=== PATIENT | female | born 1985 | race Caucasian/White ===

== ENCOUNTER 2016-03-15 21:37 | Emergency (ER) | payer OTHER, SELFPAY ==
[2016-03-15] MEDS ORDERED: Phenergan 25 MG INJ IM ONE (22:22)
[2016-03-15] MEDS ORDERED: DILAUDID 1 MG/ML INJECTION IV ONE ×2 (22:22→23:16)
[2016-03-15] MEDS ORDERED: Pepcid 20 MG VIAL IV ONE ×2 (22:22→22:28)
--- NOTE | 2016-03-15 22:27 | ERPHSYRPT ---
- History of Present Illness Time Seen by Provider: 03/15/16 22:18 Historian: patient Patient Subjective Stated Complaint: Pt sts abd pain x 3 days with vomiting, sts vomited 4-5 times today. Sts diarrhea x 2 today. Sts pain is in rt upper abd and radiates between shoulder blades. Has hx of pancreas problems. Sts pain is 9/10. Pt sts she took phenergan at home, did not take pts pain medications at home due to vomiting. Sts abd feels bloated. Triage Nursing Assessment: Pt alert, oriented, answers all questions appropriately. Skin p/w/d, resps non-labored. Pt ambulatory to tx room, steady gait noted. Pt lungs CTA bilat, non-labored. ABD soft, tender rt upper/lower quadrants. + bowel sounds noted. Physician History: CC: abd pain hx: 30 y/o patient of Dr Anders Garcia at [facility]. She has hx of chronic pancreatitis. She is scheduled for ERCP later this month. She takes chronic percocet for pain. She has 3 days of increased abdominal pain. Some nausea. No fever. Always has chills. Pain is in upper abdomen and radiates around right back. Allergies/Adverse Reactions: codeine [Codeine] Allergy (Verified 03/15/16 22:00) Hives HIVES droperidol [Droperidol] Allergy (Verified 03/15/16 22:00) Hives HIVES duloxetine HCl [From Cymbalta] Allergy (Verified 03/15/16 22:00) SEIZURE SEIZURE ibuprofen Allergy (Verified 03/15/16 22:00) Hives HIVES ketorolac tromethamine [From Toradol] Allergy (Verified 03/15/16 22:00) Hives HIVES naproxen sodium [From Aleve] Allergy (Verified 03/15/16 22:00) Hives HIVES prochlorperazine edisylate [From Compazine] Allergy (Verified 03/15/16 22:00) LOCK JAW LOCK JAW prochlorperazine maleate [From Compazine] Allergy (Verified 03/15/16 22:00) LOCK JAW LOCK JAW morphine Adverse Reaction (Verified 03/15/16 22:00) Itching ITCH trazodone Adverse Reaction (Verified 03/15/16 22:00) Vomiting VOMITING Home Medications: Lipase/Protease/Amylase [Annita Carrillo 12,000 Units Capsule] 3 each PO TID 08/26/13 [ History] Oxycodone HCl/Acetaminophen [Percocet 10-325 mg Tablet] 1 each PO QIDPRN PRN [History] Promethazine HCl 25 mg [Phenergan 25 mg] 25 mg PO Q6H PRN 04/01/15 [ History] Hx Tetanus, Diphtheria Vaccination/Date Given: Yes (2008) Hx Influenza Vaccination/Date Given: No Hx Pneumococcal Vaccination/Date Given: No - Review of Systems Constitutional: Chills, Malaise, No Fever Respiratory: No Cough Cardiac: No Chest Pain Abdominal/Gastrointestinal: Abdominal Pain, Nausea, No Vomiting, No Diarrhea Genitourinary Symptoms: No Dysuria Musculoskeletal: Back Pain Skin: No Rash Neurological: No Headache All Other Systems: Reviewed and Negative - Past Medical History Pertinent Past Medical History: Yes Neurological History: Migraines ENT History: No Pertinent History Cardiac History: No Pertinent History Respiratory History: No Pertinent History Endocrine Medical History: Other Musculoskeletal History: Arthritis, Fractures GI Medical History: Pancreatitis History: No Pertinent History Psycho-Social History: No Pertinent History Female Reproductive Disorders: No Pertinent History Other Medical History: Pancreatitis - Past Surgical History Past Surgical History: Yes Neuro Surgical History: No Pertinent History Cardiac: No Pertinent History Respiratory: No Pertinent History Gastrointestinal: Cholecystectomy Genitourinary: Other Musculoskeletal: No Pertinent History Female Surgical History: No Pertinent History Other Surgical History: tonsillectomy. ERCPs-multiple - Social History Smoking Status: Current every day smoker How long have you smoked: 24 Exposure to second hand smoke: No Drug Use: none Patient Lives Alone: No - Female History Hx Last Menstrual Period: depo shot Hx Now: No - Nursing Vital Signs Nursing Vital Signs: Initial Vital Signs Temperature 97.6 F Temperature Source Oral Pulse Rate 80 Respiratory Rate 18 Blood Pressure 117/71 Pain Intensity 7 - Physical Exam General Appearance: alert, thin Eye Exam: PERRL/EOMI Ears, Nose, Throat Exam: normal ENT inspection, moist mucous membranes Neck Exam: normal inspection, non-tender, supple Respiratory Exam: normal breath sounds, lungs clear Cardiovascular Exam: regular rate/rhythm, No murmur Gastrointestinal/Abdomen Exam: soft, tenderness (epigastrum. No RLQ tenderness.) , No mass Back Exam: normal inspection, normal range of motion, No CVA tenderness Extremity Exam: normal inspection, normal range of motion Neurologic Exam: alert, oriented x 3, cooperative Skin Exam: warm, dry, No rash SpO2 Interpretation: normal SpO2: 98 Oxygen Delivery: Room Air - Course Nursing assessment & vital signs reviewed: Yes - Radiology Exams AAS X-ray Interpretation: Reviewed by me, Negative Ordered Tests: Active Orders 24 hr Category Date Time Status Clean Catch Urine Specimen STAT Care 03/15/16 22:22 Active IV Insertion STAT Care 03/15/16 22:22 Active NPO (ED) STAT Care 03/15/16 22:22 Active OBSTR/ACUTE ABDOMEN SERIES Stat Exams 03/15/16 22:22 Ordered CBC W DIFF Stat Lab 03/15/16 22:34 Completed CMP Stat Lab 03/15/16 22:34 Completed HCG QUALITATIVE,SERUM Stat Lab 03/15/16 22:34 Completed LIPASE Stat Lab 03/15/16 22:34 Completed Lactic Acid Urgent Lab 03/15/16 22:35 Completed UA W/ MICROSCOPIC Stat Lab 03/15/16 22:34 Completed Medication Summary Generic Name Dose Route Start Last Admin Trade Name Freq PRN Reason Stop Dose Admin Sodium Chloride 1,000 mls @ 999 mls/hr 03/15/16 23:16 03/15/16 23:23 Sodium Chloride 0.9% 1000 Ml IV 03/16/16 00:16 999 mls/hr .Q1H1M STA Administration Discontinued Medications Generic Name Dose Route Start Last Admin Trade Name Freq PRN Reason Stop Dose Admin Famotidine 20 mg 03/15/16 22:22 03/15/16 22:30 Pepcid 20 Mg Vial IV 03/15/16 22:23 20 mg STAT ONE Administration Famotidine Confirm 03/15/16 22:28 Pepcid 20 Mg Vial Administered 03/15/16 22:29 Dose 20 mg IV .STK-MED ONE Hydromorphone HCl 1 mg 03/15/16 22:22 03/15/16 22:31 Dilaudid 1 Mg/Ml Injection IV 03/15/16 22:23 1 mg STAT ONE Administration Hydromorphone HCl Confirm 03/15/16 22:28 Dilaudid 1 Mg/Ml Injection Administered 03/15/16 22:29 Dose 1 mg .ROUTE .STK-MED ONE Hydromorphone HCl 1 mg 03/15/16 23:16 03/15/16 23:22 Dilaudid 1 Mg/Ml Injection IV 03/15/16 23:17 1 mg STAT ONE Administration Hydromorphone HCl Confirm 03/15/16 23:20 Dilaudid 1 Mg/Ml Injection Administered 03/15/16 23:21 Dose 1 mg .ROUTE .STK-MED ONE Sodium Chloride 1,000 mls @ 999 mls/hr 03/15/16 22:22 03/15/16 23:22 Sodium Chloride 0.9% 1000 Ml IV 03/15/16 23:22 Not Given .Q1H1M STA Sodium Chloride Confirm 03/15/16 22:28 Sodium Chloride 0.9% 1000 Ml Administered 03/15/16 22:29 Dose 1,000 mls @ ud .ROUTE .STK-MED ONE Sodium Chloride Confirm 03/15/16 23:20 Sodium Chloride 0.9% 1000 Ml Administered 03/15/16 23:21 Dose 1,000 mls @ ud .ROUTE .STK-MED ONE Promethazine HCl 25 mg 03/15/16 22:22 03/15/16 22:31 Phenergan 25 Mg Inj IM 03/15/16 22:23 25 mg STAT ONE Administration Promethazine HCl Confirm 03/15/16 22:28 Phenergan 25 Mg Inj Administered 03/15/16 22:29 Dose 25 mg .ROUTE .STK-MED ONE Lab/Rad Data: Laboratory Result Diagrams 03/15/16 22:34 03/15/16 22:34 Laboratory Results 03/15/16 03/15/16 03/15/16 Range/Units 22:35 22:34 22:34 WBC (4.0-10.5) K/mm3 RBC (4.1-5.4) M/mm3 Hgb (12.0-16.0) gm/dl Hct (35-47) % MCV (78-100) fl MCH (26-32) pg MCHC (32-36) g/dl RDW (11.5-14.0) % Plt Count (150-450) K/mm3 MPV (6-9.5) fl Gran % (36.0-66.0) % Lymphocytes % (24.0-44.0) % Monocytes % (0.0-12.0) % Eosinophils % (0.00-5.0) % Basophils % (0.0-0.4) % Basophils # (0-0.4) Sodium 138 (136-145) mEq/L Potassium 3.9 (3.5-5.1) mEq/L Chloride 104 (98-107) mEq/L Carbon Dioxide 24.2 (21-32) mEq/L Anion Gap 13.6 (5-15) MEQ/L BUN 26 H (9-20) mg/dL Creatinine 0.88 (0.55-1.30) mg/dl Estimated GFR > 60 ML/MIN Glucose 94 (70-110) MG/DL Lactic Acid 0.6 (0.4-2.0) Calcium 8.8 (8.5-10.1) mg/dL Total Bilirubin 0.3 (0.2-1.0) mg/dL AST 17 (15-37) U/L ALT 34 (12-78) U/L Alkaline Phosphatase 51 (46-116) U/L Serum Total Protein 7.2 (6.4-8.2) gm/dL Albumin 4.1 (3.4-5.0) g/dL Lipase 428 H (73-393) U/L Serum , Qual NEGATIVE (Negative) Ur Collection Type Urine Color (YELLOW) Urine Appearance (CLEAR) Urine pH (5-6) Ur Specific [place] (1.005-1.025) Urine Protein (Negative) Urine Glucose (UA) (NEGATIVE) mg/dL Urine Ketones (NEGATIVE) Urine Nitrite (NEGATIVE) Urine Bilirubin (NEGATIVE) Urine Urobilinogen (0-1) mg/dL Urine WBC (Auto) (NEGATIVE) Urine RBC (Auto) (0-5) Gary/ul Urine Microscopic WBC (0-5) /HPF Ur Epithelial Cells (FEW) /HPF Urine Bacteria (NEGATIVE) /HPF Specimen Received 03/15/16 03/15/16 Range/Units 22:34 22:34 WBC 9.3 (4.0-10.5) K/mm3 RBC 4.41 (4.1-5.4) M/mm3 Hgb 13.7 (12.0-16.0) gm/dl Hct 41.0 (35-47) % MCV 93.0 (78-100) fl MCH 31.1 (26-32) pg MCHC 33.4 (32-36) g/dl RDW 12.7 (11.5-14.0) % Plt Count 276 (150-450) K/mm3 MPV 10.6 H (6-9.5) fl Gran % 56.6 (36.0-66.0) % Lymphocytes % 27.9 (24.0-44.0) % Monocytes % 8.2 (0.0-12.0) % Eosinophils % 7.0 H (0.00-5.0) % Basophils % 0.3 (0.0-0.4) % Basophils # 0.03 (0-0.4) Sodium (136-145) mEq/L Potassium (3.5-5.1) mEq/L Chloride (98-107) mEq/L Carbon Dioxide (21-32) mEq/L Anion Gap (5-15) MEQ/L BUN (9-20) mg/dL Creatinine (0.55-1.30) mg/dl Estimated GFR ML/MIN Glucose (70-110) MG/DL Lactic Acid (0.4-2.0) Calcium (8.5-10.1) mg/dL Total Bilirubin (0.2-1.0) mg/dL AST (15-37) U/L ALT (12-78) U/L Alkaline Phosphatase (46-116) U/L Serum Total Protein (6.4-8.2) gm/dL Albumin (3.4-5.0) g/dL Lipase (73-393) U/L Serum , Qual (Negative) Ur Collection Type CLEAN CATCH Urine Color YELLOW (YELLOW) Urine Appearance CLEAR (CLEAR) Urine pH 6.0 (5-6) Ur Specific [place] 1.025 (1.005-1.025) Urine Protein NEGATIVE (Negative) Urine Glucose (UA) NEGATIVE (NEGATIVE) mg/dL Urine Ketones NEGATIVE (NEGATIVE) Urine Nitrite NEGATIVE (NEGATIVE) Urine Bilirubin NEGATIVE (NEGATIVE) Urine Urobilinogen 0.2 (0-1) mg/dL Urine WBC (Auto) TRACE (NEGATIVE) Urine RBC (Auto) NEGATIVE (0-5) Gary/ul Urine Microscopic WBC 0-2 (0-5) /HPF Ur Epithelial Cells FEW (FEW) /HPF Urine Bacteria FEW (NEGATIVE) /HPF Specimen Received [id number] - Progress Progress Note: 03/15/16 23:32 She has exacerbation of her chronic pancreatitis. She was medicated and given IVF bolus. She will follow up with Dr Martin. Instr given. Counseled pt/family regarding: lab results, diagnosis, need for follow-up, rad results - Departure Time of Disposition: 23:32 Departure Disposition: Home Clinical Impression: exacerbation of chronic abdominal pain Chronic pancreatitis Qualifiers: Pancreatitis type: unspecified pancreatitis type Qualified Code(s): K86.1 - Other chronic pancreatitis Condition: Fair Critical Care Time: No Referrals: ANDERS MARTIN [Primary Care Provider] - Instructions: Abdominal Pain-Adult, Pancreatitis Additional Instructions: [place] diet. No driving tonite and stay with family. Call Dr Martin tomorrow for follow up.
[2016-03-15] MEDS ORDERED: Phenergan 25 MG INJ ONE (22:28)
[2016-03-15] MEDS ORDERED: DILAUDID 1 MG/ML INJECTION ONE ×2 (22:28→23:20)
[2016-03-15] MEDS ORDERED: Sodium Chloride 0.9% 1000 ML 1,000 ML ONE ×2 (22:28→23:20)
[2016-03-15] MEDS: Sodium Chloride 0.9% 1000 ML 1,000 ML IV STA ×2 (22:30→23:22)
[2016-03-15 22:39] LABS: BASOPHIL % 0.3 % (0.0-0.4); Granulocytes % 56.6 % (36.0-66.0); Lymphocytes % 27.9 % (24.0-44.0); Mean Corpuscular Hemoglobin 31.1 pg (26-32); Mean Platelet Volume 10.6 fl (6-9.5); Monocytes % 8.2 % (0.0-12.0); Platelet Count 276 K/mm3 (150-450); Red Blood Count 4.41 M/mm3 (4.1-5.4); Red Cell Distribution Width 12.7 % (11.5-14.0); White Blood Count 9.3 K/mm3 (4.0-10.5)
[2016-03-15 22:52] LABS: Collection Type CLEAN CATCH
[2016-03-15 22:53] LABS: Bacteria FEW /HPF (NEGATIVE); COMPLETE URINE MICROSCOPIC? YES; Epithelial Cells FEW /HPF (FEW); WBC 0-2 /HPF (0-5)
[2016-03-15 22:57] LABS: ALBUMIN 4.1 g/dL (3.4-5.0); ALKALINE PHOSPHATASE 51 U/L (46-116); ANION GAP 13.6 MEQ/L (5-15); BILIRUBIN,TOTAL 0.3 mg/dL (0.2-1.0); BLOOD UREA NITROGEN 26 mg/dL (9-20); CHLORIDE 104 mEq/L (98-107); Carbon Dioxide 24.2 mEq/L (21-32); Glucose 94 MG/DL (70-110); LIPASE 428 U/L (73-393); Potassium 3.9 mEq/L (3.5-5.1); SGOT/AST 17 U/L (15-37); SGPT/ALT 34 U/L (12-78); SODIUM 138 mEq/L (136-145); Total Protein 7.2 gm/dL (6.4-8.2)
[2016-03-15] MEDS ORDERED: Sodium Chloride 0.9% 1000 ML 1,000 ML IV STA (23:16)
[2016-03-16 00:23] VITALS: BP 112/76; PULSE 87; O2SAT 96
--- NOTE | 2016-03-16 08:43 | XRAY ---
Indication: Upper abdominal pain, nausea, and vomiting. History of pancreatitis. Comparison: April 01, 2015 2 views of the abdomen again nonacute and nonobstructed with right renal micro-calculi and previous cholecystectomy. Remaining solid organs and osseous structures unremarkable. Single frontal chest again demonstrates normal heart, lungs, and bony thorax. Impression: Stable nonacute abdomen and normal 1 view chest.
== END 2016-03-16 00:24 | disposition home or self-care (01) ==
LOC: ED 21:37
DX: K86.1 Other chronic pancreatitis (principal); R10.9 Unspecified abdominal pain; Z79.899 Other long term (current) drug therapy
CPT/HCPCS: 36000; 36415; 74022; 80053; 81000; 83605; 83690; 84703; 85025; 96360; 96361; 96372; 96374; 96375; 96376; 99283; J1170; J2550

== ENCOUNTER 2016-03-20 03:20 | Emergency (ER) | payer OTHER, SELFPAY ==
[2016-03-20] MEDS ORDERED: Zofran 4 MG/2 ML VIAL IV ONE (03:33)
[2016-03-20] MEDS ORDERED: Sodium Chloride 0.9% 1000 ML 1,000 ML IV STA (03:33)
[2016-03-20] MEDS ORDERED: SUBLIMAZE 100 MCG/2 ML IV ONE (03:33)
[2016-03-20] MEDS ORDERED: Zyprexa Zydis 5 MG PO ONE ×4 (03:34→05:16)
[2016-03-20] MEDS ORDERED: Zofran 4 MG/2 ML VIAL ONE (03:38)
[2016-03-20] MEDS ORDERED: SUBLIMAZE 100 MCG/2 ML ONE (03:39)
[2016-03-20] MEDS ORDERED: Sodium Chloride 0.9% 1000 ML 1,000 ML ONE (03:39)
--- NOTE | 2016-03-20 03:43 | ERPHSYRPT ---
- History of Present Illness Time Seen by Provider: 03/20/16 03:23 Historian: patient Patient Subjective Stated Complaint: pt was awakened out of sleep with a sharp right upper abd pain that radiates to right shoulder and back -she was uanble to take pain meds because of vomiting several times -the pain is worse with deep breath and she is unable to lay flat Triage Nursing Assessment: pt is awake and alert and able to aanswer questions she is moaning with pain Physician History: CC: abd pain hx: 30 y/o patient of GI Dr Gibson. She has hx of chronic pancreatitis and has recent increased pain. She awoke bolt upright in bed tonite with severe epigastric and RUQ abd pain which radiates to her right shoulder. It has never radiated to shoulder before. She had vomiting. She came to ER for the pain. Last visit was one week ago. She is scheduled for ERCP. She had prior cholecystectomy. Timing/Duration: today Abdominal Pain Onset Location: RUQ, epigastric Pain Radiation: shoulder (right) Severity of Pain-Max: severe Severity of Pain-Current: severe Allergies/Adverse Reactions: codeine [Codeine] Allergy (Verified 03/15/16 22:00) Hives HIVES droperidol [Droperidol] Allergy (Verified 03/15/16 22:00) Hives HIVES duloxetine HCl [From Cymbalta] Allergy (Verified 03/15/16 22:00) SEIZURE SEIZURE ibuprofen Allergy (Verified 03/15/16 22:00) Hives HIVES ketorolac tromethamine [From Toradol] Allergy (Verified 03/15/16 22:00) Hives HIVES naproxen sodium [From Aleve] Allergy (Verified 03/15/16 22:00) Hives HIVES prochlorperazine edisylate [From Compazine] Allergy (Verified 03/15/16 22:00) LOCK JAW LOCK JAW prochlorperazine maleate [From Compazine] Allergy (Verified 03/15/16 22:00) LOCK JAW LOCK JAW morphine Adverse Reaction (Verified 03/15/16 22:00) Itching ITCH trazodone Adverse Reaction (Verified 03/15/16 22:00) Vomiting VOMITING Home Medications: Lipase/Protease/Amylase [Annita Carrillo 12,000 Units Capsule] 3 each PO TID 08/26/13 [ History] Oxycodone HCl/Acetaminophen [Percocet 10-325 mg Tablet] 1 each PO QIDPRN PRN [History] Promethazine HCl 25 mg [Phenergan 25 mg] 25 mg PO Q6H PRN 04/01/15 [ History] Hx Tetanus, Diphtheria Vaccination/Date Given: Yes (2008) Hx Influenza Vaccination/Date Given: No Hx Pneumococcal Vaccination/Date Given: No - Review of Systems Constitutional: No Fever, No Chills Eyes: No Symptoms Ears, Nose, & Throat: No Symptoms Respiratory: No Cough, No Dyspnea Cardiac: No Chest Pain Abdominal/Gastrointestinal: Abdominal Pain, Nausea, Vomiting Genitourinary Symptoms: No Dysuria Musculoskeletal: Back Pain Skin: No Rash Neurological: No Headache All Other Systems: Reviewed and Negative - Past Medical History Pertinent Past Medical History: Yes Neurological History: Migraines ENT History: No Pertinent History Cardiac History: No Pertinent History Respiratory History: No Pertinent History Endocrine Medical History: Other Musculoskeletal History: Arthritis, Fractures GI Medical History: Pancreatitis History: No Pertinent History Psycho-Social History: No Pertinent History Female Reproductive Disorders: No Pertinent History Other Medical History: Pancreatitis - Past Surgical History Past Surgical History: Yes Neuro Surgical History: No Pertinent History Cardiac: No Pertinent History Respiratory: No Pertinent History Gastrointestinal: Cholecystectomy Genitourinary: Other Musculoskeletal: No Pertinent History Female Surgical History: No Pertinent History Other Surgical History: tonsillectomy. ERCPs-multiple - Social History Smoking Status: Current every day smoker How long have you smoked: 24 Exposure to second hand smoke: No Drug Use: none Patient Lives Alone: No - Female History Hx Last Menstrual Period: 2 yrs Hx Now: No - Nursing Vital Signs Nursing Vital Signs: Initial Vital Signs Temperature 98.6 F Temperature Source Oral Pulse Rate 80 Respiratory Rate 16 Blood Pressure 120/78 Pain Intensity 8 - Physical Exam General Appearance: alert, thin Eye Exam: PERRL/EOMI, No scleral icterus Ears, Nose, Throat Exam: normal ENT inspection, moist mucous membranes Neck Exam: normal inspection, non-tender, supple Respiratory Exam: normal breath sounds, lungs clear, other (tachypneic presumably from the pain and anxiety), No respiratory distress Cardiovascular Exam: regular rate/rhythm, No murmur Gastrointestinal/Abdomen Exam: soft, tenderness, guarding Back Exam: normal inspection, CVA tenderness (right) Extremity Exam: normal inspection, normal range of motion Neurologic Exam: alert, oriented x 3, cooperative Skin Exam: warm, dry, No rash - Course Nursing assessment & vital signs reviewed: Yes - CT Exams abd/pevlis CT Interpretation: Negative, Tele-radiologist Report Ordered Tests: Active Orders 24 hr Category Date Time Status Clean Catch Urine Specimen STAT Care 03/20/16 03:33 Active IV Insertion STAT Care 03/20/16 03:33 Active NPO (ED) STAT Care 03/20/16 03:33 Active ABDOMEN AND PELVIS W CONTRAST [CT] Stat Exams 03/20/16 03:33 Taken CHEST 2 VIEWS (PA AND LAT) Stat Exams 03/20/16 03:33 Taken CBC W DIFF Stat Lab 03/20/16 03:45 Completed CMP Stat Lab 03/20/16 03:45 Completed HCG QUALITATIVE,SERUM Stat Lab 03/20/16 03:45 Completed LIPASE Stat Lab 03/20/16 03:45 Completed Lactic Acid Urgent Lab 03/20/16 03:33 Completed UA Stat Lab 03/20/16 04:00 Completed Medication Summary Generic Name Dose Route Start Last Admin Trade Name Freq PRN Reason Stop Dose Admin Lactated Ringer's 1,000 mls @ 999 mls/hr 03/20/16 05:12 03/20/16 05:18 Lactated Ringers IV 03/20/16 06:12 999 mls/hr .Q1H1M ONE Administration Discontinued Medications Generic Name Dose Route Start Last Admin Trade Name Freq PRN Reason Stop Dose Admin Fentanyl Citrate 50 mcg 03/20/16 03:33 03/20/16 04:19 Sublimaze 100 Mcg/2 Ml IV 03/20/16 03:34 Not Given STAT ONE Fentanyl Citrate Confirm 03/20/16 03:39 Sublimaze 100 Mcg/2 Ml Administered 03/20/16 03:40 Dose 100 mcg .ROUTE .STK-MED ONE Hydromorphone HCl 1 mg 03/20/16 03:50 03/20/16 03:52 Dilaudid 1 Mg/Ml Injection IV 03/20/16 03:51 1 mg STAT ONE Administration Hydromorphone HCl Confirm 03/20/16 03:51 Dilaudid 1 Mg/Ml Injection Administered 03/20/16 03:52 Dose 1 mg .ROUTE .STK-MED ONE Hydromorphone HCl 1 mg 03/20/16 05:13 03/20/16 05:18 Dilaudid 1 Mg/Ml Injection IV 03/20/16 05:14 1 mg STAT ONE Administration Hydromorphone HCl Confirm 03/20/16 05:14 Dilaudid 1 Mg/Ml Injection Administered 03/20/16 05:15 Dose 1 mg .ROUTE .STK-MED ONE Sodium Chloride 1,000 mls @ 999 mls/hr 03/20/16 03:33 03/20/16 03:52 Sodium Chloride 0.9% 1000 Ml IV 03/20/16 04:33 999 mls/hr .Q1H1M STA Administration Sodium Chloride Confirm 03/20/16 03:39 Sodium Chloride 0.9% 1000 Ml Administered 03/20/16 03:40 Dose 1,000 mls @ ud .ROUTE .STK-MED ONE Lactated Ringer's Confirm 03/20/16 05:15 Lactated Ringers Administered 03/20/16 05:16 Dose 1,000 mls @ ud IV .STK-MED ONE Olanzapine 5 mg 03/20/16 03:34 03/20/16 03:52 Zyprexa Zydis 5 Mg PO 03/20/16 03:35 5 mg STAT ONE Administration Olanzapine Confirm 03/20/16 03:38 Zyprexa Zydis 5 Mg Administered 03/20/16 03:39 Dose 5 mg PO .STK-MED ONE Olanzapine 5 mg 03/20/16 05:13 03/20/16 05:18 Zyprexa Zydis 5 Mg PO 03/20/16 05:14 5 mg STAT ONE Administration Olanzapine Confirm 03/20/16 05:16 Zyprexa Zydis 5 Mg Administered 03/20/16 05:17 Dose 5 mg PO .STK-MED ONE Ondansetron HCl 4 mg 03/20/16 03:33 03/20/16 03:52 Zofran 4 Mg/2 Ml Vial IV 03/20/16 03:34 4 mg STAT ONE Administration Ondansetron HCl Confirm 03/20/16 03:38 Zofran 4 Mg/2 Ml Vial Administered 03/20/16 03:39 Dose 4 mg .ROUTE .STK-MED ONE Lab/Rad Data: Laboratory Result Diagrams 03/20/16 03:45 03/20/16 03:45 Laboratory Results 03/20/16 03/20/16 03/20/16 Range/Units 04:00 03:45 03:45 WBC (4.0-10.5) K/mm3 RBC (4.1-5.4) M/mm3 Hgb (12.0-16.0) gm/dl Hct (35-47) % MCV (78-100) fl MCH (26-32) pg MCHC (32-36) g/dl RDW (11.5-14.0) % Plt Count (150-450) K/mm3 MPV (6-9.5) fl Gran % (36.0-66.0) % Lymphocytes % (24.0-44.0) % Monocytes % (0.0-12.0) % Eosinophils % (0.00-5.0) % Basophils % (0.0-0.4) % Basophils # (0-0.4) Sodium 143 (136-145) mEq/L Potassium 3.8 (3.5-5.1) mEq/L Chloride 107 (98-107) mEq/L Carbon Dioxide 23.3 (21-32) mEq/L Anion Gap 16.1 H (5-15) MEQ/L BUN 23 H (9-20) mg/dL Creatinine 0.76 (0.55-1.30) mg/dl Estimated GFR > 60 ML/MIN Glucose 88 (70-110) MG/DL Lactic Acid (0.4-2.0) Calcium 8.8 (8.5-10.1) mg/dL Total Bilirubin 0.4 (0.2-1.0) mg/dL AST 20 (15-37) U/L ALT 45 (12-78) U/L Alkaline Phosphatase 57 (46-116) U/L Serum Total Protein 7.4 (6.4-8.2) gm/dL Albumin 4.3 (3.4-5.0) g/dL Lipase 397 H (73-393) U/L Serum , Qual NEGATIVE (Negative) Ur Collection Type CLEAN CATCH Urine Color YELLOW (YELLOW) Urine Appearance CLEAR (CLEAR) Urine pH 6.5 (5-6) Ur Specific [place] >=1.030 (1.005-1.025) Urine Protein NEGATIVE (Negative) Urine Glucose (UA) NEGATIVE (NEGATIVE) mg/dL Urine Ketones NEGATIVE (NEGATIVE) Urine Nitrite NEGATIVE (NEGATIVE) Urine Bilirubin NEGATIVE (NEGATIVE) Urine Urobilinogen 0.2 (0-1) mg/dL Urine WBC (Auto) NEGATIVE (NEGATIVE) Urine RBC (Auto) NEGATIVE (0-5) Gary/ul Specimen Received 03/20/16:0400 03/20/16 03/20/16 Range/Units 03:45 03:33 WBC 8.2 (4.0-10.5) K/mm3 RBC 4.45 (4.1-5.4) M/mm3 Hgb 14.1 (12.0-16.0) gm/dl Hct 41.7 (35-47) % MCV 93.7 (78-100) fl MCH 31.7 (26-32) pg MCHC 33.8 (32-36) g/dl RDW 12.9 (11.5-14.0) % Plt Count 297 (150-450) K/mm3 MPV 10.4 H (6-9.5) fl Gran % 39.4 (36.0-66.0) % Lymphocytes % 49.4 H (24.0-44.0) % Monocytes % 7.7 (0.0-12.0) % Eosinophils % 3.0 (0.00-5.0) % Basophils % 0.5 (0.0-0.4) % Basophils # 0.04 (0-0.4) Sodium (136-145) mEq/L Potassium (3.5-5.1) mEq/L Chloride (98-107) mEq/L Carbon Dioxide (21-32) mEq/L Anion Gap (5-15) MEQ/L BUN (9-20) mg/dL Creatinine (0.55-1.30) mg/dl Estimated GFR ML/MIN Glucose (70-110) MG/DL Lactic Acid 0.9 (0.4-2.0) Calcium (8.5-10.1) mg/dL Total Bilirubin (0.2-1.0) mg/dL AST (15-37) U/L ALT (12-78) U/L Alkaline Phosphatase (46-116) U/L Serum Total Protein (6.4-8.2) gm/dL Albumin (3.4-5.0) g/dL Lipase (73-393) U/L Serum , Qual (Negative) Ur Collection Type Urine Color (YELLOW) Urine Appearance (CLEAR) Urine pH (5-6) Ur Specific [place] (1.005-1.025) Urine Protein (Negative) Urine Glucose (UA) (NEGATIVE) mg/dL Urine Ketones (NEGATIVE) Urine Nitrite (NEGATIVE) Urine Bilirubin (NEGATIVE) Urine Urobilinogen (0-1) mg/dL Urine WBC (Auto) (NEGATIVE) Urine RBC (Auto) (0-5) Gary/ul Specimen Received - Progress Progress Note: 03/20/16 03:42 Pt states the abd pain is different and she wants CT scan. She was apprised of radiation risks. 03/20/16 05:22 The patient was medicated with IVF, dilaudid, zydis. She is on phone/text/ facebook. Will release with instr to follow up with Dr Gibson. Counseled pt/family regarding: lab results, diagnosis, need for follow-up, rad results - Departure Time of Disposition: 05:23 Departure Disposition: Home Clinical Impression: History of chronic pancreatitis, Acute generalized abdominal pain Condition: Stable Critical Care Time: No Referrals: MARCOS GIBSON [Primary Care Provider] - Instructions: Abdominal Pain-Adult Additional Instructions: ABDOMINAL PAIN 1. There are several different causes for abdominal pain, some of which may not be able to be identified on initial examination. 2. The important thing to remember is that bodily functions can change in a short period of time. If you notice any of the following symptoms, return to the emergency department or consult your doctor immediately: A. Worsening pain or no improvement in the next 12 hours. B. Increasing, severe abdominal pain C. Blood in stool D. Black stools E. Persistent vomiting F. Fever or chills or other symptoms No driving today. Followup with Dr Gibson. [place] diet.
[2016-03-20] MEDS ORDERED: DILAUDID 1 MG/ML INJECTION IV ONE ×2 (03:50→05:13)
[2016-03-20 03:51] LABS: BASOPHIL % 0.5 % (0.0-0.4); Granulocytes % 39.4 % (36.0-66.0); Lymphocytes % 49.4 % (24.0-44.0); Mean Cell Volume 93.7 fl (78-100); Mean Corpuscular Hemoglobin 31.7 pg (26-32); Mean Platelet Volume 10.4 fl (6-9.5); Monocytes % 7.7 % (0.0-12.0); Platelet Count 297 K/mm3 (150-450); Red Blood Count 4.45 M/mm3 (4.1-5.4); Red Cell Distribution Width 12.9 % (11.5-14.0); White Blood Count 8.2 K/mm3 (4.0-10.5)
[2016-03-20] MEDS ORDERED: DILAUDID 1 MG/ML INJECTION ONE ×2 (03:51→05:14)
[2016-03-20 04:10] LABS: ALBUMIN 4.3 g/dL (3.4-5.0); ALKALINE PHOSPHATASE 57 U/L (46-116); ANION GAP 16.1 MEQ/L (5-15); BILIRUBIN,TOTAL 0.4 mg/dL (0.2-1.0); BLOOD UREA NITROGEN 23 mg/dL (9-20); CHLORIDE 107 mEq/L (98-107); Carbon Dioxide 23.3 mEq/L (21-32); Glucose 88 MG/DL (70-110); LIPASE 397 U/L (73-393); Potassium 3.8 mEq/L (3.5-5.1); SGOT/AST 20 U/L (15-37); SGPT/ALT 45 U/L (12-78); SODIUM 143 mEq/L (136-145); Total Protein 7.4 gm/dL (6.4-8.2)
[2016-03-20 04:14] LABS: Collection Type CLEAN CATCH
[2016-03-20 04:20] LABS: COMPLETE URINE MICROSCOPIC? NO; Ph 6.5 (5-6)
[2016-03-20 04:23] VITALS: PULSE 80; O2SAT 98
[2016-03-20 04:43] VITALS: BP 120/78
[2016-03-20] MEDS ORDERED: Lactated Ringers 1,000 ML IV ONE ×2 (05:12→05:15)
--- NOTE | 2016-03-20 09:17 | XRAY ---
Indication: Right upper quadrant pain and emesis. History of pancreatitis. Multiple contiguous axial images obtained through the abdomen and pelvis using 80 cc of Isovue-370 contrast. Comparison: Noncontrast exam of February 23, 2015. Lung bases are clear. Heart is not enlarged. Noncontrasted stomach and bowel loops appear nonobstructed. Again mild scattered colonic fecal debris throughout. No free fluid/air. Stable nonobstructing right renal micro-calculi and previous cholecystectomy. Remaining liver, pancreas, spleen, adrenal glands, kidneys, ureters, bladder, uterus, and aorta appear unremarkable. No pathologic retroperitoneal lymphadenopathy. Osseous structures intact. Impression: 1. Again fecal stasis without obstruction. 2. Stable nonobstructing right renal micro-calculi. 3. No new/acute intra-abdominal/pelvic abnormalities. Comment: Preliminary interpretation was made by [facility]. No discrepancy. CTDI is 9.54
--- NOTE | 2016-03-20 09:19 | XRAY ---
Indication: Abdominal pain. History of pancreatitis. Comparison: March 15, 2016 PA/lateral chest again demonstrates normal heart, lungs, and bony thorax.
== END 2016-03-20 06:25 | disposition home or self-care (01) ==
LOC: ED 03:20
DX: R10.84 Generalized abdominal pain (principal); K86.1 Other chronic pancreatitis; R11.2 Nausea with vomiting, unspecified
CPT/HCPCS: 36000; 36415; 71020; 74177; 80053; 81002; 83605; 83690; 84703; 85025; 96360; 96361; 96365; 96374; 96375; 96376; 99284; J1170; J2405; J3010

== ENCOUNTER 2016-04-12 17:28 | Emergency (ER) | payer OTHER, SELFPAY ==
[2016-04-12] MEDS ORDERED: Sodium Chloride 0.9% 1000 ML 1,000 ML IV STA (17:51)
[2016-04-12] MEDS ORDERED: Zofran 4 MG/2 ML VIAL IV ONE (17:51)
[2016-04-12] MEDS ORDERED: PROTONIX 40 MG IV IV ONE ×2 (17:51→18:12)
--- NOTE | 2016-04-12 17:56 | ERPHSYRPT ---
- History of Present Illness Time Seen by Provider: 04/12/16 17:45 Historian: patient Exam Limitations: clinical condition Patient Subjective Stated Complaint: co abd pain for a week which is chronic for pt, vomiting since last night,vomited x8 today, Triage Nursing Assessment: pt alert adn in no distress, resp easy,skin w/d . lasrt bm this am normal for pt, abd soft and tender to touch Physician History: PATIENT WITH LONGSTANDING HISTORY OF CHRONIC PANCREATITIS, WITH HER 3RD EMERGENCY ROOM VISIT IN 3 WEEKS FOR ABDOMINAL PAIN WITH VOMITING. HAS BEEN UNABLE TO KEEP HER MEDICATION DOWN IN 4 DAYS. HAS HAD EMESIS X 8 EPISODES SINCE LAST NIGHT. HAS SEVERE EPIGASTRIC PAIN RADIATES TO HER BACK. DENIES FEVER, DIARRHEA. Timing/Duration: day(s) Activities at Onset: none Quality: sharpness Abdominal Pain Onset Location: epigastric Pain Radiation: back Severity of Pain-Max: severe Severity of Pain-Current: severe Modifying Factors: Improves With: vomiting Associated Symptoms: nausea, vomiting Previous symptoms: same symptoms as today Allergies/Adverse Reactions: codeine [Codeine] Allergy (Verified 04/12/16 17:41) Hives HIVES droperidol [Droperidol] Allergy (Verified 04/12/16 17:41) Hives HIVES duloxetine HCl [From Cymbalta] Allergy (Verified 04/12/16 17:41) SEIZURE SEIZURE ibuprofen Allergy (Verified 04/12/16 17:41) Hives HIVES ketorolac tromethamine [From Toradol] Allergy (Verified 04/12/16 17:41) Hives HIVES naproxen sodium [From Aleve] Allergy (Verified 04/12/16 17:41) Hives HIVES prochlorperazine edisylate [From Compazine] Allergy (Verified 04/12/16 17:41) LOCK JAW LOCK JAW prochlorperazine maleate [From Compazine] Allergy (Verified 04/12/16 17:41) LOCK JAW LOCK JAW morphine Adverse Reaction (Verified 04/12/16 17:41) Itching ITCH trazodone Adverse Reaction (Verified 04/12/16 17:41) Vomiting VOMITING Home Medications: Lipase/Protease/Amylase [Creon Dr 12,000 Units Capsule] 3 each PO TID 08/26/13 [ History] Oxycodone HCl/Acetaminophen [Percocet 10-325 mg Tablet] 1 each PO QIDPRN PRN [History] Promethazine HCl 25 mg [Phenergan 25 mg] 25 mg PO Q6H PRN 04/01/15 [ History] Oxycodone HCl [Oxycontin] 1 tab BID 03/20/16 [History] Hx Tetanus, Diphtheria Vaccination/Date Given: Yes (2008) Hx Influenza Vaccination/Date Given: No Hx Pneumococcal Vaccination/Date Given: No Immunizations Up to Date: Yes - Review of Systems Constitutional: No Fever, No Chills Eyes: No Symptoms Ears, Nose, & Throat: No Symptoms Respiratory: No Symptoms, No Cough, No Dyspnea Cardiac: No Chest Pain, No Edema, No Syncope Abdominal/Gastrointestinal: Abdominal Pain, Nausea, Vomiting, No Diarrhea Genitourinary Symptoms: No Dysuria Musculoskeletal: No Symptoms, No Back Pain, No Neck Pain Skin: No Symptoms, No Rash Neurological: No Dizziness, No Focal Weakness, No Sensory Changes Psychological: No Symptoms Endocrine: No Symptoms All Other Systems: Reviewed and Negative - Past Medical History Pertinent Past Medical History: Yes Neurological History: Migraines ENT History: No Pertinent History Cardiac History: No Pertinent History Respiratory History: No Pertinent History Endocrine Medical History: Other Musculoskeletal History: Arthritis, Fractures GI Medical History: Pancreatitis History: No Pertinent History Psycho-Social History: No Pertinent History Female Reproductive Disorders: No Pertinent History Other Medical History: Pancreatitis - Past Surgical History Past Surgical History: Yes Neuro Surgical History: No Pertinent History Cardiac: No Pertinent History Respiratory: No Pertinent History Gastrointestinal: Cholecystectomy Genitourinary: Other Musculoskeletal: No Pertinent History Female Surgical History: No Pertinent History Other Surgical History: tonsillectomy. ERCPs-multiple - Social History Smoking Status: Current every day smoker How long have you smoked: 24 Exposure to second hand smoke: Yes Drug Use: none Patient Lives Alone: No - Female History Hx Last Menstrual Period: unknown Hx Now: No - Nursing Vital Signs Nursing Vital Signs: Initial Vital Signs Temperature 98.8 F Temperature Source Oral Pulse Rate 72 Respiratory Rate 16 Blood Pressure [] 104/68 Pain Intensity 9 - Physical Exam General Appearance: mild distress Eye Exam: PERRL/EOMI, eyes nml inspection Ears, Nose, Throat Exam: normal ENT inspection, pharynx normal, moist mucous membranes Neck Exam: normal inspection, non-tender, supple, full range of motion Respiratory Exam: normal breath sounds, lungs clear, No respiratory distress Cardiovascular Exam: regular rate/rhythm, normal heart sounds Gastrointestinal/Abdomen Exam: soft, normal bowel sounds, tenderness ( EPIGASTRIC TENDERNESS), No mass Back Exam: normal inspection, normal range of motion, No CVA tenderness, No vertebral tenderness Extremity Exam: normal inspection, normal range of motion, pelvis stable Neurologic Exam: alert, oriented x 3, cooperative, normal mood/affect, nml cerebellar function, sensation nml, No motor deficits Skin Exam: normal color, warm, dry SpO2 Interpretation: normal SpO2: 98 Oxygen Delivery: Room Air - Radiology Exams Abdomen X-ray Interpretation: Interpreted by me, Negative (NO BOWEL OBSTRUCTION OR FREE AIR) Ordered Tests: Active Orders 24 hr Category Date Time Status IV Insertion STAT Care 04/12/16 17:51 Active OBSTR/ACUTE ABDOMEN SERIES Stat Exams 04/12/16 17:54 Taken AMYLASE Stat Lab 04/12/16 18:12 Completed CBC W DIFF Stat Lab 04/12/16 18:12 Completed CMP Stat Lab 04/12/16 18:12 Completed Ethyl Alcohol,Urine Stat Lab 04/12/16 17:56 Completed HCG,QUALITATIVE URINE Stat Lab 04/12/16 17:40 Completed LIPASE Stat Lab 04/12/16 18:12 Completed UA W/ MICROSCOPIC Stat Lab 04/12/16 17:54 Completed Urine Triage Profile Stat Lab 04/12/16 17:54 Completed Medication Summary Discontinued Medications Generic Name Dose Route Start Last Admin Trade Name Freq PRN Reason Stop Dose Admin Diphenhydramine HCl 25 mg 04/12/16 18:11 04/12/16 18:17 Benadryl 50 Mg/Ml IV 04/12/16 18:12 25 mg STAT ONE Administration Diphenhydramine HCl Confirm 04/12/16 18:16 Benadryl 50 Mg/Ml Administered 04/12/16 18:17 Dose 50 mg .ROUTE .STK-MED ONE Hydromorphone HCl 1 mg 04/12/16 18:12 04/12/16 18:26 Dilaudid 1 Mg/Ml Injection IV 04/12/16 18:13 Not Given STAT ONE Hydromorphone HCl Confirm 04/12/16 18:17 Dilaudid 1 Mg/Ml Injection Administered 04/12/16 18:18 Dose 1 mg .ROUTE .STK-MED ONE Sodium Chloride 1,000 mls @ 999 mls/hr 04/12/16 17:51 04/12/16 18:14 Sodium Chloride 0.9% 1000 Ml IV 04/12/16 18:51 999 mls/hr .Q1H1M STA Administration Sodium Chloride Confirm 04/12/16 18:12 Sodium Chloride 0.9% 1000 Ml Administered 04/12/16 18:13 Dose 1,000 mls @ ud .ROUTE .STK-MED ONE Ondansetron HCl 4 mg 04/12/16 17:51 04/12/16 18:14 Zofran 4 Mg/2 Ml Vial IV 04/12/16 17:52 4 mg STAT ONE Administration Ondansetron HCl Confirm 04/12/16 18:12 Zofran 4 Mg/2 Ml Vial Administered 04/12/16 18:13 Dose 4 mg .ROUTE .STK-MED ONE Pantoprazole Sodium 40 mg 04/12/16 17:51 04/12/16 18:14 Protonix 40 Mg Iv IV 04/12/16 17:52 40 mg STAT ONE Administration Pantoprazole Sodium Confirm 04/12/16 18:12 Protonix 40 Mg Iv Administered 04/12/16 18:13 Dose 40 mg IV .STK-MED ONE Lab/Rad Data: Laboratory Result Diagrams 04/12/16 18:12 04/12/16 18:12 Laboratory Results 04/12/16 04/12/16 04/12/16 Range/Units 18:12 18:12 17:56 WBC 6.3 (4.0-10.5) K/mm3 RBC 4.75 (4.1-5.4) M/mm3 Hgb 14.8 (12.0-16.0) gm/dl Hct 43.4 (35-47) % MCV 91.4 (78-100) fl MCH 31.2 (26-32) pg MCHC 34.1 (32-36) g/dl RDW 12.3 (11.5-14.0) % Plt Count 298 (150-450) K/mm3 MPV 10.5 H (6-9.5) fl Gran % 47.0 (36.0-66.0) % Lymphocytes % 45.7 H (24.0-44.0) % Monocytes % 5.4 (0.0-12.0) % Eosinophils % 1.3 (0.00-5.0) % Basophils % 0.6 (0.0-0.4) % Basophils # 0.04 (0-0.4) Sodium 141 (136-145) mEq/L Potassium 3.4 L (3.5-5.1) mEq/L Chloride 107 (98-107) mEq/L Carbon Dioxide 24.4 (21-32) mEq/L Anion Gap 13.2 (5-15) MEQ/L BUN 12 (9-20) mg/dL Creatinine 0.64 (0.55-1.30) mg/dl Estimated GFR > 60 ML/MIN Glucose 91 (70-110) MG/DL Calcium 8.9 (8.5-10.1) mg/dL Total Bilirubin 0.1 L (0.2-1.0) mg/dL AST 33 (15-37) U/L ALT 36 (12-78) U/L Alkaline Phosphatase 61 (46-116) U/L Serum Total Protein 7.7 (6.4-8.2) gm/dL Albumin 4.4 (3.4-5.0) g/dL Amylase 76 (25-115) U/L Lipase 322 (73-393) U/L Ur Collection Type Urine Color (YELLOW) Urine Appearance (CLEAR) Urine pH 6.0 (5-6) Ur Specific [place] (1.005-1.025) Urine Protein (Negative) Urine Glucose (UA) (NEGATIVE) mg/dL Urine Ketones (NEGATIVE) Urine Nitrite (NEGATIVE) Urine Bilirubin (NEGATIVE) Urine Urobilinogen (0-1) mg/dL Urine WBC (Auto) (NEGATIVE) Urine RBC (Auto) (0-5) Gary/ul Urine Microscopic RBC (0-2) /HPF Urine Microscopic WBC (0-5) /HPF Ur Epithelial Cells (FEW) /HPF Urine HCG, Qual (Negative) Urine Opiates Level (NEGATIVE) Ur Methadone (NEGATIVE) Urine Barbiturates (NEGATIVE) Ur Phencyclidine (PCP) (NEGATIVE) Urine Amphetamine (NEGATIVE) U Benzodiazepine Level (NEGATIVE) Urine Cocaine (NEGATIVE) Urine Marijuana (THC) (NEGATIVE) Urine Ethyl Alcohol 217 H (0.00-20) mg/dl Specimen Received 04/12/16 04/12/16 04/12/16 Range/Units 17:54 17:54 17:40 WBC (4.0-10.5) K/mm3 RBC (4.1-5.4) M/mm3 Hgb (12.0-16.0) gm/dl Hct (35-47) % MCV (78-100) fl MCH (26-32) pg MCHC (32-36) g/dl RDW (11.5-14.0) % Plt Count (150-450) K/mm3 MPV (6-9.5) fl Gran % (36.0-66.0) % Lymphocytes % (24.0-44.0) % Monocytes % (0.0-12.0) % Eosinophils % (0.00-5.0) % Basophils % (0.0-0.4) % Basophils # (0-0.4) Sodium (136-145) mEq/L Potassium (3.5-5.1) mEq/L Chloride (98-107) mEq/L Carbon Dioxide (21-32) mEq/L Anion Gap (5-15) MEQ/L BUN (9-20) mg/dL Creatinine (0.55-1.30) mg/dl Estimated GFR ML/MIN Glucose (70-110) MG/DL Calcium (8.5-10.1) mg/dL Total Bilirubin (0.2-1.0) mg/dL AST (15-37) U/L ALT (12-78) U/L Alkaline Phosphatase (46-116) U/L Serum Total Protein (6.4-8.2) gm/dL Albumin (3.4-5.0) g/dL Amylase (25-115) U/L Lipase (73-393) U/L Ur Collection Type CCMS Urine Color YELLOW (YELLOW) Urine Appearance CLEAR (CLEAR) Urine pH 6.0 (5-6) Ur Specific [place] 1.020 (1.005-1.025) Urine Protein NEGATIVE (Negative) Urine Glucose (UA) NEGATIVE (NEGATIVE) mg/dL Urine Ketones NEGATIVE (NEGATIVE) Urine Nitrite NEGATIVE (NEGATIVE) Urine Bilirubin NEGATIVE (NEGATIVE) Urine Urobilinogen 0.2 (0-1) mg/dL Urine WBC (Auto) NEGATIVE (NEGATIVE) Urine RBC (Auto) TRACE-INTACT (0-5) Gary/ul Urine Microscopic RBC 0-2 (0-2) /HPF Urine Microscopic WBC 0-2 (0-5) /HPF Ur Epithelial Cells RARE (FEW) /HPF Urine HCG, Qual NEGATIVE (Negative) Urine Opiates Level NEG. (NEGATIVE) Ur Methadone NEG. (NEGATIVE) Urine Barbiturates NEG. (NEGATIVE) Ur Phencyclidine (PCP) NEG. (NEGATIVE) Urine Amphetamine NEG. (NEGATIVE) U Benzodiazepine Level NEG. (NEGATIVE) Urine Cocaine NEG. (NEGATIVE) Urine Marijuana (THC) NEG. (NEGATIVE) Urine Ethyl Alcohol (0.00-20) mg/dl Specimen Received 04-12-16 1800 - Progress Progress Note: 04/12/16 19:47- NOTICE ODOR OF ALCOHOL DISCUSSED WITH PATIENT THE INABILITY TO GIVE IV OPIATES WHILE PATIENT IS INTOXICATED WITH ALCOHOL-URINE ETOH -217 04/12/16 19:49 04/12/16 19:59- PATIENT HAD NO EVIDENCE OF EMESIS OR DRY HEAVES IN ER, HAS BEEN ON CELL PHONE THROUGHOUT HER VISIT Counseled pt/family regarding: lab results, diagnosis, need for follow-up, rad results - Departure Time of Disposition: 20:05 Departure Disposition: Home Clinical Impression: CHROINC ABDOMINAL PAIN, ACUTE ALCOHOL INTOXICATION Condition: Stable Critical Care Time: No Additional Instructions: ZOFRAN 4MG EVERY 4 HOURS NEEDED FOR NAUSEA OR VOMITING. FOLLOWUP WITH YOUR PRIMARY CARE PHYSICIAN TOMORROW FOR EVALUATION. Prescriptions: Ondansetron [Zofran Odt] 4 mg PO Q4H PRN PRN #6 tab.rapdis PRN Reason: Nausea
[2016-04-12] MEDS ORDERED: BENADRYL 50 MG/ML IV ONE (18:11)
[2016-04-12] MEDS ORDERED: Sodium Chloride 0.9% 1000 ML 1,000 ML ONE (18:12)
[2016-04-12] MEDS ORDERED: Zofran 4 MG/2 ML VIAL ONE (18:12)
[2016-04-12] MEDS ORDERED: BENADRYL 50 MG/ML ONE (18:16)
[2016-04-12 18:17] LABS: BASOPHIL % 0.6 % (0.0-0.4); Eosinophil % 1.3 % (0.00-5.0); Lymphocytes % 45.7 % (24.0-44.0); Mean Cell Volume 91.4 fl (78-100); Mean Corpuscular Hemoglobin 31.2 pg (26-32); Mean Platelet Volume 10.5 fl (6-9.5); Monocytes % 5.4 % (0.0-12.0); Platelet Count 298 K/mm3 (150-450); Red Blood Count 4.75 M/mm3 (4.1-5.4); Red Cell Distribution Width 12.3 % (11.5-14.0); White Blood Count 6.3 K/mm3 (4.0-10.5)
[2016-04-12] MEDS: Hydromorphone 1 mg/ml Ampule IV ONE ×2 (18:17→18:26)
[2016-04-12] MEDS ORDERED: Hydromorphone 1 mg/ml Ampule ONE (18:17)
[2016-04-12 18:24] LABS: Collection Type CCMS
[2016-04-12 18:25] LABS: COMPLETE URINE MICROSCOPIC? YES; Epithelial Cells RARE /HPF (FEW); WBC 0-2 /HPF (0-5)
[2016-04-12 18:37] LABS: ALBUMIN 4.4 g/dL (3.4-5.0); ALKALINE PHOSPHATASE 61 U/L (46-116); ANION GAP 13.2 MEQ/L (5-15); BILIRUBIN,TOTAL 0.1 mg/dL (0.2-1.0); BLOOD UREA NITROGEN 12 mg/dL (9-20); CHLORIDE 107 mEq/L (98-107); Carbon Dioxide 24.4 mEq/L (21-32); Glucose 91 MG/DL (70-110); LIPASE 322 U/L (73-393); Potassium 3.4 mEq/L (3.5-5.1); SGOT/AST 33 U/L (15-37); SGPT/ALT 36 U/L (12-78); SODIUM 141 mEq/L (136-145); Total Protein 7.7 gm/dL (6.4-8.2)
[2016-04-12 20:26] VITALS: BP 119/70; PULSE 73; O2SAT 100
--- NOTE | 2016-04-13 08:30 | XRAY ---
Indication: Abdomen pain and vomiting. Comparison: Chest exam of March 20, 2016 2 views of the abdomen nonacute and nonobstructed with previous cholecystectomy and multiple pelvic phleboliths. Solid organs and osseous structures unremarkable. Single PA chest again demonstrates normal heart, lungs, and bony thorax. Impression: Nonacute nonobstructed abdomen. Stable normal 1 view chest.
== END 2016-04-12 20:26 | disposition home or self-care (01) ==
LOC: ED 17:28
DX: R10.9 Unspecified abdominal pain (principal); G89.29 Other chronic pain; F10.129 Alcohol abuse with intoxication, unspecified; R11.10 Vomiting, unspecified
CPT/HCPCS: 36000; 36415; 74022; 80053; 80307; 80320; 81000; 82150; 83690; 83986; 84703; 85025; 96360; 96375; 99283; J1170; J1200; J2405

== ENCOUNTER 2016-05-19 04:02 | Emergency (ER) | payer OTHER ==
[2016-05-19] MEDS ORDERED: Sodium Chloride 0.9% 1000 ML 1,000 ML IV STA (04:27)
[2016-05-19] MEDS ORDERED: Phenergan 25 MG INJ IV ONE (04:27)
[2016-05-19] MEDS ORDERED: Hydromorphone 1 mg/ml Ampule IV ONE ×2 (04:27→05:21)
--- NOTE | 2016-05-19 04:35 | ERPHSYRPT ---
- History of Present Illness Time Seen by Provider: 05/19/16 04:29 Historian: patient Exam Limitations: no limitations Patient Subjective Stated Complaint: pt is co right side abd pain and distention tonight -she has been having pain since tuesday vomited times 4 -she has chronic diarrhea which is no different Triage Nursing Assessment: pt is awake and alert and able to answer questions - sitting up in bed holding her abd grimacing and moaning Physician History: This is a 30-year-old white female with history of chronic abdominal pain and chronic pancreatitis she arrives with complaint of a abdominal pain going on for 2 days she states that she has been vomiting for several days she states she woke up this morning and felt as if her abdomen was distended and she was having pain in her abdomen in the right upper quadrant. Patient has presented to this emergency room on multiple occasions secondary to abdominal pain she does have chronic pancreatitis. Patient apparently is on oxycodone 10/325 and also on OxyContin 30 mg tablets which are prescribed by her physician Dr. Adamaris Trivedi in [place]. Patient states that she has not taken these for about a week she states that she has been having vomiting Past medical history includes chronic pancreatitis, migraines, arthritis, skull fracture Past surgical history includes cholecystectomy tonsillectomy and multiple ERCP social history is positive for tobacco use Timing/Duration: day(s) (abdominal pain for 2 daysfeels like right upper quadrant is distended this morning) Activities at Onset: none Quality: cramping Abdominal Pain Onset Location: RUQ Pain Radiation: RUQ, back Severity of Pain-Max: moderate Severity of Pain-Current: moderate Modifying Factors: Improves With: other (Patient has a prescription for both oxycodone and OxyContin, she states she has not been taking these for a week) Associated Symptoms: back (pain radiates to her back), loss of appetite, nausea , vomiting, No chest pain, No diaphoresis, No diarrhea, No fever/chills, No fatigue, No headache, No heartburn, No neck pain, No rash, No shortness of breath, No syncope Previous symptoms: same symptoms as today Allergies/Adverse Reactions: codeine [Codeine] Allergy (Verified 05/19/16 05:03) Hives HIVES droperidol [Droperidol] Allergy (Verified 05/19/16 05:03) Hives HIVES duloxetine HCl [From Cymbalta] Allergy (Verified 05/19/16 05:03) SEIZURE SEIZURE ibuprofen Allergy (Verified 05/19/16 05:03) Hives HIVES ketorolac tromethamine [From Toradol] Allergy (Verified 05/19/16 05:03) Hives HIVES naproxen sodium [From Aleve] Allergy (Verified 05/19/16 05:03) Hives HIVES prochlorperazine edisylate [From Compazine] Allergy (Verified 05/19/16 05:03) LOCK JAW LOCK JAW prochlorperazine maleate [From Compazine] Allergy (Verified 05/19/16 05:03) LOCK JAW LOCK JAW morphine Adverse Reaction (Verified 05/19/16 05:03) Itching ITCH trazodone Adverse Reaction (Verified 05/19/16 05:03) Vomiting VOMITING Home Medications: Lipase/Protease/Amylase [Creon Dr 12,000 Units Capsule] 3 each PO TID 08/26/13 [ History] Oxycodone HCl/Acetaminophen [Percocet 10-325 mg Tablet] 1 each PO QIDPRN PRN [History] Promethazine HCl 25 mg [Phenergan 25 mg] 25 mg PO Q6H PRN 04/01/15 [ History] Oxycodone HCl [Oxycontin] 1 tab BID 03/20/16 [History] Hx Tetanus, Diphtheria Vaccination/Date Given: Yes (2008) Hx Influenza Vaccination/Date Given: No Hx Pneumococcal Vaccination/Date Given: No - Review of Systems Constitutional: No Fever, No Chills Eyes: No Symptoms Ears, Nose, & Throat: No Symptoms Respiratory: No Cough, No Dyspnea Cardiac: No Chest Pain, No Edema, No Syncope Abdominal/Gastrointestinal: Abdominal Pain, Nausea, Vomiting, No Diarrhea, No Constipation, No Hematemesis, No Hematochezia, No Melena, No Dysphagia, No Appetite Changes Genitourinary Symptoms: No Dysuria Musculoskeletal: No Back Pain, No Neck Pain Skin: No Rash Neurological: No Dizziness, No Focal Weakness, No Sensory Changes Psychological: No Symptoms Endocrine: No Symptoms All Other Systems: Reviewed and Negative - Past Medical History Pertinent Past Medical History: Yes Neurological History: Migraines ENT History: No Pertinent History Cardiac History: No Pertinent History Respiratory History: No Pertinent History Endocrine Medical History: Other Musculoskeletal History: Arthritis, Fractures GI Medical History: Pancreatitis History: No Pertinent History Psycho-Social History: No Pertinent History Female Reproductive Disorders: No Pertinent History Other Medical History: Pancreatitis - Past Surgical History Past Surgical History: Yes Neuro Surgical History: No Pertinent History Cardiac: No Pertinent History Respiratory: No Pertinent History Gastrointestinal: Cholecystectomy Genitourinary: Other Musculoskeletal: No Pertinent History Female Surgical History: No Pertinent History Other Surgical History: tonsillectomy. ERCPs-multiple - Social History Smoking Status: Current every day smoker How long have you smoked: 24 Exposure to second hand smoke: Yes Drug Use: none Patient Lives Alone: No - Female History Hx Last Menstrual Period: unknown Hx Now: No - Nursing Vital Signs Nursing Vital Signs: Initial Vital Signs Pulse Rate 72 Respiratory Rate 16 Blood Pressure [] 96/47 Pain Intensity 7 - Physical Exam General Appearance: mild distress Eye Exam: PERRL/EOMI, eyes nml inspection Ears, Nose, Throat Exam: normal ENT inspection, pharynx normal, moist mucous membranes Neck Exam: normal inspection, non-tender, supple, full range of motion Respiratory Exam: normal breath sounds, lungs clear, No respiratory distress Cardiovascular Exam: regular rate/rhythm, normal heart sounds Gastrointestinal/Abdomen Exam: soft, normal bowel sounds, tenderness (right upper quadrant tenderness), No distention, No rebound Back Exam: normal inspection, normal range of motion, No CVA tenderness, No vertebral tenderness Extremity Exam: normal inspection, normal range of motion, pelvis stable Neurologic Exam: alert, oriented x 3, cooperative, normal mood/affect, nml cerebellar function, sensation nml, No motor deficits Skin Exam: normal color, warm, dry SpO2 Interpretation: normal - Course Nursing assessment & vital signs reviewed: Yes - Radiology Exams Abdomen X-ray Interpretation: Interpreted by me (three-view abdominal series nonspecific abdominal series no free air no evidence of obstruction) Ordered Tests: Active Orders 24 hr Category Date Time Status Clean Catch Urine Specimen STAT Care 05/19/16 04:54 Active IV Insertion STAT Care 05/19/16 04:27 Active OBSTR/ACUTE ABDOMEN SERIES Stat Exams 05/19/16 05:22 Taken AMYLASE Stat Lab 05/19/16 04:35 Completed CBC W DIFF Stat Lab 05/19/16 04:35 Completed CMP Stat Lab 05/19/16 04:35 Completed HCG QUALITATIVE,SERUM Stat Lab 05/19/16 04:35 Completed LIPASE Stat Lab 05/19/16 04:35 Completed UA W/ MICROSCOPIC Stat Lab 05/19/16 04:40 Completed Urine Triage Profile Stat Lab 05/19/16 04:40 Completed Medication Summary Discontinued Medications Generic Name Dose Route Start Last Admin Trade Name Ozzy PRN Reason Stop Dose Admin Hydromorphone HCl 1 mg 05/19/16 04:27 05/19/16 04:48 Hydromorphone 1 Mg/Ml Ampule IV 05/19/16 04:28 1 mg STAT ONE Administration Hydromorphone HCl Confirm 05/19/16 04:43 Hydromorphone 1 Mg/Ml Ampule Administered 05/19/16 04:44 Dose 1 mg .ROUTE .STK-MED ONE Hydromorphone HCl 1 mg 05/19/16 05:21 05/19/16 05:28 Hydromorphone 1 Mg/Ml Ampule IV 05/19/16 05:22 1 mg STAT ONE Administration Hydromorphone HCl Confirm 05/19/16 05:24 Hydromorphone 1 Mg/Ml Ampule Administered 05/19/16 05:25 Dose 1 mg .ROUTE .STK-MED ONE Sodium Chloride 1,000 mls @ 999 mls/hr 05/19/16 04:27 05/19/16 04:56 Sodium Chloride 0.9% 1000 Ml IV 05/19/16 05:27 999 mls/hr .Q1H1M STA Administration Sodium Chloride Confirm 05/19/16 04:43 Sodium Chloride 0.9% 1000 Ml Administered 05/19/16 04:44 Dose 1,000 mls @ ud .ROUTE .STK-MED ONE Ondansetron HCl Confirm 05/19/16 04:43 Zofran 4 Mg/2 Ml Vial Administered 05/19/16 04:44 Dose 4 mg .ROUTE .STK-MED ONE Promethazine HCl 12.5 mg 05/19/16 04:27 05/19/16 04:56 Phenergan 25 Mg Inj IV 05/19/16 04:28 12.5 mg STAT ONE Administration Promethazine HCl Confirm 05/19/16 04:52 Phenergan 25 Mg Inj Administered 05/19/16 04:53 Dose 25 mg .ROUTE .STK-MED ONE Lab/Rad Data: Laboratory Result Diagrams 05/19/16 04:35 05/19/16 04:35 Laboratory Results 05/19/16 05/19/16 05/19/16 Range/Units 04:40 04:40 04:35 WBC (4.0-10.5) K/mm3 RBC (4.1-5.4) M/mm3 Hgb (12.0-16.0) gm/dl Hct (35-47) % MCV (78-100) fl MCH (26-32) pg MCHC (32-36) g/dl RDW (11.5-14.0) % Plt Count (150-450) K/mm3 MPV (6-9.5) fl Gran % (36.0-66.0) % Lymphocytes % (24.0-44.0) % Monocytes % (0.0-12.0) % Eosinophils % (0.00-5.0) % Basophils % (0.0-0.4) % Basophils # (0-0.4) Sodium (136-145) mEq/L Potassium (3.5-5.1) mEq/L Chloride (98-107) mEq/L Carbon Dioxide (21-32) mEq/L Anion Gap (5-15) MEQ/L BUN (9-20) mg/dL Creatinine (0.55-1.30) mg/dl Estimated GFR ML/MIN Glucose (70-110) MG/DL Calcium (8.5-10.1) mg/dL Total Bilirubin (0.2-1.0) mg/dL AST (15-37) U/L ALT (12-78) U/L Alkaline Phosphatase (46-116) U/L Serum Total Protein (6.4-8.2) gm/dL Albumin (3.4-5.0) g/dL Amylase (25-115) U/L Lipase (73-393) U/L Serum , Qual NEGATIVE (Negative) Ur Collection Type CLEAN CATCH Urine Color YELLOW (YELLOW) Urine Appearance SLIGHTLY CLOUDY (CLEAR) Urine pH 5.5 (5-6) Ur Specific [place] >=1.030 (1.005-1.025) Urine Protein NEGATIVE (Negative) Urine Glucose (UA) NEGATIVE (NEGATIVE) mg/dL Urine Ketones NEGATIVE (NEGATIVE) Urine Nitrite NEGATIVE (NEGATIVE) Urine Bilirubin NEGATIVE (NEGATIVE) Urine Urobilinogen 0.2 (0-1) mg/dL Urine WBC (Auto) TRACE (NEGATIVE) Urine RBC (Auto) TRACE NON-HEM (0-5) Gary/ul Urine Microscopic RBC 0-2 (0-2) /HPF Urine Microscopic WBC 2-5 (0-5) /HPF Ur Epithelial Cells FEW (FEW) /HPF Urine Bacteria MODERATE (NEGATIVE) /HPF Urine Opiates Level NEG. (NEGATIVE) Ur Methadone NEG. (NEGATIVE) Urine Barbiturates NEG. (NEGATIVE) Ur Phencyclidine (PCP) NEG. (NEGATIVE) Urine Amphetamine NEG. (NEGATIVE) U Benzodiazepine Level NEG. (NEGATIVE) Urine Cocaine NEG. (NEGATIVE) Urine Marijuana (THC) NEG. (NEGATIVE) Specimen Received 05/19/16:0440 05/19/16 05/19/16 Range/Units 04:35 04:35 WBC 6.3 (4.0-10.5) K/mm3 RBC 4.28 (4.1-5.4) M/mm3 Hgb 13.7 (12.0-16.0) gm/dl Hct 39.7 (35-47) % MCV 92.8 (78-100) fl MCH 32.0 (26-32) pg MCHC 34.5 (32-36) g/dl RDW 12.3 (11.5-14.0) % Plt Count 237 (150-450) K/mm3 MPV 10.3 H (6-9.5) fl Gran % 36.7 (36.0-66.0) % Lymphocytes % 47.5 H (24.0-44.0) % Monocytes % 10.6 (0.0-12.0) % Eosinophils % 4.4 (0.00-5.0) % Basophils % 0.8 (0.0-0.4) % Basophils # 0.05 (0-0.4) Sodium 143 (136-145) mEq/L Potassium 3.7 (3.5-5.1) mEq/L Chloride 108 H (98-107) mEq/L Carbon Dioxide 21.8 (21-32) mEq/L Anion Gap 16.5 H (5-15) MEQ/L BUN 13 (9-20) mg/dL Creatinine 0.91 (0.55-1.30) mg/dl Estimated GFR > 60 ML/MIN Glucose 94 (70-110) MG/DL Calcium 8.7 (8.5-10.1) mg/dL Total Bilirubin 0.5 (0.2-1.0) mg/dL AST 39 H (15-37) U/L ALT 85 H (12-78) U/L Alkaline Phosphatase 55 (46-116) U/L Serum Total Protein 7.0 (6.4-8.2) gm/dL Albumin 4.5 (3.4-5.0) g/dL Amylase 79 (25-115) U/L Lipase 283 (73-393) U/L Serum , Qual (Negative) Ur Collection Type Urine Color (YELLOW) Urine Appearance (CLEAR) Urine pH (5-6) Ur Specific [place] (1.005-1.025) Urine Protein (Negative) Urine Glucose (UA) (NEGATIVE) mg/dL Urine Ketones (NEGATIVE) Urine Nitrite (NEGATIVE) Urine Bilirubin (NEGATIVE) Urine Urobilinogen (0-1) mg/dL Urine WBC (Auto) (NEGATIVE) Urine RBC (Auto) (0-5) Gary/ul Urine Microscopic RBC (0-2) /HPF Urine Microscopic WBC (0-5) /HPF Ur Epithelial Cells (FEW) /HPF Urine Bacteria (NEGATIVE) /HPF Urine Opiates Level (NEGATIVE) Ur Methadone (NEGATIVE) Urine Barbiturates (NEGATIVE) Ur Phencyclidine (PCP) (NEGATIVE) Urine Amphetamine (NEGATIVE) U Benzodiazepine Level (NEGATIVE) Urine Cocaine (NEGATIVE) Urine Marijuana (THC) (NEGATIVE) Specimen Received - Progress Progress: improved Progress Note: 05/19/16 05:24 This is a 30-year-old white female with history of chronic pancreatitis, migraines, arthritis who is on both oxycodone 10/325 and OxyContin 30 mg. Which she she gets from her physician in [place]. She arrives stating that she is having pain in her right upper quadrant symptoms for 2 days she states she's been vomiting for several days. She states she has not been taking her pain medications for a week she states that having nausea and didn't take them she further states that she doesn't like taking her OxyContin. On physical examination patient has some right upper quadrant tenderness. She has positive bowel sounds abdomen is soft. I do notice that as I approached the room patient is busy texting or paging on her phone however when I walk into the room she sets her phone down and moans grabbing her right side and as I leave thr room she resumes using her phone and does not appear to be in distress. I have obtained laboratory data on the patient's basically CBC CMP are essentially normal with the exception of slight elevation of her ast and alt . amylase and lipase are normal urinalysis is essentially normal as well patient has been given hydromorphone 1 mg and Phenergan 12.5 mg IV as well as 1 L of normal saline with improvement she does state she still has some pain Will give her another milligram of hydromorphone Will check acute abdomen series. Anticipate discharge patient states she has Phenergan at home Will encourage patient to take her narcotic analgesia as prescribed by her neckties painter. I have encouraged her to discuss the fact that she does not like to take her OxyContin with her neckties painter with review of her inspect report although she states she doesn't like taking it she has filled this on a regular basis since January [id number]. . 05/19/16 05:30 05/19/16 05:49 Acute abdominal series unremarkable. Patient improved the not completely pain-free. Will discharge. I have advised patient to take her pain medication as prescribed by her neckties painter. Also have advised that she contact her neckties painter for follow-up. - Departure Time of Disposition: 05:50 Departure Disposition: Home Clinical Impression: Chronic abdominal pain, History of pancreatitis Abdominal pain Qualifiers: Abdominal location: right upper quadrant Qualified Code(s): R10.11 - Right upper quadrant pain Condition: Fair Critical Care Time: No Referrals: MARCOS GIBSON [Primary Care Provider] - Instructions: Abdominal Pain-Adult Additional Instructions: Return home. Plenty of fluids. Clear fluids only 24-48 hours if abdominal pain. Take your Phenergan, and narcotic analgesia as prescribed by your neckties painter. Follow-up with your neckties painter. Return for acute distress or for severe symptoms.
[2016-05-19] MEDS ORDERED: Hydromorphone 1 mg/ml Ampule ONE ×2 (04:43→05:24)
[2016-05-19] MEDS ORDERED: Zofran 4 MG/2 ML VIAL ONE (04:43)
[2016-05-19] MEDS ORDERED: Sodium Chloride 0.9% 1000 ML 1,000 ML ONE (04:43)
[2016-05-19 04:46] LABS: BASOPHIL % 0.8 % (0.0-0.4); Eosinophil % 4.4 % (0.00-5.0); Granulocytes % 36.7 % (36.0-66.0); Lymphocytes % 47.5 % (24.0-44.0); Mean Cell Volume 92.8 fl (78-100); Mean Platelet Volume 10.3 fl (6-9.5); Monocytes % 10.6 % (0.0-12.0); Platelet Count 237 K/mm3 (150-450); Red Blood Count 4.28 M/mm3 (4.1-5.4); Red Cell Distribution Width 12.3 % (11.5-14.0); White Blood Count 6.3 K/mm3 (4.0-10.5)
[2016-05-19] MEDS ORDERED: Phenergan 25 MG INJ ONE (04:52)
[2016-05-19 04:55] LABS: Bacteria MODERATE /HPF (NEGATIVE); COMPLETE URINE MICROSCOPIC? YES; Collection Type CLEAN CATCH; Epithelial Cells FEW /HPF (FEW); Ph 5.5 (5-6)
[2016-05-19 05:10] LABS: ALBUMIN 4.5 g/dL (3.4-5.0); ALKALINE PHOSPHATASE 55 U/L (46-116); ANION GAP 16.5 MEQ/L (5-15); BILIRUBIN,TOTAL 0.5 mg/dL (0.2-1.0); BLOOD UREA NITROGEN 13 mg/dL (9-20); CHLORIDE 108 mEq/L (98-107); Carbon Dioxide 21.8 mEq/L (21-32); Glucose 94 MG/DL (70-110); LIPASE 283 U/L (73-393); Potassium 3.7 mEq/L (3.5-5.1); SGOT/AST 39 U/L (15-37); SGPT/ALT 85 U/L (12-78); SODIUM 143 mEq/L (136-145)
[2016-05-19 06:08] VITALS: BP 96/47; PULSE 72; O2SAT 98
--- NOTE | 2016-05-19 09:56 | XRAY ---
Indication: Right upper quadrant pain. History of chronic pancreatitis. Comparison: April 12, 2016. 2 views of the abdomen again nonacute and nonobstructed with previous cholecystectomy and a few pelvic phleboliths. Solid organs and osseous structures unremarkable. Single frontal chest again demonstrates normal heart, lungs, and bony thorax. Impression: Stable nonacute nonobstructed abdomen and normal 1 view chest.
== END 2016-05-19 06:07 | disposition home or self-care (01) ==
LOC: ED 04:02
DX: R10.11 Right upper quadrant pain (principal); G89.29 Other chronic pain; K86.1 Other chronic pancreatitis; R11.2 Nausea with vomiting, unspecified; Z79.899 Other long term (current) drug therapy
CPT/HCPCS: 36000; 36415; 74022; 80053; 80307; 81000; 82150; 83690; 84703; 85025; 96360; 96374; 96375; 96376; 99284; J1170; J2405; J2550

== ENCOUNTER 2016-06-20 05:47 | Emergency (ER) | payer OTHER ==
[2016-06-20] MEDS ORDERED: Sodium Chloride 0.9% 1000 ML 1,000 ML IV STA ×2 (06:11→06:49)
[2016-06-20] MEDS ORDERED: Phenergan 25 MG INJ IV ONE (06:13)
[2016-06-20] MEDS ORDERED: BENADRYL 50 MG/ML IV ONE ×2 (06:13→07:12)
[2016-06-20] MEDS ORDERED: BENADRYL 50 MG/ML ONE ×2 (06:17→07:11)
[2016-06-20] MEDS ORDERED: Phenergan 25 MG INJ ONE (06:17)
[2016-06-20] MEDS ORDERED: Sodium Chloride 0.9% 1000 ML 1,000 ML ONE ×2 (06:17→07:11)
--- NOTE | 2016-06-20 06:23 | ERPHSYRPT ---
- History of Present Illness Historian: patient Exam Limitations: no limitations Patient Subjective Stated Complaint: patient presents to ER tonite with vomitting and abdominal pain x 1week. states shes been coughing also and puking and vimitting Triage Nursing Assessment: pt is alert and oriented x3, lung sounds clear, bowel sounds present x4, tender to palpation, pulses equal bialt radius. patietn states she has chroninc pancreatitis and is in extreme pain Timing/Duration: day(s) (5 days) Activities at Onset: none Quality: cramping Abdominal Pain Onset Location: epigastric Pain Radiation: no radiation Severity of Pain-Max: moderate Severity of Pain-Current: moderate Modifying Factors: Improves With: other (patient taking OxyContin at home she states she has oxycodone at home but is not taking these) Associated Symptoms: nausea, vomiting, No back, No chest pain, No diaphoresis, No diarrhea, No fever/chills, No fatigue, No headache, No heartburn, No loss of appetite, No neck pain, No rash, No shortness of breath, No syncope, No weakness Previous symptoms: same symptoms as today (patient with multiple presentations for same complaint) Hx Tetanus, Diphtheria Vaccination/Date Given: Yes Hx Influenza Vaccination/Date Given: No Hx Pneumococcal Vaccination/Date Given: No Immunizations Up to Date: Yes <SARAHY ESCOBAR - Last Filed: 06/20/16 07:05> <HEBER WANG - Last Filed: 06/20/16 07:47> - History of Present Illness Time Seen by Provider: 06/20/16 06:11 Physician History: This is a 30-year-old white female with history of chronic abdominal pain chronic pancreatitis She arrives with complaint of abdominal pain symptoms since Tuesday she states she's been vomiting no diarrhea no fevers no urinary symptoms Patient tells the nurse that she is taking extra strength Tylenol for pain. she tells me that she has been taking her OxyContin 30 mg tablets extended release but she is not taking her oxycodone both of which are prescribed chronically by her pain automotive glass specialist is Dr. Gibson in [place]. Patient has been seen here multiple times in the past secondary to abdominal pain. Past medical history includes chronic abdominal pain chronic pancreatitis migraines, arthritis, skull fracture Past surgical history includes cholecystectomy, tonsillectomy, multiple ERCPs (SARAHY ESCOBAR) Allergies/Adverse Reactions: codeine [Codeine] Allergy (Verified 05/19/16 05:03) Hives HIVES droperidol [Droperidol] Allergy (Verified 05/19/16 05:03) Hives HIVES duloxetine HCl [From Cymbalta] Allergy (Verified 05/19/16 05:03) SEIZURE SEIZURE ibuprofen Allergy (Verified 05/19/16 05:03) Hives HIVES ketorolac tromethamine [From Toradol] Allergy (Verified 05/19/16 05:03) Hives HIVES naproxen sodium [From Aleve] Allergy (Verified 05/19/16 05:03) Hives HIVES prochlorperazine edisylate [From Compazine] Allergy (Verified 05/19/16 05:03) LOCK JAW LOCK JAW prochlorperazine maleate [From Compazine] Allergy (Verified 05/19/16 05:03) LOCK JAW LOCK JAW morphine Adverse Reaction (Verified 05/19/16 05:03) Itching ITCH trazodone Adverse Reaction (Verified 05/19/16 05:03) Vomiting VOMITING Home Medications: Lipase/Protease/Amylase [Creon Dr 12,000 Units Capsule] 3 each PO TID 08/26/13 [ History] Oxycodone HCl/Acetaminophen [Percocet 10-325 mg Tablet] 1 each PO QIDPRN PRN [History] Promethazine HCl 25 mg [Phenergan 25 mg] 25 mg PO Q6H PRN 04/01/15 [ History] Oxycodone HCl [Oxycontin] 1 tab BID 03/20/16 [History] - Review of Systems Constitutional: No Fever, No Chills Eyes: No Symptoms Ears, Nose, & Throat: No Symptoms Respiratory: No Cough, No Dyspnea Cardiac: No Chest Pain, No Edema, No Syncope Abdominal/Gastrointestinal: Abdominal Pain, Nausea, Vomiting, No Diarrhea, No Constipation, No Hematemesis, No Hematochezia, No Melena, No Dysphagia, No Appetite Changes Genitourinary Symptoms: No Dysuria Musculoskeletal: No Back Pain, No Neck Pain Skin: No Rash Neurological: No Dizziness, No Focal Weakness, No Sensory Changes Psychological: No Symptoms Endocrine: No Symptoms All Other Systems: Reviewed and Negative <SARAHY ESCOBAR Filed: 06/20/16 07:05> - Past Medical History Pertinent Past Medical History: Yes Neurological History: Migraines ENT History: No Pertinent History Cardiac History: No Pertinent History Respiratory History: No Pertinent History Endocrine Medical History: Other Musculoskeletal History: Arthritis, Fractures GI Medical History: Pancreatitis History: No Pertinent History Psycho-Social History: No Pertinent History Female Reproductive Disorders: No Pertinent History Other Medical History: Pancreatitis - Past Surgical History Past Surgical History: Yes Neuro Surgical History: No Pertinent History Cardiac: No Pertinent History Respiratory: No Pertinent History Gastrointestinal: Cholecystectomy Genitourinary: Other Musculoskeletal: No Pertinent History Female Surgical History: No Pertinent History Other Surgical History: tonsillectomy. ERCPs-multiple - Social History Smoking Status: Current every day smoker How long have you smoked: 24 Exposure to second hand smoke: Yes Drug Use: none Patient Lives Alone: No - Female History Hx Now: No <SARAHY ESCOBAR Devyn Filed: 06/20/16 07:05> - Physical Exam General Appearance: moderate distress Eye Exam: PERRL/EOMI, eyes nml inspection Ears, Nose, Throat Exam: normal ENT inspection, pharynx normal, moist mucous membranes Neck Exam: normal inspection, non-tender, supple, full range of motion Respiratory Exam: normal breath sounds, lungs clear, No respiratory distress Cardiovascular Exam: regular rate/rhythm, normal heart sounds Gastrointestinal/Abdomen Exam: soft, normal bowel sounds, tenderness ( epigastric tenderness), No distention, No mass, No guarding, No ecchymosis, No pulsatile mass, No rebound, No hernia, No hepatomegaly, No organomegaly, No splenomegaly Back Exam: normal inspection, normal range of motion, No CVA tenderness, No vertebral tenderness Extremity Exam: normal inspection, normal range of motion, pelvis stable Neurologic Exam: alert, oriented x 3, cooperative, normal mood/affect, nml cerebellar function, sensation nml, No motor deficits Skin Exam: normal color, warm, dry SpO2 Interpretation: normal (98%) SpO2: 98 Oxygen Delivery: Room Air <SARAHY ESCOBAR Filed: 06/20/16 07:05> - Course Nursing assessment & vital signs reviewed: Yes <SARAHY ESCOBAR Filed: 06/20/16 07:05> - Progress Progress: improved <SARAHY ESCOBAR - Last Filed: 06/20/16 07:05> - Progress Progress: improved, pain not gone completely Counseled pt/family regarding: lab results, diagnosis, need for follow-up <HEBER WANG - Last Filed: 06/20/16 07:47> - Progress Progress Note: 06/20/16 06:19 This is a 30-year-old white female with history of chronic abdominal pain who has had multiple presentations to the emergency room for the same patient does have a history of chronic pancreatitis. Presents pacing around the waiting room and then upon arrival complains of severe pain and discussion with the nurse she states that she had taken Tylenol PM last night. When I enter the room initially before enter the room she appears to be sitting calmly however when I walk into the room she begins rocking and holding her belly and moaning. At last visit I noticed similar behavior patient will be playing with her phone until she was seen in that she would demonstrated increased pain. When I asked patient what she is on at home for pain medication she states she is on OxyContin 30 mg tablets however she states she is not taking her oxycodone 10 mg which was also prescribed to her by Dr. Gibson. She states that she did not take her OxyContin codon because she had been vomiting. However patient does have Phenergan and Zofran at home. Patient does have a history of chronic abdominal pain with recurrent presentations to the emergency room secondary to pain. I have instructed the patient that at this time I would go ahead and administer IV fluids to this patient go ahead and obtain appropriate laboratory studies. I do want to try Benadryl and Phenergan and avoid using narcotic analgesia at this time with this patient. I have expressed to the patient that it is important that she is prescribed narcotic pain medication by her automotive glass specialist that is important that she takes this medicine as prescribed. 06/20/16 07:04 It is shift change case is discussed with Dr. Wang he will assume care of this patient. (SARAHY ESCOBAR) <SARAHY ESCOBAR - Last Filed: 06/20/16 07:05> - Departure Time of Disposition: 07:42 Departure Disposition: Home Critical Care Time: Yes Critical Care Time(excluding separately billable procedures): 30-74 minutes <DAGO WANGYESH - Last Filed: 06/20/16 07:47> - Departure Clinical Impression: Acute generalized abdominal pain, Chronic abdominal pain, History of chronic pancreatitis Condition: Stable Referrals: MARCOS GIBSON [Primary Care Provider] - Instructions: Abdominal Pain-Adult, Vomiting -- Adult Additional Instructions: In emergency room patient was constantly asking for narcotics, IV pain medications, although patient is taking OxyContin and OxyIR at home. After reviewing previous medical history. Patient has multiple ER visit for narcotics pain medications. Patient is informed about [facility] emergency room narcotics rules. Patient is informed about Hospital regulation as well as CDC recommendation about usage of narcotics pain medications. According to our Hospital by laws, we will not dispense any pain medication ( narcotics pain medication). She is advised to follow-up with her primary care physician as well as with pain management service for her further pain control.
[2016-06-20 06:34] LABS: BASOPHIL % 0.2 % (0.0-0.4); COMPLETE URINE MICROSCOPIC? YES; Collection Type CCMS; Eosinophil % 0.3 % (0.00-5.0); Granulocytes % 79.9 % (36.0-66.0); Lymphocytes % 12.6 % (24.0-44.0); Mean Cell Volume 90.2 fl (78-100); Mean Corpuscular Hemoglobin 31.2 pg (26-32); Mean Platelet Volume 10.2 fl (6-9.5); Platelet Count 263 K/mm3 (150-450); Red Blood Count 4.39 M/mm3 (4.1-5.4); Red Cell Distribution Width 11.9 % (11.5-14.0); White Blood Count 15.9 K/mm3 (4.0-10.5)
[2016-06-20 06:43] VITALS: BP 112/64; PULSE 96
[2016-06-20 06:43] LABS: Bacteria FEW /HPF (NEGATIVE); Epithelial Cells FEW /HPF (FEW)
[2016-06-20 06:59] LABS: ALBUMIN 4.8 g/dL (3.4-5.0); ALKALINE PHOSPHATASE 66 U/L (46-116); ANION GAP 13.7 MEQ/L (5-15); BILIRUBIN,TOTAL 0.9 mg/dL (0.2-1.0); BLOOD UREA NITROGEN 12 mg/dL (9-20); CHLORIDE 103 mEq/L (98-107); Carbon Dioxide 25.4 mEq/L (21-32); Glucose 102 MG/DL (70-110); LIPASE 181 U/L (73-393); Potassium 3.7 mEq/L (3.5-5.1); SGOT/AST 26 U/L (15-37); SGPT/ALT 44 U/L (12-78); SODIUM 138 mEq/L (136-145)
[2016-06-20 07:05] VITALS: O2SAT 98
== END 2016-06-20 07:45 | disposition home or self-care (01) ==
LOC: ED 05:47
DX: R10.84 Generalized abdominal pain (principal); G89.29 Other chronic pain; K86.1 Other chronic pancreatitis; R11.10 Vomiting, unspecified; Z79.891 Long term (current) use of opiate analgesic
CPT/HCPCS: 36000; 36415; 80053; 81000; 82150; 83690; 84703; 85025; 96360; 96361; 96374; 96375; 99284; J1200; J2550

== ENCOUNTER 2016-08-11 18:50 | Emergency (ER) | payer OTHER ==
[2016-08-11] MEDS ORDERED: Sodium Chloride 0.9% 1000 ML 1,000 ML IV STA (19:25)
[2016-08-11] MEDS ORDERED: Phenergan 25 MG INJ IV ONE ×2 (19:25→21:39)
[2016-08-11] MEDS ORDERED: Hydromorphone 1 mg/ml Ampule IV ONE ×2 (19:25→21:39)
--- NOTE | 2016-08-11 19:30 | ERPHSYRPT ---
- History of Present Illness Time Seen by Provider: 08/11/16 19:18 Historian: patient Exam Limitations: no limitations Patient Subjective Stated Complaint: pt had an ercp done on and when she got home her oxycodone and oxycontin were gone pos vomiting no fever Triage Nursing Assessment: pt is awake and alert and able to answer quesitons Physician History: SIX DAYS AGO PT HAD AN ERCP DONE BY DR GIBSON AT AND SINCE HAS HAD RUQ/ EPIGASTRIC PAIN RADIATING TO THE BACK WITH VOMITING 7-8X/DAY FOR THE PAST 5 DAYS. PT DENIES CHEST PAIN, SHORTNESS OF AIR, FEVER. Allergies/Adverse Reactions: codeine [Codeine] Allergy (Verified 08/11/16 19:23) Hives HIVES droperidol [Droperidol] Allergy (Verified 08/11/16 19:23) Hives HIVES duloxetine HCl [From Cymbalta] Allergy (Verified 08/11/16 19:23) SEIZURE SEIZURE ibuprofen Allergy (Verified 08/11/16 19:23) Hives HIVES ketorolac tromethamine [From Toradol] Allergy (Verified 08/11/16 19:23) Hives HIVES naproxen sodium [From Aleve] Allergy (Verified 08/11/16 19:23) Hives HIVES prochlorperazine edisylate [From Compazine] Allergy (Verified 08/11/16 19:23) LOCK JAW LOCK JAW prochlorperazine maleate [From Compazine] Allergy (Verified 08/11/16 19:23) LOCK JAW LOCK JAW morphine Adverse Reaction (Verified 08/11/16 19:23) Itching ITCH trazodone Adverse Reaction (Verified 08/11/16 19:23) Vomiting VOMITING Home Medications: Lipase/Protease/Amylase [Annita Carrillo 12,000 Units Capsule] 3 each PO TID 08/26/13 [ History] Oxycodone HCl/Acetaminophen [Percocet 10-325 mg Tablet] 1 each PO QIDPRN PRN [History] Promethazine HCl 25 mg [Phenergan 25 mg] 25 mg PO Q6H PRN 04/01/15 [ History] Oxycodone HCl [Oxycontin] 1 tab BID 03/20/16 [History] Hx Tetanus, Diphtheria Vaccination/Date Given: Yes Hx Influenza Vaccination/Date Given: No Hx Pneumococcal Vaccination/Date Given: No - Review of Systems Constitutional: No Fever Respiratory: No Dyspnea Cardiac: No Chest Pain Abdominal/Gastrointestinal: Abdominal Pain, Vomiting Musculoskeletal: Back Pain All Other Systems: Reviewed and Negative - Past Medical History Pertinent Past Medical History: Yes Neurological History: Migraines ENT History: No Pertinent History Cardiac History: No Pertinent History Respiratory History: No Pertinent History Endocrine Medical History: Other Musculoskeletal History: Arthritis, Fractures GI Medical History: Pancreatitis History: No Pertinent History Psycho-Social History: No Pertinent History Female Reproductive Disorders: No Pertinent History Other Medical History: Pancreatitis - Past Surgical History Past Surgical History: Yes Neuro Surgical History: No Pertinent History Cardiac: No Pertinent History Respiratory: No Pertinent History Gastrointestinal: Cholecystectomy Genitourinary: Other Musculoskeletal: No Pertinent History Female Surgical History: No Pertinent History Other Surgical History: tonsillectomy. ERCPs-multiple - Social History Smoking Status: Current every day smoker How long have you smoked: 24 Exposure to second hand smoke: Yes Drug Use: none Patient Lives Alone: No - Female History Hx Last Menstrual Period: depo Hx Now: No - Nursing Vital Signs Nursing Vital Signs: Initial Vital Signs Temperature 98.3 F Temperature Source Oral Pulse Rate 90 Respiratory Rate 18 Blood Pressure [] 106/59 Pain Intensity 9 - Physical Exam General Appearance: alert Eye Exam: PERRL/EOMI Ears, Nose, Throat Exam: dry mucous membranes Neck Exam: normal inspection Respiratory Exam: lungs clear Cardiovascular Exam: normal heart sounds Gastrointestinal/Abdomen Exam: normal bowel sounds, tenderness (MILD RUQ ABDOMINAL TENDERNESS WITH VOLUNTARY GUARDING) Back Exam: normal range of motion Extremity Exam: normal inspection, No pedal edema Neurologic Exam: alert, cooperative Skin Exam: warm, dry SpO2 Interpretation: normal SpO2: 98 Oxygen Delivery: Room Air - Course Nursing assessment & vital signs reviewed: Yes - CT Exams Abdomen/Pelvis CT Interpretation: Tele-radiologist Report (SMALL RIGHT RENAL STONES. NO ACUTE ABDOMINAL PATHOLOGY. NO EVIDENCE OF URETERAL STONE.) Ordered Tests: Active Orders 24 hr Category Date Time Status Clean Catch Urine Specimen STAT Care 08/11/16 19:36 Active IV Insertion STAT Care 08/11/16 19:25 Active ABDOMEN AND PELVIS W/0 CONTRAS [CT] Stat Exams 08/11/16 19:26 Taken AMYLASE Stat Lab 08/11/16 19:53 Completed CBC W DIFF Stat Lab 08/11/16 19:53 Completed CMP Stat Lab 08/11/16 19:53 Completed CULTURE,URINE Stat Lab 08/11/16 19:35 Received LIPASE Stat Lab 08/11/16 19:53 Completed UA W/ MICROSCOPIC Stat Lab 08/11/16 19:35 Completed Medication Summary Generic Name Dose Route Start Last Admin Trade Name Ozzy PRN Reason Stop Dose Admin Ceftriaxone Sodium/Dextrose 1 g in 50 mls @ 100 mls/hr 08/11/16 21:11 21:21 Rocephin 1 Gm-D5w 50 Ml Bag IV 08/11/16 21:40 100 mls/hr STAT STA Administration Discontinued Medications Generic Name Dose Route Start Last Admin Trade Name Freq PRN Reason Stop Dose Admin Hydromorphone HCl 2 mg 08/11/16 19:25 08/11/16 19:54 Hydromorphone 1 Mg/Ml Ampule IV 08/11/16 19:26 2 mg STAT ONE Administration Hydromorphone HCl Confirm 08/11/16 19:50 Hydromorphone 1 Mg/Ml Ampule Administered 08/11/16 19:51 Dose 2 mg .ROUTE .STK-MED ONE Sodium Chloride 1,000 mls @ 999 mls/hr 08/11/16 19:25 08/11/16 19:56 Sodium Chloride 0.9% 1000 Ml IV 08/11/16 20:25 999 mls/hr .Q1H1M STA Administration Sodium Chloride Confirm 08/11/16 19:50 Sodium Chloride 0.9% 1000 Ml Administered 08/11/16 19:51 Dose 1,000 mls @ ud .ROUTE .STK-MED ONE Ceftriaxone Sodium/Dextrose Confirm 08/11/16 21:18 Rocephin 1 Gm-D5w 50 Ml Bag Administered 08/11/16 21:19 Dose 1 g in 50 mls @ ud IV .STK-MED ONE Promethazine HCl 12.5 mg 08/11/16 19:25 08/11/16 19:55 Phenergan 25 Mg Inj IV 08/11/16 19:26 12.5 mg STAT ONE Administration Promethazine HCl Confirm 08/11/16 19:50 Phenergan 25 Mg Inj Administered 08/11/16 19:51 Dose 25 mg .ROUTE .STK-MED ONE Lab/Rad Data: Laboratory Result Diagrams 08/11/16 19:53 08/11/16 19:53 Laboratory Results 08/11/16 08/11/16 08/11/16 Range/Units 19:53 19:53 19:35 WBC 6.8 (4.0-10.5) K/mm3 RBC 4.75 (4.1-5.4) M/mm3 Hgb 14.9 (12.0-16.0) gm/dl Hct 43.1 (35-47) % MCV 90.7 (78-100) fl MCH 31.4 (26-32) pg MCHC 34.6 (32-36) g/dl RDW 12.4 (11.5-14.0) % Plt Count 243 (150-450) K/mm3 MPV 11.3 H (6-9.5) fl Gran % 51.9 (36.0-66.0) % Lymphocytes % 37.3 (24.0-44.0) % Monocytes % 8.2 (0.0-12.0) % Eosinophils % 1.9 (0.00-5.0) % Basophils % 0.7 (0.0-0.4) % Basophils # 0.05 (0-0.4) Sodium 141 (136-145) mEq/L Potassium 3.5 (3.5-5.1) mEq/L Chloride 106 (98-107) mEq/L Carbon Dioxide 27.2 (21-32) mEq/L Anion Gap 11.1 (5-15) MEQ/L BUN 13 (9-20) mg/dL Creatinine 0.82 (0.55-1.30) mg/dl Estimated GFR > 60 ML/MIN Glucose 106 (70-110) MG/DL Calcium 9.6 (8.5-10.1) mg/dL Total Bilirubin 0.60 (0.2-1.0) mg/dL AST 17 (15-37) U/L ALT 25 (12-78) U/L Alkaline Phosphatase 55 (46-116) U/L Serum Total Protein 8.1 (6.4-8.2) gm/dL Albumin 4.6 (3.4-5.0) g/dL Amylase 60 (25-115) U/L Lipase 167 (73-393) U/L Ur Collection Type CLEAN CATCH Urine Color YELLOW (YELLOW) Urine Appearance CLOUDY (CLEAR) Urine pH 5.5 (5-6) Ur Specific [place] 1.025 (1.005-1.025) Urine Protein TRACE (Negative) Urine Glucose (UA) NEGATIVE (NEGATIVE) mg/dL Urine Ketones NEGATIVE (NEGATIVE) Urine Nitrite POSITIVE (NEGATIVE) Urine Bilirubin NEGATIVE (NEGATIVE) Urine Urobilinogen 0.2 (0-1) mg/dL Urine WBC (Auto) SMALL (NEGATIVE) Urine RBC (Auto) TRACE-INTACT (0-5) Gary/ul Urine Microscopic RBC 2-5 (0-2) /HPF Urine Microscopic WBC 15-25 (0-5) /HPF Ur Epithelial Cells FEW (FEW) /HPF Urine Bacteria PACKED (NEGATIVE) /HPF Specimen Received [id number] - Progress Discussed with Dr.: Other (SPOKE WITH DR CHAPA(COVERING DR FOR DR GIBSON) AND DR GARCIA(HOSPITALIST)([id number]) WHO ACCEPTED PT FOR TRANSFER TO [facility] A DIRECT ADMISSION.) - Departure Time of Disposition: 21:28 Departure Disposition: Transfer ([facility]) Clinical Impression: ABDOMINAL PAIN, UTI, VOMITING Condition: Fair Critical Care Time: No Referrals: MARCOS GIBSON [Primary Care Provider] -
[2016-08-11] MEDS ORDERED: Hydromorphone 1 mg/ml Ampule ONE ×2 (19:50→21:53)
[2016-08-11] MEDS ORDERED: Phenergan 25 MG INJ ONE ×2 (19:50→21:53)
[2016-08-11] MEDS ORDERED: Sodium Chloride 0.9% 1000 ML 1,000 ML ONE (19:50)
[2016-08-11 19:58] LABS: BASOPHIL % 0.7 % (0.0-0.4); Eosinophil % 1.9 % (0.00-5.0); Granulocytes % 51.9 % (36.0-66.0); Lymphocytes % 37.3 % (24.0-44.0); Mean Cell Volume 90.7 fl (78-100); Mean Corpuscular Hemoglobin 31.4 pg (26-32); Mean Platelet Volume 11.3 fl (6-9.5); Monocytes % 8.2 % (0.0-12.0); Platelet Count 243 K/mm3 (150-450); Red Blood Count 4.75 M/mm3 (4.1-5.4); Red Cell Distribution Width 12.4 % (11.5-14.0); White Blood Count 6.8 K/mm3 (4.0-10.5)
[2016-08-11 20:01] LABS: COMPLETE URINE MICROSCOPIC? YES; Collection Type CLEAN CATCH; Ph 5.5 (5-6)
[2016-08-11 20:02] LABS: ADD URINE CULTURE? YES (NO); Bacteria PACKED /HPF (NEGATIVE); Epithelial Cells FEW /HPF (FEW); WBC 15-25 /HPF (0-5)
[2016-08-11 20:21] LABS: ALBUMIN 4.6 g/dL (3.4-5.0); ALKALINE PHOSPHATASE 55 U/L (46-116); ANION GAP 11.1 MEQ/L (5-15); BLOOD UREA NITROGEN 13 mg/dL (9-20); CHLORIDE 106 mEq/L (98-107); Carbon Dioxide 27.2 mEq/L (21-32); Glucose 106 MG/DL (70-110); LIPASE 167 U/L (73-393); Potassium 3.5 mEq/L (3.5-5.1); SGOT/AST 17 U/L (15-37); SGPT/ALT 25 U/L (12-78); SODIUM 141 mEq/L (136-145); Total Protein 8.1 gm/dL (6.4-8.2)
[2016-08-11] MEDS ORDERED: ROCEPHIN 1 Gm-D5w 50 ml Bag** 1 G/50 ML IVPB IV STA (21:11)
[2016-08-11] MEDS ORDERED: ROCEPHIN 1 Gm-D5w 50 ml Bag** 1 G/50 ML IVPB IV ONE (21:18)
[2016-08-11 22:04] VITALS: BP 145/71; PULSE 88; O2SAT 97
--- NOTE | 2016-08-12 14:11 | XRAY ---
Exam: CT of the abdomen and pelvis without IV contrast from 08/11/2016. CTDI: 8.75 Comparison: CT of the abdomen and pelvis with IV contrast from 03/20/2016. Indication: Right upper quadrant and epigastric abdominal pain radiating to back, emesis, history of pancreatitis, ERCP performed on 08/05/2016. Technique: Non-IV contrast axial images were obtained through the abdomen and pelvis. Reconstructed coronal and sagittal images were created and reviewed. No oral contrast was given. Findings: The visualized lung bases appear clear. The transverse heart size is normal. The liver and spleen appear unremarkable on this non-IV contrast exam. Surgical clips consistent with prior cholecystectomy are again seen within the right upper quadrant. The spleen and adrenal glands appear unremarkable. There are at least 5 scattered punctate nonobstructing stones within the right kidney. I see no stones within the left kidney. There is no focal renal mass or hydronephrosis. No definite ureterolith is seen. No urinary bladder stone is seen. The abdominal aorta is of normal diameter. No abnormal retroperitoneal lymphadenopathy is seen. A tiny amount of herniated fat is seen at the level of the umbilicus representing no change. No other ventral hernia is seen. There is no free intraperitoneal air. The bowel does not appear obstructed. A mild amount of scattered colonic stool is seen. I see no findings to suggest appendicitis within the right lower quadrant. The uterus is anteflexed. No free fluid or enlarged pelvic lymph nodes are seen. Calcified phleboliths are seen within the lower left pelvis representing no change. The bones reveal no acute fracture or suspicious bone lesion. There again appears to be some widening of the left T10-T11 neural foramen with what appears to be a left perineural cyst or neurofibroma. This appears stable. See axial image #3. Impression: 1. There are at least 5 nonobstructing stones within the right kidney. I see no hydronephrosis, hydroureter, or other evidence of acute obstructive uropathy. This is similar to the prior study. 2. Status post cholecystectomy. 3. 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 See axial image #3. This is stable. 4. No other acute process is seen within the abdomen or pelvis.
== END 2016-08-11 23:05 | disposition short-term general hospital (02) ==
LOC: ED 18:50
DX: R10.11 Right upper quadrant pain (principal); R10.13 Epigastric pain; N39.0 Urinary tract infection, site not specified; R11.10 Vomiting, unspecified
CPT/HCPCS: 36000; 36415; 74176; 80053; 81000; 82150; 83690; 85025; 87077; 87086; 87186; 96360; 96365; 96374; 96375; 96376; 99285; J0696; J1170; J2550

== ENCOUNTER 2016-10-30 05:33 | Emergency (ER) | payer OTHER ==
[2016-10-30] MEDS ORDERED: Sodium Chloride 0.9% 1000 ML 1,000 ML IV STA (06:11)
[2016-10-30] MEDS ORDERED: Zofran 4 MG/2 ML VIAL IV ONE (06:11)
--- NOTE | 2016-10-30 06:29 | ERPHSYRPT ---
- History of Present Illness Historian: patient Exam Limitations: no limitations Patient Subjective Stated Complaint: pt states she has been having lower abd pain for the last few days. states it is sharp and hot and wraps around to her back. Triage Nursing Assessment: pt alert and oriented. answers questions approp. pt ambualtory with sterady gait noted. respirations nonlabored with lungs cta. abd soft with mild tenderness. denies difficulty urinating or pain with urination. Timing/Duration: day(s) (2), intermittent Activities at Onset: none Quality: cramping, sharpness Abdominal Pain Onset Location: periumbilical Pain Radiation: no radiation Severity of Pain-Max: moderate Severity of Pain-Current: moderate Modifying Factors: Improves With: movement (worsens), vomiting. Worsens With: coughing Associated Symptoms: nausea, vomiting, No back, No diarrhea, No fever/chills, No loss of appetite, No weakness Previous symptoms: other (Pt. with chronic abdominal pain) Hx Tetanus, Diphtheria Vaccination/Date Given: Yes Hx Influenza Vaccination/Date Given: No Hx Pneumococcal Vaccination/Date Given: No Immunizations Up to Date: Yes <KRISTINE VENEGAS - Last Filed: 10/30/16 07:02> <RONEL ROGERS - Last Filed: 10/30/16 08:23> - History of Present Illness Time Seen by Provider: 10/30/16 06:10 Physician History: Pt. states periumbilical pain for past 2 days. Pain is sharp, crampy, intermittent, localized and assoc. with N/V X 2 last night. Denies any fever, chills, dysuria, frequency or urgency. Pt. on chronic pain meds for "chronic pancreatitis," although multiple visits to [facility] with normal amylase/ lipase. Pt. denies any back pain, vaginal bleeding or discharge. States irregular periods due to being on Depo. Pt. states loss her pain meds and have not had any pain meds for past 5 days. (KRISTINE VENEGAS) Allergies/Adverse Reactions: codeine [Codeine] Allergy (Verified 10/30/16 06:09) Hives HIVES droperidol [Droperidol] Allergy (Verified 10/30/16 06:09) Hives HIVES duloxetine HCl [From Cymbalta] Allergy (Verified 10/30/16 06:09) SEIZURE SEIZURE ibuprofen Allergy (Verified 10/30/16 06:09) Hives HIVES ketorolac tromethamine [From Toradol] Allergy (Verified 10/30/16 06:09) Hives HIVES naproxen sodium [From Aleve] Allergy (Verified 10/30/16 06:09) Hives HIVES prochlorperazine edisylate [From Compazine] Allergy (Verified 10/30/16 06:09) LOCK JAW LOCK JAW prochlorperazine maleate [From Compazine] Allergy (Verified 10/30/16 06:09) LOCK JAW LOCK JAW morphine Adverse Reaction (Verified 10/30/16 06:09) Itching ITCH trazodone Adverse Reaction (Verified 10/30/16 06:09) Vomiting VOMITING Home Medications: Lipase/Protease/Amylase [Creon Dr 12,000 Units Capsule] 3 each PO TID 08/26/13 [ History] Oxycodone HCl/Acetaminophen [Percocet 10-325 mg Tablet] 1 each PO QIDPRN PRN [History] Promethazine HCl 25 mg [Phenergan 25 mg] 25 mg PO Q6H PRN 04/01/15 [ History] Oxycodone HCl [Oxycontin] 1 tab BID 03/20/16 [History] - Review of Systems Constitutional: No Fever, No Chills Eyes: No Symptoms Ears, Nose, & Throat: No Symptoms Respiratory: No Cough, No Dyspnea Cardiac: No Chest Pain, No Edema, No Syncope Abdominal/Gastrointestinal: Abdominal Pain, Nausea, Vomiting, No Diarrhea, No Constipation, No Hematemesis, No Hematochezia, No Melena Genitourinary Symptoms: No Dysuria, No Frequency, No Hematuria, No Flank Pain, No Vaginal Bleeding, No Vaginal Discharge Musculoskeletal: No Back Pain, No Neck Pain Skin: No Rash Neurological: No Dizziness, No Focal Weakness, No Sensory Changes Psychological: No Symptoms Endocrine: No Symptoms All Other Systems: Reviewed and Negative <KRISTINE VENEGAS - Last Filed: 10/30/16 07:02> - Past Medical History Pertinent Past Medical History: Yes Neurological History: Migraines ENT History: No Pertinent History Cardiac History: No Pertinent History Respiratory History: No Pertinent History Endocrine Medical History: Other Musculoskeletal History: Arthritis, Fractures GI Medical History: Pancreatitis History: No Pertinent History Psycho-Social History: No Pertinent History Female Reproductive Disorders: No Pertinent History Other Medical History: Pancreatitis - Past Surgical History Past Surgical History: Yes Neuro Surgical History: No Pertinent History Cardiac: No Pertinent History Respiratory: No Pertinent History Gastrointestinal: Cholecystectomy Genitourinary: Other Musculoskeletal: No Pertinent History Female Surgical History: No Pertinent History Other Surgical History: tonsillectomy. ERCPs-multiple - Social History Smoking Status: Current every day smoker How long have you smoked: 24 Exposure to second hand smoke: Yes Drug Use: none Patient Lives Alone: No - Female History Hx Last Menstrual Period: depo Hx Now: No <KRISTINE VENEGAS - Last Filed: 10/30/16 07:02> - Physical Exam General Appearance: no apparent distress, alert, other (Lying comfortably, NAD) Eye Exam: PERRL/EOMI, eyes nml inspection Ears, Nose, Throat Exam: normal ENT inspection, pharynx normal, moist mucous membranes Neck Exam: normal inspection, non-tender, supple, full range of motion Respiratory Exam: normal breath sounds, lungs clear, No respiratory distress Cardiovascular Exam: regular rate/rhythm, normal heart sounds Gastrointestinal/Abdomen Exam: soft, normal bowel sounds, tenderness ( Periumbilical area), No distention, No mass, No rebound, No organomegaly Pelvic Exam: deferred Rectal Exam: deferred Back Exam: normal inspection, normal range of motion, No CVA tenderness, No vertebral tenderness Extremity Exam: normal inspection, normal range of motion, pelvis stable Neurologic Exam: alert, oriented x 3, cooperative, normal mood/affect, nml cerebellar function, sensation nml, No motor deficits Skin Exam: normal color, warm, dry SpO2: 99 Oxygen Delivery: Room Air <KRISTINE VENEGAS - Last Filed: 10/30/16 07:02> - Nursing Vital Signs Nursing Vital Signs: Initial Vital Signs Temperature 98.7 F 10/30/16 06:00 Pulse Rate 65 10/30/16 06:00 Respiratory Rate 18 10/30/16 06:00 Blood Pressure 116/70 10/30/16 06:00 O2 Sat by Pulse Oximetry 99 10/30/16 06:00 Pain Scale Pain Intensity 8 - Course Nursing assessment & vital signs reviewed: Yes <KRISTINE VENEGAS - Last Filed: 10/30/16 07:02> - Course Nursing assessment & vital signs reviewed: Yes - Radiology Exams Abdomen X-ray Interpretation: Interpreted by me, Negative, Other (no obstruction; no free air) <RONEL ROGERS - Last Filed: 10/30/16 08:23> Ordered Tests: Active Orders 24 hr Category Date Time Status IV Insertion STAT Care 10/30/16 06:11 Active OBSTR/ACUTE ABDOMEN SERIES Stat Exams 10/30/16 06:12 Taken AMYLASE Stat Lab 10/30/16 06:47 Completed CBC W DIFF Stat Lab 10/30/16 06:30 Completed CMP Stat Lab 10/30/16 06:47 Completed HCG,QUALITATIVE URINE Stat Lab 10/30/16 06:47 Completed LIPASE Stat Lab 10/30/16 06:47 Completed UA W/ MICROSCOPIC Stat Lab 10/30/16 06:47 Completed Urine Triage Profile Stat Lab 10/30/16 06:47 Completed Medication Summary Discontinued Medications Generic Name Dose Route Start Last Admin Trade Name Ozzy PRN Reason Stop Dose Admin Sodium Chloride 1,000 mls @ 999 mls/hr 10/30/16 06:11 10/30/16 06:51 Sodium Chloride 0.9% 1000 Ml IV 10/30/16 07:11 999 mls/hr .Q1H1M STA Administration Sodium Chloride Confirm 10/30/16 06:48 Sodium Chloride 0.9% 1000 Ml Administered 10/30/16 06:49 Dose 1,000 mls @ ud .ROUTE .STK-MED ONE Ondansetron HCl 4 mg 10/30/16 06:11 10/30/16 06:52 Zofran 4 Mg/2 Ml Vial IV 10/30/16 06:12 4 mg STAT ONE Administration Ondansetron HCl Confirm 10/30/16 06:48 Zofran 4 Mg/2 Ml Vial Administered 10/30/16 06:49 Dose 4 mg .ROUTE .STK-MED ONE Promethazine HCl 12.5 mg 10/30/16 07:40 10/30/16 07:50 Phenergan 25 Mg Inj IV 10/30/16 07:41 12.5 mg STAT ONE Administration Promethazine HCl Confirm 10/30/16 07:48 Phenergan 25 Mg Inj Administered 10/30/16 07:49 Dose 25 mg .ROUTE .STK-MED ONE Lab/Rad Data: Laboratory Result Diagrams 10/30/16 06:30 10/30/16 06:47 Laboratory Results 10/30/16 10/30/16 10/30/16 Range/Units 06:47 06:47 06:47 WBC (4.0-10.5) K/mm3 RBC (4.1-5.4) M/mm3 Hgb (12.0-16.0) gm/dl Hct (35-47) % MCV (78-100) fl MCH (26-32) pg MCHC (32-36) g/dl RDW (11.5-14.0) % Plt Count (150-450) K/mm3 MPV (6-9.5) fl Gran % (36.0-66.0) % Lymphocytes % (24.0-44.0) % Monocytes % (0.0-12.0) % Eosinophils % (0.00-5.0) % Basophils % (0.0-0.4) % Basophils # (0-0.4) Sodium (136-145) mEq/L Potassium (3.5-5.1) mEq/L Chloride (98-107) mEq/L Carbon Dioxide (21-32) mEq/L Anion Gap (5-15) MEQ/L BUN (9-20) mg/dL Creatinine (0.55-1.30) mg/dl Estimated GFR ML/MIN Glucose (70-110) MG/DL Calcium (8.5-10.1) mg/dL Total Bilirubin (0.2-1.0) mg/dL AST (15-37) U/L ALT (12-78) U/L Alkaline Phosphatase (46-116) U/L Serum Total Protein (6.4-8.2) gm/dL Albumin (3.4-5.0) g/dL Amylase (25-115) U/L Lipase (73-393) U/L Ur Collection Type CLEAN CATCH Urine Color YELLOW (YELLOW) Urine Appearance CLEAR (CLEAR) Urine pH 5.0 (5-6) Ur Specific [place] 1.025 (1.005-1.025) Urine Protein NEGATIVE (Negative) Urine Ketones NEGATIVE (NEGATIVE) Urine Blood 5-10 (0-5) Gary/ul Urine Nitrite NEGATIVE (NEGATIVE) Urine Bilirubin NEGATIVE (NEGATIVE) Urine Urobilinogen NORMAL (0-1) mg/dL Ur Leukocyte Esterase NEGATIVE (NEGATIVE) Urine Microscopic RBC 5-10 (0-2) /HPF Urine Microscopic WBC 0-2 (0-5) /HPF Ur Epithelial Cells FEW (FEW) /HPF Urine Bacteria FEW (NEGATIVE) /HPF Urine Mucus SLIGHT (NEGATIVE) /HPF Urine Glucose NEGATIVE (NEGATIVE) mg/dL Urine HCG, Qual NEGATIVE (Negative) Urine Opiates Level NEG. (NEGATIVE) Ur Methadone NEG. (NEGATIVE) Urine Barbiturates NEG. (NEGATIVE) Ur Phencyclidine (PCP) NEG. (NEGATIVE) Urine Amphetamine NEG. (NEGATIVE) U Benzodiazepine Level NEG. (NEGATIVE) Urine Cocaine NEG. (NEGATIVE) Urine Marijuana (THC) NEG. (NEGATIVE) Specimen Received 10-3010/30/16 10/30/16 Range/Units 06:47 06:30 WBC 7.9 (4.0-10.5) K/mm3 RBC 4.46 (4.1-5.4) M/mm3 Hgb 13.7 (12.0-16.0) gm/dl Hct 40.6 (35-47) % MCV 91.0 (78-100) fl MCH 30.7 (26-32) pg MCHC 33.7 (32-36) g/dl RDW 13.4 (11.5-14.0) % Plt Count 232 (150-450) K/mm3 MPV 10.3 H (6-9.5) fl Gran % 64.4 (36.0-66.0) % Lymphocytes % 26.6 (24.0-44.0) % Monocytes % 7.2 (0.0-12.0) % Eosinophils % 1.4 (0.00-5.0) % Basophils % 0.4 (0.0-0.4) % Basophils # 0.03 (0-0.4) Sodium 142 (136-145) mEq/L Potassium 3.5 (3.5-5.1) mEq/L Chloride 108 H (98-107) mEq/L Carbon Dioxide 22.4 (21-32) mEq/L Anion Gap 14.9 (5-15) MEQ/L BUN 14 (9-20) mg/dL Creatinine 0.80 (0.55-1.30) mg/dl Estimated GFR > 60 ML/MIN Glucose 101 (70-110) MG/DL Calcium 8.9 (8.5-10.1) mg/dL Total Bilirubin 0.30 (0.2-1.0) mg/dL AST 17 (15-37) U/L ALT 25 (12-78) U/L Alkaline Phosphatase 60 (46-116) U/L Serum Total Protein 7.4 (6.4-8.2) gm/dL Albumin 4.3 (3.4-5.0) g/dL Amylase 71 (25-115) U/L Lipase 225 (73-393) U/L Ur Collection Type Urine Color (YELLOW) Urine Appearance (CLEAR) Urine pH (5-6) Ur Specific [place] (1.005-1.025) Urine Protein (Negative) Urine Ketones (NEGATIVE) Urine Blood (0-5) Gary/ul Urine Nitrite (NEGATIVE) Urine Bilirubin (NEGATIVE) Urine Urobilinogen (0-1) mg/dL Ur Leukocyte Esterase (NEGATIVE) Urine Microscopic RBC (0-2) /HPF Urine Microscopic WBC (0-5) /HPF Ur Epithelial Cells (FEW) /HPF Urine Bacteria (NEGATIVE) /HPF Urine Mucus (NEGATIVE) /HPF Urine Glucose (NEGATIVE) mg/dL Urine HCG, Qual (Negative) Urine Opiates Level (NEGATIVE) Ur Methadone (NEGATIVE) Urine Barbiturates (NEGATIVE) Ur Phencyclidine (PCP) (NEGATIVE) Urine Amphetamine (NEGATIVE) U Benzodiazepine Level (NEGATIVE) Urine Cocaine (NEGATIVE) Urine Marijuana (THC) (NEGATIVE) Specimen Received reviewed (RONEL ROGERS) - Progress Progress: improved Counseled pt/family regarding: lab results, diagnosis, rad results <KRISTINE VENEGAS - Last Filed: 10/30/16 07:02> - Progress Progress: pain not gone completely, re-examined (after xr) Counseled pt/family regarding: lab results, need for follow-up, rad results <RONEL ROGERS - Last Filed: 10/30/16 08:23> - Progress Progress Note: 10/30/16 06:32 Pt. given IVF's, Zofran for her symptoms. (KRISTINE VENEGAS) 10/30/16 07:41 introduced myself to the patient at [address] Venegas; brief hx taken and consistent with that documented by Dr Venegas; brief exam showed patient is resting quietly; vs ok; IV fluids running; no relief of N with zofran , but no further emesis; slight abdominal distention; soft; normal to slightly hyeractive bowel sounds present; mild non-specific tenderness lower abdomen without localization; no guarding or rebound; xr pending results of HCG; will recheck after xr and lab; will continue IV fluids and give Phenergan as she states it is the only thing that works 10/30/16 07:48 patient returned from XR after neg HCG; pain still recurrent; VS ok; XR NAD; labs reviewed and all neg for acute process; uA neg; tox screen neg; Inspect shows patient got 60 Oxycontin extend release on 10/11/16 and 90 - 10 mg oxycodone tabs on 10/21/16; patient states she lost them; old chart reviewed. No narcotics will be given; symptoms may well be due to withdrawal if out of meds and consistent ; discussed xr and lab findings with patient; 10/30/16 08:18 recheck and VS ok; IV fluids in; No N&V now; still having some cramps; discussed allergies and patient has phenergan at home and her Rxs; 10/30/16 08:19 will give some reglan for home; instructions given (RONEL ROGERS) - Departure Critical Care Time: No <KRISTINE VENEGAS - Last Filed: 10/30/16 07:02> - Departure Time of Disposition: 08:20 Departure Disposition: Home Critical Care Time: No <RONEL ROGERS - Last Filed: 10/30/16 08:23> - Departure Clinical Impression: Abdominal pain, Nausea & vomiting Condition: Stable Referrals: MARCOS GIBSON [Primary Care Provider] - Instructions: Abdominal Pain-Adult, Vomiting -- Adult Additional Instructions: Follow-up with family doctor as directed. Call for appointment. Return if any problems. If you smoke please stop. Call or follow up with your family doctor for assistance if you need it to stop. Please wear your seatbelt when driving. Have a nice day. Thank you for allowing us to participate in your care today. :o) Dr Rodolfo Rogers Prescriptions: Metoclopramide HCl 5 mg [Reglan 5 MG] 5 mg PO Q8H PRN PRN #14 tablet PRN Reason: Pain
[2016-10-30] MEDS ORDERED: Sodium Chloride 0.9% 1000 ML 1,000 ML ONE (06:48)
[2016-10-30] MEDS ORDERED: Zofran 4 MG/2 ML VIAL ONE (06:48)
[2016-10-30 06:49] LABS: BASOPHIL % 0.4 % (0.0-0.4); Eosinophil % 1.4 % (0.00-5.0); Granulocytes % 64.4 % (36.0-66.0); Lymphocytes % 26.6 % (24.0-44.0); Mean Corpuscular Hemoglobin 30.7 pg (26-32); Mean Platelet Volume 10.3 fl (6-9.5); Monocytes % 7.2 % (0.0-12.0); Platelet Count 232 K/mm3 (150-450); Red Blood Count 4.46 M/mm3 (4.1-5.4); Red Cell Distribution Width 13.4 % (11.5-14.0); White Blood Count 7.9 K/mm3 (4.0-10.5)
[2016-10-30 07:05] LABS: Bilirubin NEGATIVE (NEGATIVE); COMPLETE URINE MICROSCOPIC? YES; Collection Type CLEAN CATCH; Glucose NEGATIVE (NEGATIVE); Leukocyte Esterase NEGATIVE (NEGATIVE)
[2016-10-30 07:20] LABS: Bacteria FEW /HPF (NEGATIVE); Epithelial Cells FEW /HPF (FEW); Mucus SLIGHT /HPF (NEGATIVE); WBC 0-2 /HPF (0-5)
[2016-10-30 07:21] LABS: ADD URINE CULTURE? NO (NO)
[2016-10-30 07:28] LABS: ALBUMIN 4.3 g/dL (3.4-5.0); ALKALINE PHOSPHATASE 60 U/L (46-116); ANION GAP 14.9 MEQ/L (5-15); BLOOD UREA NITROGEN 14 mg/dL (9-20); CHLORIDE 108 mEq/L (98-107); Carbon Dioxide 22.4 mEq/L (21-32); Glucose 101 MG/DL (70-110); LIPASE 225 U/L (73-393); Potassium 3.5 mEq/L (3.5-5.1); SGOT/AST 17 U/L (15-37); SGPT/ALT 25 U/L (12-78); SODIUM 142 mEq/L (136-145); Total Protein 7.4 gm/dL (6.4-8.2)
[2016-10-30] MEDS ORDERED: Phenergan 25 MG INJ IV ONE (07:40)
[2016-10-30] MEDS ORDERED: Phenergan 25 MG INJ ONE (07:48)
[2016-10-30 08:24] VITALS: BP 92/43; PULSE 84; O2SAT 98
--- NOTE | 2016-10-30 09:03 | XRAY ---
Indication: Abdomen pain. Comparison: May 19, 2016. 2 views of the abdomen again nonacute and nonobstructed with mild scattered colonic fecal debris and cholecystectomy clips. There remains punctate right renal calculi. Remaining solid organs and osseous structures unremarkable. Single PA chest again demonstrates normal heart, lungs, and bony thorax. Impression: 1. Stable right renal micro-calculi. CT renal stone study may yield further information if there is clinical concern for obstructive uropathy. 2. Stable normal one view chest.
== END 2016-10-30 08:34 | disposition home or self-care (01) ==
LOC: ED 05:33
DX: R10.9 Unspecified abdominal pain (principal); R11.2 Nausea with vomiting, unspecified; K86.1 Other chronic pancreatitis; Z79.891 Long term (current) use of opiate analgesic
CPT/HCPCS: 36000; 36415; 74022; 80053; 80307; 81000; 82150; 83690; 84703; 85025; 96360; 96374; 96375; 99284; J2405; J2550

== ENCOUNTER 2017-01-23 02:26 | Emergency (ER) | payer OTHER ==
[2017-01-23] MEDS ORDERED: BENADRYL 50 MG/ML IV ONE (02:56)
--- NOTE | 2017-01-23 03:00 | ERPHSYRPT ---
- History of Present Illness Time Seen by Provider: 01/23/17 02:50 Historian: patient Exam Limitations: no limitations Patient Subjective Stated Complaint: pt states she has been having abd pain and distention since yesterday. describes pain as stabbing thru to the back Triage Nursing Assessment: pt alert and oreinted, answers questions approp. pt ambulatory with steady gait noted. respirations nonlabored with lungs cta. abd distended, bowel sounds present in all 4 quads. Physician History: This is a 31-year-old white female with history of migraines, chronic abdominal pain, pancreatitis. She arrives with complaint of pain in the epigastric and upper abdomen symptoms symptoms since yesterday. Patient states that she feels like she is having abdominal bloating. Past medical history includes migraines, arthritis, fractures, pancreatitis. Past surgical history includes cholecystectomy, tonsillectomy, ERCP. Patient apparently has been on chronic pain medications in the past apparently has filled OxyContin 30 mg #60 December 23. And had filled oxycodone 10 mg #90 on December 30. Timing/Duration: yesterday Activities at Onset: none Quality: aching, cramping Abdominal Pain Onset Location: epigastric Pain Radiation: back Severity of Pain-Max: moderate Severity of Pain-Current: moderate Modifying Factors: Improves With: nothing Associated Symptoms: back, nausea, No chest pain, No diaphoresis, No diarrhea, No fatigue, No headache, No heartburn, No loss of appetite, No neck pain, No rash, No shortness of breath, No syncope, No vomiting, No weakness Previous symptoms: same symptoms as today (multiple episodes of abdominal pain in the past) Allergies/Adverse Reactions: codeine [Codeine] Allergy (Verified 01/23/17 02:49) Hives HIVES droperidol [Droperidol] Allergy (Verified 01/23/17 02:49) Hives HIVES duloxetine HCl [From Cymbalta] Allergy (Verified 01/23/17 02:49) SEIZURE SEIZURE ibuprofen Allergy (Verified 01/23/17 02:49) Hives HIVES ketorolac tromethamine [From Toradol] Allergy (Verified 01/23/17 02:49) Hives HIVES naproxen sodium [From Aleve] Allergy (Verified 01/23/17 02:49) Hives HIVES prochlorperazine edisylate [From Compazine] Allergy (Verified 01/23/17 02:49) LOCK JAW LOCK JAW prochlorperazine maleate [From Compazine] Allergy (Verified 01/23/17 02:49) LOCK JAW LOCK JAW morphine Adverse Reaction (Verified 01/23/17 02:49) Itching ITCH trazodone Adverse Reaction (Verified 01/23/17 02:49) Vomiting VOMITING Home Medications: Lipase/Protease/Amylase [Annita Carrillo 12,000 Units Capsule] 4 each PO TID 08/26/13 [ History] Promethazine HCl 25 mg [Phenergan 25 mg] 25 mg PO Q6H PRN 04/01/15 [ History] Oxycodone HCl [Oxycontin] 1 tab BID 03/20/16 [History] Oxycodone HCl 10 mg PO TID 01/23/17 [History] Hx Tetanus, Diphtheria Vaccination/Date Given: Yes Hx Influenza Vaccination/Date Given: No Hx Pneumococcal Vaccination/Date Given: No Immunizations Up to Date: Yes - Review of Systems Constitutional: No Fever, No Chills Eyes: No Symptoms Ears, Nose, & Throat: No Symptoms Respiratory: No Cough, No Dyspnea Cardiac: No Chest Pain, No Edema, No Syncope Abdominal/Gastrointestinal: Abdominal Pain, Nausea, No Vomiting, No Diarrhea, No Constipation, No Hematemesis, No Hematochezia, No Melena, No Dysphagia, No Appetite Changes Genitourinary Symptoms: No Dysuria Musculoskeletal: No Back Pain, No Neck Pain Skin: No Rash Neurological: No Dizziness, No Focal Weakness, No Sensory Changes Psychological: No Symptoms Endocrine: No Symptoms All Other Systems: Reviewed and Negative - Past Medical History Pertinent Past Medical History: Yes Neurological History: Migraines ENT History: No Pertinent History Cardiac History: No Pertinent History Respiratory History: No Pertinent History Endocrine Medical History: Other Musculoskeletal History: Arthritis, Fractures GI Medical History: Pancreatitis History: No Pertinent History Psycho-Social History: No Pertinent History Female Reproductive Disorders: No Pertinent History Other Medical History: Pancreatitis - Past Surgical History Past Surgical History: Yes Neuro Surgical History: No Pertinent History Cardiac: No Pertinent History Respiratory: No Pertinent History Gastrointestinal: Cholecystectomy Genitourinary: Other Musculoskeletal: No Pertinent History Female Surgical History: No Pertinent History Other Surgical History: tonsillectomy. ERCPs-multiple last in july - Social History Smoking Status: Current every day smoker How long have you smoked: 24 Exposure to second hand smoke: Yes Drug Use: none Patient Lives Alone: No - Female History Hx Last Menstrual Period: depo shot- 2 yrs ago Hx Now: No - Nursing Vital Signs Nursing Vital Signs: Initial Vital Signs Temperature 97.9 F 01/23/17 02:37 Pulse Rate 91 H 01/23/17 02:37 Respiratory Rate 16 01/23/17 02:37 Blood Pressure 125/78 01/23/17 02:37 O2 Sat by Pulse Oximetry 98 01/23/17 02:37 Pain Scale Pain Intensity 9 - Physical Exam General Appearance: no apparent distress, alert Eye Exam: PERRL/EOMI, eyes nml inspection Ears, Nose, Throat Exam: normal ENT inspection, pharynx normal, moist mucous membranes Neck Exam: normal inspection, non-tender, supple, full range of motion Respiratory Exam: normal breath sounds, lungs clear, No respiratory distress Cardiovascular Exam: regular rate/rhythm, normal heart sounds Gastrointestinal/Abdomen Exam: soft, normal bowel sounds, tenderness ( epigastric tenderness), No distention, No mass, No guarding, No ecchymosis, No pulsatile mass, No rebound, No hernia, No hepatomegaly, No organomegaly, No splenomegaly, No bruit Back Exam: normal inspection, normal range of motion, No CVA tenderness, No vertebral tenderness Extremity Exam: normal inspection, normal range of motion, pelvis stable Neurologic Exam: alert, oriented x 3, cooperative, normal mood/affect, nml cerebellar function, sensation nml, No motor deficits Skin Exam: normal color, warm, dry SpO2 Interpretation: normal (98%) SpO2: 98 Oxygen Delivery: Room Air Ordered Tests: Active Orders 24 hr Category Date Time Status IV Insertion STAT Care 01/23/17 02:56 Active AMYLASE Stat Lab 01/23/17 03:00 Completed CBC W DIFF Stat Lab 01/23/17 03:00 Completed CMP Stat Lab 01/23/17 03:00 Completed HCG QUALITATIVE,SERUM Stat Lab 01/23/17 03:00 Completed LIPASE Stat Lab 01/23/17 03:00 Completed UA W/RFX UR CULTURE Stat Lab 01/23/17 03:20 Completed Medication Summary Generic Name Dose Route Start Last Admin Trade Name Freq PRN Reason Stop Dose Admin Hydromorphone HCl 0.5 mg 01/23/17 04:10 Hydromorphone 1 Mg/Ml Ampule IV 01/23/17 04:11 STAT ONE Sodium Chloride 1,000 mls @ 999 mls/hr 01/23/17 03:41 01/23/17 03:42 Sodium Chloride 0.9% 1000 Ml IV 01/23/17 04:41 999 mls/hr .Q1H1M STA Administration Discontinued Medications Generic Name Dose Route Start Last Admin Trade Name Ozzy PRN Reason Stop Dose Admin Diphenhydramine HCl 25 mg 01/23/17 02:56 01/23/17 03:09 Benadryl 50 Mg/Ml IV 01/23/17 02:57 25 mg STAT ONE Administration Diphenhydramine HCl Confirm 01/23/17 03:08 Benadryl 50 Mg/Ml Administered 01/23/17 03:09 Dose 50 mg .ROUTE .STK-MED ONE Sodium Chloride Confirm 01/23/17 03:41 Sodium Chloride 0.9% 1000 Ml Administered 01/23/17 03:42 Dose 1,000 mls @ ud .ROUTE .STK-MED ONE Promethazine HCl 12.5 mg 01/23/17 03:41 01/23/17 03:45 Phenergan 25 Mg Inj IV 01/23/17 03:42 12.5 mg STAT ONE Administration Promethazine HCl Confirm 01/23/17 03:43 Phenergan 25 Mg Inj Administered 01/23/17 03:44 Dose 25 mg .ROUTE .STK-MED ONE Lab/Rad Data: Laboratory Result Diagrams 01/23/17 03:00 01/23/17 03:00 Laboratory Results 01/23/17 01/23/17 01/23/17 Range/Units 03:20 03:00 03:00 WBC (4.0-10.5) K/mm3 RBC (4.1-5.4) M/mm3 Hgb (12.0-16.0) gm/dl Hct (35-47) % MCV (78-100) fl MCH (26-32) pg MCHC (32-36) g/dl RDW (11.5-14.0) % Plt Count (150-450) K/mm3 MPV (6-9.5) fl Gran % (36.0-66.0) % Lymphocytes % (24.0-44.0) % Monocytes % (0.0-12.0) % Eosinophils % (0.00-5.0) % Basophils % (0.0-0.4) % Basophils # (0-0.4) Sodium 140 (136-145) mEq/L Potassium 3.5 (3.5-5.1) mEq/L Chloride 107 (98-107) mEq/L Carbon Dioxide 23.5 (21-32) mEq/L Anion Gap 13.3 (5-15) MEQ/L BUN 10 (9-20) mg/dL Creatinine 0.69 (0.55-1.30) mg/dl Estimated GFR > 60 ML/MIN Glucose 97 (70-110) MG/DL Calcium 8.9 (8.5-10.1) mg/dL Total Bilirubin 0.30 (0.2-1.0) mg/dL AST 30 (15-37) U/L ALT 32 (12-78) U/L Alkaline Phosphatase 61 (46-116) U/L Serum Total Protein 7.4 (6.4-8.2) gm/dL Albumin 4.4 (3.4-5.0) g/dL Amylase 67 (25-115) U/L Lipase 201 (73-393) U/L Serum , Qual NEGATIVE (Negative) Ur Collection Type CLEAN CATCH Urine Color LT.YELLOW (YELLOW) Urine Appearance CLEAR (CLEAR) Urine pH 6.5 (5-6) Ur Specific [place] 1.010 (1.005-1.025) Urine Protein NEGATIVE (Negative) Urine Ketones NEGATIVE (NEGATIVE) Urine Blood NEGATIVE (0-5) Gary/ul Urine Nitrite NEGATIVE (NEGATIVE) Urine Bilirubin NEGATIVE (NEGATIVE) Urine Urobilinogen NORMAL (0-1) mg/dL Ur Leukocyte Esterase NEGATIVE (NEGATIVE) Urine Culture Reflexed NO (NO) Urine Glucose NEGATIVE (NEGATIVE) mg/dL Specimen Received 01/23/17 0320 01/23/17 Range/Units 03:00 WBC 6.9 (4.0-10.5) K/mm3 RBC 4.52 (4.1-5.4) M/mm3 Hgb 13.6 (12.0-16.0) gm/dl Hct 41.4 (35-47) % MCV 91.6 (78-100) fl MCH 30.1 (26-32) pg MCHC 32.9 (32-36) g/dl RDW 12.7 (11.5-14.0) % Plt Count 236 (150-450) K/mm3 MPV 10.4 H (6-9.5) fl Gran % 38.3 (36.0-66.0) % Lymphocytes % 48.3 H (24.0-44.0) % Monocytes % 9.0 (0.0-12.0) % Eosinophils % 4.0 (0.00-5.0) % Basophils % 0.4 (0.0-0.4) % Basophils # 0.03 (0-0.4) Sodium (136-145) mEq/L Potassium (3.5-5.1) mEq/L Chloride (98-107) mEq/L Carbon Dioxide (21-32) mEq/L Anion Gap (5-15) MEQ/L BUN (9-20) mg/dL Creatinine (0.55-1.30) mg/dl Estimated GFR ML/MIN Glucose (70-110) MG/DL Calcium (8.5-10.1) mg/dL Total Bilirubin (0.2-1.0) mg/dL AST (15-37) U/L ALT (12-78) U/L Alkaline Phosphatase (46-116) U/L Serum Total Protein (6.4-8.2) gm/dL Albumin (3.4-5.0) g/dL Amylase (25-115) U/L Lipase (73-393) U/L Serum , Qual (Negative) Ur Collection Type Urine Color (YELLOW) Urine Appearance (CLEAR) Urine pH (5-6) Ur Specific [place] (1.005-1.025) Urine Protein (Negative) Urine Ketones (NEGATIVE) Urine Blood (0-5) Gary/ul Urine Nitrite (NEGATIVE) Urine Bilirubin (NEGATIVE) Urine Urobilinogen (0-1) mg/dL Ur Leukocyte Esterase (NEGATIVE) Urine Culture Reflexed (NO) Urine Glucose (NEGATIVE) mg/dL Specimen Received - Progress Progress: improved Progress Note: 01/23/17 03:42 This is a 31-year-old white female with history of migraines, arthritis, fractures, pancreatitis. Who had previously been on OxyContin cotton 30 mg and oxycodone Patient filled 60 of the OxyContin 30 mg on December 23. She filled 90 of the 10 mg oxycodone on December 20. Patient states she has not taken any of her narcotic analgesia since December 30. She is complaining of pain in her epigastric region and feeling as if she is bloating since yesterday she is nauseous. Patient's labs including CBC CMP amylase lipase urinalysis are all essentially normal I have reviewed the patient's CT results dating back to 2012 she does not show evidence of pancreatitis on abdomen and pelvic series done in this emergency room. Patient was seen at this emergency room in November secondary to abdominal pain she was given Reglan she states she did not take the Reglan because "it doesn't work for me" I have given the patient Benadryl 25 mg IV will give patient normal saline 1 L IV will go ahead and give patient Phenergan 12.5 mg IV. I'm reluctant to restart patient on narcotic analgesia she states she has not had any for 2 weeks. 01/23/17 04:11 Patient states she is not better after receiving IV normal saline, IV Benadryl, IV Phenergan. I've offered her fentanyl patient has stated that "this makes me loopy" Reluctantly I will give patient 0.5 mg of hydromorphone. I told the patient it is going to be important that she get to see her family doctor or pain change control coordinator. I find it unlikely to continue prescribing narcotics to this patient. - Departure Time of Disposition: 04:12 Departure Disposition: Home Clinical Impression: history of chronic abdominal pain Abdominal pain Qualifiers: Abdominal location: epigastric Qualified Code(s): R10.13 - Epigastric pain Condition: Fair Critical Care Time: No Referrals: MARCOS GIBSON [Primary Care Provider] - Instructions: Abdominal Pain-Adult Additional Instructions: Return home. Plenty of fluids. Clear fluids only 24-48 hours if abdominal pain.. Phenergan 25 mg by mouth every 4-6 hours when necessary for abdominal pain nausea or vomiting. Follow-up with your family doctor. Return for acute distress or for severe symptoms. you may not take phenergan while you are on Reglan( metaclopamide) Prescriptions: Promethazine HCl 25 mg [Phenergan 25 mg] 25 mg PO Q4-6HPRN PRN #10 tablet PRN Reason: nausea, vomiting, or abd pain
[2017-01-23 03:08] LABS: BASOPHIL % 0.4 % (0.0-0.4); Granulocytes % 38.3 % (36.0-66.0); Lymphocytes % 48.3 % (24.0-44.0); Mean Cell Volume 91.6 fl (78-100); Mean Corpuscular Hemoglobin 30.1 pg (26-32); Mean Platelet Volume 10.4 fl (6-9.5); Platelet Count 236 K/mm3 (150-450); Red Blood Count 4.52 M/mm3 (4.1-5.4); Red Cell Distribution Width 12.7 % (11.5-14.0); White Blood Count 6.9 K/mm3 (4.0-10.5)
[2017-01-23] MEDS ORDERED: BENADRYL 50 MG/ML ONE (03:08)
[2017-01-23 03:28] LABS: ADD URINE CULTURE? NO (NO); Bilirubin NEGATIVE (NEGATIVE); Blood NEGATIVE Ery/ul (0-5); COMPLETE URINE MICROSCOPIC? NO; Collection Type CLEAN CATCH; Glucose NEGATIVE (NEGATIVE); Leukocyte Esterase NEGATIVE (NEGATIVE)
[2017-01-23 03:36] LABS: ALBUMIN 4.4 g/dL (3.4-5.0); ALKALINE PHOSPHATASE 61 U/L (46-116); ANION GAP 13.3 MEQ/L (5-15); BLOOD UREA NITROGEN 10 mg/dL (9-20); CHLORIDE 107 mEq/L (98-107); Carbon Dioxide 23.5 mEq/L (21-32); Glucose 97 MG/DL (70-110); LIPASE 201 U/L (73-393); Potassium 3.5 mEq/L (3.5-5.1); SGOT/AST 30 U/L (15-37); SGPT/ALT 32 U/L (12-78); SODIUM 140 mEq/L (136-145); Total Protein 7.4 gm/dL (6.4-8.2)
[2017-01-23] MEDS ORDERED: Phenergan 25 MG INJ IV ONE (03:41)
[2017-01-23] MEDS ORDERED: Sodium Chloride 0.9% 1000 ML 1,000 ML ONE (03:41)
[2017-01-23] MEDS ORDERED: Sodium Chloride 0.9% 1000 ML 1,000 ML IV STA (03:41)
[2017-01-23] MEDS ORDERED: Phenergan 25 MG INJ ONE (03:43)
[2017-01-23] MEDS ORDERED: Hydromorphone 1 mg/ml Ampule IV ONE (04:10)
[2017-01-23] MEDS ORDERED: Hydromorphone 1 mg/ml Ampule ONE (04:14)
[2017-01-23 04:40] VITALS: BP 117/63; PULSE 69; O2SAT 100
== END 2017-01-23 04:39 | disposition home or self-care (01) ==
LOC: ED 02:26
DX: R10.13 Epigastric pain (principal); Z87.898 Personal history of other specified conditions; R11.0 Nausea
CPT/HCPCS: 36000; 36415; 80053; 81002; 82150; 83690; 84703; 85025; 96360; 96374; 96375; 99284; J1170; J1200; J2550

== ENCOUNTER 2017-05-29 18:31 | Emergency (ER) | payer OTHER ==
[2017-05-29] MEDS ORDERED: Sodium Chloride 0.9% 1000 ML 1,000 ML IV STA (19:15)
[2017-05-29] MEDS ORDERED: Zofran 4 MG/2 ML VIAL IV ONE (19:15)
--- NOTE | 2017-05-29 19:15 | ERPHSYRPT ---
- History of Present Illness Time Seen by Provider: 05/29/17 19:12 Source: patient, family Exam Limitations: no limitations Physician History: pt has pneumonia and brother does also; no hx heart problems but has developed SOB after fever and cough ; pmhx pancreatitis and now also has vomiting - muscle aches ; chest heaviness Timing/Duration: today (short of breath just today), day(s) (cough for days) Cough Quality/Degree: productive cough Possible Cause: no prior episodes Modifying Factors: Improves With: nothing Associated Symptoms: fever, cough Allergies/Adverse Reactions: codeine [Codeine] Allergy (Verified 05/29/17 20:02) Hives HIVES droperidol [Droperidol] Allergy (Verified 05/29/17 20:02) Hives HIVES duloxetine HCl [From Cymbalta] Allergy (Verified 05/29/17 20:02) SEIZURE SEIZURE ibuprofen Allergy (Verified 05/29/17 20:02) Hives HIVES ketorolac tromethamine [From Toradol] Allergy (Verified 05/29/17 20:02) Hives HIVES naproxen sodium [From Aleve] Allergy (Verified 05/29/17 20:02) Hives HIVES prochlorperazine edisylate [From Compazine] Allergy (Verified 05/29/17 20:02) LOCK JAW LOCK JAW prochlorperazine maleate [From Compazine] Allergy (Verified 05/29/17 20:02) LOCK JAW LOCK JAW morphine Adverse Reaction (Verified 05/29/17 20:02) Itching ITCH trazodone Adverse Reaction (Verified 05/29/17 20:02) Vomiting VOMITING Home Medications: Lipase/Protease/Amylase [Neryon Dr 12,000 Units Capsule] 4 each PO TID 08/26/13 [ History] Promethazine HCl 25 mg [Phenergan 25 mg] 25 mg PO Q6H PRN 04/01/15 [ History] Oxycodone HCl [Oxycontin] 1 tab BID 03/20/16 [History] Oxycodone HCl 10 mg PO TID 01/23/17 [History] Hx Tetanus, Diphtheria Vaccination/Date Given: Yes Hx Influenza Vaccination/Date Given: No Hx Pneumococcal Vaccination/Date Given: No - Review of Systems Constitutional: Fever, Malaise, No Chills Eyes: No Symptoms Ears, Nose, & Throat: Nose Congestion Respiratory: Cough, Dyspnea, Wheezing Cardiac: No Chest Pain, No Edema, No Syncope Abdominal/Gastrointestinal: Abdominal Pain, Nausea, Vomiting, No Diarrhea Genitourinary Symptoms: No Dysuria Musculoskeletal: Back Pain (chronic without change), Myalgias, No Neck Pain Skin: No Rash Neurological: No Dizziness, No Focal Weakness, No Sensory Changes Psychological: No Symptoms Endocrine: No Symptoms All Other Systems: Reviewed and Negative - Past Medical History Pertinent Past Medical History: Yes Neurological History: Migraines ENT History: No Pertinent History Cardiac History: No Pertinent History Respiratory History: No Pertinent History Endocrine Medical History: Other Musculoskeletal History: Arthritis, Fractures GI Medical History: Pancreatitis History: No Pertinent History Psycho-Social History: No Pertinent History Female Reproductive Disorders: No Pertinent History Other Medical History: Pancreatitis - Past Surgical History Past Surgical History: Yes Neuro Surgical History: No Pertinent History Cardiac: No Pertinent History Respiratory: No Pertinent History Gastrointestinal: Cholecystectomy Genitourinary: Other Musculoskeletal: No Pertinent History Female Surgical History: No Pertinent History Other Surgical History: tonsillectomy. ERCPs-multiple last in july - Social History Smoking Status: Current every day smoker How long have you smoked: 24 Exposure to second hand smoke: Yes Drug Use: none Patient Lives Alone: No - Nursing Vital Signs Nursing Vital Signs: Initial Vital Signs Pulse Rate 83 05/29/17 19:11 Respiratory Rate 18 05/29/17 19:11 Blood Pressure 112/89 05/29/17 19:11 O2 Sat by Pulse Oximetry 98 05/29/17 19:11 Pain Scale Pain Intensity 7 - Physical Exam General Appearance: no apparent distress, alert Eye Exam: PERRL/EOMI, eyes nml inspection Ears, Nose, Throat Exam: normal ENT inspection, TMs normal, pharynx normal, moist mucous membranes Neck Exam: normal inspection, non-tender, supple, full range of motion Respiratory Exam: airway intact, crackles/rales, rhonchi, wheezing, No respiratory distress Cardiovascular Exam: regular rate/rhythm, normal heart sounds Gastrointestinal/Abdomen Exam: soft, No tenderness Back Exam: normal inspection, No CVA tenderness, No vertebral tenderness Extremity Exam: normal inspection, normal range of motion Neurologic Exam: alert, oriented x 3, cooperative, normal mood/affect, sensation nml, No motor deficits Skin Exam: normal color, warm, dry, No rash Lymphatic Exam: No adenopathy - Course Nursing assessment & vital signs reviewed: Yes EKG Interpreted by Me: Sinus Rhythm, NORMAL AXIS, NORMAL INTERVALS, Non- specific ST Changes - Radiology Exams Chest X-ray Interpretation: Reviewed by me, Infiltrates (minimal RML amd lingula) Ordered Tests: Active Orders 24 hr Category Date Time Status Clean Catch Urine Specimen STAT Care 05/29/17 19:15 Active EKG-ER Only STAT Care 05/29/17 19:15 Active IV Insertion STAT Care 05/29/17 19:15 Active CHEST 2 VIEWS (PA AND LAT) Stat Exams 05/29/17 19:16 Taken AMYLASE Stat Lab 05/29/17 19:50 Completed CBC W DIFF Stat Lab 05/29/17 19:50 Completed HCG QUALITATIVE,SERUM Stat Lab 05/29/17 19:50 Completed LIPASE Stat Lab 05/29/17 19:50 Completed Lactic Acid Stat Lab 05/29/17 20:02 Completed TROPONIN Q3H Lab 05/29/17 19:50 Completed TROPONIN Q3H Lab 05/29/17 22:30 Ordered TROPONIN Q3H Lab 05/30/17 01:30 Ordered TROPONIN Q3H Lab 05/30/17 04:30 Ordered TROPONIN Q3H Lab 05/30/17 07:30 Ordered UA W/RFX UR CULTURE Stat Lab 05/29/17 21:05 Received Medication Summary Discontinued Medications Generic Name Dose Route Start Last Admin Trade Name Freq PRN Reason Stop Dose Admin Hydromorphone HCl 1 mg 05/29/17 20:53 05/29/17 21:00 Hydromorphone 1 Mg/Ml Ampule IV 05/29/17 20:54 1 mg STAT ONE Administration Hydromorphone HCl Confirm 05/29/17 20:57 Dilaudid 2 Mg Injection Administered 05/29/17 20:58 Dose 2 mg .ROUTE .STK-MED ONE Sodium Chloride 1,000 mls @ 999 mls/hr 05/29/17 19:15 05/29/17 20:04 Sodium Chloride 0.9% 1000 Ml IV 05/29/17 20:15 999 mls/hr .Q1H1M STA Administration Ceftriaxone Sodium/Dextrose 1 g in 50 mls @ 100 mls/hr 05/29/17 19:17 20:03 Rocephin 1 Gm-D5w 50 Ml Bag IV 05/29/17 19:46 100 mls/hr STAT STA Administration Sodium Chloride Confirm 05/29/17 19:59 Sodium Chloride 0.9% 1000 Ml Administered 05/29/17 20:00 Dose 1,000 mls @ ud .ROUTE .STK-MED ONE Ceftriaxone Sodium/Dextrose Confirm 05/29/17 19:59 Rocephin 1 Gm-D5w 50 Ml Bag Administered 05/29/17 20:00 Dose 1 g in 50 mls @ ud IV .STK-MED ONE Ondansetron HCl 4 mg 05/29/17 19:15 05/29/17 20:03 Zofran 4 Mg/2 Ml Vial IV 05/29/17 19:16 4 mg STAT ONE Administration Ondansetron HCl Confirm 05/29/17 19:59 Zofran 4 Mg/2 Ml Vial Administered 05/29/17 20:00 Dose 4 mg .ROUTE .STK-MED ONE Lab/Rad Data: Laboratory Result Diagrams 05/29/17 19:50 Laboratory Results 05/29/17 05/29/17 05/29/17 Range/Units 20:10 20:02 19:50 WBC (4.0-10.5) K/mm3 RBC (4.1-5.4) M/mm3 Hgb (12.0-16.0) gm/dl Hct (35-47) % MCV (78-100) fl MCH (26-32) pg MCHC (32-36) g/dl RDW (11.5-14.0) % Plt Count (150-450) K/mm3 MPV (6-9.5) fl Gran % (36.0-66.0) % Lymphocytes % (24.0-44.0) % Monocytes % (0.0-12.0) % Eosinophils % (0.00-5.0) % Basophils % (0.0-0.4) % Basophils # (0-0.4) Lactic Acid 1.1 (0.4-2.0) Troponin I (0.000-0.034) ng/mL Amylase (30-110) U/L Lipase (23-300) U/L Serum , Qual NEGATIVE (Negative) Influenza Type A Ag NEGATIVE (NEGATIVE) Influenza Type B Ag NEGATIVE (NEGATIVE) RSV (PCR) NEGATIVE (Negative) 05/29/17 05/29/17 05/29/17 Range/Units 19:50 19:50 19:50 WBC 7.4 (4.0-10.5) K/mm3 RBC 4.85 (4.1-5.4) M/mm3 Hgb 14.8 (12.0-16.0) gm/dl Hct 43.9 (35-47) % MCV 90.5 (78-100) fl MCH 30.5 (26-32) pg MCHC 33.7 (32-36) g/dl RDW 13.3 (11.5-14.0) % Plt Count 254 (150-450) K/mm3 MPV 11.0 H (6-9.5) fl Gran % 46.7 (36.0-66.0) % Lymphocytes % 42.1 (24.0-44.0) % Monocytes % 8.1 (0.0-12.0) % Eosinophils % 3.0 (0.00-5.0) % Basophils % 0.1 (0.0-0.4) % Basophils # 0.01 (0-0.4) Lactic Acid (0.4-2.0) Troponin I < 0.012 (0.000-0.034) ng/mL Amylase 77 (30-110) U/L Lipase 229 (23-300) U/L Serum , Qual (Negative) Influenza Type A Ag (NEGATIVE) Influenza Type B Ag (NEGATIVE) RSV (PCR) (Negative) - Progress Progress: improved, re-examined Air Movement: good Progress Note: 05/29/17 21:48 pt improved in ED but has required meds for her static back pain sobreath resolved CP is only reproduced by cough pt advised that additional pathology may be evolving undetected but prefers DC to f/u out pt rather than admit or furhter w/u in ER after discussion of risks and benefits. 05/29/17 21:52 resp rate is back to normal after pain relief to 20. Blood Culture(s) Obtained: No Antibiotics given: Yes Counseled pt/family regarding: lab results, diagnosis, need for follow-up, rad results - Departure Time of Disposition: 21:50 Departure Disposition: Home Clinical Impression: History of chronic pancreatitis, RML pneumonitis Condition: Good Critical Care Time: No Referrals: TAN STEPHENS [Primary Care Provider] - Instructions: Shortness of Breath (Dyspnea) (DC) Additional Instructions: followup with your Dr and return meantime if not improving further shortness of breath or vomiting or further concerns. although the symptoms fit a respiratory infection additional problems could also be occurring and that is why followup is important Prescriptions: Azithromycin 250 mg [Zithromax 250 MG TABLET] 250 mg PO ZPACK #6 tablet
[2017-05-29] MEDS ORDERED: ROCEPHIN 1 Gm-D5w 50 ml Bag** 1 G/50 ML IVPB IV STA (19:17)
[2017-05-29] MEDS ORDERED: Zofran 4 MG/2 ML VIAL ONE (19:59)
[2017-05-29] MEDS ORDERED: Sodium Chloride 0.9% 1000 ML 1,000 ML ONE (19:59)
[2017-05-29] MEDS ORDERED: ROCEPHIN 1 Gm-D5w 50 ml Bag** 1 G/50 ML IVPB IV ONE (19:59)
[2017-05-29 20:13] LABS: BASOPHIL % 0.1 % (0.0-0.4); Basophil (Absolute #) 0.01 (0-0.4); Eosinophil (Absolute #) 0.22 (0-0.5); Granulocyte Absolute (ANC) 3.48 (1.4-6.9); Granulocytes % 46.7 % (36.0-66.0); Hematocrit 43.9 % (35-47); Hemoglobin 14.8 gm/dl (12.0-16.0); Lymphocyte (Absolute #) 3.13 (1.0-4.6); Lymphocytes % 42.1 % (24.0-44.0); Mean Cell Volume 90.5 fl (78-100); Mean Corpuscular Hemoglobin 30.5 pg (26-32); Mean Corpuscular Hgb Concent. 33.7 g/dl (32-36); Monocytes % 8.1 % (0.0-12.0); Platelet Count 254 K/mm3 (150-450); Red Blood Count 4.85 M/mm3 (4.1-5.4); Red Cell Distribution Width 13.3 % (11.5-14.0); White Blood Count 7.4 K/mm3 (4.0-10.5)
[2017-05-29 20:45] LABS: AMYLASE 77 U/L (30-110); LIPASE 229 U/L (23-300)
[2017-05-29 20:53] VITALS: PULSE 88
[2017-05-29] MEDS ORDERED: Hydromorphone 1 mg/ml Ampule IV ONE ×2 (20:53→21:55)
[2017-05-29] MEDS ORDERED: DILAUDID 2 MG INJECTION ONE ×2 (20:57→22:08)
[2017-05-29 21:10] VITALS: BP 102/68; O2SAT 96
[2017-05-29 21:24] LABS: INFLUENZA A NEGATIVE (NEGATIVE); INFLUENZA B NEGATIVE (NEGATIVE); RESPIRATORY SYNCTIAL VIRUS NEGATIVE (Negative)
[2017-05-29] MEDS ORDERED: Zithromax 250 MG TABLET PO ONE (21:55)
[2017-05-29] MEDS ORDERED: Zithromax 250 MG TABLET ONE (22:07)
[2017-05-29 23:19] LABS: Appearance CLEAR (CLEAR); Bilirubin NEGATIVE (NEGATIVE); Blood NEGATIVE Ery/ul (0-5); Glucose NEGATIVE (NEGATIVE); Ketones NEGATIVE (NEGATIVE); Leukocyte Esterase NEGATIVE (NEGATIVE); Nitrite NEGATIVE (NEGATIVE); Protein,Urine Dip NEGATIVE (Negative); Urobilinogen NORMAL mg/dL (0-1)
--- NOTE | 2017-05-30 09:21 | XRAY ---
Indication: Short of breath. Comparison: October 30, 2016. PA/lateral chest again demonstrates normal heart, lungs, and bony thorax with incidental tiny calcified granulomas.
== END 2017-05-29 22:19 | disposition home or self-care (01) ==
LOC: ED 18:31
DX: J18.9 Pneumonia, unspecified organism (principal); Z86.39 Personal history of other endocrine, nutritional and metabolic disease; M54.9 Dorsalgia, unspecified; R11.10 Vomiting, unspecified
CPT/HCPCS: 36415; 71046; 81002; 82150; 83605; 83690; 84484; 84703; 85025; 87631; 93005; 96360; 96365; 96374; 96376; 99284; J0696; J1170; J2405; A9270-GY

== ENCOUNTER 2017-07-05 22:40 | Emergency (ER) | payer OTHER ==
[2017-07-05 22:57] VITALS: BP 135/88; O2SAT 86
[2017-07-05] MEDS ORDERED: Sodium Chloride 0.9% 1000 ML 1,000 ML IV STA (23:15)
[2017-07-05] MEDS ORDERED: Pepcid 20 MG VIAL IV ONE ×2 (23:15→23:30)
[2017-07-05] MEDS ORDERED: Zofran 4 MG/2 ML VIAL IV ONE (23:18)
[2017-07-05] MEDS ORDERED: Zofran 4 MG/2 ML VIAL ONE (23:29)
[2017-07-05] MEDS ORDERED: Sodium Chloride 0.9% 1000 ML 1,000 ML ONE (23:30)
--- NOTE | 2017-07-05 23:35 | ERPHSYRPT ---
- History of Present Illness Time Seen by Provider: 07/05/17 23:10 Historian: patient Exam Limitations: no limitations Patient Subjective Stated Complaint: vomiting x 2 days Triage Nursing Assessment: pt a&o x3. pt ambulatory. pt seems relaxed. c/o chronic pancreatitis. states she has been vomiting for 2 days and doesn't want to get dehydrated. bowel sounds hyperactive x4. slight distention. pain noted upon palpatation in RUQ that radiates to the back. Physician History: patient with history of chronic of pancreatitis, who presents with abdominal pain for 2 days. Patient states that she has sharp, epigastric pain that is localized and intermittent with exacerbation. Patient states pain is similar to previous pancreatitis. Patient has had multiple ERCP and gallbladder removed. Patient states she has been vomiting multiple times each day. Patient 's not able to keep any solids down, but is able to keep down some fluids. Patient denies any fever, chills, chest pain, shortness of breath, sore throat, nasal congestion/rhinorrhea, no back pain or urinary symptoms. Patient does take Creon for her pancreatitis along with oxycodone. Timing/Duration: day(s) (2), intermittent, gradual onset, worse Quality: cramping, sharpness Abdominal Pain Onset Location: epigastric Pain Radiation: no radiation Severity of Pain-Max: moderate Severity of Pain-Current: moderate Modifying Factors: Improves With: analgesics (improves), eating (worsens), movement (worsens), vomiting (worsens) Associated Symptoms: loss of appetite, nausea, vomiting, weakness, No back, No chest pain, No diaphoresis, No diarrhea, No fever/chills, No heartburn, No shortness of breath, No syncope Allergies/Adverse Reactions: codeine [Codeine] Allergy (Verified 05/29/17 20:02) Hives HIVES droperidol [Droperidol] Allergy (Verified 05/29/17 20:02) Hives HIVES duloxetine HCl [From Cymbalta] Allergy (Verified 05/29/17 20:02) SEIZURE SEIZURE ibuprofen Allergy (Verified 05/29/17 20:02) Hives HIVES ketorolac tromethamine [From Toradol] Allergy (Verified 05/29/17 20:02) Hives HIVES naproxen sodium [From Aleve] Allergy (Verified 05/29/17 20:02) Hives HIVES prochlorperazine edisylate [From Compazine] Allergy (Verified 05/29/17 20:02) LOCK JAW LOCK JAW prochlorperazine maleate [From Compazine] Allergy (Verified 05/29/17 20:02) LOCK JAW LOCK JAW morphine Adverse Reaction (Verified 05/29/17 20:02) Itching ITCH trazodone Adverse Reaction (Verified 05/29/17 20:02) Vomiting VOMITING Home Medications: Lipase/Protease/Amylase [Creon Dr 12,000 Units Capsule] 4 each PO TID 08/26/13 [ History] Oxycodone HCl [Oxycontin] 1 tab PO BID PRN 03/20/16 [History] Oxycodone HCl 10 mg PO TID PRN 01/23/17 [History] Hx Tetanus, Diphtheria Vaccination/Date Given: Yes Hx Influenza Vaccination/Date Given: No Hx Pneumococcal Vaccination/Date Given: No Immunizations Up to Date: Yes - Review of Systems Constitutional: Weakness, No Fever, No Chills Eyes: No Symptoms Ears, Nose, & Throat: No Symptoms Respiratory: No Cough, No Dyspnea Cardiac: No Chest Pain, No Edema, No Syncope Abdominal/Gastrointestinal: Abdominal Pain, Nausea, Vomiting, Appetite Changes, No Diarrhea, No Hematemesis, No Hematochezia Genitourinary Symptoms: No Symptoms, No Dysuria, No Frequency, No Hematuria Musculoskeletal: No Symptoms, No Back Pain, No Neck Pain Skin: No Symptoms, No Rash Neurological: No Dizziness, No Focal Weakness, No Sensory Changes Psychological: No Symptoms Endocrine: No Symptoms All Other Systems: Reviewed and Negative - Past Medical History Pertinent Past Medical History: Yes Neurological History: Migraines ENT History: No Pertinent History Cardiac History: No Pertinent History Respiratory History: No Pertinent History Endocrine Medical History: Other Musculoskeletal History: Arthritis, Fractures GI Medical History: Pancreatitis History: No Pertinent History Psycho-Social History: No Pertinent History Female Reproductive Disorders: No Pertinent History Other Medical History: Pancreatitis - Past Surgical History Past Surgical History: Yes Neuro Surgical History: No Pertinent History Cardiac: No Pertinent History Respiratory: No Pertinent History Gastrointestinal: Cholecystectomy Genitourinary: Other Musculoskeletal: No Pertinent History Female Surgical History: No Pertinent History Other Surgical History: ERCPs-multiple last in july - Social History Smoking Status: Current every day smoker How long have you smoked: 24 Exposure to second hand smoke: Yes Drug Use: none Patient Lives Alone: No - Female History Hx Now: No - Nursing Vital Signs Nursing Vital Signs: Initial Vital Signs Temperature 98.5 F 07/05/17 22:41 Pulse Rate 91 H 07/05/17 22:41 Respiratory Rate 16 07/05/17 22:41 Blood Pressure 135/88 07/05/17 22:41 O2 Sat by Pulse Oximetry 97 07/05/17 22:41 Pain Scale Pain Intensity 8 - Physical Exam General Appearance: mild distress, alert Eye Exam: PERRL/EOMI, eyes nml inspection Ears, Nose, Throat Exam: normal ENT inspection, pharynx normal, moist mucous membranes Neck Exam: normal inspection, non-tender, supple, full range of motion Respiratory Exam: normal breath sounds, lungs clear, No respiratory distress Cardiovascular Exam: regular rate/rhythm, normal heart sounds Gastrointestinal/Abdomen Exam: soft, normal bowel sounds, tenderness (mild to epigastric area), No distention, No mass, No guarding Pelvic Exam: not done Rectal Exam: deferred Back Exam: normal inspection, normal range of motion, No CVA tenderness, No vertebral tenderness Extremity Exam: normal inspection, normal range of motion, pelvis stable Neurologic Exam: alert, oriented x 3, cooperative, normal mood/affect, nml cerebellar function, sensation nml, No motor deficits Skin Exam: normal color, warm, dry SpO2: 86 Oxygen Delivery: Room Air - Course Nursing assessment & vital signs reviewed: Yes - CT Exams Abdomen/Pelvis CT Interpretation: Negative, Tele-radiologist Report Ordered Tests: Active Orders 24 hr Category Date Time Status Clean Catch Urine Specimen STAT Care 07/05/17 23:15 Active IV Insertion STAT Care 07/05/17 23:15 Active ABDOMEN AND PELVIS W CONTRAST [CT] Stat Exams 07/05/17 23:16 Taken Medication Summary Discontinued Medications Generic Name Dose Route Start Last Admin Trade Name Freq PRN Reason Stop Dose Admin Famotidine 20 mg 07/05/17 23:15 07/05/17 23:35 Pepcid 20 Mg Vial IV 07/05/17 23:16 20 mg STAT ONE Administration Famotidine Confirm 07/05/17 23:30 Pepcid 20 Mg Vial Administered 07/05/17 23:31 Dose 20 mg IV .STK-MED ONE Sodium Chloride 1,000 mls @ 999 mls/hr 07/05/17 23:15 07/05/17 23:35 Sodium Chloride 0.9% 1000 Ml IV 07/06/17 00:15 999 mls/hr .Q1H1M STA Administration Sodium Chloride Confirm 07/05/17 23:30 Sodium Chloride 0.9% 1000 Ml Administered 07/05/17 23:31 Dose 1,000 mls @ ud .ROUTE .STK-MED ONE Ondansetron HCl 4 mg 07/05/17 23:18 07/05/17 23:35 Zofran 4 Mg/2 Ml Vial IV 07/05/17 23:19 4 mg STAT ONE Administration Ondansetron HCl Confirm 07/05/17 23:29 Zofran 4 Mg/2 Ml Vial Administered 07/05/17 23:30 Dose 4 mg .ROUTE .STK-MED ONE Lab/Rad Data: Laboratory Result Diagrams 07/05/17 00:02 07/05/17 00:02 Laboratory Results 07/05/17 07/05/17 07/05/17 Range/Units 00:09 00:09 00:04 WBC (4.0-10.5) K/mm3 RBC (4.1-5.4) M/mm3 Hgb (12.0-16.0) gm/dl Hct (35-47) % MCV (78-100) fl MCH (26-32) pg MCHC (32-36) g/dl RDW (11.5-14.0) % Plt Count (150-450) K/mm3 MPV (6-9.5) fl Gran % (36.0-66.0) % Eos # (Auto) (0-0.5) Absolute Lymphs (auto) (1.0-4.6) Absolute Monos (auto) (0.0-1.3) Lymphocytes % (24.0-44.0) % Monocytes % (0.0-12.0) % Eosinophils % (0.00-5.0) % Basophils % (0.0-0.4) % Absolute Granulocytes (1.4-6.9) Basophils # (0-0.4) Sodium (137-145) mmol/L Potassium (3.5-5.1) mmol/L Chloride (98-107) mmol/L Carbon Dioxide (22-30) mmol/L Anion Gap (5-15) MEQ/L BUN (7-17) mg/dL Creatinine (0.52-1.04) mg/dL Estimated GFR ML/MIN Glucose (74-106) mg/dL Calcium (8.4-10.2) mg/dL Total Bilirubin (0.2-1.3) mg/dL AST (14-36) U/L ALT (0-35) U/L Alkaline Phosphatase (38-126) U/L Serum Total Protein (6.3-8.2) g/dL Albumin (3.5-5.0) g/dL Amylase (30-110) U/L Lipase (23-300) U/L Ur Collection Type VOID Urine Color YELLOW (YELLOW) Urine Appearance CLEAR (CLEAR) Urine pH 5.0 (5-6) Ur Specific [place] 1.025 (1.005-1.025) Urine Protein NEGATIVE (Negative) Urine Ketones NEGATIVE (NEGATIVE) Urine Blood NEGATIVE (0-5) Gary/ul Urine Nitrite NEGATIVE (NEGATIVE) Urine Bilirubin NEGATIVE (NEGATIVE) Urine Urobilinogen NORMAL (0-1) mg/dL Ur Leukocyte Esterase NEGATIVE (NEGATIVE) Urine Culture Reflexed NO (NO) Urine Glucose NEGATIVE (NEGATIVE) mg/dL Urine HCG, Qual NEGATIVE (Negative) Urine Opiates Level NEGATIVE (NEGATIVE) Ur Methadone NEGATIVE (NEGATIVE) Urine Barbiturates NEGATIVE (NEGATIVE) Ur Phencyclidine (PCP) NEGATIVE (NEGATIVE) Urine Amphetamine NEGATIVE (NEGATIVE) U Benzodiazepine Level POSITIVE (NEGATIVE) Urine Cocaine NEGATIVE (NEGATIVE) Urine Marijuana (THC) NEGATIVE (NEGATIVE) Specimen Received 07/05/17 0005 07/05/17 07/05/17 Range/Units 00:02 00:02 WBC 7.4 (4.0-10.5) K/mm3 RBC 4.43 (4.1-5.4) M/mm3 Hgb 13.7 (12.0-16.0) gm/dl Hct 40.4 (35-47) % MCV 91.2 (78-100) fl MCH 30.9 (26-32) pg MCHC 33.9 (32-36) g/dl RDW 13.7 (11.5-14.0) % Plt Count 307 (150-450) K/mm3 MPV 11.2 H (6-9.5) fl Gran % 42.7 (36.0-66.0) % Eos # (Auto) 0.21 (0-0.5) Absolute Lymphs (auto) 3.44 (1.0-4.6) Absolute Monos (auto) 0.53 (0.0-1.3) Lymphocytes % 46.7 H (24.0-44.0) % Monocytes % 7.2 (0.0-12.0) % Eosinophils % 2.9 (0.00-5.0) % Basophils % 0.5 (0.0-0.4) % Absolute Granulocytes 3.14 (1.4-6.9) Basophils # 0.04 (0-0.4) Sodium 142 (137-145) mmol/L Potassium 3.9 (3.5-5.1) mmol/L Chloride 106 (98-107) mmol/L Carbon Dioxide 22 (22-30) mmol/L Anion Gap 18.6 H (5-15) MEQ/L BUN 20 H (7-17) mg/dL Creatinine 0.70 (0.52-1.04) mg/dL Estimated GFR > 60.0 ML/MIN Glucose 91 (74-106) mg/dL Calcium 9.6 (8.4-10.2) mg/dL Total Bilirubin 0.20 (0.2-1.3) mg/dL AST 16 (14-36) U/L ALT 13 (0-35) U/L Alkaline Phosphatase 75 (38-126) U/L Serum Total Protein 7.7 (6.3-8.2) g/dL Albumin 4.6 (3.5-5.0) g/dL Amylase 92 (30-110) U/L Lipase 164 (23-300) U/L Ur Collection Type Urine Color (YELLOW) Urine Appearance (CLEAR) Urine pH (5-6) Ur Specific [place] (1.005-1.025) Urine Protein (Negative) Urine Ketones (NEGATIVE) Urine Blood (0-5) Gary/ul Urine Nitrite (NEGATIVE) Urine Bilirubin (NEGATIVE) Urine Urobilinogen (0-1) mg/dL Ur Leukocyte Esterase (NEGATIVE) Urine Culture Reflexed (NO) Urine Glucose (NEGATIVE) mg/dL Urine HCG, Qual (Negative) Urine Opiates Level (NEGATIVE) Ur Methadone (NEGATIVE) Urine Barbiturates (NEGATIVE) Ur Phencyclidine (PCP) (NEGATIVE) Urine Amphetamine (NEGATIVE) U Benzodiazepine Level (NEGATIVE) Urine Cocaine (NEGATIVE) Urine Marijuana (THC) (NEGATIVE) Specimen Received - Progress Progress: improved Progress Note: 07/05/17 23:36 patient was given IV fl along with Pepcid and Zofran 07/06/17 01:27 Resting comfortably without any distress. Patient with normal WBC, labs including amylase and lipase. Abdominal CT was essentially nega for any intra- abdominal pathology 07/06/17 01:30 Counseled pt/family regarding: lab results, diagnosis, need for follow-up, rad results - Departure Time of Disposition: 01:27 Departure Disposition: Home Clinical Impression: Abdominal pain Condition: Stable Critical Care Time: No Referrals: TAN STEPHENS [Primary Care Provider] - Instructions: Acute Abdomen (Belly Pain), Adult (DC) Additional Instructions: Rx: Zofran. Drink plenty of clear liquids. Return for worse abdominal pain, vomiting, fever, diarrhea, dizziness, weakness or any problems Prescriptions: Ondansetron [Zofran Odt] 4 mg PO Q6-8HPRN PRN #10 tab.rapdis PRN Reason: Nausea/Vomiting
[2017-07-06 00:05] LABS: BASOPHIL % 0.5 % (0.0-0.4); Basophil (Absolute #) 0.04 (0-0.4); Eosinophil % 2.9 % (0.00-5.0); Eosinophil (Absolute #) 0.21 (0-0.5); Granulocyte Absolute (ANC) 3.14 (1.4-6.9); Granulocytes % 42.7 % (36.0-66.0); Hematocrit 40.4 % (35-47); Hemoglobin 13.7 gm/dl (12.0-16.0); Lymphocyte (Absolute #) 3.44 (1.0-4.6); Lymphocytes % 46.7 % (24.0-44.0); Mean Cell Volume 91.2 fl (78-100); Mean Corpuscular Hemoglobin 30.9 pg (26-32); Mean Corpuscular Hgb Concent. 33.9 g/dl (32-36); Mean Platelet Volume 11.2 fl (6-9.5); Monocyte (Absolute #) 0.53 (0.0-1.3); Monocytes % 7.2 % (0.0-12.0); Platelet Count 307 K/mm3 (150-450); Red Blood Count 4.43 M/mm3 (4.1-5.4); Red Cell Distribution Width 13.7 % (11.5-14.0); White Blood Count 7.4 K/mm3 (4.0-10.5)
[2017-07-06 00:17] LABS: Appearance CLEAR (CLEAR); Bilirubin NEGATIVE (NEGATIVE); Blood NEGATIVE Ery/ul (0-5); Glucose NEGATIVE (NEGATIVE); Ketones NEGATIVE (NEGATIVE); Leukocyte Esterase NEGATIVE (NEGATIVE); Nitrite NEGATIVE (NEGATIVE); Protein,Urine Dip NEGATIVE (Negative); Specific Gravity 1.025 (1.005-1.025); Urobilinogen NORMAL mg/dL (0-1)
[2017-07-06 00:33] LABS: Amphetamine,Urine NEGATIVE (NEGATIVE); Barbiturate,Urine NEGATIVE (NEGATIVE); Benzodiazepine,Urine POSITIVE (NEGATIVE); Cocaine,Urine NEGATIVE (NEGATIVE); Methadone,Urine NEGATIVE (NEGATIVE); Opiate,Urine NEGATIVE (NEGATIVE); PCP,Urine NEGATIVE (NEGATIVE); THC,Urine NEGATIVE (NEGATIVE)
[2017-07-06 00:43] LABS: ALBUMIN 4.6 g/dL (3.5-5.0); ALKALINE PHOSPHATASE 75 U/L (38-126); AMYLASE 92 U/L (30-110); ANION GAP 18.6 MEQ/L (5-15); BLOOD UREA NITROGEN 20 mg/dL (7-17); CHLORIDE 106 mmol/L (98-107); Calcium 9.6 mg/dL (8.4-10.2); Carbon Dioxide 22 mmol/L (22-30); Glucose 91 mg/dL (74-106); LIPASE 164 U/L (23-300); Potassium 3.9 mmol/L (3.5-5.1); SGOT/AST 16 U/L (14-36); SGPT/ALT 13 U/L (0-35); SODIUM 142 mmol/L (137-145); Total Protein 7.7 g/dL (6.3-8.2)
[2017-07-06 01:18] VITALS: PULSE 84
--- NOTE | 2017-07-06 08:49 | XRAY ---
Indication: Right upper quadrant pain. Nausea and vomiting. History chronic pancreatitis. Multiple contiguous axial images obtained through the abdomen and pelvis using 80 cc Isovue 370 contrast only. Comparison: August 11, 2016. Lung bases clear. Heart is not enlarged. Noncontrasted stomach and bowel loops appear nonobstructed. Normal appendix. No free fluid/air. Stable nonobstructing right renal micro-calculus. Again previous cholecystectomy. Remaining liver, pancreas, spleen, adrenal glands, kidneys, ureters, bladder, and uterus appear unremarkable. Abdominal aorta is normal in course and caliber without AAA or pathologic retroperitoneal lymphadenopathy. Osseous structures intact. Impression: 1. Stable nonobstructing right renal micro-calculus. 2. Remaining CT abdomen/pelvis with contrast exam is negative. Comment: Preliminary interpretation was made by [facility]. No critical discrepancy. CT DI 14.69
== END 2017-07-06 01:44 | disposition home or self-care (01) ==
LOC: ED 22:40
DX: R10.13 Epigastric pain (principal); R11.2 Nausea with vomiting, unspecified; Z79.899 Other long term (current) drug therapy; Z87.19 Personal history of other diseases of the digestive system
CPT/HCPCS: 36000; 36415; 74177; 80053; 80307; 81002; 82150; 83690; 84703; 85025; 96360; 96374; 96375; 99284; J2405

== ENCOUNTER 2017-08-23 21:36 | Emergency (ER) | payer OTHER ==
[2017-08-23 21:59] VITALS: BP 119/62; PULSE 83; O2SAT 98
[2017-08-23] MEDS ORDERED: Sodium Chloride 0.9% 1000 ML 1,000 ML IV STA (22:07)
[2017-08-23] MEDS ORDERED: Phenergan 25 MG INJ IV ONE (22:07)
--- NOTE | 2017-08-23 22:13 | ERPHSYRPT ---
- History of Present Illness Time Seen by Provider: 08/23/17 22:01 Historian: patient Exam Limitations: no limitations Patient Subjective Stated Complaint: abdominal pain x 2 days with bloating and vomiting. has a doctor at [facility] for her pancreas Triage Nursing Assessment: aleert and in no distress.. states abd bloating with N/V. has hx of pancreatitis. this feel like that. + BS. pain on palpation. Physician History: 31-year-old white female with history of chronic abdominal pain, migraines, arthritis, pancreatitis, arrives with complaint of right upper quadrant pain which is described as sharp and vomiting symptoms going for 2 days, Patient does have a history of chronic abdominal pain. Past medical history includes migraines, arthritis, pancreatitis. Past surgical history includes cholecystectomy and ERCP Timing/Duration: day(s) (2 days) Activities at Onset: none Quality: sharpness Abdominal Pain Onset Location: RUQ Pain Radiation: no radiation Severity of Pain-Max: moderate Severity of Pain-Current: moderate Modifying Factors: Improves With: nothing Associated Symptoms: nausea, vomiting, No back, No chest pain, No diaphoresis, No diarrhea, No fever/chills, No fatigue, No headache, No heartburn, No loss of appetite, No neck pain, No rash, No shortness of breath, No syncope, No weakness Previous symptoms: same symptoms as today Allergies/Adverse Reactions: codeine [Codeine] Allergy (Verified 05/29/17 20:02) Hives HIVES droperidol [Droperidol] Allergy (Verified 05/29/17 20:02) Hives HIVES duloxetine HCl [From Cymbalta] Allergy (Verified 05/29/17 20:02) SEIZURE SEIZURE ibuprofen Allergy (Verified 05/29/17 20:02) Hives HIVES ketorolac tromethamine [From Toradol] Allergy (Verified 05/29/17 20:02) Hives HIVES naproxen sodium [From Aleve] Allergy (Verified 05/29/17 20:02) Hives HIVES prochlorperazine edisylate [From Compazine] Allergy (Verified 05/29/17 20:02) LOCK JAW LOCK JAW prochlorperazine maleate [From Compazine] Allergy (Verified 05/29/17 20:02) LOCK JAW LOCK JAW morphine Adverse Reaction (Verified 05/29/17 20:02) Itching ITCH trazodone Adverse Reaction (Verified 05/29/17 20:02) Vomiting VOMITING Home Medications: Lipase/Protease/Amylase [Creon Dr 12,000 Units Capsule] 4 each PO TID 08/26/13 [ History] Oxycodone HCl [Oxycontin] 1 tab PO BID PRN 03/20/16 [History] Oxycodone HCl 10 mg PO TID PRN 01/23/17 [History] Hx Tetanus, Diphtheria Vaccination/Date Given: Yes Hx Influenza Vaccination/Date Given: No Hx Pneumococcal Vaccination/Date Given: No Immunizations Up to Date: (unknown) - Review of Systems Constitutional: No Fever, No Chills Eyes: No Symptoms Ears, Nose, & Throat: No Symptoms Respiratory: No Cough, No Dyspnea Cardiac: No Chest Pain, No Edema, No Syncope Abdominal/Gastrointestinal: Abdominal Pain, Nausea, Vomiting, No Diarrhea, No Constipation, No Hematemesis, No Hematochezia, No Melena, No Dysphagia, No Appetite Changes Genitourinary Symptoms: No Dysuria Musculoskeletal: No Back Pain, No Neck Pain Skin: No Rash Neurological: No Dizziness, No Focal Weakness, No Sensory Changes Psychological: No Symptoms Endocrine: No Symptoms All Other Systems: Reviewed and Negative - Past Medical History Pertinent Past Medical History: Yes Neurological History: Migraines ENT History: No Pertinent History Cardiac History: No Pertinent History Respiratory History: No Pertinent History Endocrine Medical History: Other Musculoskeletal History: Arthritis, Fractures GI Medical History: Pancreatitis History: No Pertinent History Psycho-Social History: No Pertinent History Female Reproductive Disorders: No Pertinent History Other Medical History: Pancreatitis - Past Surgical History Past Surgical History: Yes Neuro Surgical History: No Pertinent History Cardiac: No Pertinent History Respiratory: No Pertinent History Gastrointestinal: Cholecystectomy Genitourinary: Other Musculoskeletal: No Pertinent History Female Surgical History: No Pertinent History Other Surgical History: ERCPs-multiple last in july - Social History Smoking Status: Current every day smoker How long have you smoked: 24 Exposure to second hand smoke: No Drug Use: none Patient Lives Alone: No - Female History Hx Now: No - Nursing Vital Signs Nursing Vital Signs: Initial Vital Signs Temperature 98.2 F 08/23/17 21:54 Pulse Rate 83 08/23/17 21:54 Respiratory Rate 18 08/23/17 21:54 Blood Pressure 119/62 08/23/17 21:54 O2 Sat by Pulse Oximetry 98 08/23/17 21:54 Pain Scale Pain Intensity 7 - Physical Exam General Appearance: no apparent distress, alert Eye Exam: PERRL/EOMI, eyes nml inspection Ears, Nose, Throat Exam: normal ENT inspection, pharynx normal, moist mucous membranes Neck Exam: normal inspection, non-tender, supple, full range of motion Respiratory Exam: normal breath sounds, lungs clear, No respiratory distress Cardiovascular Exam: regular rate/rhythm, normal heart sounds Gastrointestinal/Abdomen Exam: soft, normal bowel sounds, tenderness (right upper quadrant tenderness), No distention, No mass, No guarding, No ecchymosis, No pulsatile mass, No rebound, No hepatomegaly, No organomegaly, No splenomegaly Back Exam: normal inspection, normal range of motion, No CVA tenderness, No vertebral tenderness Extremity Exam: normal inspection, normal range of motion, pelvis stable Neurologic Exam: alert, oriented x 3, cooperative, box toe cutter II-XII nml as tested, normal mood/affect, nml cerebellar function, sensation nml, No motor deficits Skin Exam: normal color, warm, dry SpO2 Interpretation: normal (98%) SpO2: 98 Oxygen Delivery: Room Air - Course Nursing assessment & vital signs reviewed: Yes Ordered Tests: Active Orders 24 hr Category Date Time Status IV Insertion STAT Care 08/23/17 22:07 Active AMYLASE Stat Lab 08/23/17 23:00 Completed CBC W DIFF Stat Lab 08/23/17 23:00 Completed CMP Stat Lab 08/23/17 23:00 Completed HCG QUALITATIVE,SERUM Stat Lab 08/23/17 23:00 Completed LIPASE Stat Lab 08/23/17 23:00 Completed UA W/RFX UR CULTURE Stat Lab 08/23/17 22:23 Completed Urine Triage Profile Stat Lab 08/23/17 22:23 Completed Medication Summary Discontinued Medications Generic Name Dose Route Start Last Admin Trade Name Freq PRN Reason Stop Dose Admin Hydromorphone HCl 0.5 mg 08/23/17 23:39 08/23/17 23:46 Hydromorphone 1 Mg/Ml Ampule IV 08/23/17 23:40 0.5 mg STAT ONE Administration Hydromorphone HCl Confirm 08/23/17 23:44 Dilaudid 2 Mg Injection Administered 08/23/17 23:45 Dose 2 mg .ROUTE .STK-MED ONE Sodium Chloride 1,000 mls @ 999 mls/hr 08/23/17 22:07 08/23/17 23:06 Sodium Chloride 0.9% 1000 Ml IV 08/23/17 23:07 999 mls/hr .Q1H1M STA Administration Sodium Chloride Confirm 08/23/17 23:02 Sodium Chloride 0.9% 1000 Ml Administered 08/23/17 23:03 Dose 1,000 mls @ ud .ROUTE .STK-MED ONE Promethazine HCl 12.5 mg 08/23/17 22:07 08/23/17 23:05 Phenergan 25 Mg Inj IV 08/23/17 22:08 12.5 mg STAT ONE Administration Promethazine HCl Confirm 08/23/17 23:02 Phenergan 25 Mg Inj Administered 08/23/17 23:03 Dose 25 mg .ROUTE .STK-MED ONE Lab/Rad Data: Laboratory Result Diagrams 08/23/17 23:00 08/23/17 23:00 Laboratory Results 08/23/17 08/23/17 08/23/17 Range/Units 23:00 23:00 23:00 WBC 6.5 (4.0-10.5) K/mm3 RBC 4.34 (4.1-5.4) M/mm3 Hgb 13.9 (12.0-16.0) gm/dl Hct 40.1 (35-47) % MCV 92.4 (78-100) fl MCH 32.0 (26-32) pg MCHC 34.7 (32-36) g/dl RDW 12.9 (11.5-14.0) % Plt Count 231 (150-450) K/mm3 MPV 10.9 H (6-9.5) fl Gran % 52.5 (36.0-66.0) % Eos # (Auto) 0.37 (0-0.5) Absolute Lymphs (auto) 2.07 (1.0-4.6) Absolute Monos (auto) 0.62 (0.0-1.3) Lymphocytes % 31.9 (24.0-44.0) % Monocytes % 9.6 (0.0-12.0) % Eosinophils % 5.7 H (0.00-5.0) % Basophils % 0.3 (0.0-0.4) % Absolute Granulocytes 3.40 (1.4-6.9) Basophils # 0.02 (0-0.4) Sodium 141 (137-145) mmol/L Potassium 3.4 L (3.5-5.1) mmol/L Chloride 105 (98-107) mmol/L Carbon Dioxide 24 (22-30) mmol/L Anion Gap 15.4 H (5-15) MEQ/L BUN 23 H (7-17) mg/dL Creatinine 0.64 (0.52-1.04) mg/dL Estimated GFR > 60.0 ML/MIN Glucose 102 (74-106) mg/dL Calcium 9.2 (8.4-10.2) mg/dL Total Bilirubin 0.20 (0.2-1.3) mg/dL AST 14 (14-36) U/L ALT 12 (0-35) U/L Alkaline Phosphatase 60 (38-126) U/L Serum Total Protein 7.0 (6.3-8.2) g/dL Albumin 4.3 (3.5-5.0) g/dL Amylase 74 (30-110) U/L Lipase 129 (23-300) U/L Serum , Qual NEGATIVE (Negative) Ur Collection Type Urine Color (YELLOW) Urine Appearance (CLEAR) Urine pH (5-6) Ur Specific [place] (1.005-1.025) Urine Protein (Negative) Urine Ketones (NEGATIVE) Urine Blood (0-5) Gary/ul Urine Nitrite (NEGATIVE) Urine Bilirubin (NEGATIVE) Urine Urobilinogen (0-1) mg/dL Ur Leukocyte Esterase (NEGATIVE) Urine Culture Reflexed (NO) Urine Glucose (NEGATIVE) mg/dL Urine Opiates Level (NEGATIVE) Ur Methadone (NEGATIVE) Urine Barbiturates (NEGATIVE) Ur Phencyclidine (PCP) (NEGATIVE) Urine Amphetamine (NEGATIVE) U Benzodiazepine Level (NEGATIVE) Urine Cocaine (NEGATIVE) Urine Marijuana (THC) (NEGATIVE) Specimen Received 08/23/17 08/23/17 Range/Units 22:23 22:23 WBC (4.0-10.5) K/mm3 RBC (4.1-5.4) M/mm3 Hgb (12.0-16.0) gm/dl Hct (35-47) % MCV (78-100) fl MCH (26-32) pg MCHC (32-36) g/dl RDW (11.5-14.0) % Plt Count (150-450) K/mm3 MPV (6-9.5) fl Gran % (36.0-66.0) % Eos # (Auto) (0-0.5) Absolute Lymphs (auto) (1.0-4.6) Absolute Monos (auto) (0.0-1.3) Lymphocytes % (24.0-44.0) % Monocytes % (0.0-12.0) % Eosinophils % (0.00-5.0) % Basophils % (0.0-0.4) % Absolute Granulocytes (1.4-6.9) Basophils # (0-0.4) Sodium (137-145) mmol/L Potassium (3.5-5.1) mmol/L Chloride (98-107) mmol/L Carbon Dioxide (22-30) mmol/L Anion Gap (5-15) MEQ/L BUN (7-17) mg/dL Creatinine (0.52-1.04) mg/dL Estimated GFR ML/MIN Glucose (74-106) mg/dL Calcium (8.4-10.2) mg/dL Total Bilirubin (0.2-1.3) mg/dL AST (14-36) U/L ALT (0-35) U/L Alkaline Phosphatase (38-126) U/L Serum Total Protein (6.3-8.2) g/dL Albumin (3.5-5.0) g/dL Amylase (30-110) U/L Lipase (23-300) U/L Serum , Qual (Negative) Ur Collection Type VOID Urine Color YELLOW (YELLOW) Urine Appearance CLEAR (CLEAR) Urine pH 5.0 (5-6) Ur Specific [place] 1.020 (1.005-1.025) Urine Protein NEGATIVE (Negative) Urine Ketones NEGATIVE (NEGATIVE) Urine Blood NEGATIVE (0-5) Gary/ul Urine Nitrite NEGATIVE (NEGATIVE) Urine Bilirubin NEGATIVE (NEGATIVE) Urine Urobilinogen NORMAL (0-1) mg/dL Ur Leukocyte Esterase NEGATIVE (NEGATIVE) Urine Culture Reflexed NO (NO) Urine Glucose NEGATIVE (NEGATIVE) mg/dL Urine Opiates Level NEGATIVE (NEGATIVE) Ur Methadone NEGATIVE (NEGATIVE) Urine Barbiturates NEGATIVE (NEGATIVE) Ur Phencyclidine (PCP) NEGATIVE (NEGATIVE) Urine Amphetamine NEGATIVE (NEGATIVE) U Benzodiazepine Level NEGATIVE (NEGATIVE) Urine Cocaine NEGATIVE (NEGATIVE) Urine Marijuana (THC) POSITIVE (NEGATIVE) Specimen Received 08/22/17 2300 - Progress Progress: improved Progress Note: 08/23/17 22:11 31-year-old white female with history of chronic abdominal pain, migraines, pancreatitis. Patient arrives with complaint of right upper quadrant pain for 2-3 days she states she's been vomiting. 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 She states that she last filled her prescriptions on July 29, 2017 but she "got rid of those" stating that she threw them away. Review of inspect report shows that the patient received OxyContin 30 mg #60 tablets on July 18, 2017. Patient also received oxycodone 10 mg #90 tablets on July 18, 2017. Patient also received oxycodone 10 mg #180 tablets on July 29, 2017. On physical examination patient does not appear to be in acute distress she does have some mild right upper quadrant tenderness. I have told the patient that I do not feel comfortable giving patient narcotic analgesia at this time. Will go ahead and give patient Phenergan 12.5 mg IV provide IV normal saline. Obtain appropriate laboratory data. 08/23/17 23:40 Patient's labs essentially normal. Patient with chronic abdominal pain. Patient states she threw a significant amount of narcotic analgesia is out. Will give patient 0.5 mg of hydromorphone. Patient otherwise stable. Patient will need to follow-up with her family doctor. - Departure Time of Disposition: 23:41 Departure Disposition: Home Clinical Impression: Chronic abdominal pain Condition: Fair Critical Care Time: No Referrals: TAN STEPHENS [Primary Care Provider] - Additional Instructions: Return home. Plenty of fluids. Clear fluids only 24-48 hours if abdominal pain. Follow-up with your family doctor. Return for acute distress or for severe symptoms.
[2017-08-23 22:57] LABS: Amphetamine,Urine NEGATIVE (NEGATIVE); Barbiturate,Urine NEGATIVE (NEGATIVE); Benzodiazepine,Urine NEGATIVE (NEGATIVE); Cocaine,Urine NEGATIVE (NEGATIVE); Methadone,Urine NEGATIVE (NEGATIVE); PCP,Urine NEGATIVE (NEGATIVE); THC,Urine POSITIVE (NEGATIVE)
[2017-08-23 22:59] LABS: Appearance CLEAR (CLEAR); Bilirubin NEGATIVE (NEGATIVE); Blood NEGATIVE Ery/ul (0-5); Glucose NEGATIVE (NEGATIVE); Ketones NEGATIVE (NEGATIVE); Leukocyte Esterase NEGATIVE (NEGATIVE); Nitrite NEGATIVE (NEGATIVE); Protein,Urine Dip NEGATIVE (Negative); Urobilinogen NORMAL mg/dL (0-1)
[2017-08-23] MEDS ORDERED: Sodium Chloride 0.9% 1000 ML 1,000 ML ONE (23:02)
[2017-08-23] MEDS ORDERED: Phenergan 25 MG INJ ONE (23:02)
[2017-08-23 23:04] LABS: Opiate,Urine NEGATIVE (NEGATIVE)
[2017-08-23 23:06] LABS: BASOPHIL % 0.3 % (0.0-0.4); Basophil (Absolute #) 0.02 (0-0.4); Eosinophil % 5.7 % (0.00-5.0); Eosinophil (Absolute #) 0.37 (0-0.5); Granulocytes % 52.5 % (36.0-66.0); Hematocrit 40.1 % (35-47); Hemoglobin 13.9 gm/dl (12.0-16.0); Lymphocyte (Absolute #) 2.07 (1.0-4.6); Lymphocytes % 31.9 % (24.0-44.0); Mean Cell Volume 92.4 fl (78-100); Mean Corpuscular Hgb Concent. 34.7 g/dl (32-36); Mean Platelet Volume 10.9 fl (6-9.5); Monocyte (Absolute #) 0.62 (0.0-1.3); Monocytes % 9.6 % (0.0-12.0); Platelet Count 231 K/mm3 (150-450); Red Blood Count 4.34 M/mm3 (4.1-5.4); Red Cell Distribution Width 12.9 % (11.5-14.0); White Blood Count 6.5 K/mm3 (4.0-10.5)
[2017-08-23 23:23] LABS: ALBUMIN 4.3 g/dL (3.5-5.0); ALKALINE PHOSPHATASE 60 U/L (38-126); AMYLASE 74 U/L (30-110); ANION GAP 15.4 MEQ/L (5-15); BLOOD UREA NITROGEN 23 mg/dL (7-17); CHLORIDE 105 mmol/L (98-107); Calcium 9.2 mg/dL (8.4-10.2); Carbon Dioxide 24 mmol/L (22-30); Creatinine 1 0.64 mg/dL (0.52-1.04); Glucose 102 mg/dL (74-106); LIPASE 129 U/L (23-300); Potassium 3.4 mmol/L (3.5-5.1); SGOT/AST 14 U/L (14-36); SGPT/ALT 12 U/L (0-35); SODIUM 141 mmol/L (137-145)
[2017-08-23] MEDS ORDERED: Hydromorphone 1 mg/ml Ampule IV ONE (23:39)
[2017-08-23] MEDS ORDERED: DILAUDID 2 MG INJECTION ONE (23:44)
== END 2017-08-24 00:48 | disposition home or self-care (01) ==
LOC: ED 21:36
DX: R10.11 Right upper quadrant pain (principal); R11.2 Nausea with vomiting, unspecified; Z79.899 Other long term (current) drug therapy
CPT/HCPCS: 36000; 36415; 80053; 80307; 81002; 82150; 83690; 84703; 85025; 96374; 96375; 99284; J1170; J2550

== ENCOUNTER 2018-07-31 21:46 | Emergency (ER) | payer OTHER ==
[2018-07-31] MEDS ORDERED: Sodium Chloride 0.9% 1000 ML 1,000 ML IV STA (22:49)
[2018-07-31] MEDS ORDERED: Hydromorphone 1 mg/ml Ampule IV ONE (22:49)
[2018-07-31] MEDS ORDERED: Zofran 4 MG/2 ML VIAL IV ONE (22:49)
--- NOTE | 2018-07-31 22:49 | ERPHSYRPT ---
- History of Present Illness Time Seen by Provider: 07/31/18 22:00 Historian: patient Exam Limitations: clinical condition Patient Subjective Stated Complaint: hx chronic pantreatitis. pt states she believes this is a flare up. pt reports 8/10 pain RUQ that radiates across abdomen, down right side, and around to back. RUQ tender to palpatation. Triage Nursing Assessment: hx chronic pantreatitis. pt states she believes this is a flare up. pt reports 8/10 pain RUQ that radiates across abdomen, down right side, and around to back. RUQ tender to palpatation. vitals wnl. reports 8 /10 pain. Physician History: PATIENT WITH A HISTORY OF CHRONIC RECURRENT PANCREATITIS, CHRONIC ABDOMINAL PAIN , PRESENTLY HAS A DILAUDID PAIN PUMP, COMPLAINS OF EPIGASTRIC PAINS PAST FEW HOURS, NAUSEA, EMESIS X 3, HAS NO RELIEF WITH DILAUDID PAIN PUMP. DENIES DIARRHEA, FEVER, OR URINARY SYMPTOMS. Allergies/Adverse Reactions: codeine [Codeine] Allergy (Verified 05/29/17 20:02) Hives HIVES droperidol [Droperidol] Allergy (Verified 05/29/17 20:02) Hives HIVES duloxetine HCl [From Cymbalta] Allergy (Verified 05/29/17 20:02) SEIZURE SEIZURE ibuprofen Allergy (Verified 05/29/17 20:02) Hives HIVES ketorolac tromethamine [From Toradol] Allergy (Verified 05/29/17 20:02) Hives HIVES naproxen sodium [From Aleve] Allergy (Verified 05/29/17 20:02) Hives HIVES prochlorperazine edisylate [From Compazine] Allergy (Verified 05/29/17 20:02) LOCK JAW LOCK JAW prochlorperazine maleate [From Compazine] Allergy (Verified 05/29/17 20:02) LOCK JAW LOCK JAW morphine Adverse Reaction (Verified 05/29/17 20:02) Itching ITCH trazodone Adverse Reaction (Verified 05/29/17 20:02) Vomiting VOMITING Home Medications: Lipase/Protease/Amylase [Creon Dr 12,000 Units Capsule] 4 each PO TID 08/26/13 [ History] Oxycodone HCl [Oxycontin] 1 tab PO BID PRN 03/20/16 [History] Oxycodone HCl 10 mg PO TID PRN 01/23/17 [History] Hx Tetanus, Diphtheria Vaccination/Date Given: Yes Hx Influenza Vaccination/Date Given: No Hx Pneumococcal Vaccination/Date Given: No Immunizations Up to Date: Yes - Past Medical History Pertinent Past Medical History: Yes Neurological History: Migraines ENT History: No Pertinent History Cardiac History: No Pertinent History Respiratory History: No Pertinent History Endocrine Medical History: Other Musculoskeletal History: Arthritis, Fractures GI Medical History: Pancreatitis History: No Pertinent History Psycho-Social History: No Pertinent History Female Reproductive Disorders: No Pertinent History Other Medical History: Pancreatitis, skull fracture 2009 - Past Surgical History Past Surgical History: Yes Neuro Surgical History: No Pertinent History Cardiac: No Pertinent History Respiratory: No Pertinent History Gastrointestinal: Cholecystectomy Genitourinary: Other Musculoskeletal: No Pertinent History Female Surgical History: No Pertinent History Other Surgical History: ERCPs-multiple last in july, pain pump - Social History Smoking Status: Current every day smoker How long have you smoked: 26 years Exposure to second hand smoke: No Drug Use: none Patient Lives Alone: No - Female History Hx Last Menstrual Period: approx. 4 years ago Hx Now: No - Nursing Vital Signs Nursing Vital Signs: Initial Vital Signs Temperature 97.8 F 07/31/18 21:47 Pulse Rate 50 L 07/31/18 21:47 Respiratory Rate 20 07/31/18 21:47 Blood Pressure 128/88 07/31/18 21:47 O2 Sat by Pulse Oximetry 95 07/31/18 21:47 Pain Scale Pain Intensity 8 - Physical Exam SpO2: 95 - CT Exams Abdomen/Pelvis CT Interpretation: Discussed w/radiologist, Normal Appendix (THERE IS A 3MM RIGHT RENAL NONOBSRUCTING STONE, ADDITIONAL EVEN SMALLER 1MM STONE , NORMAL APPENDIX, INTERVAL PLACEMENT OF LEFT ANTERIOR ABDOMINAL WALL PAIN PUMP.) Ordered Tests: Active Orders 24 hr Category Date Time Status IV Insertion STAT Care 07/31/18 22:49 Active ABDOMEN AND PELVIS W/0 CONTRAS [CT] Stat Exams 07/31/18 22:47 Taken AMYLASE Stat Lab 07/31/18 22:45 Completed CBC W DIFF Stat Lab 07/31/18 22:45 Completed CMP Stat Lab 07/31/18 22:45 Completed CULTURE,URINE Stat Lab 07/31/18 22:50 Received LIPASE Stat Lab 07/31/18 22:45 Completed UA W/RFX UR CULTURE Stat Lab 07/31/18 22:50 Completed Medication Summary Generic Name Dose Route Start Last Admin Trade Name Ozzy PRN Reason Stop Dose Admin Sodium Chloride 1,000 mls @ 500 mls/hr 07/31/18 22:49 07/31/18 23:12 Sodium Chloride 0.9% 1000 Ml IV 08/01/18 00:48 500 mls/hr .Q2H STA Administration Discontinued Medications Generic Name Dose Route Start Last Admin Trade Name Ozzy PRN Reason Stop Dose Admin Hydromorphone HCl 1 mg 07/31/18 22:49 07/31/18 23:13 Hydromorphone 1 Mg/Ml Ampule IV 07/31/18 22:50 1 mg STAT ONE Administration Hydromorphone HCl Confirm 07/31/18 23:09 Hydromorphone 1 Mg/Ml Ampule Administered 07/31/18 23:10 Dose 1 mg .ROUTE .STK-MED ONE Sodium Chloride Confirm 07/31/18 23:10 Sodium Chloride 0.9% 1000 Ml Administered 07/31/18 23:11 Dose 1,000 mls @ ud .ROUTE .STK-MED ONE Ceftriaxone Sodium/Dextrose 1 g in 50 mls @ 100 mls/hr 07/31/18 23:26 00:22 Rocephin 1 Gm-D5w 50 Ml Bag IV 07/31/18 23:55 Infused STAT STA Infusion Ceftriaxone Sodium/Dextrose Confirm 07/31/18 23:29 Rocephin 1 Gm-D5w 50 Ml Bag Administered 07/31/18 23:30 Dose 1 g in 50 mls @ ud IV .STK-MED ONE Ondansetron HCl 4 mg 07/31/18 22:49 07/31/18 23:13 Zofran 4 Mg/2 Ml Vial IV 07/31/18 22:50 4 mg STAT ONE Administration Ondansetron HCl Confirm 07/31/18 23:09 Zofran 4 Mg/2 Ml Vial Administered 07/31/18 23:10 Dose 4 mg .ROUTE .STK-MED ONE Lab/Rad Data: Laboratory Result Diagrams 07/31/18 22:45 07/31/18 22:45 Laboratory Results 07/31/18 07/31/18 07/31/18 Range/Units 22:50 22:45 22:45 WBC 8.8 (4.0-10.5) K/mm3 RBC 4.27 (4.1-5.4) M/mm3 Hgb 13.2 (12.0-16.0) gm/dl Hct 38.1 (35-47) % MCV 89.2 (78-100) fl MCH 30.9 (26-32) pg MCHC 34.6 (32-36) g/dl RDW 11.9 (11.5-14.0) % Plt Count 213 (150-450) K/mm3 MPV 11.4 H (6-9.5) fl Gran % 52.0 (36.0-66.0) % Eos # (Auto) 0.39 (0-0.5) Absolute Lymphs (auto) 3.09 (1.0-4.6) Absolute Monos (auto) 0.73 (0.0-1.3) Lymphocytes % 35.0 (24.0-44.0) % Monocytes % 8.3 (0.0-12.0) % Eosinophils % 4.4 (0.00-5.0) % Basophils % 0.3 (0.0-0.4) % Absolute Granulocytes 4.58 (1.4-6.9) Basophils # 0.03 (0-0.4) Sodium 143 (137-145) mmol/L Potassium 3.1 L (3.5-5.1) mmol/L Chloride 108 H (98-107) mmol/L Carbon Dioxide 23 (22-30) mmol/L Anion Gap 14.8 (5-15) MEQ/L BUN 13 (7-17) mg/dL Creatinine 0.61 (0.52-1.04) mg/dL Estimated GFR > 60.0 ML/MIN Glucose 88 (74-106) mg/dL Calcium 9.7 (8.4-10.2) mg/dL Total Bilirubin 0.20 (0.2-1.3) mg/dL AST 23 (14-36) U/L ALT 16 (0-35) U/L Alkaline Phosphatase 70 (38-126) U/L Serum Total Protein 7.8 (6.3-8.2) g/dL Albumin 4.5 (3.5-5.0) g/dL Amylase 82 (30-110) U/L Lipase 127 (23-300) U/L Urine Color YELLOW (YELLOW) Urine Appearance CLEAR (CLEAR) Urine pH 5.0 (5-6) Ur Specific [place] 1.025 (1.005-1.025) Urine Protein 30 (Negative) Urine Ketones NEGATIVE (NEGATIVE) Urine Blood NEGATIVE (0-5) Gary/ul Urine Nitrite NEGATIVE (NEGATIVE) Urine Bilirubin NEGATIVE (NEGATIVE) Urine Urobilinogen NEGATIVE (0-1) mg/dL Ur Leukocyte Esterase NEGATIVE (NEGATIVE) Urine WBC (Auto) 6-10 (0-5) /HPF Urine RBC (Auto) 3-5 (0-2) /HPF U Hyaline Cast (Auto) 0-2 (0-2) /LPF U Epithel Cells (Auto) FEW (FEW) /HPF Urine Bacteria (Auto) FEW (NEGATIVE) /HPF Other Casts (Auto) NEGATIVE (NEGATIVE) /LPF Urine Mucus (Auto) MODERATE (NEGATIVE) /HPF Urine Culture Reflexed YES (NO) Urine Glucose NEGATIVE (NEGATIVE) mg/dL - Departure Departure Disposition: Home Clinical Impression: CHRONIC ABDOMINAL PAIN, URINARY TRACT INFECTION Condition: Stable Critical Care Time: No Referrals: TAN STEPHENS [Primary Care Provider] - Additional Instructions: KLOR CON 10MEQ TWICE DAILY FOR LOW POTASSIUM FOR DURATION 10 DAYS. ANTIBIOTIC MACROBID 100MG TWICE DAILY FOR 10 DAYS. CONSULT YOUR PRIMARY CARE PROVIDER FOR FOLLOWUP IN 1 WEEK. Prescriptions: Nitrofurantoin Macro 100 mg [Macrobid 100MG Capsule] 100 mg PO BID #20 cap Potassium Chloride [Klor-Con 10] 10 meq PO BID #20 tablet.er
[2018-07-31 23:07] LABS: Appearance CLEAR (CLEAR); Bacteria FEW /HPF (NEGATIVE); Bilirubin NEGATIVE (NEGATIVE); Blood NEGATIVE Ery/ul (0-5); Epithelial Cells FEW /HPF (FEW); Glucose NEGATIVE (NEGATIVE); Hyaline Casts 0-2 /LPF (0-2); Ketones NEGATIVE (NEGATIVE); Leukocyte Esterase NEGATIVE (NEGATIVE); Mucus MODERATE /HPF (NEGATIVE); Nitrite NEGATIVE (NEGATIVE); Protein,Urine Dip 30 (Negative); Specific Gravity 1.025 (1.005-1.025); Urobilinogen NEGATIVE mg/dL (0-1)
[2018-07-31] MEDS ORDERED: Hydromorphone 1 mg/ml Ampule ONE (23:09)
[2018-07-31] MEDS ORDERED: Zofran 4 MG/2 ML VIAL ONE (23:09)
[2018-07-31] MEDS ORDERED: Sodium Chloride 0.9% 1000 ML 1,000 ML ONE (23:10)
[2018-07-31 23:15] LABS: BASOPHIL % 0.3 % (0.0-0.4); Basophil (Absolute #) 0.03 (0-0.4); Eosinophil % 4.4 % (0.00-5.0); Eosinophil (Absolute #) 0.39 (0-0.5); Granulocyte Absolute (ANC) 4.58 (1.4-6.9); Hematocrit 38.1 % (35-47); Hemoglobin 13.2 gm/dl (12.0-16.0); Lymphocyte (Absolute #) 3.09 (1.0-4.6); Mean Cell Volume 89.2 fl (78-100); Mean Corpuscular Hemoglobin 30.9 pg (26-32); Mean Corpuscular Hgb Concent. 34.6 g/dl (32-36); Mean Platelet Volume 11.4 fl (6-9.5); Monocyte (Absolute #) 0.73 (0.0-1.3); Monocytes % 8.3 % (0.0-12.0); Platelet Count 213 K/mm3 (150-450); Red Blood Count 4.27 M/mm3 (4.1-5.4); Red Cell Distribution Width 11.9 % (11.5-14.0); White Blood Count 8.8 K/mm3 (4.0-10.5)
[2018-07-31] MEDS ORDERED: ROCEPHIN 1 Gm-D5w 50 ml Bag** 1 G/50 ML IVPB IV STA (23:26)
[2018-07-31] MEDS ORDERED: ROCEPHIN 1 Gm-D5w 50 ml Bag** 1 G/50 ML IVPB IV ONE (23:29)
[2018-07-31 23:30] LABS: ALBUMIN 4.5 g/dL (3.5-5.0); ALKALINE PHOSPHATASE 70 U/L (38-126); AMYLASE 82 U/L (30-110); ANION GAP 14.8 MEQ/L (5-15); BLOOD UREA NITROGEN 13 mg/dL (7-17); CHLORIDE 108 mmol/L (98-107); Calcium 9.7 mg/dL (8.4-10.2); Carbon Dioxide 23 mmol/L (22-30); Creatinine 1 0.61 mg/dL (0.52-1.04); Glucose 88 mg/dL (74-106); LIPASE 127 U/L (23-300); Potassium 3.1 mmol/L (3.5-5.1); SGOT/AST 23 U/L (14-36); SGPT/ALT 16 U/L (0-35); SODIUM 143 mmol/L (137-145); Total Protein 7.8 g/dL (6.3-8.2)
[2018-08-01 00:18] VITALS: PULSE 76
[2018-08-01 00:59] VITALS: BP 111/66; O2SAT 96
--- NOTE | 2018-08-02 12:04 | XRAY ---
Exam: CT of the abdomen and pelvis without IV contrast from 07/31/2018. CTDI: 19.60 Comparison: CT of the abdomen and pelvis with IV contrast from 07/06/2017. Indication: 32-year-old female with upper abdominal pain. History of prior cholecystectomy and chronic pancreatitis. Anterior abdominal wall pain pump was placed in March, due to the patient's chronic pancreatitis. Technique: Non-IV contrast axial images were obtained through the abdomen and pelvis without IV contrast. Reconstructed coronal and sagittal images were created and reviewed. Findings: The visualized lung bases appear clear. The liver and spleen appear unremarkable on this non-IV contrast scan. Surgical clips consistent with prior cholecystectomy are seen. The pancreas appears of normal size and attenuation. Specifically, no pancreatic inflammatory changes, mass, or pancreatic duct distention is seen. No pancreatic calcifications are seen. The adrenal glands appear of normal size and configuration. I again see a 2.5 mm nonobstructing stone within the lower pole of the right kidney. There is a questionable tiny 1 mm stone within the upper pole of the right kidney on axial image #25 as well. No definite renal mass or hydronephrosis is seen. I see no evidence of hydroureter or ureteral stone. There is a calcification within the upper left pelvis which lies outside of the left ureter on axial image #50. There is no evidence of abdominal aortic aneurysm or abnormal retroperitoneal lymphadenopathy. There has been interval placement of a metallic pain pump within the lower anterior left abdominal wall. Leads enter the spinal canal at the L3-L4 level and are directed superiorly off the superior [id number] within the lower thoracic region. There is no free intraperitoneal air. Moderate scattered colonic stool is seen. I see no bowel distention or obstruction. The appendix within the right lower quadrant appears normal. No definite bowel wall thickening is seen. The uterus is anteflexed. The pelvic adnexa appear unremarkable. No abnormal enlarged pelvic lymph nodes are seen. There is no free intraperineal fluid. The urinary bladder is mildly distended and reveals no dense calcifications within it or bladder wall thickening. Some calcified phleboliths are seen within the lower pelvis on each side of midline, more numerous on the left than right. Some scattered reactive lymph nodes are seen within each groin. No abnormal lymphadenopathy is seen at this level. The skeleton reveals no acute fracture or aggressive bone lesion. Minimal calcification is seen at the posterior margin of the L4-L5 disc on the sagittal images. I also note minimal posterior vertebral endplate spurring at L5-S1. The abdomen is protuberant. Impression: 1. There is a 2.5 mm nonobstructing stone within the lower pole of the right kidney which I believe is unchanged from 07/06/2017. In addition, I suspect a tiny 1 mm stone within the upper pole of the right kidney which is also nonobstructing. This latter tiny calcification is not definitely seen on the prior study, perhaps masked by IV contrast on the previous exam. No other renal calculi, hydronephrosis, or obstructive uropathy is seen. No suspicious calcifications are seen within the projection of either ureter or the urinary bladder. 2. Status post cholecystectomy. 3. The pancreas appears unremarkable. 4. Interval placement of pain pump within lower anterior left abdominal wall, as discussed above. 5. Normal appendix. 6. Moderate scattered colonic stool without evidence of obstruction or bowel thickening. No other acute process is seen within the abdomen or pelvis.
== END 2018-08-01 01:01 | disposition home or self-care (01) ==
LOC: ED 21:46
DX: R10.9 Unspecified abdominal pain (principal); N39.0 Urinary tract infection, site not specified
CPT/HCPCS: 36000; 36415; 74176; 80053; 81001; 82150; 83690; 85025; 87086; 96360; 96361; 96365; 96374; 96375; 99284; J0696; J1170; J2405

== ENCOUNTER 2018-10-24 15:48 | Emergency (ER) | payer MEDICAID, OTHER | END 2018-10-24 18:52 | disposition home or self-care (01) | LOC: ED 15:48 ==

== ENCOUNTER 2018-12-26 14:43 | Emergency (ER) | payer MEDICAID ==
--- NOTE | 2018-12-26 15:28 | ERPHSYRPT ---
- History of Present Illness Time Seen by Provider: 12/26/18 15:15 Historian: patient Exam Limitations: no limitations Patient Subjective Stated Complaint: Pt states she has pain pump in left lower abd that was placed 10 months ago for pancreatitis. One week ago dog jumped on her and she is concerned pump is now malfunctioning. At approximately 0530 this am she states she began having nausea, vomiting, diarrhea, abd pain, and hot/cold flashes. States it feels like withdraw. Triage Nursing Assessment: Pt skin pink, warm, dry. Active bowel sounds throughout. Pain on palpation to left upper and lower quads and right upper quad. Physician History: 33 y/o white female with a pain pump of dilaudid in subcutaneous abd wall of left lower quadrant. pt states about 10 days ago pts dog jumped on her and scratched skin overlying pain pump. she is concerned it is not functioning. pts pain clinic is [facility]. she has not contacted them. she recalls soon after dog jumped on her she was excessively drowsy. now she feels her pain pump may have run out since she is feeling as though she having withdrawl sx. included in her sx are n/v/d and increased abd pain. Timing/Duration: day(s), worse Abdominal Pain Onset Location: LLQ Pain Radiation: no radiation Modifying Factors: Improves With: nothing Associated Symptoms: diarrhea, fever/chills, nausea, vomiting Previous symptoms: no prior history Allergies/Adverse Reactions: codeine [Codeine] Allergy (Verified 12/26/18 15:03) Hives HIVES droperidol [Droperidol] Allergy (Verified 12/26/18 15:03) Hives HIVES duloxetine HCl [From Cymbalta] Allergy (Verified 12/26/18 15:03) SEIZURE SEIZURE ibuprofen Allergy (Verified 12/26/18 15:03) Hives HIVES ketorolac tromethamine [From Toradol] Allergy (Verified 12/26/18 15:03) Hives HIVES naproxen sodium [From Aleve] Allergy (Verified 12/26/18 15:03) Hives HIVES prochlorperazine edisylate [From Compazine] Allergy (Verified 12/26/18 15:03) LOCK JAW LOCK JAW prochlorperazine maleate [From Compazine] Allergy (Verified 12/26/18 15:03) LOCK JAW LOCK JAW morphine Adverse Reaction (Verified 12/26/18 15:03) Itching ITCH trazodone Adverse Reaction (Verified 12/26/18 15:03) Vomiting VOMITING Home Medications: Lipase/Protease/Amylase [Creon Dr 12,000 Units Capsule] 4 each PO TID 08/26/13 [ History] Hydromorphone HCl 40 mg/ 20 ml [Dilaudid 2Mg/ml 20Ml Mdv] 12/26/18 [History] Hx Tetanus, Diphtheria Vaccination/Date Given: No Hx Influenza Vaccination/Date Given: No Hx Pneumococcal Vaccination/Date Given: No - Review of Systems Constitutional: Fever, Chills Eyes: No Symptoms Ears, Nose, & Throat: No Symptoms Respiratory: No Symptoms Cardiac: No Symptoms Abdominal/Gastrointestinal: Abdominal Pain (llq), Nausea, Vomiting, Diarrhea Genitourinary Symptoms: No Symptoms Musculoskeletal: No Symptoms Skin: No Symptoms Neurological: No Symptoms Psychological: No Symptoms Endocrine: No Symptoms Hematologic/Lymphatic: No Symptoms Immunological/Allergic: No Symptoms All Other Systems: Reviewed and Negative - Past Medical History Pertinent Past Medical History: Yes Neurological History: Migraines ENT History: No Pertinent History Cardiac History: No Pertinent History Respiratory History: No Pertinent History Endocrine Medical History: Other Musculoskeletal History: Arthritis, Fractures GI Medical History: Pancreatitis History: No Pertinent History Psycho-Social History: No Pertinent History Female Reproductive Disorders: No Pertinent History Other Medical History: Pancreatitis, skull fracture 2008 - Past Surgical History Past Surgical History: Yes Neuro Surgical History: No Pertinent History Cardiac: No Pertinent History Respiratory: No Pertinent History Gastrointestinal: Cholecystectomy Genitourinary: Other Musculoskeletal: No Pertinent History Female Surgical History: No Pertinent History Other Surgical History: ERCPs-multiple last in july, pain pump 04/01 - Social History Smoking Status: Current every day smoker How long have you smoked: 26 years Exposure to second hand smoke: Yes Drug Use: none Patient Lives Alone: No - Female History Hx Last Menstrual Period: Depo Hx Now: No - Nursing Vital Signs Nursing Vital Signs: Initial Vital Signs Temperature 98.2 F 12/26/18 14:54 Pulse Rate 88 12/26/18 14:54 Respiratory Rate 18 12/26/18 14:54 Blood Pressure 140/95 12/26/18 14:54 O2 Sat by Pulse Oximetry 100 12/26/18 14:54 Pain Scale Pain Intensity 8 - Physical Exam General Appearance: no apparent distress, alert, anxiety Eye Exam: PERRL/EOMI, eyes nml inspection Ears, Nose, Throat Exam: normal ENT inspection, moist mucous membranes Neck Exam: normal inspection, non-tender, supple, full range of motion Respiratory Exam: normal breath sounds, lungs clear, airway intact, No chest tenderness, No respiratory distress Cardiovascular Exam: regular rate/rhythm, normal heart sounds, normal peripheral pulses Gastrointestinal/Abdomen Exam: soft, normal bowel sounds, tenderness (overlying llq subq pain pump site. reddened eschar without odor or drainage on skin overlying this site) Pelvic Exam: not done Rectal Exam: not done Extremity Exam: normal inspection, normal range of motion, pelvis stable Neurologic Exam: alert, oriented x 3, cooperative, coconut cooker II-XII nml as tested Skin Exam: normal color, warm, dry Lymphatic Exam: No adenopathy SpO2 Interpretation: normal SpO2: 100 O2 Delivery: Room Air - Course Nursing assessment & vital signs reviewed: Yes Ordered Tests: Active Orders 24 hr Category Date Time Status IV Insertion STAT Care 12/26/18 15:29 Active ABDOMEN AND PELVIS W/0 CONTRAS [CT] Stat Exams 12/26/18 15:29 Completed BMP Stat Lab 12/26/18 15:40 Completed CBC W DIFF Stat Lab 12/26/18 15:40 Completed UA W/RFX UR CULTURE Stat Lab 12/26/18 15:29 Uncollected Medication Summary Discontinued Medications Generic Name Dose Route Start Last Admin Trade Name Freq PRN Reason Stop Dose Admin Hydromorphone HCl 0.5 mg 12/26/18 15:29 12/26/18 15:56 Hydromorphone 1 Mg/Ml Ampule IV 12/26/18 15:30 0.5 mg STAT ONE Administration Hydromorphone HCl Confirm 12/26/18 15:38 Hydromorphone 1 Mg/Ml Ampule Administered 12/26/18 15:39 Dose 1 mg .ROUTE .STK-MED ONE Sodium Chloride 1,000 mls @ 999 mls/hr 12/26/18 15:29 12/26/18 16:55 Sodium Chloride 0.9% 1000 Ml IV 12/26/18 16:29 Infused .Q1H1M STA Infusion Sodium Chloride Confirm 12/26/18 15:38 Sodium Chloride 0.9% 1000 Ml Administered 12/26/18 15:39 Dose 1,000 mls @ ud .ROUTE .STK-MED ONE Ondansetron HCl 4 mg 12/26/18 15:29 12/26/18 15:55 Zofran 4 Mg/2 Ml Vial IV 12/26/18 15:30 4 mg STAT ONE Administration Ondansetron HCl Confirm 12/26/18 15:37 Zofran 4 Mg/2 Ml Vial Administered 12/26/18 15:38 Dose 4 mg .ROUTE .STK-MED ONE Lab/Rad Data: Laboratory Result Diagrams 12/26/18 15:40 12/26/18 15:40 Laboratory Results 12/26/18 12/26/18 Range/Units 15:40 15:40 WBC 8.0 (4.0-10.5) K/mm3 RBC 4.76 (4.1-5.4) M/mm3 Hgb 14.3 (12.0-16.0) gm/dl Hct 40.9 (35-47) % MCV 85.9 (78-100) fl MCH 30.0 (26-32) pg MCHC 35.0 (32-36) g/dl RDW 13.2 (11.5-14.0) % Plt Count 212 (150-450) K/mm3 MPV 11.1 H (6-9.5) fl Gran % 72.1 H (36.0-66.0) % Eos # (Auto) 0.01 (0-0.5) Absolute Lymphs (auto) 1.38 (1.0-4.6) Absolute Monos (auto) 0.80 (0.0-1.3) Lymphocytes % 17.4 L (24.0-44.0) % Monocytes % 10.1 (0.0-12.0) % Eosinophils % 0.1 (0.00-5.0) % Basophils % 0.3 (0.0-0.4) % Absolute Granulocytes 5.74 (1.4-6.9) Basophils # 0.02 (0-0.4) Sodium 144 (137-145) mmol/L Potassium 3.5 (3.5-5.1) mmol/L Chloride 109 H (98-107) mmol/L Carbon Dioxide 23 (22-30) mmol/L Anion Gap 14.6 (5-15) MEQ/L BUN 7 (7-17) mg/dL Creatinine 0.48 L (0.52-1.04) mg/dL Estimated GFR > 60.0 ML/MIN Glucose 110 H (74-106) mg/dL Calcium 9.5 (8.4-10.2) mg/dL - Progress Progress: improved Progress Note: 12/26/18 17:21 ct abd/pelvis-no acute process. Counseled pt/family regarding: lab results, diagnosis, need for follow-up, rad results - Departure Departure Disposition: Home Clinical Impression: Cellulitis Condition: Stable Critical Care Time: No Referrals: TAN STEPHENS [Primary Care Provider] - Additional Instructions: keep site on abdominal wall infection site. follow up with [facility] for evaluation of your pain pump and further pain management issues. Prescriptions: Cephalexin Mh 500 mg [Keflex 500 mg] 500 mg PO TID #21 capsule
[2018-12-26] MEDS ORDERED: Sodium Chloride 0.9% 1000 ML 1,000 ML IV STA (15:29)
[2018-12-26] MEDS ORDERED: Zofran 4 MG/2 ML VIAL IV ONE (15:29)
[2018-12-26] MEDS ORDERED: Hydromorphone 1 mg/ml Ampule IV ONE (15:29)
[2018-12-26] MEDS ORDERED: Zofran 4 MG/2 ML VIAL ONE (15:37)
[2018-12-26] MEDS ORDERED: Sodium Chloride 0.9% 1000 ML 1,000 ML ONE (15:38)
[2018-12-26] MEDS ORDERED: Hydromorphone 1 mg/ml Ampule ONE (15:38)
[2018-12-26 15:48] LABS: Absolute Neutrophil Ct (ANC) 5.74 (1.4-6.9); BASOPHIL % 0.3 % (0.0-0.4); Basophil (Absolute #) 0.02 (0-0.4); Eosinophil % 0.1 % (0.00-5.0); Eosinophil (Absolute #) 0.01 (0-0.5); Hematocrit 40.9 % (35-47); Hemoglobin 14.3 gm/dl (12.0-16.0); Lymphocyte (Absolute #) 1.38 (1.0-4.6); Lymphocytes % 17.4 % (24.0-44.0); Mean Cell Volume 85.9 fl (78-100); Mean Platelet Volume 11.1 fl (6-9.5); Monocytes % 10.1 % (0.0-12.0); Neutrophil % 72.1 % (36.0-66.0); Platelet Count 212 K/mm3 (150-450); Red Blood Count 4.76 M/mm3 (4.1-5.4); Red Cell Distribution Width 13.2 % (11.5-14.0)
[2018-12-26 15:59] LABS: ANION GAP 14.6 MEQ/L (5-15); BLOOD UREA NITROGEN 7 mg/dL (7-17); CHLORIDE 109 mmol/L (98-107); Calcium 9.5 mg/dL (8.4-10.2); Carbon Dioxide 23 mmol/L (22-30); Creatinine 1 0.48 mg/dL (0.52-1.04); Glucose 110 mg/dL (74-106); Potassium 3.5 mmol/L (3.5-5.1); SODIUM 144 mmol/L (137-145)
--- NOTE | 2018-12-26 16:45 | XRAY ---
Indication: Left lower quadrant pain following injury. Multiple contiguous axial images obtained through the abdomen and pelvis without contrast as ordered. Comparison: July 31, 2018. Lung bases remain clear. Heart is not enlarged. Left abdomen pain pump again produces beam artifact limiting these levels. Noncontrasted stomach and bowel loops appear nonobstructed. Normal appendix. No free fluid/air. Right kidney again demonstrates a few tiny nonobstructing punctate calculi. Again previous cholecystectomy. Remaining liver, pancreas, spleen, adrenal glands, kidneys, ureters, bladder, uterus, and aorta appear unremarkable for noncontrast exam. Osseous structures intact again with minimal L4-S1 posterior disc bulge. Impression: 1. Again nonobstructing right renal micro-calculi and L4-S1 degenerative disc disease. 2. Remaining CT abdomen/pelvis without contrast exam is again negative. CTDI 13.74
[2018-12-26] MEDS ORDERED: KEFLEX 500 MG PO ONE (17:21)
[2018-12-26] MEDS ORDERED: KEFLEX 500 MG ONE (17:22)
[2018-12-26 17:23] VITALS: PULSE 72
[2018-12-26 17:28] VITALS: BP 105/66; O2SAT 96
== END 2018-12-26 17:37 | disposition home or self-care (01) ==
LOC: ED 14:43
DX: L03.311 Cellulitis of abdominal wall (principal); K86.1 Other chronic pancreatitis; Z96.89 Presence of other specified functional implants; R19.7 Diarrhea, unspecified; R11.2 Nausea with vomiting, unspecified; R50.9 Fever, unspecified; Z79.01 Long term (current) use of anticoagulants; Z79.899 Other long term (current) drug therapy
CPT/HCPCS: 36415; 74176; 80048; 85025; 96374; 99284; J1170; J2405; A9270-GY

== ENCOUNTER 2019-01-29 20:51 | Emergency (ER) | payer MEDICAID ==
[2019-01-29] MEDS ORDERED: Hydromorphone 1 mg/ml Ampule IV ONE ×2 (20:59→22:49)
[2019-01-29] MEDS ORDERED: BENADRYL 50 MG/ML IV ONE (20:59)
[2019-01-29] MEDS ORDERED: Pepcid 20 MG VIAL IV ONE ×2 (20:59→21:22)
[2019-01-29] MEDS ORDERED: Sodium Chloride 0.9% 1000 ML 1,000 ML IV STA (20:59)
--- NOTE | 2019-01-29 21:15 | ERPHSYRPT ---
- History of Present Illness Time Seen by Provider: 01/29/19 21:00 Historian: patient Exam Limitations: no limitations Physician History: Patient has a history of chronic pancreatitis requiring a pain pump in her abdomen subcutaneously that gives her Dilaudid through a pain specialist in [place], [place]. Patient has been having increasing RUQ abdominal pain with nausea and vomiting over the past two days as her pain started one week ago. Patient also feels her lungs feel wet, as she has been congested the last few days. Patient has sick children at home with cold symptoms. Timing/Duration: week(s) (1), gradual onset, worse (over the past two days) Activities at Onset: none Quality: aching, stabbing Abdominal Pain Onset Location: RUQ Pain Radiation: flank (right side) Severity of Pain-Max: severe Severity of Pain-Current: severe Modifying Factors: Improves With: nothing Associated Symptoms: nausea, vomiting, No back, No chest pain, No diaphoresis, No diarrhea, No fever/chills, No fatigue, No headache, No heartburn, No loss of appetite, No neck pain, No rash, No shortness of breath, No syncope, No weakness Previous symptoms: same symptoms as today (pancreatitis), no recent treatment Allergies/Adverse Reactions: codeine [Codeine] Allergy (Verified 12/26/18 15:03) Hives HIVES droperidol [Droperidol] Allergy (Verified 12/26/18 15:03) Hives HIVES duloxetine HCl [From Cymbalta] Allergy (Verified 12/26/18 15:03) SEIZURE SEIZURE ibuprofen Allergy (Verified 12/26/18 15:03) Hives HIVES ketorolac tromethamine [From Toradol] Allergy (Verified 12/26/18 15:03) Hives HIVES naproxen sodium [From Aleve] Allergy (Verified 12/26/18 15:03) Hives HIVES prochlorperazine edisylate [From Compazine] Allergy (Verified 12/26/18 15:03) LOCK JAW LOCK JAW prochlorperazine maleate [From Compazine] Allergy (Verified 12/26/18 15:03) LOCK JAW LOCK JAW morphine Adverse Reaction (Verified 12/26/18 15:03) Itching ITCH trazodone Adverse Reaction (Verified 12/26/18 15:03) Vomiting VOMITING Home Medications: Lipase/Protease/Amylase [Annita Carrillo 12,000 Units Capsule] 4 each PO TID 08/26/13 [ History] Hydromorphone HCl 40 mg/ 20 ml [Dilaudid 2Mg/ml 20Ml Mdv] 12/26/18 [History] Hx Tetanus, Diphtheria Vaccination/Date Given: No Hx Influenza Vaccination/Date Given: No Hx Pneumococcal Vaccination/Date Given: No - Review of Systems Constitutional: No Fever, No Chills, No Fatigue Eyes: No Eye Pain, No Eye Redness, No Vision Changes Ears, Nose, & Throat: No Nose Congestion, No Mouth Pain, No Mouth Swelling, No Throat Pain, No Painful Swallowing Respiratory: No Cough, No Dyspnea Cardiac: No Chest Pain, No Edema, No Syncope Abdominal/Gastrointestinal: No Abdominal Pain, No Nausea, No Vomiting, No Diarrhea, No Hematemesis, No Hematochezia, No Melena Genitourinary Symptoms: No Dysuria, No Hematuria, No Flank Pain Musculoskeletal: No Back Pain, No Neck Pain Skin: No Rash Neurological: No Dizziness, No Focal Weakness, No Headache, No Paralysis, No Parasthesia, No Sensory Changes Psychological: No Symptoms, No Anxiety, No Emotional Lability Endocrine: No Excessive Sweating Hematologic/Lymphatic: No Easy Bleeding, No Easy Bruising All Other Systems: Reviewed and Negative - Past Medical History Pertinent Past Medical History: Yes Neurological History: Migraines ENT History: No Pertinent History Cardiac History: No Pertinent History Respiratory History: No Pertinent History Endocrine Medical History: Other Musculoskeletal History: Arthritis, Fractures GI Medical History: Pancreatitis History: No Pertinent History Psycho-Social History: No Pertinent History Female Reproductive Disorders: No Pertinent History Other Medical History: Pancreatitis, skull fracture 2008 - Past Surgical History Past Surgical History: Yes Neuro Surgical History: No Pertinent History Cardiac: No Pertinent History Respiratory: No Pertinent History Gastrointestinal: Cholecystectomy Genitourinary: Other Musculoskeletal: No Pertinent History Female Surgical History: No Pertinent History Other Surgical History: ERCPs-multiple last in july, pain pump 04/01 - Social History Smoking Status: Current every day smoker How long have you smoked: 26 years Exposure to second hand smoke: Yes Drug Use: none Patient Lives Alone: No - Female History Hx Now: No - Nursing Vital Signs Nursing Vital Signs: Initial Vital Signs Temperature 98.4 F 01/29/19 20:57 Pulse Rate 83 01/29/19 20:57 Respiratory Rate 18 01/29/19 20:57 Blood Pressure 134/90 01/29/19 20:57 O2 Sat by Pulse Oximetry 98 01/29/19 20:57 Pain Scale Pain Intensity 7 - Physical Exam General Appearance: no apparent distress, alert Eye Exam: PERRL/EOMI, eyes nml inspection, No scleral icterus, No pale conjunctivae Ears, Nose, Throat Exam: normal ENT inspection, pharynx normal, moist mucous membranes Neck Exam: normal inspection, non-tender, supple, full range of motion, No meningismus, No Brudzinski, No lymphadenopathy Respiratory Exam: normal breath sounds, lungs clear, airway intact, No respiratory distress, No diminished breath sounds, No accessory muscle use, No crackles/rales, No rhonchi, No wheezing, No stridor Cardiovascular Exam: regular rate/rhythm, normal heart sounds, normal peripheral pulses, capillary refill <2 sec Gastrointestinal/Abdomen Exam: soft, normal bowel sounds, No tenderness, No distention, No mass, No guarding, No rebound Back Exam: normal inspection, normal range of motion, No CVA tenderness, No vertebral tenderness Extremity Exam: normal inspection, normal range of motion, pelvis stable, No calf tenderness, No ajay's sign, No pedal edema, No swelling Neurologic Exam: alert, oriented x 3, cooperative, pointer helper II-XII nml as tested, normal mood/affect, sensation nml, No motor deficits Skin Exam: normal color, warm, dry SpO2 Interpretation: normal O2 Delivery: Room Air - Course Nursing assessment & vital signs reviewed: Yes EKG Interpreted by Me: RATE (80), Sinus Rhythm, NORMAL AXIS, NORMAL INTERVALS, NORMAL QRS, NORMAL ST-T, Other (no appreciable change in comparison to EKG from 05/29/2017) - Radiology Exams Chest X-ray Interpretation: Interpreted by me, Reviewed by me, Negative, No Fracture, No Pneumonia, No Pneumothorax, Nml Heart Size, No Infiltrates, Nml Mediastinum - CT Exams Abdomen/Pelvis CT Interpretation: Tele-radiologist Report, Other (per radiologist interpretation: Stable left-sided pain management/no similar device in place. Liver: Normal. No mass. Stable cholecystectomy. Normal pancreas with no ductal dilation. Normal spleen with no splenomegaly. Normal adrenal no mass. Stable right nonobstructing renal calyceal stones. Unremarkable stomach and bowel with no traction, no mucosal thickening. No evidence of appendicitis. Intraperitoneal space is negative for any free air or significant fluid collection. Vascular: 1 or calcified pelvic phleboliths. Lymph nodes: Unremarkable. No enlarged lymph nodes. Bladder: Unremarkable as visualized. Productive: Unremarkable as visualized. Bones/joints: Mild dextrocoliosis. Soft tissues: Unremarkable. Overall impression: No acute findings.) Ordered Tests: Active Orders 24 hr Category Date Time Status EKG-ER Only STAT Care 01/29/19 20:59 Active IV Insertion STAT Care 01/29/19 20:59 Active NPO (ED) STAT Care 01/29/19 20:59 Active ABDOMEN AND PELVIS W CONTRAST [CT] Stat Exams 01/29/19 21:01 Taken CHEST 1 VIEW (PORTABLE) Stat Exams 01/29/19 21:00 Ordered AMYLASE Stat Lab 01/29/19 21:15 Completed CBC W DIFF Stat Lab 01/29/19 21:15 Completed CMP Stat Lab 01/29/19 21:15 Completed HCG,QUALITATIVE URINE Stat Lab 01/29/19 21:05 Completed LIPASE Stat Lab 01/29/19 21:15 Completed Lactic Acid Stat Lab 01/29/19 21:22 Completed Lactic Acid Stat Lab 01/29/19 23:34 Ordered MAGNESIUM Stat Lab 01/29/19 21:15 Completed PROTIME WITH INR Stat Lab 01/29/19 21:15 Completed TROPONIN Q3H Lab 01/29/19 21:15 Completed TROPONIN Q3H Lab 01/30/19 00:00 Ordered TROPONIN Q3H Lab 01/30/19 03:00 Ordered TROPONIN Q3H Lab 01/30/19 06:00 Ordered TROPONIN Q3H Lab 01/30/19 09:00 Ordered UA W/RFX UR CULTURE Stat Lab 01/29/19 21:05 Completed Medication Summary Discontinued Medications Generic Name Dose Route Start Last Admin Trade Name Freq PRN Reason Stop Dose Admin Diphenhydramine HCl 25 mg 01/29/19 20:59 01/29/19 21:27 Benadryl 50 Mg/Ml IV 01/29/19 21:00 25 mg STAT ONE Administration Diphenhydramine HCl Confirm 01/29/19 21:22 Benadryl 50 Mg/Ml Administered 01/29/19 21:23 Dose 50 mg .ROUTE .STK-MED ONE Famotidine 20 mg 01/29/19 20:59 01/29/19 21:26 Pepcid 20 Mg Vial IV 01/29/19 21:00 20 mg STAT ONE Administration Famotidine Confirm 01/29/19 21:22 Pepcid 20 Mg Vial Administered 01/29/19 21:23 Dose 20 mg IV .STK-MED ONE Hydromorphone HCl 1 mg 01/29/19 20:59 01/29/19 21:26 Hydromorphone 1 Mg/Ml Ampule IV 01/29/19 21:00 1 mg STAT ONE Administration Hydromorphone HCl Confirm 01/29/19 21:22 Hydromorphone 1 Mg/Ml Ampule Administered 01/29/19 21:23 Dose 1 mg .ROUTE .STK-MED ONE Hydromorphone HCl 1 mg 01/29/19 22:49 01/29/19 22:58 Hydromorphone 1 Mg/Ml Ampule IV 01/29/19 22:50 1 mg STAT ONE Administration Hydromorphone HCl Confirm 01/29/19 22:56 Hydromorphone 1 Mg/Ml Ampule Administered 01/29/19 22:57 Dose 1 mg .ROUTE .STK-MED ONE Sodium Chloride 1,000 mls @ 999 mls/hr 01/29/19 20:59 01/29/19 21:33 Sodium Chloride 0.9% 1000 Ml IV 01/29/19 21:59 999 mls/hr .Q1H1M STA Administration Sodium Chloride Confirm 01/29/19 21:23 Sodium Chloride 0.9% 1000 Ml Administered 01/29/19 21:24 Dose 1,000 mls @ ud .ROUTE .STK-MED ONE Lab/Rad Data: Laboratory Result Diagrams 01/29/19 21:15 01/29/19 21:15 Laboratory Results 01/29/19 01/29/19 01/29/19 Range/Units 21:22 21:15 21:15 WBC (4.0-10.5) K/mm3 RBC (4.1-5.4) M/mm3 Hgb (12.0-16.0) gm/dl Hct (35-47) % MCV (78-100) fl MCH (26-32) pg MCHC (32-36) g/dl RDW (11.5-14.0) % Plt Count (150-450) K/mm3 MPV (6-9.5) fl Gran % (36.0-66.0) % Eos # (Auto) (0-0.5) Absolute Lymphs (auto) (1.0-4.6) Absolute Monos (auto) (0.0-1.3) Lymphocytes % (24.0-44.0) % Monocytes % (0.0-12.0) % Eosinophils % (0.00-5.0) % Basophils % (0.0-0.4) % Absolute Granulocytes (1.4-6.9) Basophils # (0-0.4) PT (9.95-12.35) SECONDS INR (0.8-3.0) Sodium (137-145) mmol/L Potassium (3.5-5.1) mmol/L Chloride (98-107) mmol/L Carbon Dioxide (22-30) mmol/L Anion Gap (5-15) MEQ/L BUN (7-17) mg/dL Creatinine (0.52-1.04) mg/dL Estimated GFR ML/MIN Glucose (74-106) mg/dL Lactic Acid 1.9 (0.4-2.0) Calcium (8.4-10.2) mg/dL Magnesium 2.0 (1.6-2.3) mg/dL Total Bilirubin (0.2-1.3) mg/dL AST (14-36) U/L ALT (0-35) U/L Alkaline Phosphatase (38-126) U/L Troponin I < 0.012 (0.000-0.034) ng/mL Serum Total Protein (6.3-8.2) g/dL Albumin (3.5-5.0) g/dL Amylase (30-110) U/L Lipase (23-300) U/L Urine Color (YELLOW) Urine Appearance (CLEAR) Urine pH (5-6) Ur Specific [place] (1.005-1.025) Urine Protein (Negative) Urine Ketones (NEGATIVE) Urine Blood (0-5) Gary/ul Urine Nitrite (NEGATIVE) Urine Bilirubin (NEGATIVE) Urine Urobilinogen (0-1) mg/dL Ur Leukocyte Esterase (NEGATIVE) Urine WBC (Auto) (0-5) /HPF Urine RBC (Auto) (0-2) /HPF U Epithel Cells (Auto) (FEW) /HPF Urine Bacteria (Auto) (NEGATIVE) /HPF Amorphous Crystals (NEGATIVE) /HPF Urine Mucus (Auto) (NEGATIVE) /HPF Urine Culture Reflexed (NO) Urine Glucose (NEGATIVE) mg/dL Urine HCG, Qual (Negative) 01/29/19 01/29/19 01/29/19 Range/Units 21:15 21:15 21:15 WBC 7.2 (4.0-10.5) K/mm3 RBC 4.78 (4.1-5.4) M/mm3 Hgb 14.1 (12.0-16.0) gm/dl Hct 41.5 (35-47) % MCV 86.8 (78-100) fl MCH 29.5 (26-32) pg MCHC 34.0 (32-36) g/dl RDW 13.3 (11.5-14.0) % Plt Count 267 (150-450) K/mm3 MPV 10.8 H (6-9.5) fl Gran % 50.9 (36.0-66.0) % Eos # (Auto) 0.14 (0-0.5) Absolute Lymphs (auto) 2.88 (1.0-4.6) Absolute Monos (auto) 0.49 (0.0-1.3) Lymphocytes % 40.1 (24.0-44.0) % Monocytes % 6.8 (0.0-12.0) % Eosinophils % 1.9 (0.00-5.0) % Basophils % 0.3 (0.0-0.4) % Absolute Granulocytes 3.66 (1.4-6.9) Basophils # 0.02 (0-0.4) PT 14.9 H (9.95-12.35) SECONDS INR 1.31 (0.8-3.0) Sodium 142 (137-145) mmol/L Potassium 3.5 (3.5-5.1) mmol/L Chloride 108 H (98-107) mmol/L Carbon Dioxide 22 (22-30) mmol/L Anion Gap 15.1 H (5-15) MEQ/L BUN 15 (7-17) mg/dL Creatinine 0.56 (0.52-1.04) mg/dL Estimated GFR > 60.0 ML/MIN Glucose 127 H (74-106) mg/dL Lactic Acid (0.4-2.0) Calcium 9.8 (8.4-10.2) mg/dL Magnesium (1.6-2.3) mg/dL Total Bilirubin 0.40 (0.2-1.3) mg/dL AST 20 (14-36) U/L ALT 12 (0-35) U/L Alkaline Phosphatase 73 (38-126) U/L Troponin I (0.000-0.034) ng/mL Serum Total Protein 7.9 (6.3-8.2) g/dL Albumin 4.5 (3.5-5.0) g/dL Amylase 77 (30-110) U/L Lipase 102 (23-300) U/L Urine Color (YELLOW) Urine Appearance (CLEAR) Urine pH (5-6) Ur Specific [place] (1.005-1.025) Urine Protein (Negative) Urine Ketones (NEGATIVE) Urine Blood (0-5) Gary/ul Urine Nitrite (NEGATIVE) Urine Bilirubin (NEGATIVE) Urine Urobilinogen (0-1) mg/dL Ur Leukocyte Esterase (NEGATIVE) Urine WBC (Auto) (0-5) /HPF Urine RBC (Auto) (0-2) /HPF U Epithel Cells (Auto) (FEW) /HPF Urine Bacteria (Auto) (NEGATIVE) /HPF Amorphous Crystals (NEGATIVE) /HPF Urine Mucus (Auto) (NEGATIVE) /HPF Urine Culture Reflexed (NO) Urine Glucose (NEGATIVE) mg/dL Urine HCG, Qual (Negative) 01/29/19 01/29/19 Range/Units 21:05 21:05 WBC (4.0-10.5) K/mm3 RBC (4.1-5.4) M/mm3 Hgb (12.0-16.0) gm/dl Hct (35-47) % MCV (78-100) fl MCH (26-32) pg MCHC (32-36) g/dl RDW (11.5-14.0) % Plt Count (150-450) K/mm3 MPV (6-9.5) fl Gran % (36.0-66.0) % Eos # (Auto) (0-0.5) Absolute Lymphs (auto) (1.0-4.6) Absolute Monos (auto) (0.0-1.3) Lymphocytes % (24.0-44.0) % Monocytes % (0.0-12.0) % Eosinophils % (0.00-5.0) % Basophils % (0.0-0.4) % Absolute Granulocytes (1.4-6.9) Basophils # (0-0.4) PT (9.95-12.35) SECONDS INR (0.8-3.0) Sodium (137-145) mmol/L Potassium (3.5-5.1) mmol/L Chloride (98-107) mmol/L Carbon Dioxide (22-30) mmol/L Anion Gap (5-15) MEQ/L BUN (7-17) mg/dL Creatinine (0.52-1.04) mg/dL Estimated GFR ML/MIN Glucose (74-106) mg/dL Lactic Acid (0.4-2.0) Calcium (8.4-10.2) mg/dL Magnesium (1.6-2.3) mg/dL Total Bilirubin (0.2-1.3) mg/dL AST (14-36) U/L ALT (0-35) U/L Alkaline Phosphatase (38-126) U/L Troponin I (0.000-0.034) ng/mL Serum Total Protein (6.3-8.2) g/dL Albumin (3.5-5.0) g/dL Amylase (30-110) U/L Lipase (23-300) U/L Urine Color YELLOW (YELLOW) Urine Appearance CLOUDY (CLEAR) Urine pH 7.0 (5-6) Ur Specific [place] 1.021 (1.005-1.025) Urine Protein NEGATIVE (Negative) Urine Ketones NEGATIVE (NEGATIVE) Urine Blood NEGATIVE (0-5) Gary/ul Urine Nitrite NEGATIVE (NEGATIVE) Urine Bilirubin NEGATIVE (NEGATIVE) Urine Urobilinogen 2 (0-1) mg/dL Ur Leukocyte Esterase NEGATIVE (NEGATIVE) Urine WBC (Auto) NONE (0-5) /HPF Urine RBC (Auto) 0-2 (0-2) /HPF U Epithel Cells (Auto) NONE (FEW) /HPF Urine Bacteria (Auto) NONE (NEGATIVE) /HPF Amorphous Crystals MODERATE (NEGATIVE) /HPF Urine Mucus (Auto) SLIGHT (NEGATIVE) /HPF Urine Culture Reflexed NO (NO) Urine Glucose NEGATIVE (NEGATIVE) mg/dL Urine HCG, Qual NEGATIVE (Negative) - Progress Progress: improved Progress Note: 01/29/19 22:48 Pain had improved, but it has returned to a level of 7/10 in the RUQ. 01/29/19 23:50 Pain has resolved. No nausea and vomiting. No acute tenderness of any quadrant of the abdomen or CVA tenderness bilaterally. Counseled pt/family regarding: lab results, diagnosis, need for follow-up, rad results - Departure Departure Disposition: Home Clinical Impression: RUQ abdominal pain, Elevated blood pressure reading without diagnosis of hypertension Nausea & vomiting Qualifiers: Vomiting type: unspecified Vomiting Intractability: non-intractable Qualified Code(s): R11.2 - Nausea with vomiting, unspecified Condition: Good Critical Care Time: No Referrals: TAN STEPHENS [Primary Care Provider] - 01/30/19 Instructions: Acute Abdomen (Belly Pain), Adult (DC), Nausea and Vomiting, Adult (DC), DASH Diet Additional Instructions: Discharge/Care Plan SHAWNABETY MOREIRA DYLAN was seen on 01/29/19 in the Emergency Room. The patient was counseled regarding Diagnosis,Lab results, Imaging studies, need for follow up and when to return to the Emergency Room. Return immediately back to the return if any worsening abdominal pain, new fever, new back pain, new skin rash , any blood in the stool or urine, or any other concerning signs or symptoms that were not present at todays emergency department visit for immediate reevaluation in the emergency department. Prescriptions given: Phenergan 25 mg PO Q6 hours prn for nausea and vomiting Discharge Note I have spoken with the patient. I have explained the patient's condition, diagnosis and treatment plan based on the information available to me at this time. I have answered the patient's questions and addressed any concerns. The patient has a good understanding of the patient's diagnosis, condition and treatment plan as can be expected at this point. The vital signs have been stable. The patient's condition is stable and appropriate for discharge from the emergency department. The patient will pursue further outpatient evaluation with the primary care physician or other designated or consulting physician as outlined in the discharge instructions. The patient is agreeable to this plan of care and follow -up instructions have been explained in detail. The patient has received these instruction. The patient is aware that any significant change in condition or worsening of symptoms should prompt an immediate return to this or the closest emergency department or call 911. Prescriptions: Promethazine HCl 25 mg [Phenergan 25 mg] 25 mg PO Q6H PRN PRN #12 tablet PRN Reason: Nausea
[2019-01-29 21:21] LABS: Absolute Neutrophil Ct (ANC) 3.66 (1.4-6.9); BASOPHIL % 0.3 % (0.0-0.4); Basophil (Absolute #) 0.02 (0-0.4); Eosinophil % 1.9 % (0.00-5.0); Eosinophil (Absolute #) 0.14 (0-0.5); Hematocrit 41.5 % (35-47); Hemoglobin 14.1 gm/dl (12.0-16.0); Lymphocyte (Absolute #) 2.88 (1.0-4.6); Lymphocytes % 40.1 % (24.0-44.0); Mean Cell Volume 86.8 fl (78-100); Mean Corpuscular Hemoglobin 29.5 pg (26-32); Mean Platelet Volume 10.8 fl (6-9.5); Monocyte (Absolute #) 0.49 (0.0-1.3); Monocytes % 6.8 % (0.0-12.0); Neutrophil % 50.9 % (36.0-66.0); Platelet Count 267 K/mm3 (150-450); Red Blood Count 4.78 M/mm3 (4.1-5.4); Red Cell Distribution Width 13.3 % (11.5-14.0); White Blood Count 7.2 K/mm3 (4.0-10.5)
[2019-01-29] MEDS ORDERED: Hydromorphone 1 mg/ml Ampule ONE ×2 (21:22→22:56)
[2019-01-29] MEDS ORDERED: BENADRYL 50 MG/ML ONE (21:22)
[2019-01-29] MEDS ORDERED: Sodium Chloride 0.9% 1000 ML 1,000 ML ONE (21:23)
[2019-01-29 21:31] LABS: INR 1.31 (0.8-3.0); PROTIME 14.9 SECONDS (9.95-12.35)
[2019-01-29 21:36] LABS: Lactic Acid 1.9 (0.4-2.0)
[2019-01-29 21:38] LABS: ALBUMIN 4.5 g/dL (3.5-5.0); ALKALINE PHOSPHATASE 73 U/L (38-126); AMYLASE 77 U/L (30-110); ANION GAP 15.1 MEQ/L (5-15); BLOOD UREA NITROGEN 15 mg/dL (7-17); CHLORIDE 108 mmol/L (98-107); Calcium 9.8 mg/dL (8.4-10.2); Carbon Dioxide 22 mmol/L (22-30); Creatinine 1 0.56 mg/dL (0.52-1.04); Glucose 127 mg/dL (74-106); LIPASE 102 U/L (23-300); Potassium 3.5 mmol/L (3.5-5.1); SGOT/AST 20 U/L (14-36); SGPT/ALT 12 U/L (0-35); SODIUM 142 mmol/L (137-145); Total Protein 7.9 g/dL (6.3-8.2)
[2019-01-29 22:06] LABS: Amourphous Crystal MODERATE /HPF (NEGATIVE); Appearance CLOUDY (CLEAR); Bilirubin NEGATIVE (NEGATIVE); Blood NEGATIVE Ery/ul (0-5); Glucose NEGATIVE (NEGATIVE); Ketones NEGATIVE (NEGATIVE); Leukocyte Esterase NEGATIVE (NEGATIVE); Mucus SLIGHT /HPF (NEGATIVE); Nitrite NEGATIVE (NEGATIVE); Protein,Urine Dip NEGATIVE (Negative); RBC 0-2 /HPF (0-2); Specific Gravity 1.021 (1.005-1.025); Urobilinogen 2 mg/dL (0-1)
[2019-01-29 22:53] VITALS: BP 116/73; PULSE 75; O2SAT 96
--- NOTE | 2019-01-30 09:44 | XRAY ---
Indication: Abdomen pain. History pancreatitis. Multiple contiguous axial images obtained through the abdomen and pelvis using 80 cc Isovue 370 contrast only. Comparison: December 26, 2018. Lung bases remain clear. Heart is not enlarged. Left abdominal wall pain pump again produces beam artifact. Noncontrasted stomach and bowel loops remain nonobstructed. Again previous cholecystectomy. No free fluid/air. Remaining liver, pancreas, spleen, adrenal glands, kidneys, ureters, bladder, uterus, and aorta appear normal in CT appearance and attenuation. No pathologic retroperitoneal lymphadenopathy. Osseous structures intact. Impression: 1. Stable left abdominal wall pain pump limiting exam. 2. Remaining CT abdomen/pelvis with contrast exam is negative. Comment: Preliminary interpretation was made by [facility]. No discrepancy. CTDI 5.38
--- NOTE | 2019-01-30 09:44 | XRAY ---
Indication: Congestion. Comparison: May 29, 2017. Portable chest again demonstrates normal heart, lungs, and bony thorax.
== END 2019-01-30 00:14 | disposition home or self-care (01) ==
LOC: ED 20:51
DX: R11.2 Nausea with vomiting, unspecified (principal); R10.11 Right upper quadrant pain; R03.0 Elevated blood-pressure reading, without diagnosis of hypertension
CPT/HCPCS: 36000; 36415; 71045; 74177; 80053; 81001; 82150; 83605; 83690; 83735; 84484; 84703; 85025; 85610; 93005; 96374; 96375; 99284; J1170; J1200

== ENCOUNTER 2019-03-10 18:50 | Emergency (ER) | payer MEDICAID, OTHER ==
[2019-03-10] MEDS ORDERED: Zofran 4 MG/2 ML VIAL IV ONE (19:40)
[2019-03-10] MEDS ORDERED: Sodium Chloride 0.9% 1000 ML 1,000 ML IV STA (19:41)
--- NOTE | 2019-03-10 19:44 | ERPHSYRPT ---
- History of Present Illness Time Seen by Provider: 03/10/19 19:35 Historian: patient Exam Limitations: clinical condition Patient Subjective Stated Complaint: pt states that she has been having severe abdominal pain since , pt states that she has chronic pancreatisits with pain pump to left lower abdomen, pt states that vomiting began today, pt states that she has had no fever Triage Nursing Assessment: pt ambulated into the er, pt axo x4, vitals wnl, bowel sounds hyperactive, radiating pain to back and left shoulder, pain 8/10 to rt lower abdomen Physician History: Pt notes taht she has been having vomiting and loose stools which are not unusual for her. Pt notes that she has a hx of chronic pancreatitis and this feels some like her usual but she is also achey and has a bit of a runny nose. Her throat is not really sore. She does ache up into her back and right shoulder. Timing/Duration: yesterday Activities at Onset: rest Quality: aching Abdominal Pain Onset Location: epigastric, periumbilical, generalized abdomen Pain Radiation: periumbilical Severity of Pain-Max: severe Severity of Pain-Current: moderate Modifying Factors: Improves With: eating (Pt has felt afraid to eat for more than 24 hours. ), movement Associated Symptoms: back, diarrhea, fatigue, loss of appetite, nausea, vomiting Previous symptoms: same symptoms as today (has a chronic pancreatitis but not sdure if this is that or different) Allergies/Adverse Reactions: codeine [Codeine] Allergy (Verified 12/26/18 15:03) Hives HIVES droperidol [Droperidol] Allergy (Verified 12/26/18 15:03) Hives HIVES duloxetine HCl [From Cymbalta] Allergy (Verified 12/26/18 15:03) SEIZURE SEIZURE ibuprofen Allergy (Verified 12/26/18 15:03) Hives HIVES ketorolac tromethamine [From Toradol] Allergy (Verified 12/26/18 15:03) Hives HIVES naproxen sodium [From Aleve] Allergy (Verified 12/26/18 15:03) Hives HIVES prochlorperazine edisylate [From Compazine] Allergy (Verified 12/26/18 15:03) LOCK JAW LOCK JAW prochlorperazine maleate [From Compazine] Allergy (Verified 12/26/18 15:03) LOCK JAW LOCK JAW morphine Adverse Reaction (Verified 12/26/18 15:03) Itching ITCH trazodone Adverse Reaction (Verified 12/26/18 15:03) Vomiting VOMITING Home Medications: Lipase/Protease/Amylase [Creon Dr 12,000 Units Capsule] 4 each PO TID 08/26/13 [ History] Hydromorphone HCl 40 mg/ 20 ml [Dilaudid 2Mg/ml 20Ml Mdv] 12/26/18 [History] Hx Tetanus, Diphtheria Vaccination/Date Given: Yes Hx Influenza Vaccination/Date Given: No Hx Pneumococcal Vaccination/Date Given: No - Review of Systems Constitutional: Fatigue, Malaise, No Fever Respiratory: No Symptoms Cardiac: No Symptoms Abdominal/Gastrointestinal: Abdominal Pain, Nausea, Vomiting, Diarrhea, No Constipation Genitourinary Symptoms: No Symptoms Musculoskeletal: No Symptoms, Back Pain Skin: No Symptoms Neurological: No Symptoms Psychological: No Symptoms Endocrine: No Symptoms Hematologic/Lymphatic: No Symptoms Immunological/Allergic: No Symptoms All Other Systems: Reviewed and Negative - Past Medical History Pertinent Past Medical History: Yes Neurological History: Migraines ENT History: No Pertinent History Cardiac History: No Pertinent History Respiratory History: No Pertinent History Endocrine Medical History: Other Musculoskeletal History: Arthritis, Fractures GI Medical History: Pancreatitis History: No Pertinent History Psycho-Social History: No Pertinent History Female Reproductive Disorders: No Pertinent History Other Medical History: Pancreatitis, skull fracture 2008 - Past Surgical History Past Surgical History: Yes Neuro Surgical History: No Pertinent History Cardiac: No Pertinent History Respiratory: No Pertinent History Gastrointestinal: Cholecystectomy Genitourinary: Other Musculoskeletal: No Pertinent History Female Surgical History: No Pertinent History Other Surgical History: ERCPs-multiple last in july, pain pump 04/01 - Social History Smoking Status: Current every day smoker How long have you smoked: 26 years Exposure to second hand smoke: Yes Drug Use: none Patient Lives Alone: No - Female History Hx Last Menstrual Period: 03/03/19 Hx Now: No - Nursing Vital Signs Nursing Vital Signs: Initial Vital Signs Temperature 97.7 F 03/10/19 19:05 Pulse Rate 93 H 03/10/19 19:05 Respiratory Rate 13 03/10/19 19:05 Blood Pressure 124/88 03/10/19 19:05 O2 Sat by Pulse Oximetry 97 03/10/19 19:05 Pain Scale Pain Intensity 8 - Physical Exam General Appearance: no apparent distress, alert, lethargy Eye Exam: PERRL/EOMI Ears, Nose, Throat Exam: dry mucous membranes, No pharyngeal erythema Neck Exam: normal inspection Respiratory Exam: normal breath sounds Cardiovascular Exam: regular rate/rhythm, normal heart sounds Gastrointestinal/Abdomen Exam: soft, normal bowel sounds, tenderness (pt has a dilaudid pain paump and multiple allergies to meds and is still asking for pain meds.), No distention, No mass, No guarding, No ecchymosis, No pulsatile mass Pelvic Exam: not done Rectal Exam: not done Back Exam: normal inspection Extremity Exam: normal inspection Neurologic Exam: alert, oriented x 3, cooperative, analytical manager II-XII nml as tested, normal mood/affect, nml cerebellar function, sensation nml, No motor deficits, No sensory deficit, No disoriented, No confusion, No uncooperative, No facial droop Skin Exam: normal color, warm, dry, No rash, No petechiae, No jaundice Lymphatic Exam: No adenopathy SpO2 Interpretation: normal SpO2: 97 O2 Delivery: Room Air Ordered Tests: Active Orders 24 hr Category Date Time Status ABDOMEN AND PELVIS W CONTRAST [CT] Stat Exams 03/10/19 19:38 Taken AMYLASE Stat Lab 03/10/19 20:31 Completed CBC W DIFF Stat Lab 03/10/19 20:31 Completed CMP Stat Lab 03/10/19 20:31 Completed HCG QUALITATIVE,SERUM Stat Lab 03/10/19 20:31 Completed Lactic Acid Stat Lab 03/10/19 20:35 Completed Medication Summary Discontinued Medications Generic Name Dose Route Start Last Admin Trade Name Ozzy PRN Reason Stop Dose Admin Acetaminophen 650 mg 03/10/19 20:50 03/10/19 20:58 Tylenol 325 Mg PO 03/10/19 20:51 Not Given STAT STA Acetaminophen Confirm 03/10/19 20:55 Tylenol 325 Mg Administered 03/10/19 20:56 Dose 650 mg .ROUTE .STK-MED ONE Azithromycin 500 mg 03/10/19 22:30 03/10/19 22:39 Zithromax 250 Mg Tablet PO 03/10/19 22:31 500 mg STAT ONE Administration Azithromycin Confirm 03/10/19 22:35 Zithromax 250 Mg Tablet Administered 03/10/19 22:36 Dose 500 mg .ROUTE .STK-MED ONE Sodium Chloride 1,000 mls @ 999 mls/hr 03/10/19 19:41 03/10/19 22:01 Sodium Chloride 0.9% 1000 Ml IV 03/10/19 20:41 Infused .Q1H1M STA Infusion Sodium Chloride Confirm 03/10/19 20:55 Sodium Chloride 0.9% 1000 Ml Administered 03/10/19 20:56 Dose 1,000 mls @ ud .ROUTE .STK-MED ONE Ondansetron HCl 4 mg 03/10/19 19:40 03/10/19 20:58 Zofran 4 Mg/2 Ml Vial IV 03/10/19 19:41 Not Given STAT ONE Ondansetron HCl Confirm 03/10/19 20:55 Zofran 4 Mg/2 Ml Vial Administered 03/10/19 20:56 Dose 4 mg .ROUTE .STK-MED ONE Oseltamivir Phosphate 75 mg 03/10/19 22:29 03/10/19 22:39 Tamiflu 75mg Capsule PO 03/10/19 22:30 75 mg STAT ONE Administration Oseltamivir Phosphate Confirm 03/10/19 22:35 Tamiflu 75mg Capsule Administered 03/10/19 22:36 Dose 75 mg PO .STK-MED ONE Lab/Rad Data: Laboratory Result Diagrams 03/10/19 20:31 03/10/19 20:31 Laboratory Results 03/10/19 03/10/19 03/10/19 Range/Units 20:35 20:31 20:31 WBC (4.0-10.5) K/mm3 RBC (4.1-5.4) M/mm3 Hgb (12.0-16.0) gm/dl Hct (35-47) % MCV (78-100) fl MCH (26-32) pg MCHC (32-36) g/dl RDW (11.5-14.0) % Plt Count (150-450) K/mm3 MPV (6-9.5) fl Gran % (36.0-66.0) % Eos # (Auto) (0-0.5) Absolute Lymphs (auto) (1.0-4.6) Absolute Monos (auto) (0.0-1.3) Lymphocytes % (24.0-44.0) % Monocytes % (0.0-12.0) % Eosinophils % (0.00-5.0) % Basophils % (0.0-0.4) % Absolute Granulocytes (1.4-6.9) Basophils # (0-0.4) Sodium 140 (137-145) mmol/L Potassium 3.6 (3.5-5.1) mmol/L Chloride 105 (98-107) mmol/L Carbon Dioxide 24 (22-30) mmol/L Anion Gap 14.0 (5-15) MEQ/L BUN 22 H (7-17) mg/dL Creatinine 0.77 (0.52-1.04) mg/dL Estimated GFR > 60.0 ML/MIN Glucose 85 (74-106) mg/dL Lactic Acid 0.8 (0.4-2.0) Calcium 9.1 (8.4-10.2) mg/dL Total Bilirubin 0.30 (0.2-1.3) mg/dL AST 29 (14-36) U/L ALT 20 (0-35) U/L Alkaline Phosphatase 81 (38-126) U/L Serum Total Protein 7.8 (6.3-8.2) g/dL Albumin 4.4 (3.5-5.0) g/dL Amylase 80 (30-110) U/L Serum , Qual NEGATIVE (Negative) Influenza Type A Ag (NEGATIVE) Influenza Type B Ag (NEGATIVE) RSV (PCR) (Negative) 03/10/19 03/10/19 Range/Units 20:31 20:16 WBC 3.4 L (4.0-10.5) K/mm3 RBC 4.80 (4.1-5.4) M/mm3 Hgb 14.6 (12.0-16.0) gm/dl Hct 42.0 (35-47) % MCV 87.5 (78-100) fl MCH 30.4 (26-32) pg MCHC 34.8 (32-36) g/dl RDW 13.1 (11.5-14.0) % Plt Count 154 (150-450) K/mm3 MPV 11.7 H (6-9.5) fl Gran % 41.7 (36.0-66.0) % Eos # (Auto) 0.05 (0-0.5) Absolute Lymphs (auto) 1.38 (1.0-4.6) Absolute Monos (auto) 0.55 (0.0-1.3) Lymphocytes % 40.4 (24.0-44.0) % Monocytes % 16.1 H (0.0-12.0) % Eosinophils % 1.5 (0.00-5.0) % Basophils % 0.3 (0.0-0.4) % Absolute Granulocytes 1.43 (1.4-6.9) Basophils # 0.01 (0-0.4) Sodium (137-145) mmol/L Potassium (3.5-5.1) mmol/L Chloride (98-107) mmol/L Carbon Dioxide (22-30) mmol/L Anion Gap (5-15) MEQ/L BUN (7-17) mg/dL Creatinine (0.52-1.04) mg/dL Estimated GFR ML/MIN Glucose (74-106) mg/dL Lactic Acid (0.4-2.0) Calcium (8.4-10.2) mg/dL Total Bilirubin (0.2-1.3) mg/dL AST (14-36) U/L ALT (0-35) U/L Alkaline Phosphatase (38-126) U/L Serum Total Protein (6.3-8.2) g/dL Albumin (3.5-5.0) g/dL Amylase (30-110) U/L Serum , Qual (Negative) Influenza Type A Ag POSITIVE (NEGATIVE) Influenza Type B Ag NEGATIVE (NEGATIVE) RSV (PCR) NEGATIVE (Negative) - Progress Progress: improved Progress Note: 03/11/19 08:19 labs reveals influenza A + and CT does not reveal any new abnormalities. CT revealed a bit of infiltrate in the lung base so this was treated with antibiotic. See also discharge instructions. - Departure Departure Disposition: Home Clinical Impression: Influenza A, Vomiting Condition: Stable Critical Care Time: No Referrals: DOCTOR,NO FAMILY [Primary Care Provider] - Instructions: Flu, Nausea and Vomiting, Adult Plan of Treatment: Pt will need to take Tamiflu 75 mgs 1 twice daily and tylenol or ibuprofen over the counter for her aches and fever. Pt should get extra rest and stay out of public places for the next 3 days or until she has no fever or symptoms for 24 hours. Pt may take Robitussin DM or dayquil/Nyquil and [place] may decrease the length of the symptoms. Eat only healthy foods and drink plenty of water. REturn to the ER with emergent medical problems. Prescriptions: Azithromycin 250 mg [Zithromax 250 MG TABLET] 250 mg PO ZPACK #6 tablet Oseltamivir 75 mg [Tamiflu 75MG Capsule] 75 mg PO BID #10 cap
[2019-03-10 20:36] LABS: Absolute Neutrophil Ct (ANC) 1.43 (1.4-6.9); BASOPHIL % 0.3 % (0.0-0.4); Basophil (Absolute #) 0.01 (0-0.4); Eosinophil % 1.5 % (0.00-5.0); Eosinophil (Absolute #) 0.05 (0-0.5); Hemoglobin 14.6 gm/dl (12.0-16.0); Lymphocyte (Absolute #) 1.38 (1.0-4.6); Lymphocytes % 40.4 % (24.0-44.0); Mean Cell Volume 87.5 fl (78-100); Mean Corpuscular Hemoglobin 30.4 pg (26-32); Mean Corpuscular Hgb Concent. 34.8 g/dl (32-36); Mean Platelet Volume 11.7 fl (6-9.5); Monocyte (Absolute #) 0.55 (0.0-1.3); Monocytes % 16.1 % (0.0-12.0); Neutrophil % 41.7 % (36.0-66.0); Platelet Count 154 K/mm3 (150-450); Red Cell Distribution Width 13.1 % (11.5-14.0); White Blood Count 3.4 K/mm3 (4.0-10.5)
[2019-03-10 20:48] LABS: ALBUMIN 4.4 g/dL (3.5-5.0); ALKALINE PHOSPHATASE 81 U/L (38-126); AMYLASE 80 U/L (30-110); BLOOD UREA NITROGEN 22 mg/dL (7-17); CHLORIDE 105 mmol/L (98-107); Calcium 9.1 mg/dL (8.4-10.2); Carbon Dioxide 24 mmol/L (22-30); Creatinine 1 0.77 mg/dL (0.52-1.04); Glucose 85 mg/dL (74-106); Potassium 3.6 mmol/L (3.5-5.1); SGOT/AST 29 U/L (14-36); SGPT/ALT 20 U/L (0-35); SODIUM 140 mmol/L (137-145); Total Protein 7.8 g/dL (6.3-8.2)
[2019-03-10] MEDS ORDERED: TYLENOL 325 MG PO STA (20:50)
[2019-03-10] MEDS ORDERED: Zofran 4 MG/2 ML VIAL ONE (20:55)
[2019-03-10] MEDS ORDERED: Sodium Chloride 0.9% 1000 ML 1,000 ML ONE (20:55)
[2019-03-10] MEDS ORDERED: TYLENOL 325 MG ONE (20:55)
[2019-03-10 21:14] LABS: INFLUENZA A POSITIVE (NEGATIVE); INFLUENZA B NEGATIVE (NEGATIVE); RESPIRATORY SYNCTIAL VIRUS NEGATIVE (Negative)
[2019-03-10 22:10] VITALS: O2SAT 97
[2019-03-10] MEDS ORDERED: Tamiflu 75MG Capsule PO ONE ×2 (22:29→22:35)
[2019-03-10] MEDS ORDERED: Zithromax 250 MG TABLET PO ONE (22:30)
[2019-03-10] MEDS ORDERED: Zithromax 250 MG TABLET ONE (22:35)
[2019-03-10 23:22] VITALS: BP 98/61; PULSE 78
--- NOTE | 2019-03-11 09:39 | XRAY ---
Indication: Right abdomen pain, nausea, vomiting, and body aches. Multiple contiguous axial images obtained through the abdomen and pelvis using 80 cc Isovue 370 contrast only. Comparison: January 29, 2019. Lung bases demonstrates new small focus right posterior gutter infiltrate/atelectasis. Left lung base clear. Heart is not enlarged. Left abdominal wall pain pump again produces beam artifact. Noncontrasted stomach and bowel loops appear nonobstructed. Normal appendix. Stable cholecystectomy. No free fluid/air. Remaining liver, pancreas, spleen, adrenal glands, kidneys, ureters, bladder, uterus, and aorta appear unremarkable. No pathologic retroperitoneal lymphadenopathy. Osseous structures intact. Impression: 1. Stable beam artifact from pain pump. 2. New right lung base infiltrate/atelectasis. 3. Remaining CT abdomen/pelvis with contrast exam is negative. Comment: Preliminary interpretation was made by [facility]. No critical discrepancy. CTDI 3.92
== END 2019-03-10 23:22 | disposition home or self-care (01) ==
LOC: ED 18:50
DX: J10.1 Influenza due to other identified influenza virus with other respiratory manifestations (principal); R11.10 Vomiting, unspecified
CPT/HCPCS: 36000; 36415; 74177; 80053; 81025; 82150; 83605; 85025; 87631; 96360; 96374; 99284; J2405; A9270-GY

== ENCOUNTER 2019-08-03 20:19 | Emergency (ER) | payer OTHER ==
[2019-08-03] MEDS ORDERED: SUBLIMAZE 100 MCG/2 ML IV ONE (20:31)
[2019-08-03] MEDS ORDERED: Pepcid 20 MG VIAL IV ONE ×2 (20:31→20:36)
[2019-08-03] MEDS ORDERED: Sodium Chloride 0.9% 1000 ML 1,000 ML IV STA (20:31)
[2019-08-03] MEDS ORDERED: Sodium Chloride 0.9% 1000 ML 1,000 ML ONE (20:37)
[2019-08-03] MEDS ORDERED: SUBLIMAZE 100 MCG/2 ML ONE (20:37)
[2019-08-03 20:40] VITALS: O2SAT 98
[2019-08-03 20:40] LABS: Absolute Neutrophil Ct (ANC) 4.39 (1.4-6.9); BASOPHIL % 0.5 % (0.0-0.4); Basophil (Absolute #) 0.04 (0-0.4); Eosinophil % 1.2 % (0.00-5.0); Hematocrit 44.5 % (35-47); Hemoglobin 15.6 gm/dl (12.0-16.0); Lymphocyte (Absolute #) 3.13 (1.0-4.6); Lymphocytes % 38.2 % (24.0-44.0); Mean Cell Volume 91.2 fl (78-100); Mean Corpuscular Hgb Concent. 35.1 g/dl (32-36); Mean Platelet Volume 10.8 fl (7.5-11.0); Monocyte (Absolute #) 0.53 (0.0-1.3); Monocytes % 6.5 % (0.0-12.0); Neutrophil % 53.6 % (36.0-66.0); Platelet Count 297 K/mm3 (150-450); Red Blood Count 4.88 M/mm3 (4.1-5.4); Red Cell Distribution Width 12.2 % (11.5-14.0); White Blood Count 8.2 K/mm3 (4.0-10.5)
--- NOTE | 2019-08-03 20:45 | ERPHSYRPT ---
- History of Present Illness Time Seen by Provider: 08/03/19 20:43 Historian: patient Exam Limitations: no limitations Patient Subjective Stated Complaint: "I had abdominal pain that started yesterday. Today I started vomiting though." Triage Nursing Assessment: Pt presented alert et oriented answering questions appropriately. Pt presented ambulating without difficulty. Pt reported URQ abdominal pain onset 08/02/19 that progressed to vomiting with associated radiation to the right shoulder. Pupils 4mm reactive. ENT without noted complaint. Neck supple non-tender. Symmetrical chest expansion. Lungs clear with adequate airflow. Radial pulses equal bilateral. Full ROM/strength noted to billatereal upper/lower extremities. Abdomen round non-distended with noted tenderness to the RUQ upon palpation. Normoactive bowel sounds throughout all quadrants. Noted pain pump implanted. Pt reported that the pain pump is not currently working and stated "the motor is going out on it." No noted palpable organomegaly to the abdomen. Pt reported nausea/vomting without diarrhea/ constipation. Physician History: "I had abdominal pain that started yesterday. Today I started vomiting though." Pt reported URQ abdominal pain onset 08/02/19 that progressed to vomiting with associated radiation to the right shoulder. Pupils 4mm reactive. ENT without noted complaint. Neck supple non-tender. Symmetrical chest expansion. Lungs clear with adequate airflow. Radial pulses equal bilateral. Full ROM/strength noted to billatereal upper/lower extremities. Abdomen round non-distended with noted tenderness to the RUQ upon palpation. Normoactive bowel sounds throughout all quadrants. Noted pain pump implanted. Pt reported that the pain pump is not currently working and stated "the motor is going out on it. Pt reported nausea/ vomting without diarrhea/constipation. Timing/Duration: today Quality: burning Abdominal Pain Onset Location: RUQ, RLQ Pain Radiation: no radiation Severity of Pain-Max: moderate Severity of Pain-Current: moderate Modifying Factors: Improves With: nothing Associated Symptoms: heartburn, loss of appetite, nausea, vomiting, weakness, No back, No chest pain, No diaphoresis, No diarrhea, No fever/chills, No shortness of breath Allergies/Adverse Reactions: codeine [Codeine] Allergy (Verified 12/26/18 15:03) Hives HIVES droperidol [Droperidol] Allergy (Verified 12/26/18 15:03) Hives HIVES duloxetine HCl [From Cymbalta] Allergy (Verified 12/26/18 15:03) SEIZURE SEIZURE ibuprofen Allergy (Verified 12/26/18 15:03) Hives HIVES ketorolac tromethamine [From Toradol] Allergy (Verified 12/26/18 15:03) Hives HIVES naproxen sodium [From Aleve] Allergy (Verified 12/26/18 15:03) Hives HIVES prochlorperazine edisylate [From Compazine] Allergy (Verified 12/26/18 15:03) LOCK JAW LOCK JAW prochlorperazine maleate [From Compazine] Allergy (Verified 12/26/18 15:03) LOCK JAW LOCK JAW morphine Adverse Reaction (Verified 12/26/18 15:03) Itching ITCH trazodone Adverse Reaction (Verified 12/26/18 15:03) Vomiting VOMITING Home Medications: Lipase/Protease/Amylase [Creon Dr 12,000 Units Capsule] 4 each PO TID 08/26/13 [ History] Hydromorphone HCl 40 mg/ 20 ml [Dilaudid 2Mg/ml 20Ml Mdv] 12/26/18 [History] Hx Tetanus, Diphtheria Vaccination/Date Given: Yes Hx Influenza Vaccination/Date Given: No Hx Pneumococcal Vaccination/Date Given: No Travel Risk - International Travel Have you traveled outside of the country in past 3 weeks: No Have you or anyone close to you been diagnosed with or: No Do your reside in a community with a known COVID-19 case?: Yes If Yes where:: [facility] - Coronavirus Screening Has patient experienced Coronavirus symptoms: No - Review of Systems Constitutional: No Fever, No Chills Eyes: No Symptoms Ears, Nose, & Throat: No Symptoms Respiratory: No Cough, No Dyspnea Cardiac: No Chest Pain, No Edema, No Syncope Abdominal/Gastrointestinal: Abdominal Pain, Nausea, Vomiting, No Diarrhea Genitourinary Symptoms: No Dysuria Musculoskeletal: No Back Pain, No Neck Pain Skin: No Rash Neurological: No Dizziness, No Focal Weakness, No Sensory Changes Psychological: No Symptoms Endocrine: No Symptoms All Other Systems: Reviewed and Negative - Past Medical History Pertinent Past Medical History: Yes Neurological History: Migraines ENT History: No Pertinent History Cardiac History: No Pertinent History Respiratory History: No Pertinent History Endocrine Medical History: Other Musculoskeletal History: Arthritis, Fractures GI Medical History: Pancreatitis History: No Pertinent History Psycho-Social History: No Pertinent History Female Reproductive Disorders: No Pertinent History Other Medical History: Pancreatitis, skull fracture 2009 - Past Surgical History Past Surgical History: Yes Neuro Surgical History: No Pertinent History Cardiac: No Pertinent History Respiratory: No Pertinent History Gastrointestinal: Cholecystectomy Genitourinary: Other Musculoskeletal: No Pertinent History Female Surgical History: No Pertinent History Other Surgical History: Pain pump (reported to not be active on 08/03/19). ERCPs -multiple last in july, pain pump 04/01 - Social History Smoking Status: Current every day smoker How long have you smoked: 26 years Exposure to second hand smoke: Yes Drug Use: none Patient Lives Alone: No - Female History Hx Last Menstrual Period: "spotting now." Hx Now: No - Nursing Vital Signs Nursing Vital Signs: Initial Vital Signs Temperature 98.2 F 08/03/19 20:19 Pulse Rate 92 H 08/03/19 20:19 Respiratory Rate 16 08/03/19 20:19 Blood Pressure 139/90 08/03/19 20:19 O2 Sat by Pulse Oximetry 98 08/03/19 20:19 Pain Scale Pain Intensity 8 - Physical Exam General Appearance: no apparent distress, alert Eye Exam: PERRL/EOMI, eyes nml inspection Ears, Nose, Throat Exam: normal ENT inspection, pharynx normal, moist mucous membranes Neck Exam: normal inspection, non-tender, supple, full range of motion Respiratory Exam: normal breath sounds, lungs clear, No respiratory distress Cardiovascular Exam: regular rate/rhythm, normal heart sounds Gastrointestinal/Abdomen Exam: soft, No tenderness, No mass Back Exam: normal inspection, normal range of motion, No CVA tenderness, No vertebral tenderness Extremity Exam: normal inspection, normal range of motion, pelvis stable Neurologic Exam: alert, oriented x 3, cooperative, normal mood/affect, nml cerebellar function, sensation nml, No motor deficits Skin Exam: normal color, warm, dry SpO2: 98 Ordered Tests: Active Orders 24 hr Category Date Time Status IV Insertion STAT Care 08/03/19 20:31 Active ABDOMEN AND PELVIS W/0 CONTRAS [CT] Stat Exams 08/03/19 20:33 Taken AMYLASE Stat Lab 08/03/19 20:30 Completed CBC W DIFF Stat Lab 08/03/19 20:30 Completed CMP Stat Lab 08/03/19 20:30 Completed LIPASE Stat Lab 08/03/19 20:30 Completed UA W/RFX UR CULTURE Stat Lab 08/03/19 20:31 Ordered Medication Summary Discontinued Medications Generic Name Dose Route Start Last Admin Trade Name Ozzy PRN Reason Stop Dose Admin Famotidine 20 mg 08/03/19 20:31 08/03/19 20:40 Pepcid 20 Mg Vial IV 08/03/19 20:32 20 mg STAT ONE Administration Famotidine Confirm 08/03/19 20:36 Pepcid 20 Mg Vial Administered 08/03/19 20:37 Dose 20 mg IV .STK-MED ONE Fentanyl Citrate 50 mcg 08/03/19 20:31 08/03/19 20:40 Sublimaze 100 Mcg/2 Ml IV 08/03/19 20:32 50 mcg STAT ONE Administration Fentanyl Citrate Confirm 08/03/19 20:37 Sublimaze 100 Mcg/2 Ml Administered 08/03/19 20:38 Dose 100 mcg .ROUTE .STK-MED ONE Sodium Chloride 1,000 mls @ 999 mls/hr 08/03/19 20:31 08/03/19 21:30 Sodium Chloride 0.9% 1000 Ml IV 08/03/19 21:31 Infused .Q1H1M STA Infusion Sodium Chloride Confirm 08/03/19 20:37 Sodium Chloride 0.9% 1000 Ml Administered 08/03/19 20:38 Dose 1,000 mls @ ud .ROUTE .STK-MED ONE Lab/Rad Data: Laboratory Result Diagrams 08/03/19 20:30 08/03/19 20:30 Laboratory Results 08/03/19 08/03/19 Range/Units 20:30 20:30 WBC 8.2 (4.0-10.5) K/mm3 RBC 4.88 (4.1-5.4) M/mm3 Hgb 15.6 (12.0-16.0) gm/dl Hct 44.5 (35-47) % MCV 91.2 (78-100) fl MCH 32.0 (26-32) pg MCHC 35.1 (32-36) g/dl RDW 12.2 (11.5-14.0) % Plt Count 297 (150-450) K/mm3 MPV 10.8 (7.5-11.0) fl Gran % 53.6 (36.0-66.0) % Eos # (Auto) 0.10 (0-0.5) Absolute Lymphs (auto) 3.13 (1.0-4.6) Absolute Monos (auto) 0.53 (0.0-1.3) Lymphocytes % 38.2 (24.0-44.0) % Monocytes % 6.5 (0.0-12.0) % Eosinophils % 1.2 (0.00-5.0) % Basophils % 0.5 (0.0-0.4) % Absolute Granulocytes 4.39 (1.4-6.9) Basophils # 0.04 (0-0.4) Sodium 141 (137-145) mmol/L Potassium 3.5 (3.5-5.1) mmol/L Chloride 103 (98-107) mmol/L Carbon Dioxide 25 (22-30) mmol/L Anion Gap 16.6 H (5-15) MEQ/L BUN 16 (7-17) mg/dL Creatinine 0.64 (0.52-1.04) mg/dL Estimated GFR > 60.0 ML/MIN Glucose 99 (74-106) mg/dL Calcium 9.4 (8.4-10.2) mg/dL Total Bilirubin 0.60 (0.2-1.3) mg/dL AST 30 (14-36) U/L ALT 32 (0-35) U/L Alkaline Phosphatase 81 (38-126) U/L Serum Total Protein 8.6 H (6.3-8.2) g/dL Albumin 5.0 (3.5-5.0) g/dL Amylase 91 (30-110) U/L Lipase 95 (23-300) U/L - Departure Departure Disposition: Home Clinical Impression: Ovarian cyst, right Abdominal pain Qualifiers: Abdominal location: generalized Qualified Code(s): R10.84 - Generalized abdominal pain Condition: Stable Critical Care Time: No Referrals: DOCTOR,NO FAMILY [Primary Care Provider] - ADRIANNA NICE DO [ACTIVE STAFF] - Follow Up with PCP/3 days Instructions: Acute Abdomen (Belly Pain), Adult (DC) Additional Instructions: Discharge/Care Plan BETY GRIMESLE was seen on 08/03/19 in the Emergency Room. The patient was counseled regarding Diagnosis,Lab results, Imaging studies, need for follow up and when to return to the Emergency Room. Prescriptions given: Discharge Note I have spoken with the patient and/or caregivers. I have explained the patient' s condition, diagnosis and treatment plan based on the information available to me at this time. I have answered the patient's and/or caregiver's questions and addressed any concerns. The patient and/or caregivers have as good understanding of the patient's diagnosis, condition and treatment plan as can be expected at this point. The vital signs have been stable. The patient's condition is stable and appropriate for discharge from the emergency department. The patient will pursue further outpatient evaluation with the primary care physician or other designated or consulting physician as outlined in the discharge instructions. The patient and/or caregivers are agreeable to this plan of care and follow-up instructions have been explained in detail. The patient and/or caregivers have received these instruction. The patient/and or caregivers are aware that any significant change in condition or worsening of symptoms should prompt an immediate return to this or the closest emergency department or call 911. BETY GRIMES was seen on 08/03/19 n the Emergency Room. At that time you were treated for an emergent condition, during your visit Laboratory, Radiology and/or other procedures may have been ordered. It is very important that you follow-up with your Primary Care Physician NO FAMILY DOCTOR within the next 24- 48 hours to review your Emergency Room visit and the final results of testing that was ordered. Some test results such as Urine Cultures, Blood Cultures, and other cultures if ordered will not be finalized for 24-48 hours. If you do not have a Primary Care Provider please call the medical records department at [phone] to obtain a copy of your results or you may sign into our patient portal to obtain these results by visiting us @ [email or web address] and completing the following steps: 1. Click on the Patient Portal link 2. Click the Patient Self Enrollment Link to complete the enrollment form and entering your 3. Once the enrollment form is completed you will receive an email with a temporary ID and password at the email address you provided. 4. Next choose a user name and password. Your user name must be at least 4 characters long and your password must be at least 4 characters long. 5. Choose a security question from the list and provide your answer to the question. If you already have signed into the Health Portal you may access your Health Care Information 04/10 by the following steps: 1. Login to our website @ [email or web address] 2. Enter your original user name and password. FAQS The [facility] Health Portal is an online tool that contains your Lab Results, Radiology Reports, Visit History, Discharge Instructions and Health Summary Lab and Radiology Results will not be available for 72 hours on the portal. The Portal is a secure site, passwords are encryted and URLs are re-written so they cannot be copied and pasted. You and authorized family members are the only ones who can access your Portal. Also there is a timeout feature that protects your information if you leave the Portal page open. If you have technical difficulty please use the Contact Us link on the page this will allow you to submit any questions you have regarding the Portal or you may contact the Medical Record Department at [phone]. Please follow the instructions given to you. Please take your medication as prescribed if given. If symptoms recur or get worse, come back to the emergency room if you cannot reach your primary care physician, or call your primary care physician for an appointment. Again if your symptoms get worse, come back to the emergency room. Thanks for visiting emergency room, and let us take care of you.
[2019-08-03 20:52] LABS: ALKALINE PHOSPHATASE 81 U/L (38-126); AMYLASE 91 U/L (30-110); ANION GAP 16.6 MEQ/L (5-15); BLOOD UREA NITROGEN 16 mg/dL (7-17); CHLORIDE 103 mmol/L (98-107); Calcium 9.4 mg/dL (8.4-10.2); Carbon Dioxide 25 mmol/L (22-30); Creatinine 1 0.64 mg/dL (0.52-1.04); Glucose 99 mg/dL (74-106); LIPASE 95 U/L (23-300); Potassium 3.5 mmol/L (3.5-5.1); SGOT/AST 30 U/L (14-36); SGPT/ALT 32 U/L (0-35); SODIUM 141 mmol/L (137-145); Total Protein 8.6 g/dL (6.3-8.2)
[2019-08-03 21:30] VITALS: BP 124/89; PULSE 82
[2019-08-03] MEDS ORDERED: Zofran 4 MG/2 ML VIAL IV ONE (21:35)
[2019-08-03] MEDS ORDERED: Zofran 4 MG/2 ML VIAL ONE (21:36)
[2019-08-03] MEDS ORDERED: Phenergan 25 MG INJ IM ONE (21:37)
[2019-08-03] MEDS ORDERED: Phenergan 25 MG INJ ONE (21:40)
[2019-08-03 21:41] LABS: Appearance CLEAR (CLEAR); Bilirubin NEGATIVE (NEGATIVE); Blood MODERATE Ery/ul (0-5); Glucose NEGATIVE (NEGATIVE); Ketones NEGATIVE (NEGATIVE); Leukocyte Esterase NEGATIVE (NEGATIVE); Mucus SLIGHT /HPF (NEGATIVE); Nitrite NEGATIVE (NEGATIVE); Protein,Urine Dip NEGATIVE (Negative); RBC 0-2 /HPF (0-2); Specific Gravity 1.023 (1.005-1.025); Urobilinogen NEGATIVE mg/dL (0-1)
--- NOTE | 2019-08-04 09:20 | XRAY ---
Indication: Right abdominal pain, nausea, and vomiting. Multiple contiguous axial images obtained through the abdomen and pelvis without contrast as ordered. Comparison: March 10, 2019. Lung bases are clear. Heart is not enlarged. Left abdomen pain pump again produces beam artifact. Noncontrasted stomach and bowel loops appear nonobstructed. Normal appendix. Stable 2 mm obstructive right renal calculus and cholecystectomy. New 2.4 cm right ovary cyst. No free fluid/air. Remaining liver, pancreas, spleen, adrenal glands, kidneys, ureters, bladder, uterus, and aorta appear unremarkable for noncontrast exam. Osseous structures intact. No ventral or inguinal hernias. Impression: 1. New 2.4 cm right ovary cyst. 2. Stable nonobstructing right renal microcalculus and beam artifact from patient's pain pump. 3. Remaining CT abdomen/pelvis without contrast exam is negative.
== END 2019-08-03 21:56 | disposition home or self-care (01) ==
LOC: ED 20:19
DX: N83.201 Unspecified ovarian cyst, right side (principal); R10.9 Unspecified abdominal pain
CPT/HCPCS: 36000; 36415; 74176; 80053; 81001; 82150; 83690; 85025; 96372; 96374; 96375; 99284; J2405; J2550; J3010

== ENCOUNTER 2019-08-13 20:31 | Emergency (ER) | payer OTHER ==
--- NOTE | 2019-08-13 21:05 | ERPHSYRPT ---
- History of Present Illness Time Seen by Provider: 08/13/19 20:46 Historian: patient Exam Limitations: no limitations Patient Subjective Stated Complaint: "I was diagnosed with a cyst on my ovary one week ago. Today I'm having real bad abdominal pain and a lot of vaginal bleeding with clots." Triage Nursing Assessment: Pt presented alert et oriented x3 answering questions appropriately. Pt reported acute onset RLQ abdominal pain with associated vaginal bleeding. Pt reported recent diagnosis of ovarian cyst. Pt denied any recent abdominal trauma. Pt reported nausea/vomiting without diarrhea /constipation. Pupils 3mm reactive. Neck supple non-tender. Oral mucosa pink/ moist. Symmetrical chest expansion. Lungs clear with adequate airflow. Heart tones regular/clear. Abdomen soft non-distended with tenderness noted over the RUQ/RLQ upon palpation. Bowel sounds present throughout all quadrants. Pt denied dysuria. Physician History: 33 yo wf w chronic abdominal pain due to pancreatitis presents w RLQ pain x 11Hrs. Pt states that pain is sharp/9 on scale. She has had N/V/chronic diarrhea /vaginal bleeding wo melena/hematochezia/fever. Pt used to have a pain pump and has had multiple CT scan of ab-pelvis this year. Timing/Duration: other (11hr) Activities at Onset: rest Quality: sharpness Abdominal Pain Onset Location: RLQ Pain Radiation: RUQ, flank Severity of Pain-Max: severe Severity of Pain-Current: severe Modifying Factors: Improves With: nothing Associated Symptoms: diarrhea, nausea, vomiting Previous symptoms: same symptoms as today Allergies/Adverse Reactions: codeine [Codeine] Allergy (Verified 12/26/18 15:03) Hives HIVES droperidol [Droperidol] Allergy (Verified 12/26/18 15:03) Hives HIVES duloxetine HCl [From Cymbalta] Allergy (Verified 12/26/18 15:03) SEIZURE SEIZURE ibuprofen Allergy (Verified 12/26/18 15:03) Hives HIVES ketorolac tromethamine [From Toradol] Allergy (Verified 12/26/18 15:03) Hives HIVES naproxen sodium [From Aleve] Allergy (Verified 12/26/18 15:03) Hives HIVES prochlorperazine edisylate [From Compazine] Allergy (Verified 12/26/18 15:03) LOCK JAW LOCK JAW prochlorperazine maleate [From Compazine] Allergy (Verified 12/26/18 15:03) LOCK JAW LOCK JAW morphine Adverse Reaction (Verified 12/26/18 15:03) Itching ITCH trazodone Adverse Reaction (Verified 12/26/18 15:03) Vomiting VOMITING Home Medications: Lipase/Protease/Amylase [Creon Dr 12,000 Units Capsule] 4 each PO TID 08/26/13 [ History] Hydromorphone HCl 40 mg/ 20 ml [Dilaudid 2Mg/ml 20Ml Mdv] 12/26/18 [History] Hx Tetanus, Diphtheria Vaccination/Date Given: Yes Hx Influenza Vaccination/Date Given: No Hx Pneumococcal Vaccination/Date Given: No Immunizations Up to Date: No Travel Risk - International Travel Have you traveled outside of the country in past 3 weeks: No Have you or anyone close to you been diagnosed with or: No Do your reside in a community with a known COVID-19 case?: Yes If Yes where:: [facility] - Coronavirus Screening Has patient experienced Coronavirus symptoms: No - Review of Systems Constitutional: No Symptoms Eyes: No Symptoms Ears, Nose, & Throat: No Symptoms Respiratory: No Symptoms Cardiac: No Symptoms Abdominal/Gastrointestinal: Abdominal Pain, Nausea, Vomiting, Diarrhea, No Hematemesis, No Hematochezia, No Melena Genitourinary Symptoms: Vaginal Bleeding Musculoskeletal: No Symptoms Skin: No Symptoms Neurological: No Symptoms Psychological: No Symptoms Endocrine: No Symptoms Hematologic/Lymphatic: No Symptoms Immunological/Allergic: No Symptoms - Past Medical History Pertinent Past Medical History: Yes Neurological History: Migraines ENT History: No Pertinent History Cardiac History: No Pertinent History Respiratory History: No Pertinent History Endocrine Medical History: Other Musculoskeletal History: Arthritis, Fractures GI Medical History: Pancreatitis History: No Pertinent History Psycho-Social History: No Pertinent History Female Reproductive Disorders: No Pertinent History Other Medical History: Pancreatitis, skull fracture 2008 - Past Surgical History Past Surgical History: Yes Neuro Surgical History: No Pertinent History Cardiac: No Pertinent History Respiratory: No Pertinent History Gastrointestinal: Cholecystectomy Genitourinary: Other Musculoskeletal: No Pertinent History Female Surgical History: No Pertinent History Other Surgical History: Pain pump (reported to not be active on 08/03/19). ERCPs -multiple last in july, pain pump 04/01 - Social History Smoking Status: Current every day smoker How long have you smoked: 26 years Exposure to second hand smoke: Yes Drug Use: none Patient Lives Alone: No - Female History Hx Last Menstrual Period: 08/06/19 Hx Now: No - Nursing Vital Signs Nursing Vital Signs: Initial Vital Signs Temperature 98 F 08/13/19 20:32 Pulse Rate 74 08/13/19 20:32 Respiratory Rate 18 08/13/19 20:32 Blood Pressure 139/61 08/13/19 20:32 O2 Sat by Pulse Oximetry 98 08/13/19 20:32 Pain Scale Pain Intensity 10 - Physical Exam General Appearance: no apparent distress Eye Exam: PERRL/EOMI, eyes nml inspection Ears, Nose, Throat Exam: normal ENT inspection, TMs normal, pharynx normal, moist mucous membranes Neck Exam: normal inspection, non-tender, supple, full range of motion, No meningismus, No mass Respiratory Exam: normal breath sounds, lungs clear, airway intact, No respiratory distress Cardiovascular Exam: regular rate/rhythm, normal heart sounds, normal peripheral pulses, No murmur Gastrointestinal/Abdomen Exam: soft, tenderness, No guarding, No rebound Pelvic Exam: not done Back Exam: normal inspection, normal range of motion, No CVA tenderness Extremity Exam: normal inspection, normal range of motion Neurologic Exam: alert, oriented x 3, cooperative, dean of students II-XII nml as tested, normal mood/affect, nml cerebellar function, nml station & gait, sensation nml, motor deficits Skin Exam: normal color, warm, dry, rash Lymphatic Exam: No adenopathy SpO2 Interpretation: normal SpO2: 98 O2 Delivery: Room Air - CT Exams Abdomen/Pelvis CT Interpretation: Tele-radiologist Report (Nothing acute) Ordered Tests: Active Orders 24 hr Category Date Time Status ABDOMEN AND PELVIS W/0 CONTRAS [CT] Stat Exams 08/13/19 22:14 Taken AMYLASE Stat Lab 08/13/19 21:10 Completed CBC W DIFF Stat Lab 08/13/19 21:10 Completed CMP Stat Lab 08/13/19 21:10 Completed HCG,QUALITATIVE URINE Stat Lab 08/13/19 21:30 Completed LIPASE Stat Lab 08/13/19 21:10 Completed UA W/RFX UR CULTURE Stat Lab 08/13/19 21:30 Completed Urine Triage Profile Stat Lab 08/13/19 21:30 Completed Lab/Rad Data: Laboratory Result Diagrams 08/13/19 21:10 08/13/19 21:10 Laboratory Results 08/13/19 08/13/19 08/13/19 Range/Units 21:30 21:30 21:30 WBC (4.0-10.5) K/mm3 RBC (4.1-5.4) M/mm3 Hgb (12.0-16.0) gm/dl Hct (35-47) % MCV (78-100) fl MCH (26-32) pg MCHC (32-36) g/dl RDW (11.5-14.0) % Plt Count (150-450) K/mm3 MPV (7.5-11.0) fl Gran % (36.0-66.0) % Eos # (Auto) (0-0.5) Absolute Lymphs (auto) (1.0-4.6) Absolute Monos (auto) (0.0-1.3) Lymphocytes % (24.0-44.0) % Monocytes % (0.0-12.0) % Eosinophils % (0.00-5.0) % Basophils % (0.0-0.4) % Absolute Granulocytes (1.4-6.9) Basophils # (0-0.4) Sodium (137-145) mmol/L Potassium (3.5-5.1) mmol/L Chloride (98-107) mmol/L Carbon Dioxide (22-30) mmol/L Anion Gap (5-15) MEQ/L BUN (7-17) mg/dL Creatinine (0.52-1.04) mg/dL Estimated GFR ML/MIN Glucose (74-106) mg/dL Calcium (8.4-10.2) mg/dL Total Bilirubin (0.2-1.3) mg/dL AST (14-36) U/L ALT (0-35) U/L Alkaline Phosphatase (38-126) U/L Serum Total Protein (6.3-8.2) g/dL Albumin (3.5-5.0) g/dL Amylase (30-110) U/L Lipase (23-300) U/L Urine Color YELLOW (YELLOW) Urine Appearance CLEAR (CLEAR) Urine pH 5.0 (5-6) Ur Specific [place] 1.026 (1.005-1.025) Urine Protein NEGATIVE (Negative) Urine Ketones NEGATIVE (NEGATIVE) Urine Blood LARGE (0-5) Gary/ul Urine Nitrite NEGATIVE (NEGATIVE) Urine Bilirubin NEGATIVE (NEGATIVE) Urine Urobilinogen 2 (0-1) mg/dL Ur Leukocyte Esterase NEGATIVE (NEGATIVE) Urine WBC (Auto) NONE (0-5) /HPF Urine RBC (Auto) 26-50 (0-2) /HPF U Epithel Cells (Auto) RARE (FEW) /HPF Urine Bacteria (Auto) NONE (NEGATIVE) /HPF Urine Mucus (Auto) SLIGHT (NEGATIVE) /HPF Urine Culture Reflexed NO (NO) Urine Glucose NEGATIVE (NEGATIVE) mg/dL Urine HCG, Qual NEGATIVE (Negative) Urine Opiates Level NEGATIVE (NEGATIVE) Ur Methadone NEGATIVE (NEGATIVE) Urine Barbiturates NEGATIVE (NEGATIVE) Ur Phencyclidine (PCP) NEGATIVE (NEGATIVE) Urine Amphetamine NEGATIVE (NEGATIVE) U Benzodiazepine Level NEGATIVE (NEGATIVE) Urine Cocaine NEGATIVE (NEGATIVE) Urine Marijuana (THC) NEGATIVE (NEGATIVE) 08/13/19 08/13/19 Range/Units 21:10 21:10 WBC 8.5 (4.0-10.5) K/mm3 RBC 4.20 (4.1-5.4) M/mm3 Hgb 13.5 (12.0-16.0) gm/dl Hct 39.6 (35-47) % MCV 94.3 (78-100) fl MCH 32.1 H (26-32) pg MCHC 34.1 (32-36) g/dl RDW 12.1 (11.5-14.0) % Plt Count 277 (150-450) K/mm3 MPV 10.6 (7.5-11.0) fl Gran % 59.6 (36.0-66.0) % Eos # (Auto) 0.17 (0-0.5) Absolute Lymphs (auto) 2.59 (1.0-4.6) Absolute Monos (auto) 0.62 (0.0-1.3) Lymphocytes % 30.6 (24.0-44.0) % Monocytes % 7.3 (0.0-12.0) % Eosinophils % 2.0 (0.00-5.0) % Basophils % 0.5 (0.0-0.4) % Absolute Granulocytes 5.05 (1.4-6.9) Basophils # 0.04 (0-0.4) Sodium 139 (137-145) mmol/L Potassium 3.8 (3.5-5.1) mmol/L Chloride 107 (98-107) mmol/L Carbon Dioxide 24 (22-30) mmol/L Anion Gap 11.7 (5-15) MEQ/L BUN 16 (7-17) mg/dL Creatinine 0.67 (0.52-1.04) mg/dL Estimated GFR > 60.0 ML/MIN Glucose 98 (74-106) mg/dL Calcium 9.5 (8.4-10.2) mg/dL Total Bilirubin 0.40 (0.2-1.3) mg/dL AST 21 (14-36) U/L ALT 20 (0-35) U/L Alkaline Phosphatase 67 (38-126) U/L Serum Total Protein 7.8 (6.3-8.2) g/dL Albumin 4.7 (3.5-5.0) g/dL Amylase 76 (30-110) U/L Lipase 79 (23-300) U/L Urine Color (YELLOW) Urine Appearance (CLEAR) Urine pH (5-6) Ur Specific [place] (1.005-1.025) Urine Protein (Negative) Urine Ketones (NEGATIVE) Urine Blood (0-5) Gary/ul Urine Nitrite (NEGATIVE) Urine Bilirubin (NEGATIVE) Urine Urobilinogen (0-1) mg/dL Ur Leukocyte Esterase (NEGATIVE) Urine WBC (Auto) (0-5) /HPF Urine RBC (Auto) (0-2) /HPF U Epithel Cells (Auto) (FEW) /HPF Urine Bacteria (Auto) (NEGATIVE) /HPF Urine Mucus (Auto) (NEGATIVE) /HPF Urine Culture Reflexed (NO) Urine Glucose (NEGATIVE) mg/dL Urine HCG, Qual (Negative) Urine Opiates Level (NEGATIVE) Ur Methadone (NEGATIVE) Urine Barbiturates (NEGATIVE) Ur Phencyclidine (PCP) (NEGATIVE) Urine Amphetamine (NEGATIVE) U Benzodiazepine Level (NEGATIVE) Urine Cocaine (NEGATIVE) Urine Marijuana (THC) (NEGATIVE) - Progress Progress: unchanged Progress Note: 08/13/19 23:13 Pain most likely chronic in nature. 20mg po bentyl Counseled pt/family regarding: lab results, rad results - Departure Departure Disposition: Home Clinical Impression: Abdominal pain Condition: Stable Critical Care Time: No Referrals: DOCTOR,NO FAMILY [Primary Care Provider] - Additional Instructions: Follow up with your family MD in AM Return to ER for increased pain or temperature greater than 100.5
[2019-08-13 21:15] LABS: Absolute Neutrophil Ct (ANC) 5.05 (1.4-6.9); BASOPHIL % 0.5 % (0.0-0.4); Basophil (Absolute #) 0.04 (0-0.4); Eosinophil (Absolute #) 0.17 (0-0.5); Hematocrit 39.6 % (35-47); Hemoglobin 13.5 gm/dl (12.0-16.0); Lymphocyte (Absolute #) 2.59 (1.0-4.6); Lymphocytes % 30.6 % (24.0-44.0); Mean Cell Volume 94.3 fl (78-100); Mean Corpuscular Hemoglobin 32.1 pg (26-32); Mean Corpuscular Hgb Concent. 34.1 g/dl (32-36); Mean Platelet Volume 10.6 fl (7.5-11.0); Monocyte (Absolute #) 0.62 (0.0-1.3); Monocytes % 7.3 % (0.0-12.0); Neutrophil % 59.6 % (36.0-66.0); Platelet Count 277 K/mm3 (150-450); Red Cell Distribution Width 12.1 % (11.5-14.0); White Blood Count 8.5 K/mm3 (4.0-10.5)
[2019-08-13 21:25] LABS: ALBUMIN 4.7 g/dL (3.5-5.0); ALKALINE PHOSPHATASE 67 U/L (38-126); AMYLASE 76 U/L (30-110); ANION GAP 11.7 MEQ/L (5-15); BLOOD UREA NITROGEN 16 mg/dL (7-17); CHLORIDE 107 mmol/L (98-107); Calcium 9.5 mg/dL (8.4-10.2); Carbon Dioxide 24 mmol/L (22-30); Creatinine 1 0.67 mg/dL (0.52-1.04); Glucose 98 mg/dL (74-106); LIPASE 79 U/L (23-300); Potassium 3.8 mmol/L (3.5-5.1); SGOT/AST 21 U/L (14-36); SGPT/ALT 20 U/L (0-35); SODIUM 139 mmol/L (137-145); Total Protein 7.8 g/dL (6.3-8.2)
[2019-08-13 21:44] LABS: Appearance CLEAR (CLEAR); Bilirubin NEGATIVE (NEGATIVE); Blood LARGE Ery/ul (0-5); Epithelial Cells RARE /HPF (FEW); Glucose NEGATIVE (NEGATIVE); Ketones NEGATIVE (NEGATIVE); Leukocyte Esterase NEGATIVE (NEGATIVE); Mucus SLIGHT /HPF (NEGATIVE); Nitrite NEGATIVE (NEGATIVE); Protein,Urine Dip NEGATIVE (Negative); RBC 26-50 /HPF (0-2); Specific Gravity 1.026 (1.005-1.025); Urobilinogen 2 mg/dL (0-1)
[2019-08-13 21:57] LABS: Amphetamine,Urine NEGATIVE (NEGATIVE); Barbiturate,Urine NEGATIVE (NEGATIVE); Benzodiazepine,Urine NEGATIVE (NEGATIVE); Cocaine,Urine NEGATIVE (NEGATIVE); Methadone,Urine NEGATIVE (NEGATIVE); Opiate,Urine NEGATIVE (NEGATIVE); PCP,Urine NEGATIVE (NEGATIVE); THC,Urine NEGATIVE (NEGATIVE)
[2019-08-13 23:10] VITALS: BP 105/69; PULSE 74; O2SAT 98
[2019-08-13] MEDS ORDERED: BENTYL 20 MG ONE (23:17)
--- NOTE | 2019-08-14 09:30 | XRAY ---
Indication: Abdomen pain. Multiple contiguous axial images obtained through the abdomen and pelvis without contrast as ordered. Comparison: Multiple priors, most recent August 03, 2019. Lung bases remain clear. Heart is not enlarged. Patient's left abdomen pain pup again produces beam artifact. Stomach is distended with food. Noncontrasted stomach and bowel loops remain nonobstructed. Normal appendix. No free fluid/air. Stable nonobstructing right renal micro-calculus and cholecystectomy. Previous right ovary cyst has resolved. Remaining liver, pancreas, spleen, adrenal glands, kidneys, ureters, bladder, uterus, and aorta appear unremarkable for noncontrast exam. Osseous structures intact. Left T10 neuroforamina demonstrates stable widening with bilobed soft tissue density dating back to October 27, 2012 possible neurofibroma/schwannoma. Impression: 1. Stable nonobstructing right renal micro-calculus, left T10 neurofibroma/schwannoma, and beam artifact from patient's pain pump. 2. Remaining CT abdomen/pelvis without contrast exam is negative. Comment: Preliminary interpretation was made by [facility]. No critical discrepancy.
[2019-08-14] MEDS ORDERED: BENTYL 20 MG PO SCH (10:00)
== END 2019-08-13 23:27 | disposition home or self-care (01) ==
LOC: ED 20:31
DX: R10.9 Unspecified abdominal pain (principal); N83.209 Unspecified ovarian cyst, unspecified side; Z72.0 Tobacco use
CPT/HCPCS: 36415; 74176; 80053; 80307; 81001; 82150; 83690; 84703; 85025; 99284; A9270-GY

== ENCOUNTER 2019-11-01 17:10 | Emergency (ER) | payer OTHER ==
[2019-11-01 18:13] LABS: BASOPHIL % 0.4 % (0.0-0.4); Basophil (Absolute #) 0.03 (0-0.4); Eosinophil % 2.3 % (0.00-5.0); Eosinophil (Absolute #) 0.18 (0-0.5); Hematocrit 46.1 % (35-47); Hemoglobin 15.5 gm/dl (12.0-16.0); Lymphocyte (Absolute #) 2.36 (1.0-4.6); Lymphocytes % 29.5 % (24.0-44.0); Mean Cell Volume 92.4 fl (78-100); Mean Corpuscular Hemoglobin 31.1 pg (26-32); Mean Corpuscular Hgb Concent. 33.6 g/dl (32-36); Mean Platelet Volume 11.9 fl (7.5-11.0); Monocyte (Absolute #) 0.62 (0.0-1.3); Monocytes % 7.8 % (0.0-12.0); Platelet Count 266 K/mm3 (150-450); Red Blood Count 4.99 M/mm3 (4.1-5.4); Red Cell Distribution Width 11.9 % (11.5-14.0)
[2019-11-01] MEDS ORDERED: Sodium Chloride 0.9% 1000 ML 1,000 ML ONE (18:13)
[2019-11-01] MEDS ORDERED: Hydromorphone 1 mg/ml Ampule IV ONE (18:15)
[2019-11-01] MEDS ORDERED: Sodium Chloride 0.9% 1000 ML 1,000 ML IV SCH (18:15)
[2019-11-01 18:18] LABS: ALKALINE PHOSPHATASE 71 U/L (38-126); ANION GAP 14.6 MEQ/L (5-15); BLOOD UREA NITROGEN 12 mg/dL (7-17); CHLORIDE 105 mmol/L (98-107); Calcium 9.6 mg/dL (8.4-10.2); Carbon Dioxide 23 mmol/L (22-30); Glucose 100 mg/dL (74-106); LIPASE 79 U/L (23-300); Potassium 3.3 mmol/L (3.5-5.1); SGOT/AST 27 U/L (14-36); SGPT/ALT 24 U/L (0-35); SODIUM 140 mmol/L (137-145); Total Protein 8.1 g/dL (6.3-8.2)
[2019-11-01 18:19] VITALS: O2SAT 96
[2019-11-01 18:19] LABS: Appearance SLIGHTLY CLOUDY (CLEAR); Bilirubin NEGATIVE (NEGATIVE); Blood SMALL Ery/ul (0-5); Glucose NEGATIVE (NEGATIVE); Ketones NEGATIVE (NEGATIVE); Leukocyte Esterase NEGATIVE (NEGATIVE); Mucus SLIGHT /HPF (NEGATIVE); Nitrite NEGATIVE (NEGATIVE); Protein,Urine Dip NEGATIVE (Negative); Urobilinogen NEGATIVE mg/dL (0-1)
--- NOTE | 2019-11-01 18:19 | ERPHSYRPT ---
- History of Present Illness Time Seen by Provider: 11/01/19 17:40 Exam Limitations: no limitations Patient Subjective Stated Complaint: pt reports a flare up of her chronic pancreatitis, states yesterday she started with RUQ abdominal pain and vomiting, reports 4 episodes of vomiting today. Triage Nursing Assessment: pt is aox3, pupils perrl, afebrile, resps easy and no n labored, cap refill < 3 seconds, radial pulses strong and equal, pt abd soft, tender to the RUQ, bowel sounds present normoactive x4. pt skin pink warm dry. Physician History: Patient is a 33-year-old female with a history of chronic recurrent pancreatitis presents to our ED with complaints of epigastric and right upper quadrant pain. Pain is similar to her usual pancreatitis flareup. Pain described as an ache that is localized. No radiation. No specific worsening or improving factors. Pain started yesterday and has been progressive. No trauma no fever. Patient admits to nausea and vomiting x1. Emesis was nonbloody nonbilious. Patient has a history of cholecystectomy. No chest pain or shortness of breath. Patient voices no other complaints at this time. Timing/Duration: yesterday Activities at Onset: none Quality: aching Abdominal Pain Onset Location: RUQ, epigastric Pain Radiation: no radiation Severity of Pain-Max: moderate Severity of Pain-Current: mild Modifying Factors: Improves With: movement Associated Symptoms: nausea, vomiting, No chest pain, No diarrhea, No fever/chills, No fatigue, No heartburn Previous symptoms: same symptoms as today Allergies/Adverse Reactions: codeine [Codeine] Allergy (Verified 11/01/19 17:35) Hives HIVES droperidol [Droperidol] Allergy (Verified 11/01/19 17:35) Hives HIVES duloxetine HCl [From Cymbalta] Allergy (Verified 11/01/19 17:35) SEIZURE SEIZURE ibuprofen Allergy (Verified 11/01/19 17:35) Hives HIVES ketorolac tromethamine [From Toradol] Allergy (Verified 11/01/19 17:35) Hives HIVES naproxen sodium [From Aleve] Allergy (Verified 11/01/19 17:35) Hives HIVES prochlorperazine edisylate [From Compazine] Allergy (Verified 11/01/19 17:35) LOCK JAW LOCK JAW prochlorperazine maleate [From Compazine] Allergy (Verified 11/01/19 17:35) LOCK JAW LOCK JAW morphine Adverse Reaction (Verified 11/01/19 17:35) Itching ITCH trazodone Adverse Reaction (Verified 11/01/19 17:35) Vomiting VOMITING Home Medications: Lipase/Protease/Amylase [Creon Dr 12,000 Units Capsule] 4 each PO TID 08/26/13 [History] Hydromorphone HCl 40 mg/ 20 ml [Dilaudid 2Mg/ml 20Ml Mdv] 12/26/18 [History] Hx Tetanus, Diphtheria Vaccination/Date Given: Yes Hx Influenza Vaccination/Date Given: No Hx Pneumococcal Vaccination/Date Given: No Immunizations Up to Date: Yes Travel Risk - International Travel Have you traveled outside of the country in past 3 weeks: No - Coronavirus Screening Are you exhibiting any of the following symptoms?: No Close contact with a COVID-19 positive Pt in past 14-21 Days: No - Review of Systems Constitutional: No Symptoms, No Fever, No Chills Eyes: No Symptoms Ears, Nose, & Throat: No Symptoms Respiratory: No Symptoms, No Cough, No Dyspnea Cardiac: No Symptoms, No Chest Pain, No Edema, No Syncope Abdominal/Gastrointestinal: No Symptoms, No Abdominal Pain, No Nausea, No Vomiting, No Diarrhea Genitourinary Symptoms: No Symptoms, No Dysuria Musculoskeletal: No Symptoms, No Back Pain, No Neck Pain Skin: No Symptoms, No Rash Neurological: No Symptoms, No Dizziness, No Focal Weakness, No Sensory Changes Psychological: No Symptoms Endocrine: No Symptoms Hematologic/Lymphatic: No Symptoms Immunological/Allergic: No Symptoms All Other Systems: Reviewed and Negative - Past Medical History Pertinent Past Medical History: Yes Neurological History: Migraines ENT History: No Pertinent History Cardiac History: No Pertinent History Respiratory History: No Pertinent History Endocrine Medical History: Other Musculoskeletal History: Arthritis, Fractures GI Medical History: Pancreatitis History: No Pertinent History Psycho-Social History: No Pertinent History Female Reproductive Disorders: No Pertinent History Other Medical History: Pancreatitis, skull fracture 2008 - Past Surgical History Past Surgical History: Yes Neuro Surgical History: No Pertinent History Cardiac: No Pertinent History Respiratory: No Pertinent History Gastrointestinal: Cholecystectomy Genitourinary: Other Musculoskeletal: No Pertinent History Female Surgical History: No Pertinent History Other Surgical History: Pain pump (reported to not be active on 08/03/19). ERCPs-multiple last in july, pain pump 04/01 - Social History Smoking Status: Current every day smoker How long have you smoked: 26 years Exposure to second hand smoke: Yes Drug Use: none Patient Lives Alone: No - Female History Hx Last Menstrual Period: 11/01/19 Hx Now: No - Nursing Vital Signs Nursing Vital Signs: Initial Vital Signs Temperature 98.3 F 11/01/19 17:26 Pulse Rate 88 11/01/19 17:26 Respiratory Rate 20 11/01/19 17:26 Blood Pressure 128/78 11/01/19 17:26 O2 Sat by Pulse Oximetry 96 11/01/19 17:26 Pain Scale Pain Intensity 8 - Physical Exam General Appearance: no apparent distress, alert Eye Exam: PERRL/EOMI, eyes nml inspection Ears, Nose, Throat Exam: normal ENT inspection, pharynx normal, moist mucous membranes Neck Exam: normal inspection, non-tender, supple, full range of motion Respiratory Exam: normal breath sounds, lungs clear, No respiratory distress Cardiovascular Exam: regular rate/rhythm, normal heart sounds Gastrointestinal/Abdomen Exam: soft, tenderness, other (Epigastric and right upper quadrant tenderness to palpation. Overlying soft tissue intact. No signs of trauma. Normal active bowel sounds.), No mass, No guarding, No ecchymosis, No pulsatile mass, No hernia, No organomegaly, No splenomegaly Pelvic Exam: not done Back Exam: normal inspection, normal range of motion, No CVA tenderness, No vertebral tenderness Extremity Exam: normal inspection, normal range of motion, pelvis stable Neurologic Exam: alert, oriented x 3, cooperative, normal mood/affect, nml cerebellar function, sensation nml, No motor deficits Skin Exam: normal color, warm, dry SpO2 Interpretation: normal SpO2: 96 O2 Delivery: Room Air Ordered Tests: Active Orders 24 hr Category Date Time Status IV Insertion STAT Care 11/01/19 18:05 Active ABDOMEN AND PELVIS W CONTRAST [CT] Stat Exams 11/01/19 18:14 Taken CBC W DIFF Stat Lab 11/01/19 18:00 Completed CMP Stat Lab 11/01/19 18:00 Completed HCG,QUALITATIVE URINE Stat Lab 11/01/19 18:11 Completed LIPASE Stat Lab 11/01/19 18:00 Completed TROPONIN Q3H Lab 11/01/19 18:00 Completed TROPONIN Q3H Lab 11/01/19 21:15 Ordered TROPONIN Q3H Lab 11/02/19 00:15 Ordered TROPONIN Q3H Lab 11/02/19 03:15 Ordered TROPONIN Q3H Lab 11/02/19 06:15 Ordered UA W/RFX UR CULTURE Stat Lab 11/01/19 18:00 Completed Medication Summary Generic Name Dose Route Start Last Admin Trade Name Fredenys PRN Reason Stop Dose Admin Sodium Chloride 1,000 mls @ 100 mls/hr 11/01/19 18:15 11/01/19 18:15 Sodium Chloride 0.9% 1000 Ml IV 12/01/19 18:14 100 mls/hr .Q10H NEYMAR Administration Discontinued Medications Generic Name Dose Route Start Last Admin Trade Name Freq PRN Reason Stop Dose Admin Hydromorphone HCl 1 mg 11/01/19 18:15 11/01/19 18:22 Hydromorphone 1 Mg/Ml Ampule IV 11/01/19 18:16 1 mg STAT ONE Administration Hydromorphone HCl Confirm 11/01/19 18:21 Hydromorphone 1 Mg/Ml Ampule Administered 11/01/19 18:22 Dose 1 mg .ROUTE .STK-MED ONE Ondansetron HCl 4 mg 11/01/19 18:30 11/01/19 18:32 Zofran 4 Mg/2 Ml Vial IV 11/01/19 18:31 4 mg STAT ONE Administration Ondansetron HCl Confirm 11/01/19 18:31 Zofran 4 Mg/2 Ml Vial Administered 11/01/19 18:32 Dose 4 mg .ROUTE .STK-MED ONE Potassium Chloride 40 meq 11/01/19 19:59 Klor Con 10 Meq PO 11/01/19 20:00 STAT ONE Lab/Rad Data: Laboratory Result Diagrams 11/01/19 18:00 11/01/19 18:00 Laboratory Results 11/01/19 11/01/19 11/01/19 Range/Units 18:11 18:00 18:00 WBC (4.0-10.5) K/mm3 RBC (4.1-5.4) M/mm3 Hgb (12.0-16.0) gm/dl Hct (35-47) % MCV (78-100) fl MCH (26-32) pg MCHC (32-36) g/dl RDW (11.5-14.0) % Plt Count (150-450) K/mm3 MPV (7.5-11.0) fl Gran % (36.0-66.0) % Eos # (Auto) (0-0.5) Absolute Lymphs (auto) (1.0-4.6) Absolute Monos (auto) (0.0-1.3) Lymphocytes % (24.0-44.0) % Monocytes % (0.0-12.0) % Eosinophils % (0.00-5.0) % Basophils % (0.0-0.4) % Absolute Granulocytes (1.4-6.9) Basophils # (0-0.4) Sodium (137-145) mmol/L Potassium (3.5-5.1) mmol/L Chloride (98-107) mmol/L Carbon Dioxide (22-30) mmol/L Anion Gap (5-15) MEQ/L BUN (7-17) mg/dL Creatinine (0.52-1.04) mg/dL Estimated GFR ML/MIN Glucose (74-106) mg/dL Calcium (8.4-10.2) mg/dL Total Bilirubin (0.2-1.3) mg/dL AST (14-36) U/L ALT (0-35) U/L Alkaline Phosphatase (38-126) U/L Troponin I < 0.012 (0.000-0.034) ng/mL Serum Total Protein (6.3-8.2) g/dL Albumin (3.5-5.0) g/dL Lipase (23-300) U/L Urine Color YELLOW (YELLOW) Urine Appearance SLIGHTLY CLOUDY (CLEAR) Urine pH 5.0 (5-6) Ur Specific [place] 1.020 (1.005-1.025) Urine Protein NEGATIVE (Negative) Urine Ketones NEGATIVE (NEGATIVE) Urine Blood SMALL (0-5) Gary/ul Urine Nitrite NEGATIVE (NEGATIVE) Urine Bilirubin NEGATIVE (NEGATIVE) Urine Urobilinogen NEGATIVE (0-1) mg/dL Ur Leukocyte Esterase NEGATIVE (NEGATIVE) Urine WBC (Auto) NONE (0-5) /HPF Urine RBC (Auto) NONE (0-2) /HPF U Epithel Cells (Auto) NONE (FEW) /HPF Urine Bacteria (Auto) NONE (NEGATIVE) /HPF Urine Mucus (Auto) SLIGHT (NEGATIVE) /HPF Urine Culture Reflexed NO (NO) Urine Glucose NEGATIVE (NEGATIVE) mg/dL Urine HCG, Qual NEGATIVE (Negative) Slides for Path Review 11/01/19 11/01/19 Range/Units 18:00 18:00 WBC 8.0 (4.0-10.5) K/mm3 RBC 4.99 (4.1-5.4) M/mm3 Hgb 15.5 (12.0-16.0) gm/dl Hct 46.1 (35-47) % MCV 92.4 (78-100) fl MCH 31.1 (26-32) pg MCHC 33.6 (32-36) g/dl RDW 11.9 (11.5-14.0) % Plt Count 266 (150-450) K/mm3 MPV 11.9 H (7.5-11.0) fl Gran % 60.0 (36.0-66.0) % Eos # (Auto) 0.18 (0-0.5) Absolute Lymphs (auto) 2.36 (1.0-4.6) Absolute Monos (auto) 0.62 (0.0-1.3) Lymphocytes % 29.5 (24.0-44.0) % Monocytes % 7.8 (0.0-12.0) % Eosinophils % 2.3 (0.00-5.0) % Basophils % 0.4 (0.0-0.4) % Absolute Granulocytes 4.80 (1.4-6.9) Basophils # 0.03 (0-0.4) Sodium 140 (137-145) mmol/L Potassium 3.3 L (3.5-5.1) mmol/L Chloride 105 (98-107) mmol/L Carbon Dioxide 23 (22-30) mmol/L Anion Gap 14.6 (5-15) MEQ/L BUN 12 (7-17) mg/dL Creatinine 0.70 (0.52-1.04) mg/dL Estimated GFR > 60.0 ML/MIN Glucose 100 (74-106) mg/dL Calcium 9.6 (8.4-10.2) mg/dL Total Bilirubin 0.50 (0.2-1.3) mg/dL AST 27 (14-36) U/L ALT 24 (0-35) U/L Alkaline Phosphatase 71 (38-126) U/L Troponin I (0.000-0.034) ng/mL Serum Total Protein 8.1 (6.3-8.2) g/dL Albumin 5.0 (3.5-5.0) g/dL Lipase 79 (23-300) U/L Urine Color (YELLOW) Urine Appearance (CLEAR) Urine pH (5-6) Ur Specific [place] (1.005-1.025) Urine Protein (Negative) Urine Ketones (NEGATIVE) Urine Blood (0-5) Gary/ul Urine Nitrite (NEGATIVE) Urine Bilirubin (NEGATIVE) Urine Urobilinogen (0-1) mg/dL Ur Leukocyte Esterase (NEGATIVE) Urine WBC (Auto) (0-5) /HPF Urine RBC (Auto) (0-2) /HPF U Epithel Cells (Auto) (FEW) /HPF Urine Bacteria (Auto) (NEGATIVE) /HPF Urine Mucus (Auto) (NEGATIVE) /HPF Urine Culture Reflexed (NO) Urine Glucose (NEGATIVE) mg/dL Urine HCG, Qual (Negative) Slides for Path Review YES - Progress Progress: improved Progress Note: 11/01/19 20:08 Patient reassessed. Pain improved. Work-up essentially negative. Lipase n egative. Potassium 3.3. Potassium replacement provided. CT abdomen pelvis negative as well. No imaging or laboratory findings to suggest pancreatitis. Patient to follow-up with her primary care doctor or Dr. James within 48 hours for reevaluation. Protonix prescription forwarded to patient's pharmacy. Patient may require a scope/EGD on an outpatient basis. Counseled pt/family regarding: lab results, diagnosis, need for follow-up, rad results - Departure Departure Disposition: Home Clinical Impression: Epigastric pain, Hypokalemia, Nephrolithiasis, Schwannoma Condition: Stable Critical Care Time: No Referrals: DOCTOR,NO FAMILY [Primary Care Provider] - RAKESH JAMES [ACTIVE STAFF] - Additional Instructions: Discharge/Care Plan BETY GRIMES was seen on 11/01/19 in the Emergency Room. The patient was counseled regarding Diagnosis,Lab results, Imaging studies, need for follow up and when to return to the Emergency Room. Prescriptions given: Discharge Note I have spoken with the patient and/or caregivers. I have explained the patient's condition, diagnosis and treatment plan based on the information available to me at this time. I have answered the patient's and/or caregiver's questions and addressed any concerns. The patient and/or caregivers have as good understanding of the patient's diagnosis, condition and treatment plan as can be expected at this point. The vital signs have been stable. The patient's condition is stable and appropriate for discharge from the emergency department. The patient will pursue further outpatient evaluation with the primary care physician or other designated or consulting physician as outlined in the discharge instructions. The patient and/or caregivers are agreeable to this plan of care and follow-up instructions have been explained in detail. The patient and/or caregivers have received these instruction. The patient/and or caregivers are aware that any significant change in condition or worsening of symptoms should prompt an immediate return to this or the closest emergency department or call 911. Prescriptions: PANTOPRAZOLE 40 mg Tablet [Protonix 40MG Tablet] 40 mg PO DAILY 14 Days #14 tab
[2019-11-01] MEDS ORDERED: Hydromorphone 1 mg/ml Ampule ONE (18:21)
[2019-11-01] MEDS ORDERED: Zofran 4 MG/2 ML VIAL IV ONE (18:30)
[2019-11-01 18:31] LABS: Slide Review 1 YES
[2019-11-01] MEDS ORDERED: Zofran 4 MG/2 ML VIAL ONE (18:31)
[2019-11-01] MEDS ORDERED: Klor Con 10 MEQ PO ONE ×2 (19:59→20:15)
[2019-11-01 20:13] VITALS: BP 106/66; PULSE 90
--- NOTE | 2019-11-02 08:43 | XRAY ---
Indication: Right upper quadrant pain. History of pancreatitis. Multiple contiguous axial images obtained through the abdomen and pelvis using 80 cc Isovue 370 contrast only. Comparison: Multiple priors, most recently August 13, 2019. Lung bases remain clear. Heart is not enlarged. Left anterior abdomen pain pump again produces beam artifact limiting these levels. Noncontrasted stomach and bowel loops remain nonobstructed. Normal appendix. Stable nonobstructing right renal micro-calculus and cholecystectomy clips. No free fluid/air. Remaining liver, pancreas, spleen, adrenal glands, kidneys, ureters, bladder, uterus, and aorta appear unremarkable. No pathologic retroperitoneal lymphadenopathy. Osseous structures intact with stable left T10 neurofibroma/schwannoma. No ventral or inguinal hernias. Impression: 1. Stable nonobstructing right renal micro-calculus and left T10 neurofibroma/schwannoma. 2. Remaining CT abdomen/pelvis with contrast exam is again negative.
== END 2019-11-01 20:41 | disposition home or self-care (01) ==
LOC: ED 17:10
DX: R10.13 Epigastric pain (principal); E87.6 Hypokalemia; N20.0 Calculus of kidney; D36.10 Benign neoplasm of peripheral nerves and autonomic nervous system, unspecified
CPT/HCPCS: 36000; 36415; 74177; 80053; 81001; 83690; 84484; 84703; 85025; 96374; 96375; 99284; J1170; J2405; A9270-GY

== ENCOUNTER 2020-05-15 10:37 | Observation (INO) | payer OTHER ==
[2020-05-15] MEDS ORDERED: Sodium Chloride 0.9% 1000 ML 1,000 ML IV STA (10:44)
[2020-05-15] MEDS ORDERED: Zofran 4 MG/2 ML VIAL IV ONE (10:44)
--- NOTE | 2020-05-15 10:44 | ERPHSYRPT ---
- History of Present Illness Time Seen by Provider: 05/15/20 10:44 Historian: patient Exam Limitations: no limitations Physician History: This is a 34-year-old white female who has chronic recurrent abdominal pain and chronic recurrent pancreatitis. At 1 point, she had a left lower abdominal wall pain pump of Dilaudid. However that has been removed. Patient states she is no longer seen pain specialist at [facility]. Patient has had multiple ERCPs and has had a cholecystectomy in the past. Patient's primary care doctor is Dr. James. Patient states that about a week ago her pain was worsening. Last night she did not sleep because she had to stand up and walk back and forth because of her right upper quadrant pain that radiated into her back. She is also had nausea vomiting as well. This morning she could not take the pain any longer and therefore she came to the emergency department for evaluation and management. Patient denies cough. Patient denies shortness of breath. Patient denies chest pain. Patient has had no diarrhea. Patient denies fever. Timing/Duration: week(s) (one), worse Activities at Onset: none Quality: burning, sharpness, stabbing Abdominal Pain Onset Location: RUQ Pain Radiation: back Severity of Pain-Max: moderate Severity of Pain-Current: moderate Associated Symptoms: loss of appetite, nausea, neck pain Previous symptoms: same symptoms as today Allergies/Adverse Reactions: codeine [Codeine] Allergy (Verified 05/15/20 10:50) Hives HIVES droperidol [Droperidol] Allergy (Verified 05/15/20 10:50) Hives HIVES duloxetine HCl [From Cymbalta] Allergy (Verified 05/15/20 10:50) SEIZURE SEIZURE ibuprofen Allergy (Verified 05/15/20 10:50) Hives HIVES ketorolac tromethamine [From Toradol] Allergy (Verified 05/15/20 10:50) Hives HIVES naproxen sodium [From Aleve] Allergy (Verified 05/15/20 10:50) Hives HIVES prochlorperazine edisylate [From Compazine] Allergy (Verified 05/15/20 10:50) LOCK JAW LOCK JAW prochlorperazine maleate [From Compazine] Allergy (Verified 05/15/20 10:50) LOCK JAW LOCK JAW morphine Adverse Reaction (Verified 05/15/20 10:50) Itching ITCH trazodone Adverse Reaction (Verified 05/15/20 10:50) Vomiting VOMITING Home Medications: No Reportable Medications [No Reported Medications] 05/15/20 [History] Hx Tetanus, Diphtheria Vaccination/Date Given: Yes Hx Influenza Vaccination/Date Given: No Hx Pneumococcal Vaccination/Date Given: No Travel Risk - International Travel Have you traveled outside of the country in past 3 weeks: No - Coronavirus Screening Are you exhibiting any of the following symptoms?: No Close contact with a COVID-19 positive Pt in past 14-21 Days: No - Review of Systems Constitutional: No Symptoms Eyes: No Symptoms Ears, Nose, & Throat: No Symptoms Respiratory: No Symptoms Cardiac: No Symptoms Abdominal/Gastrointestinal: Abdominal Pain, Nausea, Vomiting, No Diarrhea Genitourinary Symptoms: No Symptoms Musculoskeletal: No Symptoms Skin: No Symptoms Neurological: No Symptoms Psychological: No Symptoms Endocrine: No Symptoms Hematologic/Lymphatic: No Symptoms Immunological/Allergic: No Symptoms All Other Systems: Reviewed and Negative - Past Medical History Pertinent Past Medical History: Yes Neurological History: Migraines ENT History: No Pertinent History Cardiac History: No Pertinent History Respiratory History: No Pertinent History Endocrine Medical History: Other Musculoskeletal History: Arthritis, Fractures GI Medical History: Pancreatitis History: No Pertinent History Psycho-Social History: No Pertinent History Female Reproductive Disorders: No Pertinent History Other Medical History: Pancreatitis, skull fracture 2008 - Past Surgical History Past Surgical History: Yes Neuro Surgical History: No Pertinent History Cardiac: No Pertinent History Respiratory: No Pertinent History Gastrointestinal: Cholecystectomy Genitourinary: Other Musculoskeletal: No Pertinent History Female Surgical History: No Pertinent History Other Surgical History: Pain pump (reported to not be active on 08/03/19). ERCPs-multiple last in july, pain pump 04/01 - Social History Smoking Status: Current every day smoker How long have you smoked: 26 years Exposure to second hand smoke: Yes Drug Use: none Patient Lives Alone: No - Nursing Vital Signs Nursing Vital Signs: Initial Vital Signs Temperature 98.0 F 05/15/20 10:40 Pulse Rate 88 05/15/20 10:40 Blood Pressure 118/77 05/15/20 10:40 O2 Sat by Pulse Oximetry 99 05/15/20 10:40 Pain Scale Pain Intensity 7 - Physical Exam General Appearance: no apparent distress, alert, anxiety Eye Exam: PERRL/EOMI, eyes nml inspection Ears, Nose, Throat Exam: normal ENT inspection, moist mucous membranes Neck Exam: normal inspection, non-tender, supple, full range of motion Respiratory Exam: normal breath sounds, lungs clear, airway intact, No chest tenderness, No respiratory distress Cardiovascular Exam: regular rate/rhythm, normal heart sounds, normal peripheral pulses Gastrointestinal/Abdomen Exam: soft, normal bowel sounds, tenderness, guarding (Right upper quadrant), No rebound Pelvic Exam: not done Rectal Exam: not done Back Exam: normal inspection, normal range of motion, No CVA tenderness, No vertebral tenderness Extremity Exam: normal inspection, normal range of motion, pelvis stable Neurologic Exam: alert, oriented x 3, cooperative, automation tester II-XII nml as tested, normal mood/affect, nml cerebellar function, nml station & gait, sensation nml Skin Exam: normal color, warm, dry Lymphatic Exam: No adenopathy SpO2 Interpretation: normal O2 Delivery: Room Air - Course Nursing assessment & vital signs reviewed: Yes Ordered Tests: Active Orders 24 hr Category Date Time Status IV Insertion STAT Care 05/15/20 10:44 Active ABDOMEN AND PELVIS W/0 CONTRAS [CT] Stat Exams 05/15/20 10:45 Completed AMYLASE Stat Lab 05/15/20 10:50 Completed CBC W DIFF Stat Lab 05/15/20 10:50 Completed CMP Stat Lab 05/15/20 10:50 Completed HCG,QUALITATIVE URINE Stat Lab 05/15/20 10:48 Completed LIPASE Stat Lab 05/15/20 10:50 Completed Lactic Acid Stat Lab 05/15/20 10:44 Completed UA W/RFX UR CULTURE Stat Lab 05/15/20 10:48 Completed Urine Triage Profile Stat Lab 05/15/20 10:48 Completed Transfer Order Routine Transfer 05/15/20 Ordered Medication Summary Discontinued Medications Generic Name Dose Route Start Last Admin Trade Name Freq PRN Reason Stop Dose Admin Hydromorphone HCl 1 mg 05/15/20 11:17 05/15/20 11:25 Hydromorphone 1 Mg/Ml Injection IV 05/15/20 11:18 1 mg STAT ONE Administration Hydromorphone HCl Confirm 05/15/20 11:25 Hydromorphone 1 Mg/Ml Injection Administered 05/15/20 11:26 Dose 1 mg .ROUTE .STK-MED ONE Hydromorphone HCl 1 mg 05/15/20 11:56 05/15/20 12:00 Hydromorphone 1 Mg/Ml Injection IV 05/15/20 11:57 1 mg STAT ONE Administration Hydromorphone HCl Confirm 05/15/20 11:58 Hydromorphone 1 Mg/Ml Injection Administered 05/15/20 11:59 Dose 1 mg .ROUTE .STK-MED ONE Sodium Chloride 1,000 mls @ 999 mls/hr 05/15/20 10:44 05/15/20 11:59 Sodium Chloride 0.9% 1000 Ml IV 05/15/20 11:44 Infused .Q1H1M STA Infusion Sodium Chloride Confirm 05/15/20 10:54 Sodium Chloride 0.9% 1000 Ml Administered 05/15/20 10:55 Dose 1,000 mls @ ud .ROUTE .STK-MED ONE Ondansetron HCl 4 mg 05/15/20 10:44 05/15/20 10:54 Zofran 4 Mg/2 Ml Vial IV 05/15/20 10:45 4 mg STAT ONE Administration Ondansetron HCl Confirm 05/15/20 10:54 Zofran 4 Mg/2 Ml Vial Administered 05/15/20 10:55 Dose 4 mg .ROUTE .STK-MED ONE Lab/Rad Data: Laboratory Result Diagrams 05/15/20 10:50 05/15/20 10:50 Laboratory Results 05/15/20 05/15/20 05/15/20 Range/Units 10:50 10:50 10:48 WBC 9.0 (4.0-10.5) K/mm3 RBC 4.59 (4.1-5.4) M/mm3 Hgb 13.9 (12.0-16.0) gm/dl Hct 41.9 (35-47) % MCV 91.3 (78-100) fl MCH 30.3 (26-32) pg MCHC 33.2 (32-36) g/dl RDW 12.3 (11.5-14.0) % Plt Count 236 (150-450) K/mm3 MPV 11.4 H (7.5-11.0) fl Gran % 65.8 (36.0-66.0) % Eos # (Auto) 0.17 (0-0.5) Absolute Lymphs (auto) 2.18 (1.0-4.6) Absolute Monos (auto) 0.70 (0.0-1.3) Lymphocytes % 24.3 (24.0-44.0) % Monocytes % 7.8 (0.0-12.0) % Eosinophils % 1.9 (0.00-5.0) % Basophils % 0.2 (0.0-0.4) % Absolute Granulocytes 5.91 (1.4-6.9) Basophils # 0.02 (0-0.4) Sodium 137 (137-145) mmol/L Potassium 3.8 (3.5-5.1) mmol/L Chloride 103 (98-107) mmol/L Carbon Dioxide 24 (22-30) mmol/L Anion Gap 13.4 (5-15) MEQ/L BUN 12 (7-17) mg/dL Creatinine 0.57 (0.52-1.04) mg/dL Estimated GFR > 60.0 ML/MIN Glucose 108 H (74-106) mg/dL Lactic Acid (0.4-2.0) Calcium 9.5 (8.4-10.2) mg/dL Total Bilirubin 0.50 (0.2-1.3) mg/dL AST 20 (14-36) U/L ALT 14 (0-35) U/L Alkaline Phosphatase 55 (38-126) U/L Serum Total Protein 7.7 (6.3-8.2) g/dL Albumin 4.6 (3.5-5.0) g/dL Amylase 156 H (30-110) U/L Lipase 709 H (23-300) U/L Urine Color (YELLOW) Urine Appearance (CLEAR) Urine pH (5-6) Ur Specific Logan (1.005-1.025) Urine Protein (Negative) Urine Ketones (NEGATIVE) Urine Blood (0-5) Gary/ul Urine Nitrite (NEGATIVE) Urine Bilirubin (NEGATIVE) Urine Urobilinogen (0-1) mg/dL Ur Leukocyte Esterase (NEGATIVE) Urine WBC (Auto) (0-5) /HPF Urine RBC (Auto) (0-2) /HPF U Epithel Cells (Auto) (FEW) /HPF Urine Bacteria (Auto) (NEGATIVE) /HPF Amorphous Crystals (NEGATIVE) /HPF Urine Mucus (Auto) (NEGATIVE) /HPF Urine Culture Reflexed (NO) Urine Glucose (NEGATIVE) mg/dL Urine HCG, Qual NEGATIVE (Negative) Urine Opiates Level (NEGATIVE) Ur Methadone (NEGATIVE) Urine Barbiturates (NEGATIVE) Ur Phencyclidine (PCP) (NEGATIVE) Urine Amphetamine (NEGATIVE) U Benzodiazepine Level (NEGATIVE) Urine Cocaine (NEGATIVE) Urine Marijuana (THC) (NEGATIVE) 05/15/20 05/15/20 05/15/20 Range/Units 10:48 10:48 10:44 WBC (4.0-10.5) K/mm3 RBC (4.1-5.4) M/mm3 Hgb (12.0-16.0) gm/dl Hct (35-47) % MCV (78-100) fl MCH (26-32) pg MCHC (32-36) g/dl RDW (11.5-14.0) % Plt Count (150-450) K/mm3 MPV (7.5-11.0) fl Gran % (36.0-66.0) % Eos # (Auto) (0-0.5) Absolute Lymphs (auto) (1.0-4.6) Absolute Monos (auto) (0.0-1.3) Lymphocytes % (24.0-44.0) % Monocytes % (0.0-12.0) % Eosinophils % (0.00-5.0) % Basophils % (0.0-0.4) % Absolute Granulocytes (1.4-6.9) Basophils # (0-0.4) Sodium (137-145) mmol/L Potassium (3.5-5.1) mmol/L Chloride (98-107) mmol/L Carbon Dioxide (22-30) mmol/L Anion Gap (5-15) MEQ/L BUN (7-17) mg/dL Creatinine (0.52-1.04) mg/dL Estimated GFR ML/MIN Glucose (74-106) mg/dL Lactic Acid 0.8 (0.4-2.0) Calcium (8.4-10.2) mg/dL Total Bilirubin (0.2-1.3) mg/dL AST (14-36) U/L ALT (0-35) U/L Alkaline Phosphatase (38-126) U/L Serum Total Protein (6.3-8.2) g/dL Albumin (3.5-5.0) g/dL Amylase (30-110) U/L Lipase (23-300) U/L Urine Color YELLOW (YELLOW) Urine Appearance CLOUDY (CLEAR) Urine pH 9.0 (5-6) Ur Specific Logan 1.011 (1.005-1.025) Urine Protein NEGATIVE (Negative) Urine Ketones NEGATIVE (NEGATIVE) Urine Blood NEGATIVE (0-5) Gary/ul Urine Nitrite NEGATIVE (NEGATIVE) Urine Bilirubin NEGATIVE (NEGATIVE) Urine Urobilinogen NEGATIVE (0-1) mg/dL Ur Leukocyte Esterase NEGATIVE (NEGATIVE) Urine WBC (Auto) 0-2 (0-5) /HPF Urine RBC (Auto) NONE (0-2) /HPF U Epithel Cells (Auto) NONE (FEW) /HPF Urine Bacteria (Auto) RARE (NEGATIVE) /HPF Amorphous Crystals MODERATE (NEGATIVE) /HPF Urine Mucus (Auto) SLIGHT (NEGATIVE) /HPF Urine Culture Reflexed NO (NO) Urine Glucose NEGATIVE (NEGATIVE) mg/dL Urine HCG, Qual (Negative) Urine Opiates Level NEGATIVE (NEGATIVE) Ur Methadone NEGATIVE (NEGATIVE) Urine Barbiturates NEGATIVE (NEGATIVE) Ur Phencyclidine (PCP) NEGATIVE (NEGATIVE) Urine Amphetamine NEGATIVE (NEGATIVE) U Benzodiazepine Level NEGATIVE (NEGATIVE) Urine Cocaine NEGATIVE (NEGATIVE) Urine Marijuana (THC) NEGATIVE (NEGATIVE) - Progress Progress: improved, pain not gone completely, re-examined Progress Note: 05/15/20 11:58 CAT scan of the abdomen pelvis shows no acute intra-abdominal intro pelvic process. Specifically, the pancreas does not show any acute findings. 05/15/20 11:58 Medical decision making: This patient clinically and by laboratory work-up shows acute pancreatitis. I spoke with Dr. James her primary care physician. I reviewed the patient history, condition, laboratory result and findings on the CAT scan of the abdomen pelvis without contrast. We will place the patient in observation. We will hydrate the patient, provide antiemetics and intravenous analgesia and repeat laboratory data in the morning. Discussed with : Gianluca Counseled pt/family regarding: lab results, diagnosis, rad results - Departure Departure Disposition: Observation Clinical Impression: Acute pancreatitis Condition: Stable Critical Care Time: No Referrals: DOCTOR,NO FAMILY [Primary Care Provider] -
[2020-05-15] MEDS ORDERED: Sodium Chloride 0.9% 1000 ML 1,000 ML ONE (10:54)
[2020-05-15] MEDS ORDERED: Zofran 4 MG/2 ML VIAL ONE (10:54)
[2020-05-15 11:10] LABS: Amourphous Crystal MODERATE /HPF (NEGATIVE); Appearance CLOUDY (CLEAR); Bacteria RARE /HPF (NEGATIVE); Bilirubin NEGATIVE (NEGATIVE); Blood NEGATIVE Ery/ul (0-5); Glucose NEGATIVE (NEGATIVE); Ketones NEGATIVE (NEGATIVE); Leukocyte Esterase NEGATIVE (NEGATIVE); Mucus SLIGHT /HPF (NEGATIVE); Nitrite NEGATIVE (NEGATIVE); Protein,Urine Dip NEGATIVE (Negative); Specific Gravity 1.011 (1.005-1.025); Urobilinogen NEGATIVE mg/dL (0-1); WBC 0-2 /HPF (0-5)
[2020-05-15 11:12] LABS: Absolute Neutrophil Ct (ANC) 5.91 (1.4-6.9); BASOPHIL % 0.2 % (0.0-0.4); Basophil (Absolute #) 0.02 (0-0.4); Eosinophil % 1.9 % (0.00-5.0); Eosinophil (Absolute #) 0.17 (0-0.5); Hematocrit 41.9 % (35-47); Hemoglobin 13.9 gm/dl (12.0-16.0); Lymphocyte (Absolute #) 2.18 (1.0-4.6); Lymphocytes % 24.3 % (24.0-44.0); Mean Cell Volume 91.3 fl (78-100); Mean Corpuscular Hemoglobin 30.3 pg (26-32); Mean Corpuscular Hgb Concent. 33.2 g/dl (32-36); Mean Platelet Volume 11.4 fl (7.5-11.0); Monocytes % 7.8 % (0.0-12.0); Neutrophil % 65.8 % (36.0-66.0); Platelet Count 236 K/mm3 (150-450); Red Blood Count 4.59 M/mm3 (4.1-5.4); Red Cell Distribution Width 12.3 % (11.5-14.0)
[2020-05-15] MEDS ORDERED: Hydromorphone 1 mg/ml Injection IV ONE ×2 (11:17→11:56)
[2020-05-15 11:19] LABS: ALBUMIN 4.6 g/dL (3.5-5.0); ALKALINE PHOSPHATASE 55 U/L (38-126); AMYLASE 156 U/L (30-110); ANION GAP 13.4 MEQ/L (5-15); BLOOD UREA NITROGEN 12 mg/dL (7-17); CHLORIDE 103 mmol/L (98-107); Calcium 9.5 mg/dL (8.4-10.2); Carbon Dioxide 24 mmol/L (22-30); Creatinine 1 0.57 mg/dL (0.52-1.04); EST GLOMERULAR FILTRATION RATE > 60.0 ML/MIN; Glucose 108 mg/dL (74-106); LIPASE 709 U/L (23-300); Potassium 3.8 mmol/L (3.5-5.1); SGOT/AST 20 U/L (14-36); SGPT/ALT 14 U/L (0-35); SODIUM 137 mmol/L (137-145); Total Protein 7.7 g/dL (6.3-8.2)
[2020-05-15] MEDS ORDERED: Hydromorphone 1 mg/ml Injection ONE ×2 (11:25→11:58)
[2020-05-15 11:31] LABS: Amphetamine,Urine NEGATIVE (NEGATIVE); Barbiturate,Urine NEGATIVE (NEGATIVE); Benzodiazepine,Urine NEGATIVE (NEGATIVE); Cocaine,Urine NEGATIVE (NEGATIVE); Methadone,Urine NEGATIVE (NEGATIVE); Opiate,Urine NEGATIVE (NEGATIVE); PCP,Urine NEGATIVE (NEGATIVE); THC,Urine NEGATIVE (NEGATIVE)
--- NOTE | 2020-05-15 11:50 | XRAY ---
Indication: Abdomen pain, nausea, and vomiting. History pancreatitis. Multiple contiguous images obtained through the abdomen and pelvis without contrast. Comparison: November 01, 2019. Lung bases remain clear. Heart is not enlarged. Noncontrasted stomach and bowel loops remain nonobstructed. Normal appendix. Again nonobstructing right renal micro-calculus and cholecystectomy. New minimal pneumobilia. No free fluid/air. Remaining liver, pancreas, spleen, adrenal glands, kidneys, ureters, bladder, uterus, and aorta appear unremarkable for noncontrast exam. Osseous structures intact with stable left T10 neurofibroma/schwannoma and epidural stimulator lead. Previous left anterior abdomen pain pump has been removed. Impression: 1. Stable nonobstructing right renal micro-calculus and left T10 neurofibroma/schwannoma. 2. New minimal pneumobilia and interval pain pump removal. 3. Remaining CT abdomen/pelvis without contrast exam is negative.
[2020-05-15 12:54] LABS: INFLUENZA A NEGATIVE (NEGATIVE); INFLUENZA B NEGATIVE (NEGATIVE); RESPIRATORY SYNCTIAL VIRUS NEGATIVE (Negative)
[2020-05-15] MEDS ORDERED: Hydromorphone 1 mg/ml Injection IV PRN (13:22)
[2020-05-15] MEDS ORDERED: TYLENOL 325 MG PO PRN (13:22)
[2020-05-15] MEDS ORDERED: Zofran 4 MG/2 ML VIAL IV PRN (13:22)
[2020-05-15] MEDS: PROTONIX 40 MG IV IV SCH (13:46)
[2020-05-15] MEDS: Sodium Chloride 0.9% 1000 ML 1,000 ML IV SCH ×2 (13:46→22:59)
[2020-05-15] MEDS: Hydromorphone 1 mg/ml Injection IV PRN ×3 (16:43→23:20)
[2020-05-15] MEDS: SODIUM CHLORIDE 0.9% IV PRN ×2 (16:44→21:25)
[2020-05-15] MEDS: PHENERGAN IV PRN ×2 (16:44→21:25)
[2020-05-16] MEDS: Hydromorphone 1 mg/ml Injection IV PRN ×3 (05:03→11:48)
[2020-05-16] MEDS: PHENERGAN IV PRN ×2 (05:06→10:06)
[2020-05-16] MEDS: SODIUM CHLORIDE 0.9% IV PRN ×2 (05:06→10:06)
[2020-05-16 05:23] LABS: Absolute Neutrophil Ct (ANC) 2.56 (1.4-6.9); BASOPHIL % 0.3 % (0.0-0.4); Basophil (Absolute #) 0.02 (0-0.4); Eosinophil % 2.7 % (0.00-5.0); Eosinophil (Absolute #) 0.16 (0-0.5); Hematocrit 37.5 % (35-47); Hemoglobin 12.2 gm/dl (12.0-16.0); Lymphocyte (Absolute #) 2.58 (1.0-4.6); Lymphocytes % 43.4 % (24.0-44.0); Mean Cell Volume 93.5 fl (78-100); Mean Corpuscular Hemoglobin 30.4 pg (26-32); Mean Corpuscular Hgb Concent. 32.5 g/dl (32-36); Monocyte (Absolute #) 0.63 (0.0-1.3); Monocytes % 10.6 % (0.0-12.0); Platelet Count 208 K/mm3 (150-450); Red Blood Count 4.01 M/mm3 (4.1-5.4); Red Cell Distribution Width 12.2 % (11.5-14.0)
[2020-05-16 05:34] LABS: AMYLASE 58 U/L (30-110); LIPASE 241 U/L (23-300)
[2020-05-16 05:36] LABS: ALBUMIN 3.2 g/dL (3.5-5.0); ALKALINE PHOSPHATASE 39 U/L (38-126); ANION GAP 8.2 MEQ/L (5-15); BLOOD UREA NITROGEN 6 mg/dL (7-17); CHLORIDE 108 mmol/L (98-107); Calcium 8.4 mg/dL (8.4-10.2); Carbon Dioxide 23 mmol/L (22-30); Creatinine 1 0.57 mg/dL (0.52-1.04); EST GLOMERULAR FILTRATION RATE > 60.0 ML/MIN; Glucose 95 mg/dL (74-106); Potassium 3.9 mmol/L (3.5-5.1); SGOT/AST 16 U/L (14-36); SGPT/ALT 11 U/L (0-35); SODIUM 136 mmol/L (137-145); Total Protein 5.7 g/dL (6.3-8.2)
[2020-05-16] MEDS: Sodium Chloride 0.9% 1000 ML 1,000 ML IV SCH (08:24)
--- NOTE | 2020-05-16 08:53 | HP ---
CHIEF COMPLAINT: Abdominal pain, history of pancreatitis. HISTORY OF PRESENT ILLNESS: 34 y/o WF reports she has been having problems with increasing pain in her abdomen over the past week. It just got to the point last night where it was very intense and kept her up. The patient reports she sees Dr. Chery at [facility] and has had multiple ERCP's including sphincterotomies in the past. The patient had a pain pump which was removed recently because it was just getting in her way and she has had no pain medication management over the last 3-4 months. MEDICAL HISTORY: Otherwise, medical history is unremarkable other than remote history of skull fracture in 2008. She has had a cholecystectomy also. She is a smoker over the last 26 years and denies any alcohol use. HOME MEDICATIONS: She takes no medications at home presently. ALLERGIES: THE PATIENT REPORTS ALLERGIES TO CODEINE, DROPERIDOL, CYMBALTA, IBUPROFEN, TORADOL, NAPROXEN, COMPAZINE, MORPHINE, AND TRAZODONE. PHYSICAL EXAMINATION: Reveals a well-nourished, well developed, 34 y/o WF who appears to be in pain due to her abdominal pain. Her temperature was 98.0, pulse 88, respiratory rate 16, BP 118/77, O2 sat 99%. HEENT: Normocephalic and atraumatic. Pupils equal, round, and reactive to light. EOM intact. Oropharynx is slightly dry. NECK: Supple without lymphadenopathy, thyromegaly, or JVD. CHEST: Clear to auscultation. HEART: Regular rate and rhythm. ABDOMEN: Diffusely tender particularly in the epigastric region. No palpable masses are felt. EXTREMITIES: Without cyanosis, clubbing, or edema. NEURO: She is alert and oriented X 3. No focal deficits are noted. LABORATORY STUDIES: Negative for COVID-19, influenza, and RSV. She was negative on urine drug screen. She had a sugar of 108, BUN 12, creatinine 0.57. Liver enzymes are normal. Electrolytes are normal. Amylase was 156, lipase 709. UA was essentially normal. CBC - WBC 9000, Hgb 13.9, and platelet count 236,000. Urine HCG was negative. Lactic acid was 0.8. CT scan showed a stable, nonobstructing right renal microcalculus and T10 neurofibroma, new minimal pneumobilia, and interval pain pump removal. CT scan is otherwise negative. ASSESSMENT: 1. PATIENT WITH ACUTE PANCREATITIS ON CHRONIC. In for IV fluids. Pain management with Dilaudid q 3 h PRN IV and Phenergan IV through a piggyback 25 mg on a q 4 h PRN basis.
[2020-05-16] MEDS: PROTONIX 40 MG IV IV SCH (10:07)
[2020-05-16 13:00] VITALS: BP 123/77; PULSE 97; O2SAT 98
== END 2020-05-16 14:55 | disposition home or self-care (01) ==
LOC: ED 10:37 → MED SURG 13:17
PROVIDERS: ADMIT Family Medicine; ATTEND Family Medicine
DX: K85.90 Acute pancreatitis without necrosis or infection, unspecified (principal)
CPT/HCPCS: 0241U; 36000; 36415; 74176; 80053; 80307; 81001; 82150; 83605; 83690; 84703; 85025; 96360; 96374; 96375; 96376; 99285; G0378; J1170; J2405; J2550

== ENCOUNTER 2020-09-16 10:52 | Emergency (ER) | payer OTHER ==
--- NOTE | 2020-09-16 10:58 | ERPHSYRPT ---
- History of Present Illness Time Seen by Provider: 09/16/20 10:58 Historian: patient Exam Limitations: no limitations Physician History: This is a 34-year-old white female has a history of chronic, recurring pancreatitis. Patient has had worsening abdominal pain on the right side and in her back in the last week. She feels as though it is her pancreatitis acting up. She had nausea but no vomiting. She does not have any diarrhea. She has no fevers chills. She has no cough, chest pain or shortness of breath. 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 Patient states that she can take Dilaudid without any problems. Timing/Duration: week(s) (1) Activities at Onset: none Quality: sharpness, stabbing Abdominal Pain Onset Location: RUQ, epigastric Pain Radiation: back Severity of Pain-Max: moderate Severity of Pain-Current: moderate Modifying Factors: Improves With: nothing Associated Symptoms: nausea, No chest pain, No diarrhea, No shortness of breath, No vomiting Previous symptoms: same symptoms as today Allergies/Adverse Reactions: codeine [Codeine] Allergy (Verified 09/16/20 11:25) Hives HIVES droperidol [Droperidol] Allergy (Verified 09/16/20 11:25) Hives HIVES duloxetine HCl [From Cymbalta] Allergy (Verified 09/16/20 11:25) SEIZURE SEIZURE ibuprofen Allergy (Verified 09/16/20 11:25) Hives HIVES ketorolac tromethamine [From Toradol] Allergy (Verified 09/16/20 11:25) Hives HIVES naproxen sodium [From Aleve] Allergy (Verified 09/16/20 11:25) Hives HIVES prochlorperazine edisylate [From Compazine] Allergy (Verified 09/16/20 11:25) LOCK JAW LOCK JAW prochlorperazine maleate [From Compazine] Allergy (Verified 09/16/20 11:25) LOCK JAW LOCK JAW morphine Adverse Reaction (Verified 09/16/20 11:25) Itching ITCH trazodone Adverse Reaction (Verified 09/16/20 11:25) Vomiting VOMITING Home Medications: Buprenorphine HCl [Belbuca] 450 mcg TOP DAILY PRN PRN 09/16/20 [History] Oxycodone HCl 5 mg PO DAILY PRN PRN 09/16/20 [History] Promethazine HCl 25 mg [Phenergan 25 mg] 25 mg PO DAILY PRN 09/16/20 [History] Hx Tetanus, Diphtheria Vaccination/Date Given: Yes Hx Influenza Vaccination/Date Given: No Hx Pneumococcal Vaccination/Date Given: No Travel Risk - International Travel Have you traveled outside of the country in past 3 weeks: No - Coronavirus Screening Are you exhibiting any of the following symptoms?: No Close contact with a COVID-19 positive Pt in past 14-21 Days: No - Review of Systems Constitutional: No Symptoms Eyes: No Symptoms Ears, Nose, & Throat: No Symptoms Respiratory: No Symptoms Cardiac: No Symptoms Abdominal/Gastrointestinal: Abdominal Pain, Nausea, No Vomiting, No Diarrhea Genitourinary Symptoms: No Symptoms Musculoskeletal: No Symptoms Skin: No Symptoms Neurological: No Symptoms Psychological: No Symptoms Endocrine: No Symptoms Hematologic/Lymphatic: No Symptoms Immunological/Allergic: No Symptoms All Other Systems: Reviewed and Negative - Past Medical History Pertinent Past Medical History: Yes Neurological History: Migraines ENT History: No Pertinent History Cardiac History: No Pertinent History Respiratory History: No Pertinent History Endocrine Medical History: Other Musculoskeletal History: Arthritis, Fractures GI Medical History: Pancreatitis History: No Pertinent History Psycho-Social History: No Pertinent History Female Reproductive Disorders: No Pertinent History Other Medical History: Pancreatitis, skull fracture 2008 - Past Surgical History Past Surgical History: Yes Neuro Surgical History: No Pertinent History Cardiac: No Pertinent History Respiratory: No Pertinent History Gastrointestinal: Cholecystectomy Genitourinary: Other Musculoskeletal: No Pertinent History Female Surgical History: No Pertinent History Other Surgical History: Pain pump (reported to not be active on 08/03/19). ERCPs-multiple last in july, pain pump REMOVAL 01/31 - Social History Smoking Status: Current every day smoker How long have you smoked: 28 YEARS Exposure to second hand smoke: No Drug Use: none Patient Lives Alone: No - Nursing Vital Signs Nursing Vital Signs: Initial Vital Signs Temperature 97.1 F 09/16/20 11:18 Pulse Rate 72 09/16/20 11:18 Respiratory Rate 18 09/16/20 11:18 Blood Pressure 122/75 09/16/20 11:18 O2 Sat by Pulse Oximetry 100 09/16/20 11:18 Pain Scale Pain Intensity 5 - Physical Exam General Appearance: no apparent distress, alert, anxiety Eye Exam: PERRL/EOMI, eyes nml inspection Ears, Nose, Throat Exam: normal ENT inspection, moist mucous membranes Neck Exam: normal inspection, non-tender, supple, full range of motion Respiratory Exam: normal breath sounds, lungs clear, airway intact, No chest tenderness, No respiratory distress Cardiovascular Exam: regular rate/rhythm, normal heart sounds, normal peripheral pulses Gastrointestinal/Abdomen Exam: soft, normal bowel sounds, tenderness (Epigastric and right upper quadrant), guarding, No rebound Pelvic Exam: not done Rectal Exam: not done Back Exam: normal inspection, normal range of motion, No CVA tenderness, No vertebral tenderness Extremity Exam: normal inspection, normal range of motion, pelvis stable Neurologic Exam: alert, oriented x 3, cooperative, apricot washer II-XII nml as tested, normal mood/affect, nml cerebellar function, nml station & gait, sensation nml Skin Exam: normal color, warm, dry Lymphatic Exam: No adenopathy SpO2 Interpretation: normal O2 Delivery: Room Air - Course Nursing assessment & vital signs reviewed: Yes Ordered Tests: Active Orders 24 hr Category Date Time Status IV Insertion STAT Care 09/16/20 11:35 Active ABDOMEN AND PELVIS W/0 CONTRAS [CT] Stat Exams 09/16/20 11:36 Completed AMYLASE Stat Lab 09/16/20 11:42 Completed CBC W DIFF Stat Lab 09/16/20 11:42 Completed CMP Stat Lab 09/16/20 11:42 Completed CULTURE,URINE Stat Lab 09/16/20 11:39 Received LIPASE Stat Lab 09/16/20 11:42 Completed Lactic Acid Stat Lab 09/16/20 11:35 Completed UA W/RFX UR CULTURE Stat Lab 09/16/20 11:39 Completed Medication Summary Generic Name Dose Route Start Last Admin Trade Name Freq PRN Reason Stop Dose Admin Sodium Chloride 1,000 mls @ 999 mls/hr 09/16/20 11:35 09/16/20 11:57 Sodium Chloride 0.9% 1000 Ml IV 09/16/20 12:35 999 mls/hr .Q1H1M STA Administration Discontinued Medications Generic Name Dose Route Start Last Admin Trade Name Freq PRN Reason Stop Dose Admin Hydromorphone HCl 1 mg 09/16/20 11:35 09/16/20 11:57 Hydromorphone 1 Mg/Ml Injection IV 09/16/20 11:36 1 mg STAT ONE Administration Hydromorphone HCl Confirm 09/16/20 11:52 Hydromorphone 1 Mg/Ml Injection Administered 09/16/20 11:53 Dose 1 mg .ROUTE .STK-MED ONE Sodium Chloride Confirm 09/16/20 11:52 Sodium Chloride 0.9% 1000 Ml Administered 09/16/20 11:53 Dose 1,000 mls @ ud .ROUTE .STK-MED ONE Pantoprazole Sodium 40 mg 09/16/20 11:35 09/16/20 11:57 Protonix 40 Mg Iv IV 09/16/20 11:36 40 mg STAT ONE Administration Pantoprazole Sodium Confirm 09/16/20 11:52 Protonix 40 Mg Iv Administered 09/16/20 11:53 Dose 40 mg IV .STK-MED ONE Lab/Rad Data: Laboratory Result Diagrams 09/16/20 11:42 09/16/20 11:42 Laboratory Results 09/16/20 09/16/20 09/16/20 Range/Units 11:42 11:42 11:39 WBC 7.0 (4.0-10.5) K/mm3 RBC 4.38 (4.1-5.4) M/mm3 Hgb 13.3 (12.0-16.0) gm/dl Hct 40.1 (35-47) % MCV 91.6 (78-100) fl MCH 30.4 (26-32) pg MCHC 33.2 (32-36) g/dl RDW 12.9 (11.5-14.0) % Plt Count 196 (150-450) K/mm3 MPV 11.5 H (7.5-11.0) fl Gran % 64.5 (36.0-66.0) % Eos # (Auto) 0.20 (0-0.5) Absolute Lymphs (auto) 1.71 (1.0-4.6) Absolute Monos (auto) 0.56 (0.0-1.3) Lymphocytes % 24.3 (24.0-44.0) % Monocytes % 8.0 (0.0-12.0) % Eosinophils % 2.8 (0.00-5.0) % Basophils % 0.4 (0.0-0.4) % Absolute Granulocytes 4.54 (1.4-6.9) Basophils # 0.03 (0-0.4) Sodium 138 (137-145) mmol/L Potassium 3.8 (3.5-5.1) mmol/L Chloride 105 (98-107) mmol/L Carbon Dioxide 26 (22-30) mmol/L Anion Gap 10.2 (5-15) MEQ/L BUN 13 (7-17) mg/dL Creatinine 0.63 (0.52-1.04) mg/dL Estimated GFR > 60.0 ML/MIN Glucose 92 (74-106) mg/dL Lactic Acid (0.4-2.0) Calcium 8.9 (8.4-10.2) mg/dL Total Bilirubin 0.50 (0.2-1.3) mg/dL AST 28 (14-36) U/L ALT 22 (0-35) U/L Alkaline Phosphatase 43 (38-126) U/L Serum Total Protein 6.4 (6.3-8.2) g/dL Albumin 3.8 (3.5-5.0) g/dL Amylase 56 (30-110) U/L Lipase 44 (23-300) U/L Urine Color YELLOW (YELLOW) Urine Appearance CLEAR (CLEAR) Urine pH 5.0 (5-6) Ur Specific [place] 1.019 (1.005-1.025) Urine Protein NEGATIVE (Negative) Urine Ketones NEGATIVE (NEGATIVE) Urine Blood NEGATIVE (0-5) Gary/ul Urine Nitrite NEGATIVE (NEGATIVE) Urine Bilirubin NEGATIVE (NEGATIVE) Urine Urobilinogen NEGATIVE (0-1) mg/dL Ur Leukocyte Esterase NEGATIVE (NEGATIVE) Urine WBC (Auto) 11-15 (0-5) /HPF Urine RBC (Auto) NONE (0-2) /HPF U Epithel Cells (Auto) NONE (FEW) /HPF Urine Bacteria (Auto) MODERATE (NEGATIVE) /HPF Urine Culture Reflexed YES (NO) Urine Glucose NEGATIVE (NEGATIVE) mg/dL 09/16/20 Range/Units 11:35 WBC (4.0-10.5) K/mm3 RBC (4.1-5.4) M/mm3 Hgb (12.0-16.0) gm/dl Hct (35-47) % MCV (78-100) fl MCH (26-32) pg MCHC (32-36) g/dl RDW (11.5-14.0) % Plt Count (150-450) K/mm3 MPV (7.5-11.0) fl Gran % (36.0-66.0) % Eos # (Auto) (0-0.5) Absolute Lymphs (auto) (1.0-4.6) Absolute Monos (auto) (0.0-1.3) Lymphocytes % (24.0-44.0) % Monocytes % (0.0-12.0) % Eosinophils % (0.00-5.0) % Basophils % (0.0-0.4) % Absolute Granulocytes (1.4-6.9) Basophils # (0-0.4) Sodium (137-145) mmol/L Potassium (3.5-5.1) mmol/L Chloride (98-107) mmol/L Carbon Dioxide (22-30) mmol/L Anion Gap (5-15) MEQ/L BUN (7-17) mg/dL Creatinine (0.52-1.04) mg/dL Estimated GFR ML/MIN Glucose (74-106) mg/dL Lactic Acid 0.6 (0.4-2.0) Calcium (8.4-10.2) mg/dL Total Bilirubin (0.2-1.3) mg/dL AST (14-36) U/L ALT (0-35) U/L Alkaline Phosphatase (38-126) U/L Serum Total Protein (6.3-8.2) g/dL Albumin (3.5-5.0) g/dL Amylase (30-110) U/L Lipase (23-300) U/L Urine Color (YELLOW) Urine Appearance (CLEAR) Urine pH (5-6) Ur Specific [place] (1.005-1.025) Urine Protein (Negative) Urine Ketones (NEGATIVE) Urine Blood (0-5) Gary/ul Urine Nitrite (NEGATIVE) Urine Bilirubin (NEGATIVE) Urine Urobilinogen (0-1) mg/dL Ur Leukocyte Esterase (NEGATIVE) Urine WBC (Auto) (0-5) /HPF Urine RBC (Auto) (0-2) /HPF U Epithel Cells (Auto) (FEW) /HPF Urine Bacteria (Auto) (NEGATIVE) /HPF Urine Culture Reflexed (NO) Urine Glucose (NEGATIVE) mg/dL - Progress Progress: improved, pain not gone completely, re-examined Progress Note: 09/16/20 12:26 CAT scan of the abdomen pelvis without contrast shows new mild/moderate diffuse fecal stasis. There are no other acute CT abdomen/pelvis without contrast findings. Counseled pt/family regarding: lab results, diagnosis, need for follow-up, rad results - Departure Departure Disposition: Home Clinical Impression: Abdominal pain, UTI (urinary tract infection) Condition: Stable Critical Care Time: No Referrals: RAKESH YE [Primary Care Provider] - Additional Instructions: Drink plenty of fluids. Take your medication as prescribed. Follow-up with you r primary care physician for further management. Prescriptions: Ciprofloxacin [Cipro 500 MG] 500 mg PO BID #14 tablet
[2020-09-16 11:25] VITALS: BP 122/75
[2020-09-16] MEDS ORDERED: Sodium Chloride 0.9% 1000 ML 1,000 ML IV STA (11:35)
[2020-09-16] MEDS ORDERED: Hydromorphone 1 mg/ml Injection IV ONE (11:35)
[2020-09-16] MEDS ORDERED: PROTONIX 40 MG IV IV ONE ×2 (11:35→11:52)
[2020-09-16 11:51] LABS: Absolute Neutrophil Ct (ANC) 4.54 (1.4-6.9); BASOPHIL % 0.4 % (0.0-0.4); Basophil (Absolute #) 0.03 (0-0.4); Eosinophil % 2.8 % (0.00-5.0); Hematocrit 40.1 % (35-47); Hemoglobin 13.3 gm/dl (12.0-16.0); Lymphocyte (Absolute #) 1.71 (1.0-4.6); Lymphocytes % 24.3 % (24.0-44.0); Mean Cell Volume 91.6 fl (78-100); Mean Corpuscular Hemoglobin 30.4 pg (26-32); Mean Corpuscular Hgb Concent. 33.2 g/dl (32-36); Mean Platelet Volume 11.5 fl (7.5-11.0); Monocyte (Absolute #) 0.56 (0.0-1.3); Neutrophil % 64.5 % (36.0-66.0); Platelet Count 196 K/mm3 (150-450); Red Blood Count 4.38 M/mm3 (4.1-5.4); Red Cell Distribution Width 12.9 % (11.5-14.0)
[2020-09-16] MEDS ORDERED: Hydromorphone 1 mg/ml Injection ONE (11:52)
[2020-09-16] MEDS ORDERED: Sodium Chloride 0.9% 1000 ML 1,000 ML ONE (11:52)
[2020-09-16 11:54] LABS: Appearance CLEAR (CLEAR); Bacteria MODERATE /HPF (NEGATIVE); Bilirubin NEGATIVE (NEGATIVE); Blood NEGATIVE Ery/ul (0-5); Glucose NEGATIVE (NEGATIVE); Ketones NEGATIVE (NEGATIVE); Leukocyte Esterase NEGATIVE (NEGATIVE); Nitrite NEGATIVE (NEGATIVE); Protein,Urine Dip NEGATIVE (Negative); Specific Gravity 1.019 (1.005-1.025); Urobilinogen NEGATIVE mg/dL (0-1)
[2020-09-16 12:01] LABS: ALBUMIN 3.8 g/dL (3.5-5.0); ALKALINE PHOSPHATASE 43 U/L (38-126); AMYLASE 56 U/L (30-110); ANION GAP 10.2 MEQ/L (5-15); BLOOD UREA NITROGEN 13 mg/dL (7-17); CHLORIDE 105 mmol/L (98-107); Calcium 8.9 mg/dL (8.4-10.2); Carbon Dioxide 26 mmol/L (22-30); Creatinine 1 0.63 mg/dL (0.52-1.04); EST GLOMERULAR FILTRATION RATE > 60.0 ML/MIN; Glucose 92 mg/dL (74-106); LIPASE 44 U/L (23-300); Potassium 3.8 mmol/L (3.5-5.1); SGOT/AST 28 U/L (14-36); SGPT/ALT 22 U/L (0-35); SODIUM 138 mmol/L (137-145); Total Protein 6.4 g/dL (6.3-8.2)
--- NOTE | 2020-09-16 12:08 | XRAY ---
Indication: Midabdomen pain. Nausea and vomiting. History pancreatitis. Multiple contiguous axial images obtained through the abdomen and pelvis without contrast. Comparison: May 15, 2020. Lung bases remain clear. Heart not enlarged. Noncontrasted stomach and bowel loops remain nonobstructed with normal appendix. There is now mild/moderate diffuse scattered colonic fecal debris throughout. Again nonobstructing right renal micro-calculus and previous cholecystectomy. No free fluid/air. New tampon in situ. Remaining liver, pancreas, spleen, adrenal glands, kidneys, ureters, bladder, uterus, and aorta are unremarkable for noncontrast exam. Osseous structures intact again with L4-S1 broad-based disc bulge, left T10 neurofibroma/schwannoma, and remnant epidural stimulator lead. No ventral or inguinal hernias. Impression: 1. New mild/moderate diffuse fecal stasis and tampon in situ. 2. Stable nonobstructing right renal micro-calculus, L4-S1 degenerative disc disease, and left T10 neurofibroma/schwannoma. 3. Remaining CT abdomen/pelvis without contrast exam is negative.
[2020-09-16 12:49] VITALS: PULSE 70; O2SAT 100
== END 2020-09-16 12:58 | disposition home or self-care (01) ==
LOC: ED 10:52
DX: R10.11 Right upper quadrant pain (principal); N39.0 Urinary tract infection, site not specified; K86.1 Other chronic pancreatitis; Z79.899 Other long term (current) drug therapy; Z79.891 Long term (current) use of opiate analgesic
CPT/HCPCS: 36000; 36415; 74176; 80053; 81001; 82150; 83605; 83690; 85025; 87077; 87086; 87186; 96374; 96375; 99284; J1170

== ENCOUNTER 2021-05-18 08:04 | Emergency (ER) | payer OTHER ==
[2021-05-18 08:29] LABS: Hematocrit 39.9 % (35-47); Hemoglobin 13.8 gm/dl (12.0-16.0); Mean Cell Volume 87.5 fl (78-100); Mean Corpuscular Hemoglobin 30.3 pg (26-32); Mean Corpuscular Hgb Concent. 34.6 g/dl (32-36); Platelet Count 245 K/mm3 (150-450); Red Blood Count 4.56 M/mm3 (4.1-5.4); Red Cell Distribution Width 12.6 % (11.5-14.0)
[2021-05-18 08:31] LABS: White Blood Count 25.2 K/mm3 (4.0-10.5)
[2021-05-18] MEDS ORDERED: Sodium Chloride 0.9% 1000 ML 1,000 ML IV STA ×2 (08:31→10:00)
[2021-05-18] MEDS ORDERED: Zofran 4 MG/2 ML VIAL IV ONE (08:32)
[2021-05-18] MEDS ORDERED: SUBLIMAZE 100 MCG/2 ML IV ONE (08:32)
--- NOTE | 2021-05-18 08:41 | ERPHSYRPT ---
- History of Present Illness Historian: patient Exam Limitations: no limitations Patient Subjective Stated Complaint: Abdominal pain Triage Nursing Assessment: Patient ambulated back to ED and transferred self to bed. Patient A+O X3. Patient 's skin pink, warm and dry. Patient complains of right lower abdominal pain that goes into right flank. 9/10 constant sharp pain. Rebound tenderness noted to RLQ. Patient complains of Nausea, but denies vomiting or diarrhea. Abdomen soft and round with BS X 4. Physician History: 35 yo wf w h/o chronic abdominal pain presents w RUQ pain x 2 days which is sharp and rated a 10. She has had nausea wo vomiting and has chronic diarrhea. Pt denies melena/hematochezia/dysuria/hematuria/chest pain/fever. Timing/Duration: day(s) (2 days) Activities at Onset: rest Quality: sharpness, stabbing Abdominal Pain Onset Location: RUQ Pain Radiation: back Severity of Pain-Max: severe Severity of Pain-Current: severe Modifying Factors: Improves With: nothing Associated Symptoms: back, diarrhea, loss of appetite, nausea, No chest pain, No diaphoresis, No fever/chills, No fatigue, No headache, No neck pain, No rash, No shortness of breath, No syncope, No vomiting, No weakness Previous symptoms: same symptoms as today Allergies/Adverse Reactions: codeine [Codeine] Allergy (Verified 05/18/21 08:14) Hives HIVES droperidol [Droperidol] Allergy (Verified 05/18/21 08:14) Hives HIVES duloxetine HCl [From Cymbalta] Allergy (Verified 05/18/21 08:14) SEIZURE SEIZURE ibuprofen Allergy (Verified 05/18/21 08:14) Hives HIVES ketorolac tromethamine [From Toradol] Allergy (Verified 05/18/21 08:14) Hives HIVES naproxen sodium [From Aleve] Allergy (Verified 05/18/21 08:14) Hives HIVES prochlorperazine edisylate [From Compazine] Allergy (Verified 05/18/21 08:14) LOCK JAW LOCK JAW prochlorperazine maleate [From Compazine] Allergy (Verified 05/18/21 08:14) LOCK JAW LOCK JAW morphine Adverse Reaction (Verified 05/18/21 08:14) Itching ITCH trazodone Adverse Reaction (Verified 05/18/21 08:14) Vomiting VOMITING Home Medications: Promethazine HCl 25 mg [Phenergan 25 mg] 25 mg PO DAILY PRN 09/16/20 [History] Hx Tetanus, Diphtheria Vaccination/Date Given: Yes Hx Influenza Vaccination/Date Given: No Hx Pneumococcal Vaccination/Date Given: No Immunizations Up to Date: Yes Travel Risk - International Travel Have you traveled outside of the country in past 3 weeks: No - Coronavirus Screening Are you exhibiting any of the following symptoms?: No Close contact with a COVID-19 positive Pt in past 14-21 Days: No - Vaccine Status Have you recieved a Covid-19 vaccination: No - Review of Systems Constitutional: No Symptoms Eyes: No Symptoms Ears, Nose, & Throat: No Symptoms Respiratory: No Symptoms Cardiac: No Symptoms Abdominal/Gastrointestinal: No Symptoms, Abdominal Pain, Nausea, Diarrhea, No Vomiting, No Constipation, No Hematemesis, No Hematochezia, No Melena, No Dysphagia, No Appetite Changes Genitourinary Symptoms: No Dysuria, No Frequency, No Hematuria, No Hesitancy, No Incontinence, No Urgency, No Urinary Retention, No Flank Pain, No Menorrhagia, No , No Vaginal Bleeding, No Vaginal Discharge, No Vaginal Itching Musculoskeletal: No Symptoms Skin: No Symptoms Neurological: No Symptoms Psychological: No Symptoms Endocrine: No Symptoms Hematologic/Lymphatic: No Symptoms Immunological/Allergic: No Symptoms - Past Medical History Pertinent Past Medical History: Yes Neurological History: Migraines ENT History: No Pertinent History Cardiac History: No Pertinent History Respiratory History: No Pertinent History Endocrine Medical History: Other Musculoskeletal History: Arthritis, Fractures GI Medical History: Pancreatitis History: No Pertinent History Psycho-Social History: No Pertinent History Female Reproductive Disorders: No Pertinent History Other Medical History: Pancreatitis, skull fracture 2008 - Past Surgical History Past Surgical History: Yes Neuro Surgical History: No Pertinent History Cardiac: No Pertinent History Respiratory: No Pertinent History Gastrointestinal: Cholecystectomy Genitourinary: Other Musculoskeletal: No Pertinent History Female Surgical History: No Pertinent History Other Surgical History: Pain pump (reported to not be active on 08/03/19). ERCPs-multiple last in july, pain pump REMOVAL 01/31 - Social History Smoking Status: Former smoker How long have you smoked: 28 YEARS Exposure to second hand smoke: No Drug Use: none Patient Lives Alone: No Significant Family History: no pertinent family hx - Female History Hx Last Menstrual Period: 3 weeks ago Hx Now: No - Nursing Vital Signs Nursing Vital Signs: Initial Vital Signs Temperature 99.3 F 05/18/21 08:14 Pulse Rate 103 H 05/18/21 08:14 Respiratory Rate 18 05/18/21 08:14 Blood Pressure 92/70 05/18/21 08:14 O2 Sat by Pulse Oximetry 98 05/18/21 08:14 Pain Scale Pain Intensity 10 Borderline hypotension/Tachy - Physical Exam General Appearance: no apparent distress Eye Exam: PERRL/EOMI, eyes nml inspection Ears, Nose, Throat Exam: normal ENT inspection, TMs normal, pharynx normal, moist mucous membranes Neck Exam: normal inspection, non-tender, supple, full range of motion, No meningismus, No mass, No Brudzinski, No Kernig's Respiratory Exam: normal breath sounds, lungs clear, airway intact Cardiovascular Exam: tachycardia, capillary refill <2 sec, No murmur Gastrointestinal/Abdomen Exam: soft (Hyperactive BS/TTP RUQ wo guarding or rebound) Back Exam: normal inspection, normal range of motion, No CVA tenderness Extremity Exam: normal inspection, normal range of motion Neurologic Exam: alert, oriented x 3, cooperative, 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, normal mood/affect, nml cerebellar function, nml station & gait, sensation nml, No motor deficits, No sensory deficit Skin Exam: normal color, warm, dry, No rash Lymphatic Exam: No adenopathy SpO2 Interpretation: normal SpO2: 98 O2 Delivery: Room Air Ordered Tests: Active Orders 24 hr Category Date Time Status Clear Liquid Diet 05/18/21 Dinner Active ABDOMEN AND PELVIS W/0 CONTRAS [CT] Stat Exams 05/18/21 09:08 Completed AMYLASE Stat Lab 05/18/21 08:25 Completed BLOOD CULTURE Stat Lab 05/18/21 10:37 Received CBC W DIFF AM.LAB Lab 05/19/21 04:00 Ordered CBC W DIFF Stat Lab 05/18/21 08:25 Completed CMP AM.LAB Lab 05/19/21 04:00 Ordered CMP Stat Lab 05/18/21 08:25 Completed HCG QUALITATIVE,SERUM Stat Lab 05/18/21 08:30 Completed LIPASE Stat Lab 05/18/21 08:25 Completed Lactic Acid AM.LAB Lab 05/19/21 04:00 Ordered Lactic Acid Stat Lab 05/18/21 09:56 Completed Manual Differential NC Stat Lab 05/18/21 08:25 Completed UA W/RFX UR CULTURE Stat Lab 05/18/21 10:00 Completed Urine Triage Profile Stat Lab 05/18/21 08:23 Completed Transfer Order Routine Transfer 05/18/21 Completed Medication Summary Generic Name Dose Route Start Last Admin Trade Name Ozzy PRN Reason Stop Dose Admin Hydromorphone HCl 30 mg 05/18/21 13:20 Hydromorphone Hcl 30 Mg/30 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 Vial IV 05/23/21 13:19 UD PRN PAIN Sodium Chloride 1,000 mls @ 100 mls/hr 05/18/21 11:30 Sodium Chloride 0.9% 1000 Ml IV 06/17/21 11:29 .Q10H NEYMAR Ceftriaxone Sodium/Dextrose 1 g in 50 mls @ 100 mls/hr 05/19/21 10:00 Rocephin 1 Gm-D5w 50 Ml Bag IV 05/22/21 09:59 Q24H10 NEYMAR Ondansetron HCl 4 mg 05/18/21 11:27 Ondansetron Hcl 4 Mg/2 Ml Vial IV 06/17/21 11:26 Q6H PRN PRN NAUSEA/VOMITING Discontinued Medications Generic Name Dose Route Start Last Admin Trade Name Ozzy PRN Reason Stop Dose Admin Fentanyl Citrate 100 mcg 05/18/21 08:32 05/18/21 08:46 Fentanyl Citrate 100 Mcg/2 Ml* Vial IV 05/18/21 08:33 Not Given STAT ONE Hydromorphone HCl 0.5 mg 05/18/21 08:44 05/18/21 08:47 Hydromorphone 1 Mg/1ml Inj 1 Mg/Ml Syringe IV 05/18/21 08:45 0.5 mg STAT ONE Administration Hydromorphone HCl Confirm 05/18/21 08:44 Hydromorphone 1 Mg/1ml Inj 1 Mg/Ml Syringe Administered 05/18/21 08:45 Dose 1 mg .ROUTE .STK-MED ONE Hydromorphone HCl 1 mg 05/18/21 10:53 05/18/21 11:03 Hydromorphone 1 Mg/1ml Inj 1 Mg/Ml Syringe IV 05/18/21 10:54 1 mg STAT ONE Administration Hydromorphone HCl Confirm 05/18/21 10:54 Hydromorphone 1 Mg/1ml Inj 1 Mg/Ml Syringe Administered 05/18/21 10:55 Dose 1 mg .ROUTE .STK-MED ONE Hydromorphone HCl 1 mg 05/18/21 11:27 05/18/21 13:03 Hydromorphone 1 Mg/1ml Inj 1 Mg/Ml Syringe IV 05/20/21 11:26 1 mg Q4H PRN PRN Administration PAIN Hydromorphone HCl Confirm 05/18/21 13:01 Hydromorphone 1 Mg/1ml Inj 1 Mg/Ml Syringe Administered 05/18/21 13:02 Dose 1 mg .ROUTE .STK-MED ONE Sodium Chloride 1,000 mls @ 999 mls/hr 05/18/21 08:31 05/18/21 09:51 Sodium Chloride 0.9% 1000 Ml IV 05/18/21 09:31 Infused .Q1H1M STA Infusion Sodium Chloride Confirm 05/18/21 08:43 Sodium Chloride 0.9% 1000 Ml Administered 05/18/21 08:44 Dose 1,000 mls @ ud .ROUTE .STK-MED ONE Sodium Chloride 1,000 mls @ 999 mls/hr 05/18/21 10:00 05/18/21 11:14 Sodium Chloride 0.9% 1000 Ml IV 05/18/21 11:00 Infused .Q1H1M STA Infusion Sodium Chloride Confirm 05/18/21 10:11 Sodium Chloride 0.9% 1000 Ml Administered 05/18/21 10:12 Dose 1,000 mls @ ud .ROUTE .STK-MED ONE Ceftriaxone Sodium/Dextrose 1 g in 50 mls @ 100 mls/hr 05/18/21 10:21 05/18/21 11:24 Rocephin 1 Gm-D5w 50 Ml Bag IV 05/18/21 10:50 Infused STAT STA Infusion Ceftriaxone Sodium/Dextrose Confirm 05/18/21 10:51 Rocephin 1 Gm-D5w 50 Ml Bag Administered 05/18/21 10:52 Dose 1 g in 50 mls @ ud IV .STK-MED ONE Ondansetron HCl 4 mg 05/18/21 08:32 05/18/21 08:46 Ondansetron Hcl 4 Mg/2 Ml Vial IV 05/18/21 08:33 4 mg STAT ONE Administration Ondansetron HCl Confirm 05/18/21 08:43 Ondansetron Hcl 4 Mg/2 Ml Vial Administered 05/18/21 08:44 Dose 4 mg .ROUTE .STK-MED ONE Lab/Rad Data: Laboratory Result Diagrams 05/18/21 08:25 05/18/21 08:25 Laboratory Results 05/18/21 05/18/21 05/18/21 Range/Units 11:27 10:00 09:56 WBC (4.0-10.5) K/mm3 RBC (4.1-5.4) M/mm3 Hgb (12.0-16.0) gm/dl Hct (35-47) % MCV (78-100) fl MCH (26-32) pg MCHC (32-36) g/dl RDW (11.5-14.0) % Plt Count (150-450) K/mm3 MPV (7.5-11.0) fl Segmented Neutrophils (36.0-66.0) % Band Neutrophils (0.0-2.0) % Lymphocytes (Manual) (24-44) % Eosinophils (Manual) (0.00-3.0) % Platelet Estimate (NORMAL) RBC Morphology Sodium (137-145) mmol/L Potassium (3.5-5.1) mmol/L Chloride (98-107) mmol/L Carbon Dioxide (22-30) mmol/L Anion Gap (5-15) MEQ/L BUN (7-17) mg/dL Creatinine (0.52-1.04) mg/dL Estimated GFR ML/MIN Glucose (74-106) mg/dL Lactic Acid 2.3 H (0.4-2.0) Calcium (8.4-10.2) mg/dL Total Bilirubin (0.2-1.3) mg/dL AST (14-36) U/L ALT (0-35) U/L Alkaline Phosphatase (38-126) U/L Serum Total Protein (6.3-8.2) g/dL Albumin (3.5-5.0) g/dL Amylase (30-110) U/L Lipase (23-300) U/L Serum , Qual (Negative) Urine Color STRAW (YELLOW) Urine Appearance CLEAR (CLEAR) Urine pH 6.0 (5-6) Ur Specific [employer] 1.003 (1.005-1.025) Urine Protein NEGATIVE (Negative) Urine Ketones NEGATIVE (NEGATIVE) Urine Blood MODERATE (0-5) Gary/ul Urine Nitrite NEGATIVE (NEGATIVE) Urine Bilirubin NEGATIVE (NEGATIVE) Urine Urobilinogen NEGATIVE (0-1) mg/dL Ur Leukocyte Esterase NEGATIVE (NEGATIVE) Urine WBC (Auto) 0-2 (0-5) /HPF Urine RBC (Auto) 0-2 (0-2) /HPF U Epithel Cells (Auto) RARE (FEW) /HPF Urine Bacteria (Auto) RARE (NEGATIVE) /HPF Urine Culture Reflexed NO (NO) Urine Glucose NEGATIVE (NEGATIVE) mg/dL Urine Opiates Level (NEGATIVE) Ur Methadone (NEGATIVE) Urine Barbiturates (NEGATIVE) Ur Phencyclidine (PCP) (NEGATIVE) Urine Amphetamine (NEGATIVE) U Benzodiazepine Level (NEGATIVE) Urine Cocaine (NEGATIVE) Urine Marijuana (THC) (NEGATIVE) Influenza Type A Ag NEGATIVE (NEGATIVE) Influenza Type B Ag NEGATIVE (NEGATIVE) RSV (PCR) NEGATIVE (Negative) SARS-CoV-2 (PCR) NEGATIVE (NEGATIVE) 05/18/21 05/18/21 05/18/21 Range/Units 08:30 08:25 08:25 WBC 25.2 H* (4.0-10.5) K/mm3 RBC 4.56 (4.1-5.4) M/mm3 Hgb 13.8 (12.0-16.0) gm/dl Hct 39.9 (35-47) % MCV 87.5 (78-100) fl MCH 30.3 (26-32) pg MCHC 34.6 (32-36) g/dl RDW 12.6 (11.5-14.0) % Plt Count 245 (150-450) K/mm3 MPV 10.0 (7.5-11.0) fl Segmented Neutrophils 86 H (36.0-66.0) % Band Neutrophils 2 (0.0-2.0) % Lymphocytes (Manual) 11 L (24-44) % Eosinophils (Manual) 1 (0.00-3.0) % Platelet Estimate NORMAL (NORMAL) RBC Morphology NORMAL Sodium 132 L (137-145) mmol/L Potassium 3.7 (3.5-5.1) mmol/L Chloride 102 (98-107) mmol/L Carbon Dioxide 16 L* (22-30) mmol/L Anion Gap 16.6 H (5-15) MEQ/L BUN 13 (7-17) mg/dL Creatinine 0.75 (0.52-1.04) mg/dL Estimated GFR > 60.0 ML/MIN Glucose 138 H (74-106) mg/dL Lactic Acid (0.4-2.0) Calcium 9.1 (8.4-10.2) mg/dL Total Bilirubin 0.80 (0.2-1.3) mg/dL AST 25 (14-36) U/L ALT 23 (0-35) U/L Alkaline Phosphatase 73 (38-126) U/L Serum Total Protein 7.1 (6.3-8.2) g/dL Albumin 4.1 (3.5-5.0) g/dL Amylase 50 (30-110) U/L Lipase 85 (23-300) U/L Serum , Qual NEGATIVE (Negative) Urine Color (YELLOW) Urine Appearance (CLEAR) Urine pH (5-6) Ur Specific [employer] (1.005-1.025) Urine Protein (Negative) Urine Ketones (NEGATIVE) Urine Blood (0-5) Gary/ul Urine Nitrite (NEGATIVE) Urine Bilirubin (NEGATIVE) Urine Urobilinogen (0-1) mg/dL Ur Leukocyte Esterase (NEGATIVE) Urine WBC (Auto) (0-5) /HPF Urine RBC (Auto) (0-2) /HPF U Epithel Cells (Auto) (FEW) /HPF Urine Bacteria (Auto) (NEGATIVE) /HPF Urine Culture Reflexed (NO) Urine Glucose (NEGATIVE) mg/dL Urine Opiates Level (NEGATIVE) Ur Methadone (NEGATIVE) Urine Barbiturates (NEGATIVE) Ur Phencyclidine (PCP) (NEGATIVE) Urine Amphetamine (NEGATIVE) U Benzodiazepine Level (NEGATIVE) Urine Cocaine (NEGATIVE) Urine Marijuana (THC) (NEGATIVE) Influenza Type A Ag (NEGATIVE) Influenza Type B Ag (NEGATIVE) RSV (PCR) (Negative) SARS-CoV-2 (PCR) (NEGATIVE) 05/18/21 Range/Units 08:23 WBC (4.0-10.5) K/mm3 RBC (4.1-5.4) M/mm3 Hgb (12.0-16.0) gm/dl Hct (35-47) % MCV (78-100) fl MCH (26-32) pg MCHC (32-36) g/dl RDW (11.5-14.0) % Plt Count (150-450) K/mm3 MPV (7.5-11.0) fl Segmented Neutrophils (36.0-66.0) % Band Neutrophils (0.0-2.0) % Lymphocytes (Manual) (24-44) % Eosinophils (Manual) (0.00-3.0) % Platelet Estimate (NORMAL) RBC Morphology Sodium (137-145) mmol/L Potassium (3.5-5.1) mmol/L Chloride (98-107) mmol/L Carbon Dioxide (22-30) mmol/L Anion Gap (5-15) MEQ/L BUN (7-17) mg/dL Creatinine (0.52-1.04) mg/dL Estimated GFR ML/MIN Glucose (74-106) mg/dL Lactic Acid (0.4-2.0) Calcium (8.4-10.2) mg/dL Total Bilirubin (0.2-1.3) mg/dL AST (14-36) U/L ALT (0-35) U/L Alkaline Phosphatase (38-126) U/L Serum Total Protein (6.3-8.2) g/dL Albumin (3.5-5.0) g/dL Amylase (30-110) U/L Lipase (23-300) U/L Serum , Qual (Negative) Urine Color (YELLOW) Urine Appearance (CLEAR) Urine pH (5-6) Ur Specific [employer] (1.005-1.025) Urine Protein (Negative) Urine Ketones (NEGATIVE) Urine Blood (0-5) Gary/ul Urine Nitrite (NEGATIVE) Urine Bilirubin (NEGATIVE) Urine Urobilinogen (0-1) mg/dL Ur Leukocyte Esterase (NEGATIVE) Urine WBC (Auto) (0-5) /HPF Urine RBC (Auto) (0-2) /HPF U Epithel Cells (Auto) (FEW) /HPF Urine Bacteria (Auto) (NEGATIVE) /HPF Urine Culture Reflexed (NO) Urine Glucose (NEGATIVE) mg/dL Urine Opiates Level NEGATIVE (NEGATIVE) Ur Methadone NEGATIVE (NEGATIVE) Urine Barbiturates NEGATIVE (NEGATIVE) Ur Phencyclidine (PCP) NEGATIVE (NEGATIVE) Urine Amphetamine POSITIVE (NEGATIVE) U Benzodiazepine Level NEGATIVE (NEGATIVE) Urine Cocaine NEGATIVE (NEGATIVE) Urine Marijuana (THC) NEGATIVE (NEGATIVE) Influenza Type A Ag (NEGATIVE) Influenza Type B Ag (NEGATIVE) RSV (PCR) (Negative) SARS-CoV-2 (PCR) (NEGATIVE) - Progress Progress: improved Progress Note: 05/18/21 11:32 1L NS bolus x2 0.5 IV Dilaudid/4mg IV Zofran 1mg IV Zofran 05/18/21 11:[address] James 05/18/21 14:08 1gm IV Rocephin Admitting orders written Discussed with : Gianluca Counseled pt/family regarding: lab results, diagnosis, need for follow-up, rad results - Departure Departure Disposition: Observation Clinical Impression: Pyelonephritis Condition: Stable Critical Care Time: No
[2021-05-18 08:42] LABS: ALBUMIN 4.1 g/dL (3.5-5.0); ALKALINE PHOSPHATASE 73 U/L (38-126); AMYLASE 50 U/L (30-110); ANION GAP 16.6 MEQ/L (5-15); BLOOD UREA NITROGEN 13 mg/dL (7-17); CHLORIDE 102 mmol/L (98-107); Calcium 9.1 mg/dL (8.4-10.2); Creatinine 1 0.75 mg/dL (0.52-1.04); EST GLOMERULAR FILTRATION RATE > 60.0 ML/MIN; Glucose 138 mg/dL (74-106); LIPASE 85 U/L (23-300); Potassium 3.7 mmol/L (3.5-5.1); SGOT/AST 25 U/L (14-36); SGPT/ALT 23 U/L (0-35); SODIUM 132 mmol/L (137-145); Total Protein 7.1 g/dL (6.3-8.2)
[2021-05-18] MEDS ORDERED: Sodium Chloride 0.9% 1000 ML 1,000 ML ONE ×2 (08:43→10:11)
[2021-05-18] MEDS ORDERED: Zofran 4 MG/2 ML VIAL ONE (08:43)
[2021-05-18 08:44] LABS: BAND 2 % (0.0-2.0); Carbon Dioxide 16 mmol/L (22-30); Eosinophil 1 % (0.00-3.0); Lymphocytes 11 % (24-44); Neutrophils 86 % (36.0-66.0); Total Cells Counted 100
[2021-05-18] MEDS ORDERED: Hydromorphone 1 mg/ml Injection IV ONE ×2 (08:44→10:53)
[2021-05-18] MEDS ORDERED: Hydromorphone 1 mg/ml Injection ONE ×3 (08:44→13:01)
[2021-05-18 08:45] LABS: Platelet Estimate NORMAL (NORMAL)
--- NOTE | 2021-05-18 09:52 | XRAY ---
Indication: Right flank pain. Nausea. Multiple contiguous axial images obtained through the abdomen and pelvis without contrast. Comparison: September 16, 2020. Lung bases remain clear. Heart not enlarged. Noncontrasted stomach and bowel loops nonobstructed. Appendix not visualized. Again mild diffuse scattered colonic fecal debris throughout. No free fluid/air. Again previous cholecystectomy. There remains a few punctate calculi in each kidney. Right kidney is now mildly hydronephrotic and right ureter is prominent up to 7 mm diameter without distal ureteral/bladder calculus. Suspect recent passage of calculus. Remaining liver, pancreas, spleen, adrenal glands, kidneys, ureters, bladder, uterus, and aorta are unremarkable for noncontrast exam. Osseous structures intact again with incidental L4-S1 broad-based disc bulge, small left T10 neurofibroma/schwannoma, and remnant epidural stimulator lead. Impression: 1. New mildly hydronephrotic right kidney with right ureteral prominence. No distal calculus. Suspect recent passage of calculus. 2. Again mild diffuse fecal stasis, bilateral renal micro-calculi, L4-S1 degenerative disc disease, and left T10 neurofibroma/schwannoma.
[2021-05-18] MEDS ORDERED: ROCEPHIN 1 Gm-D5w 50 ml Bag** 1 G/50 ML IVPB IV STA (10:21)
[2021-05-18 10:39] LABS: Barbiturate,Urine NEGATIVE (NEGATIVE); Benzodiazepine,Urine NEGATIVE (NEGATIVE); Cocaine,Urine NEGATIVE (NEGATIVE); Methadone,Urine NEGATIVE (NEGATIVE); Opiate,Urine NEGATIVE (NEGATIVE); PCP,Urine NEGATIVE (NEGATIVE); THC,Urine NEGATIVE (NEGATIVE)
[2021-05-18] MEDS ORDERED: ROCEPHIN 1 Gm-D5w 50 ml Bag** 1 G/50 ML IVPB IV ONE (10:51)
[2021-05-18 10:53] LABS: Appearance CLEAR (CLEAR); Bilirubin NEGATIVE (NEGATIVE); Blood MODERATE Ery/ul (0-5); Glucose NEGATIVE (NEGATIVE); Ketones NEGATIVE (NEGATIVE); Leukocyte Esterase NEGATIVE (NEGATIVE); Nitrite NEGATIVE (NEGATIVE); Protein,Urine Dip NEGATIVE (Negative); Specific Gravity 1.003 (1.005-1.025); Urobilinogen NEGATIVE mg/dL (0-1); WBC 0-2 /HPF (0-5)
[2021-05-18 10:56] LABS: RBC 0-2 /HPF (0-2)
[2021-05-18 10:57] LABS: Bacteria RARE /HPF (NEGATIVE); Epithelial Cells RARE /HPF (FEW)
[2021-05-18] MEDS ORDERED: Hydromorphone 1 mg/ml Injection IV PRN (11:27)
[2021-05-18] MEDS ORDERED: Sodium Chloride 0.9% 1000 ML 1,000 ML IV SCH (11:30)
[2021-05-18 11:34] LABS: Amphetamine,Urine POSITIVE (NEGATIVE)
[2021-05-18 12:10] LABS: INFLUENZA A NEGATIVE (NEGATIVE); INFLUENZA B NEGATIVE (NEGATIVE); RESPIRATORY SYNCTIAL VIRUS NEGATIVE (Negative); SARS-CoV-2 Xpert Express NEGATIVE (NEGATIVE)
[2021-05-18] MEDS: DILAUDID 1 MG/1ML PCA IV PRN ×2 (14:29→17:23)
[2021-05-18] MEDS: Zofran 4 MG/2 ML VIAL IV PRN ×2 (14:34→21:37)
[2021-05-18] MEDS ORDERED: PHARMACY DOSING REQUIRED: VANCOMYCIN IV STA (16:45)
[2021-05-18] MEDS ORDERED: PHARMACY DOSING REQUEST MC ONE (16:45)
[2021-05-18] MEDS: D5W/0.45NS W/ 20mEq KCl 1000 ML 1,000 ML IV SCH ×2 (17:11→23:38)
[2021-05-18] MEDS: Hydromorphone 1 mg/ml Injection IV PRN ×4 (17:11→23:55)
[2021-05-18] MEDS: Zosyn 3.375 GM Vial 3.375 GM in Sodium Chloride 100ML MINI-BAG PLUS 100 ML IV SCH ×2 (18:25→23:38)
[2021-05-18] MEDS: VANCOCIN 500 MG VIAL*** 500 MG in Sodium Chloride 100ML MINI-BAG PLUS 100 ML IV SCH (21:37)
[2021-05-19] MEDS: Hydromorphone 1 mg/ml Injection IV PRN ×7 (02:31→23:33)
[2021-05-19] MEDS: Zosyn 3.375 GM Vial 3.375 GM in Sodium Chloride 100ML MINI-BAG PLUS 100 ML IV SCH ×3 (04:32→19:11)
[2021-05-19] MEDS: Zofran 4 MG/2 ML VIAL IV PRN ×3 (04:32→23:32)
[2021-05-19 04:49] LABS: Hemoglobin 11.5 gm/dl (12.0-16.0); Mean Cell Volume 90.4 fl (78-100); Mean Corpuscular Hemoglobin 30.6 pg (26-32); Mean Corpuscular Hgb Concent. 33.8 g/dl (32-36); Mean Platelet Volume 10.4 fl (7.5-11.0); Platelet Count 189 K/mm3 (150-450); Red Blood Count 3.76 M/mm3 (4.1-5.4); Red Cell Distribution Width 12.7 % (11.5-14.0); White Blood Count 17.8 K/mm3 (4.0-10.5)
[2021-05-19 05:10] LABS: ALKALINE PHOSPHATASE 59 U/L (38-126); ANION GAP 10.4 MEQ/L (5-15); BLOOD UREA NITROGEN 3 mg/dL (7-17); CHLORIDE 102 mmol/L (98-107); Calcium 7.9 mg/dL (8.4-10.2); Carbon Dioxide 22 mmol/L (22-30); Creatinine 1 0.57 mg/dL (0.52-1.04); EST GLOMERULAR FILTRATION RATE > 60.0 ML/MIN; Glucose 118 mg/dL (74-106); Potassium 3.9 mmol/L (3.5-5.1); SGOT/AST 30 U/L (14-36); SGPT/ALT 26 U/L (0-35); SODIUM 130 mmol/L (137-145); Total Protein 5.5 g/dL (6.3-8.2)
[2021-05-19 05:37] LABS: BAND 6 % (0.0-2.0); Basophil 1 % (0.0-1.0); Lymphocytes 9 % (24-44); Monocyte 3 % (0.0-12.0); Neutrophils 81 % (36.0-66.0); Platelet Estimate NORMAL (NORMAL); Total Cells Counted 100
[2021-05-19 05:38] LABS: Toxic Granulation 1+
[2021-05-19] MEDS: VANCOCIN 500 MG VIAL*** 500 MG in Sodium Chloride 100ML MINI-BAG PLUS 100 ML IV SCH ×3 (06:03→23:33)
[2021-05-19] MEDS ORDERED: ROCEPHIN 1 Gm-D5w 50 ml Bag** 1 G/50 ML IVPB IV SCH (10:00)
[2021-05-19 10:50] LABS: AMYLASE < 30 U/L (30-110); LIPASE 23 U/L (23-300)
[2021-05-19] MEDS: D5W/0.45NS W/ 20mEq KCl 1000 ML 1,000 ML IV SCH ×2 (12:02→21:04)
[2021-05-20] MEDS: Zosyn 3.375 GM Vial 3.375 GM in Sodium Chloride 100ML MINI-BAG PLUS 100 ML IV SCH ×5 (01:32→23:03)
[2021-05-20] MEDS: Hydromorphone 1 mg/ml Injection IV PRN ×8 (01:47→23:03)
[2021-05-20 05:07] LABS: Absolute Neutrophil Ct (ANC) 7.26 (1.4-6.9); Basophil (Absolute #) 0.01 (0-0.4); Eosinophil % 1.4 % (0.00-5.0); Eosinophil (Absolute #) 0.15 (0-0.5); Hematocrit 33.1 % (35-47); Hemoglobin 11.1 gm/dl (12.0-16.0); Lymphocyte (Absolute #) 1.78 (1.0-4.6); Mean Cell Volume 89.9 fl (78-100); Mean Corpuscular Hemoglobin 30.2 pg (26-32); Mean Corpuscular Hgb Concent. 33.5 g/dl (32-36); Mean Platelet Volume 10.8 fl (7.5-11.0); Monocytes % 12.4 % (0.0-12.0); Neutrophil % 69.1 % (36.0-66.0); Platelet Count 174 K/mm3 (150-450); Red Blood Count 3.68 M/mm3 (4.1-5.4); Red Cell Distribution Width 12.5 % (11.5-14.0); White Blood Count 10.5 K/mm3 (4.0-10.5)
[2021-05-20 06:02] LABS: ALBUMIN 3.1 g/dL (3.5-5.0); ALKALINE PHOSPHATASE 70 U/L (38-126); ANION GAP 11.6 MEQ/L (5-15); BLOOD UREA NITROGEN 4 mg/dL (7-17); CHLORIDE 105 mmol/L (98-107); Calcium 8.4 mg/dL (8.4-10.2); Carbon Dioxide 23 mmol/L (22-30); Creatinine 1 0.54 mg/dL (0.52-1.04); EST GLOMERULAR FILTRATION RATE > 60.0 ML/MIN; Glucose 106 mg/dL (74-106); Potassium 3.8 mmol/L (3.5-5.1); SGOT/AST 24 U/L (14-36); SGPT/ALT 26 U/L (0-35); SODIUM 136 mmol/L (137-145); Total Protein 5.8 g/dL (6.3-8.2)
[2021-05-20] MEDS: D5W/0.45NS W/ 20mEq KCl 1000 ML 1,000 ML IV SCH ×2 (06:21→20:11)
[2021-05-20] MEDS: VANCOCIN 500 MG VIAL*** 500 MG in Sodium Chloride 100ML MINI-BAG PLUS 100 ML IV SCH ×3 (06:49→21:14)
[2021-05-20] MEDS ORDERED: Dilaudid 4 MG Tab PO PRN (08:42)
[2021-05-20] MEDS ORDERED: PHARMACY DOSING REQUEST MC ONE (08:44)
[2021-05-20] MEDS: Zofran 4 MG/2 ML VIAL IV PRN ×2 (13:49→19:56)
[2021-05-21] MEDS: D5W/0.45NS W/ 20mEq KCl 1000 ML 1,000 ML IV SCH (03:12)
[2021-05-21] MEDS: Hydromorphone 1 mg/ml Injection IV PRN ×8 (03:13→22:28)
[2021-05-21] MEDS ORDERED: TROUGH DRUG LEVELS IJ ONE (05:30)
[2021-05-21 05:46] LABS: Hematocrit 30.9 % (35-47); Hemoglobin 10.4 gm/dl (12.0-16.0); Mean Cell Volume 90.4 fl (78-100); Mean Corpuscular Hemoglobin 30.4 pg (26-32); Mean Corpuscular Hgb Concent. 33.7 g/dl (32-36); Mean Platelet Volume 10.8 fl (7.5-11.0); Platelet Count 202 K/mm3 (150-450); Red Blood Count 3.42 M/mm3 (4.1-5.4); Red Cell Distribution Width 12.6 % (11.5-14.0); White Blood Count 6.3 K/mm3 (4.0-10.5)
[2021-05-21 05:49] LABS: ALBUMIN 3.3 g/dL (3.5-5.0); ALKALINE PHOSPHATASE 71 U/L (38-126); ANION GAP 11.2 MEQ/L (5-15); BLOOD UREA NITROGEN 6 mg/dL (7-17); CHLORIDE 104 mmol/L (98-107); Calcium 8.4 mg/dL (8.4-10.2); Carbon Dioxide 24 mmol/L (22-30); Creatinine 1 0.53 mg/dL (0.52-1.04); EST GLOMERULAR FILTRATION RATE > 60.0 ML/MIN; Glucose 99 mg/dL (74-106); Potassium 3.8 mmol/L (3.5-5.1); SGOT/AST 20 U/L (14-36); SGPT/ALT 24 U/L (0-35); SODIUM 136 mmol/L (137-145); Total Protein 6.2 g/dL (6.3-8.2)
[2021-05-21] MEDS: Zosyn 3.375 GM Vial 3.375 GM in Sodium Chloride 100ML MINI-BAG PLUS 100 ML IV SCH ×4 (05:49→23:03)
[2021-05-21] MEDS: VANCOCIN 500 MG VIAL*** 500 MG in Sodium Chloride 100ML MINI-BAG PLUS 100 ML IV SCH ×3 (06:36→18:24)
[2021-05-21] MEDS ORDERED: OXYCODONE-ACETAMINOPHEN 10-325 PO PRN (07:18)
[2021-05-21] MEDS: Zofran 4 MG/2 ML VIAL IV PRN ×2 (08:11→22:28)
[2021-05-21 20:17] VITALS: O2SAT 96
[2021-05-22] MEDS: D5W/0.45NS W/ 20mEq KCl 1000 ML 1,000 ML IV SCH (00:29)
[2021-05-22] MEDS: VANCOCIN 500 MG VIAL*** 500 MG in Sodium Chloride 100ML MINI-BAG PLUS 100 ML IV SCH ×2 (00:29→06:05)
[2021-05-22] MEDS: Hydromorphone 1 mg/ml Injection IV PRN ×2 (00:30→05:25)
[2021-05-22] MEDS: Zosyn 3.375 GM Vial 3.375 GM in Sodium Chloride 100ML MINI-BAG PLUS 100 ML IV SCH (05:20)
[2021-05-22] MEDS: Zofran 4 MG/2 ML VIAL IV PRN (05:33)
[2021-05-22 07:32] VITALS: BP 87/53; PULSE 74
--- NOTE | 2021-05-22 08:35 | DS ---
DISCHARGE DIAGNOSES: 1) PANCREATITIS. 2) CLINICAL SEPSIS. HISTORY: The patient is a 35-year-old white female who presented to the emergency room with right upper quadrant pain. The patient has a history of hepatitis before and has had procedures performed by Dr. Ferrera in [place]. The patient had been seeing chronic pain management up to about four months ago at which time she reports she did not have a vehicle to get back up to get her pain medications. On presentation to the hospital, the patient was in severe pain. We initially tried her on OBSTETRICIAN/GYNECOLOGIST of Dilaudid which the patient reports was not working. She did not want to try IV morphine as she had trouble with that in the past. We ended up giving her Dilaudid 2 mg IV every two hours to control the pain. She had significant elevation in her white count at 25,000 when she first came in. Her initial evaluation showed her to be negative for COVID, respiratory syncytial virus and influenza. Cultures were obtained from the blood and were no growth. She did have an elevated procalcitonin at 1.450 initially. The patient was placed on Zosyn and Vancomycin which worked quite nicely getting the patient's white count under control. She had no fever by 05/21/2021. Her white count was 6.3, hemoglobin 10.4, PLT count was normal at 202,000. Metabolic panel showed her glucose 99, BUN 6, creatinine 0.53. Electrolytes and liver enzymes were essentially normal at that time. HOSPITAL COURSE: The patient's medical course was mostly complicated by her reluctance to allow us to decrease her IV narcotic medications even though on the day of discharge the patient was refusing to take any oral pain medication. The patient was clinically much improved after the first two to three days of her admission. The last couple of days we were just trying to get her on a pain management that she would accept. So by the morning of 05/22/2021, we thought that we would discharge her home on Percocet which she agreed to take orally. She will be on a low fat diet and to be on Augmentin 875 mg twice a day for an additional seven days. She will follow up in the office in a week and we will try to attempt to get her back in contact with her chronic pain management physician.
== END 2021-05-22 09:35 | disposition home or self-care (01) ==
LOC: ED 08:04 → MED SURG 13:58
PROVIDERS: ADMIT Family Medicine; ATTEND Family Medicine
DX: K85.90 Acute pancreatitis without necrosis or infection, unspecified (principal); A41.9 Sepsis, unspecified organism; R79.89 Other specified abnormal findings of blood chemistry; Z79.899 Other long term (current) drug therapy
CPT/HCPCS: 0241U; 36000; 36415; 74176; 80053; 80202; 80307; 81001; 81025; 82150; 83605; 83690; 84145; 85025; 85027; 87040; 96360; 96361; 96374; 96375; 96376; 99285; G0378; J0696; J1170; J2405; J3370; A9270-GY

== ENCOUNTER 2021-05-27 19:36 | Emergency (ER) | payer OTHER ==
[2021-05-27] MEDS ORDERED: Sodium Chloride 0.9% 1000 ML 1,000 ML IV STA (20:17)
[2021-05-27] MEDS ORDERED: Hydromorphone 1 mg/ml Injection IV ONE (20:17)
[2021-05-27] MEDS ORDERED: Zofran 4 MG/2 ML VIAL IV ONE (20:17)
[2021-05-27 20:29] LABS: Appearance SLIGHTLY CLOUDY (CLEAR); Bacteria RARE /HPF (NEGATIVE); Bilirubin NEGATIVE (NEGATIVE); Blood NEGATIVE Ery/ul (0-5); Epithelial Cells RARE /HPF (FEW); Glucose NEGATIVE (NEGATIVE); Ketones TRACE (NEGATIVE); Leukocyte Esterase NEGATIVE (NEGATIVE); Nitrite NEGATIVE (NEGATIVE); Protein,Urine Dip NEGATIVE (Negative); Specific Gravity 1.019 (1.005-1.025); Urobilinogen NEGATIVE mg/dL (0-1); WBC 0-2 /HPF (0-5)
[2021-05-27] MEDS ORDERED: Zofran 4 MG/2 ML VIAL ONE (20:35)
[2021-05-27] MEDS ORDERED: Hydromorphone 1 mg/ml Injection ONE (20:35)
[2021-05-27] MEDS ORDERED: Sodium Chloride 0.9% 1000 ML 1,000 ML ONE (20:36)
[2021-05-27 20:57] LABS: Absolute Neutrophil Ct (ANC) 3.16 (1.4-6.9); Basophil (Absolute #) 0.04 (0-0.4); Eosinophil (Absolute #) 0.14 (0-0.5); Hematocrit 39.8 % (35-47); Hemoglobin 13.4 gm/dl (12.0-16.0); Lymphocytes % 43.8 % (24.0-44.0); Mean Corpuscular Hgb Concent. 33.7 g/dl (32-36); Mean Platelet Volume 9.6 fl (7.5-11.0); Monocyte (Absolute #) 0.63 (0.0-1.3); Monocytes % 8.9 % (0.0-12.0); Neutrophil % 44.7 % (36.0-66.0); Platelet Count 504 K/mm3 (150-450); Red Blood Count 4.47 M/mm3 (4.1-5.4); Red Cell Distribution Width 12.6 % (11.5-14.0); White Blood Count 7.1 K/mm3 (4.0-10.5)
[2021-05-27 20:58] LABS: ALBUMIN 4.5 g/dL (3.5-5.0); ALKALINE PHOSPHATASE 75 U/L (38-126); ANION GAP 14.3 MEQ/L (5-15); BLOOD UREA NITROGEN 12 mg/dL (7-17); CHLORIDE 103 mmol/L (98-107); Calcium 9.4 mg/dL (8.4-10.2); Carbon Dioxide 26 mmol/L (22-30); Creatinine 1 0.56 mg/dL (0.52-1.04); EST GLOMERULAR FILTRATION RATE > 60.0 ML/MIN; Glucose 91 mg/dL (74-106); LIPASE 206 U/L (23-300); SGOT/AST 41 U/L (14-36); SGPT/ALT 44 U/L (0-35); SODIUM 139 mmol/L (137-145); Total Protein 8.3 g/dL (6.3-8.2)
[2021-05-27 21:35] VITALS: O2SAT 99
--- NOTE | 2021-05-27 23:30 | ERPHSYRPT ---
- History of Present Illness Time Seen by Provider: 05/27/21 20:00 Historian: patient Exam Limitations: no limitations Patient Subjective Stated Complaint: pt states she has pancreatitis and has been having upper abd pain for last week and a half. states pain is sharp and radiates to back and to shoulders. Triage Nursing Assessment: pt alert and oriented, answers questions approp. pt ambulatory with steady gait noted. respirations nonlabored with lungs cta. skin warm and dry. abd soft with bowel sounds present x4 Physician History: Patient is a 35-year-old female with a history of multiple medical allergies chronic pain sees a pain specialist on Percocet at home presents to our ED for evaluation of abdominal pain. Patient was an inpatient here at our hospital last week. Patient was treated for abdominal pain treated with Dilaudid and subsequently sent home. Patient is here complaining of recurrence of her pain. No trauma. No fever. No nausea vomiting diarrhea. No rash. Patient describes the pain as a sharp sensation that radiates to her shoulder. Symptoms are mild to moderate in intensity. No specific worsening improving factors. Patient voices no other complaints concerns at this time. Timing/Duration: today Activities at Onset: none Quality: sharpness Abdominal Pain Onset Location: epigastric Pain Radiation: other (Pain radiates to her shoulders) Severity of Pain-Max: moderate Severity of Pain-Current: mild Modifying Factors: Improves With: nothing Associated Symptoms: denies symptoms, No chest pain, No diarrhea, No fever/chills, No fatigue, No headache, No heartburn, No rash, No vomiting Previous symptoms: same symptoms as today Allergies/Adverse Reactions: codeine [Codeine] Allergy (Verified 05/18/21 08:14) Hives HIVES droperidol [Droperidol] Allergy (Verified 05/18/21 08:14) Hives HIVES duloxetine HCl [From Cymbalta] Allergy (Verified 05/18/21 08:14) SEIZURE SEIZURE ibuprofen Allergy (Verified 05/18/21 08:14) Hives HIVES ketorolac tromethamine [From Toradol] Allergy (Verified 05/18/21 08:14) Hives HIVES naproxen sodium [From Aleve] Allergy (Verified 05/18/21 08:14) Hives HIVES prochlorperazine edisylate [From Compazine] Allergy (Verified 05/18/21 08:14) LOCK JAW LOCK JAW prochlorperazine maleate [From Compazine] Allergy (Verified 05/18/21 08:14) LOCK JAW LOCK JAW morphine Adverse Reaction (Verified 05/18/21 08:14) Itching ITCH trazodone Adverse Reaction (Verified 05/18/21 08:14) Vomiting VOMITING Home Medications: Promethazine HCl 25 mg [Phenergan 25 mg] 25 mg PO DAILY PRN 09/16/20 [History] Hx Tetanus, Diphtheria Vaccination/Date Given: Yes Hx Influenza Vaccination/Date Given: No Hx Pneumococcal Vaccination/Date Given: No Immunizations Up to Date: Yes Travel Risk - International Travel Have you traveled outside of the country in past 3 weeks: No - Coronavirus Screening Are you exhibiting any of the following symptoms?: No Close contact with a COVID-19 positive Pt in past 14-21 Days: No - Vaccine Status Have you recieved a Covid-19 vaccination: No - Review of Systems Constitutional: No Symptoms, No Fever, No Chills Eyes: No Symptoms Ears, Nose, & Throat: No Symptoms Respiratory: No Symptoms, No Cough, No Dyspnea Cardiac: No Symptoms, No Chest Pain, No Edema, No Syncope Abdominal/Gastrointestinal: No Symptoms, No Abdominal Pain, No Nausea, No Vomiting, No Diarrhea Genitourinary Symptoms: No Symptoms, No Dysuria Musculoskeletal: No Symptoms, No Back Pain, No Neck Pain Skin: No Symptoms, No Rash Neurological: No Symptoms, No Dizziness, No Focal Weakness, No Sensory Changes Psychological: No Symptoms Endocrine: No Symptoms Hematologic/Lymphatic: No Symptoms Immunological/Allergic: No Symptoms All Other Systems: Reviewed and Negative - Past Medical History Pertinent Past Medical History: Yes Neurological History: Migraines ENT History: No Pertinent History Cardiac History: No Pertinent History Respiratory History: No Pertinent History Endocrine Medical History: Other Musculoskeletal History: Arthritis, Fractures GI Medical History: Pancreatitis History: No Pertinent History Psycho-Social History: No Pertinent History Female Reproductive Disorders: No Pertinent History Other Medical History: Pancreatitis, skull fracture 2008 - Past Surgical History Past Surgical History: Yes Neuro Surgical History: No Pertinent History Cardiac: No Pertinent History Respiratory: No Pertinent History Gastrointestinal: Cholecystectomy Genitourinary: Other Musculoskeletal: No Pertinent History Female Surgical History: No Pertinent History Other Surgical History: Pain pump. ERCPs-multiple last in july, pain pump REMOVAL 01/31 - Social History Smoking Status: Former smoker How long have you smoked: 28 YEARS Exposure to second hand smoke: No Drug Use: none Patient Lives Alone: No Significant Family History: no pertinent family hx - Female History Hx Last Menstrual Period: last week Hx Now: No - Nursing Vital Signs Nursing Vital Signs: Initial Vital Signs Temperature 97.2 F 05/27/21 19:56 Pulse Rate 88 05/27/21 19:56 Respiratory Rate 16 05/27/21 19:56 Blood Pressure 130/90 05/27/21 19:56 O2 Sat by Pulse Oximetry 99 05/27/21 19:56 Pain Scale Pain Intensity 6 - Physical Exam General Appearance: no apparent distress, alert Eye Exam: PERRL/EOMI, eyes nml inspection Ears, Nose, Throat Exam: normal ENT inspection, TMs normal, pharynx normal, moist mucous membranes Neck Exam: normal inspection, non-tender, supple, full range of motion Respiratory Exam: normal breath sounds, lungs clear, airway intact, No respiratory distress Cardiovascular Exam: regular rate/rhythm, normal heart sounds, normal peripheral pulses Gastrointestinal/Abdomen Exam: soft, normal bowel sounds, No tenderness, No mass Back Exam: normal inspection, normal range of motion, No CVA tenderness, No vertebral tenderness Extremity Exam: normal inspection, normal range of motion, pelvis stable Neurologic Exam: alert, oriented x 3, cooperative, normal mood/affect, nml c erebellar function, sensation nml, No motor deficits Skin Exam: normal color, warm, dry Lymphatic Exam: No adenopathy SpO2 Interpretation: normal SpO2: 99 O2 Delivery: Room Air - Course Nursing assessment & vital signs reviewed: Yes - CT Exams Abdomen/Pelvis CT Interpretation: Tele-radiologist Report (Constipation) Ordered Tests: Active Orders 24 hr Category Date Time Status IV Insertion STAT Care 05/27/21 20:17 Active ABDOMEN AND PELVIS W CONTRAST [CT] Stat Exams 05/27/21 20:18 Taken CBC W DIFF Stat Lab 05/27/21 20:30 Completed CMP Stat Lab 05/27/21 20:30 Completed LIPASE Stat Lab 05/27/21 20:30 Completed Lactic Acid Stat Lab 05/27/21 20:40 Completed UA W/RFX UR CULTURE Stat Lab 05/27/21 20:21 Completed Medication Summary Discontinued Medications Generic Name Dose Route Start Last Admin Trade Name Freq PRN Reason Stop Dose Admin Hydromorphone HCl 0.5 mg 05/27/21 20:17 05/27/21 20:40 Hydromorphone 1 Mg/1ml Inj 1 Mg/Ml Syringe IV 05/27/21 20:18 0.5 mg STAT ONE Administration Hydromorphone HCl Confirm 05/27/21 20:35 Hydromorphone 1 Mg/1ml Inj 1 Mg/Ml Syringe Administered 05/27/21 20:36 Dose 1 mg .ROUTE .STK-MED ONE Sodium Chloride 1,000 mls @ 999 mls/hr 05/27/21 20:17 05/27/21 23:28 Sodium Chloride 0.9% 1000 Ml IV 05/27/21 21:17 Infused .Q1H1M STA Infusion Sodium Chloride Confirm 05/27/21 20:36 Sodium Chloride 0.9% 1000 Ml Administered 05/27/21 20:37 Dose 1,000 mls @ ud .ROUTE .STK-MED ONE Ketamine HCl 12 mg 05/28/21 00:00 05/28/21 00:42 Ketamine Hcl 50 Mg/Ml IV 05/28/21 00:01 12 mg STAT ONE Administration Magnesium Citrate 296 ml 05/27/21 23:48 05/27/21 23:55 Magnesium Citrate 296 Ml Solution PO 05/27/21 23:49 296 ml 1XONLY ONE Administration Magnesium Citrate Confirm 05/27/21 23:52 Magnesium Citrate 296 Ml Solution Administered 05/27/21 23:53 Dose 296 ml .ROUTE .STK-MED ONE Ondansetron HCl 4 mg 05/27/21 20:17 05/27/21 20:40 Ondansetron Hcl 4 Mg/2 Ml Vial IV 05/27/21 20:18 4 mg STAT ONE Administration Ondansetron HCl Confirm 05/27/21 20:35 Ondansetron Hcl 4 Mg/2 Ml Vial Administered 05/27/21 20:36 Dose 4 mg .ROUTE .STK-MED ONE Lab/Rad Data: Laboratory Result Diagrams 05/27/21 20:30 05/27/21 20:30 Laboratory Results 05/27/21 05/27/21 05/27/21 Range/Units 20:40 20:30 20:30 WBC 7.1 (4.0-10.5) K/mm3 RBC 4.47 (4.1-5.4) M/mm3 Hgb 13.4 (12.0-16.0) gm/dl Hct 39.8 (35-47) % MCV 89.0 (78-100) fl MCH 30.0 (26-32) pg MCHC 33.7 (32-36) g/dl RDW 12.6 (11.5-14.0) % Plt Count 504 H (150-450) K/mm3 MPV 9.6 (7.5-11.0) fl Gran % 44.7 (36.0-66.0) % Eos # (Auto) 0.14 (0-0.5) Absolute Lymphs (auto) 3.10 (1.0-4.6) Absolute Monos (auto) 0.63 (0.0-1.3) Lymphocytes % 43.8 (24.0-44.0) % Monocytes % 8.9 (0.0-12.0) % Eosinophils % 2.0 (0.00-5.0) % Basophils % 0.6 (0.0-0.4) % Absolute Granulocytes 3.16 (1.4-6.9) Basophils # 0.04 (0-0.4) Sodium 139 (137-145) mmol/L Potassium 4.0 (3.5-5.1) mmol/L Chloride 103 (98-107) mmol/L Carbon Dioxide 26 (22-30) mmol/L Anion Gap 14.3 (5-15) MEQ/L BUN 12 (7-17) mg/dL Creatinine 0.56 (0.52-1.04) mg/dL Estimated GFR > 60.0 ML/MIN Glucose 91 (74-106) mg/dL Lactic Acid 1.2 (0.4-2.0) Calcium 9.4 (8.4-10.2) mg/dL Total Bilirubin 0.30 (0.2-1.3) mg/dL AST 41 H (14-36) U/L ALT 44 H (0-35) U/L Alkaline Phosphatase 75 (38-126) U/L Serum Total Protein 8.3 H (6.3-8.2) g/dL Albumin 4.5 (3.5-5.0) g/dL Lipase 206 (23-300) U/L Urine Color (YELLOW) Urine Appearance (CLEAR) Urine pH (5-6) Ur Specific [place] (1.005-1.025) Urine Protein (Negative) Urine Ketones (NEGATIVE) Urine Blood (0-5) Gary/ul Urine Nitrite (NEGATIVE) Urine Bilirubin (NEGATIVE) Urine Urobilinogen (0-1) mg/dL Ur Leukocyte Esterase (NEGATIVE) Urine WBC (Auto) (0-5) /HPF Urine RBC (Auto) (0-2) /HPF U Epithel Cells (Auto) (FEW) /HPF Urine Bacteria (Auto) (NEGATIVE) /HPF Urine Culture Reflexed (NO) Urine Glucose (NEGATIVE) mg/dL 05/27/21 Range/Units 20:21 WBC (4.0-10.5) K/mm3 RBC (4.1-5.4) M/mm3 Hgb (12.0-16.0) gm/dl Hct (35-47) % MCV (78-100) fl MCH (26-32) pg MCHC (32-36) g/dl RDW (11.5-14.0) % Plt Count (150-450) K/mm3 MPV (7.5-11.0) fl Gran % (36.0-66.0) % Eos # (Auto) (0-0.5) Absolute Lymphs (auto) (1.0-4.6) Absolute Monos (auto) (0.0-1.3) Lymphocytes % (24.0-44.0) % Monocytes % (0.0-12.0) % Eosinophils % (0.00-5.0) % Basophils % (0.0-0.4) % Absolute Granulocytes (1.4-6.9) Basophils # (0-0.4) Sodium (137-145) mmol/L Potassium (3.5-5.1) mmol/L Chloride (98-107) mmol/L Carbon Dioxide (22-30) mmol/L Anion Gap (5-15) MEQ/L BUN (7-17) mg/dL Creatinine (0.52-1.04) mg/dL Estimated GFR ML/MIN Glucose (74-106) mg/dL Lactic Acid (0.4-2.0) Calcium (8.4-10.2) mg/dL Total Bilirubin (0.2-1.3) mg/dL AST (14-36) U/L ALT (0-35) U/L Alkaline Phosphatase (38-126) U/L Serum Total Protein (6.3-8.2) g/dL Albumin (3.5-5.0) g/dL Lipase (23-300) U/L Urine Color YELLOW (YELLOW) Urine Appearance SLIGHTLY CLOUDY (CLEAR) Urine pH 7.0 (5-6) Ur Specific [place] 1.019 (1.005-1.025) Urine Protein NEGATIVE (Negative) Urine Ketones TRACE (NEGATIVE) Urine Blood NEGATIVE (0-5) Gary/ul Urine Nitrite NEGATIVE (NEGATIVE) Urine Bilirubin NEGATIVE (NEGATIVE) Urine Urobilinogen NEGATIVE (0-1) mg/dL Ur Leukocyte Esterase NEGATIVE (NEGATIVE) Urine WBC (Auto) 0-2 (0-5) /HPF Urine RBC (Auto) 3-5 (0-2) /HPF U Epithel Cells (Auto) RARE (FEW) /HPF Urine Bacteria (Auto) RARE (NEGATIVE) /HPF Urine Culture Reflexed NO (NO) Urine Glucose NEGATIVE (NEGATIVE) mg/dL - Progress Progress: improved Progress Note: Patient reassessed. Pain resolved with ketamine administration. Work-up essentially unremarkable. Constipation observed on CAT scan. No acute findings. No indication for further work-up. Will try to minimize the use of opiates as patient is already constipated. She has Percocet at home. Patient declined an enema. A laxative bottle of magnesium citrate provided to patient. Patient agrees to follow-up with primary care doctor within 48 hours for evaluation. She voices no other complaints concerns at this time. Portions of this note were created with voice recognition technology. There may be grammatical, spelling, punctuation or sound alike errors 05/28/21 01:25 Counseled pt/family regarding: lab results, diagnosis, need for follow-up, rad results - Departure Departure Disposition: Home Clinical Impression: Constipation, Intestinal colic Condition: Stable Critical Care Time: No Referrals: RAKESH YE [Primary Care Provider] - Follow up/PCP as directed
[2021-05-27] MEDS ORDERED: CITROMA 296 ML PO ONE (23:48)
[2021-05-27] MEDS ORDERED: CITROMA 296 ML ONE (23:52)
[2021-05-28] MEDS ORDERED: Ketamine HCl 50 MG/ML IV ONE
[2021-05-28 01:55] VITALS: BP 97/56; PULSE 89
--- NOTE | 2021-05-28 08:47 | XRAY ---
Indication: Right upper quadrant pain. Nausea, vomiting, diarrhea. Recent diagnosis kidney infection. Multiple contiguous axial images obtained through the abdomen and pelvis using 80 cc Isovue 370 contrast. Comparison: May 18, 2021. Lung bases clear. Heart not enlarged. Stomach is distended with food/fluid. Noncontrasted stomach and bowel loops appear nonobstructed. Appendix not visualized. Worsening marked diffuse fecal debris. Again cholecystectomy. Right mid kidney demonstrates new wedge-shaped heterogeneous hypoattenuation presumed known kidney infection. No free fluid/air. Remaining liver, pancreas, spleen, adrenal glands, kidneys, ureters, bladder, uterus, and aorta are unremarkable. No pathologic retroperitoneal lymphadenopathy. Osseous structures intact again with small left T10 neurofibroma/schwannoma and remnant epidural stimulator lead. Impression: 1. New right renal lobar nephronia. 2. Worsening marked diffuse fecal stasis. 3. Again incidental left T10 neurofibroma/schwannoma.
== END 2021-05-28 01:55 | disposition home or self-care (01) ==
LOC: ED 19:36
DX: K59.00 Constipation, unspecified (principal); R10.84 Generalized abdominal pain; Z79.891 Long term (current) use of opiate analgesic
CPT/HCPCS: 36000; 36415; 74177; 80053; 81001; 83605; 83690; 85025; 96374; 96375; 99284; J1170; J2405; A9270-GY

== ENCOUNTER 2021-07-22 20:45 | Emergency (ER) | payer OTHER ==
[2021-07-22] MEDS ORDERED: Sodium Chloride 0.9% 1000 ML 1,000 ML IV STA (21:08)
[2021-07-22] MEDS ORDERED: Ketamine HCl 50 MG/ML IV ONE (21:14)
[2021-07-22] MEDS ORDERED: Sodium Chloride 0.9% 1000 ML 1,000 ML ONE (21:19)
[2021-07-22 21:29] LABS: Absolute Neutrophil Ct (ANC) 4.49 (1.4-6.9); Basophil (Absolute #) 0.03 (0-0.4); Eosinophil % 1.6 % (0.00-5.0); Eosinophil (Absolute #) 0.13 (0-0.5); Hemoglobin 13.7 gm/dl (12.0-16.0); Lymphocyte (Absolute #) 3.08 (1.0-4.6); Lymphocytes % 36.8 % (24.0-44.0); Mean Cell Volume 88.7 fl (78-100); Mean Corpuscular Hemoglobin 30.4 pg (26-32); Mean Corpuscular Hgb Concent. 34.3 g/dl (32-36); Mean Platelet Volume 10.6 fl (7.5-11.0); Monocyte (Absolute #) 0.65 (0.0-1.3); Monocytes % 7.8 % (0.0-12.0); Neutrophil % 53.4 % (36.0-66.0); Platelet Count 343 K/mm3 (150-450); Red Blood Count 4.51 M/mm3 (4.1-5.4); Red Cell Distribution Width 13.1 % (11.5-14.0); White Blood Count 8.4 K/mm3 (4.0-10.5)
[2021-07-22 21:37] LABS: Appearance CLEAR (CLEAR); Bilirubin NEGATIVE (NEGATIVE); Dipstick done @ ? MAIN LAB; Glucose NEGATIVE (NEGATIVE); Ketones NEGATIVE (NEGATIVE); Nitrite NEGATIVE (NEGATIVE); Protein,Urine Dip NEGATIVE (Negative); RBC NEGATIVE Ery/ul (0-5); Specific Gravity 1.025 (1.005-1.025); Urobilinogen 1 mg/dL (0-1)
[2021-07-22 21:47] LABS: Epithelial Cells RARE /HPF (FEW); Mucus SLIGHT /HPF (NEGATIVE); RBC 0-2 /HPF (0-2); WBC 0-2 /HPF (0-5)
[2021-07-22 21:51] LABS: ALBUMIN 4.1 g/dL (3.5-5.0); ALKALINE PHOSPHATASE 55 U/L (38-126); ANION GAP 13.6 MEQ/L (5-15); BLOOD UREA NITROGEN 10 mg/dL (7-17); CHLORIDE 107 mmol/L (98-107); Calcium 9.1 mg/dL (8.4-10.2); Carbon Dioxide 25 mmol/L (22-30); Creatinine 1 0.76 mg/dL (0.52-1.04); EST GLOMERULAR FILTRATION RATE > 60.0 ML/MIN; Glucose 95 mg/dL (74-106); LIPASE 269 U/L (23-300); Potassium 3.9 mmol/L (3.5-5.1); SGOT/AST 41 U/L (14-36); SGPT/ALT 35 U/L (0-35); SODIUM 142 mmol/L (137-145); Total Protein 6.7 g/dL (6.3-8.2)
[2021-07-22 21:58] LABS: Urine Cultured Indicated? NO
[2021-07-22 22:01] VITALS: O2SAT 99
[2021-07-22] MEDS ORDERED: Zofran 4 MG/2 ML VIAL IV ONE (22:55)
--- NOTE | 2021-07-22 22:58 | ERPHSYRPT ---
- History of Present Illness Time Seen by Provider: 07/22/21 21:10 Historian: patient Exam Limitations: no limitations Patient Subjective Stated Complaint: pt states "I have been vomiting for the past 4 days." Triage Nursing Assessment: pt ambulated into the er; pt is axo x4; c/o abd; pt states 9/10 pain to RLQ; pt states burning pain to RLQ; hypertactive bowel sounds in all quads; tenderness present to RLQ; pt c/o N/V/D; mucus membranes pink and moist; urine pale yellow; pt denies difficulty with urination; vitals wnl Physician History: Patient is a 35-year-old female presents to emergency department for evaluation of abdominal pain. Patient has been experiencing abdominal pain for the past 4 days. Patient has been seen in our emergency department for the last couple months for the same complaint. Work-up had been negative. Abdominal pain currently described as an ache that is located to the right lower quadrant. Patient states the pain is associated with nausea vomiting and diarrhea. Pain rated 9 out of 10. No trauma. No fever. No hematuria or dysuria. No rash. Symptoms are mild to moderate in intensity. Pain reproduced with palpation. Pain improved with rest. Patient voices no other complaints or concerns at this time. Timing/Duration: day(s) (4 days) Activities at Onset: none Quality: aching Pain Radiation: no radiation Severity of Pain-Max: moderate Severity of Pain-Current: mild Modifying Factors: Improves With: palpation Associated Symptoms: diarrhea, nausea, vomiting Previous symptoms: same symptoms as today Allergies/Adverse Reactions: codeine [Codeine] Allergy (Verified 07/22/21 20:58) Hives HIVES droperidol [Droperidol] Allergy (Verified 07/22/21 20:58) Hives HIVES duloxetine HCl [From Cymbalta] Allergy (Verified 07/22/21 20:58) SEIZURE SEIZURE ibuprofen Allergy (Verified 07/22/21 20:58) Hives HIVES ketorolac tromethamine [From Toradol] Allergy (Verified 07/22/21 20:58) Hives HIVES naproxen sodium [From Aleve] Allergy (Verified 07/22/21 20:58) Hives HIVES prochlorperazine edisylate [From Compazine] Allergy (Verified 07/22/21 20:58) LOCK JAW LOCK JAW prochlorperazine maleate [From Compazine] Allergy (Verified 07/22/21 20:58) LOCK JAW LOCK JAW morphine Adverse Reaction (Verified 07/22/21 20:58) Itching ITCH trazodone Adverse Reaction (Verified 07/22/21 20:58) Vomiting VOMITING Home Medications: Promethazine HCl 25 mg [Phenergan 25 mg] 25 mg PO DAILY PRN 09/16/20 [History] Hx Tetanus, Diphtheria Vaccination/Date Given: Yes Hx Influenza Vaccination/Date Given: No Hx Pneumococcal Vaccination/Date Given: No Travel Risk - International Travel Have you traveled outside of the country in past 3 weeks: No - Coronavirus Screening Are you exhibiting any of the following symptoms?: No Close contact with a COVID-19 positive Pt in past 14-21 Days: No - Vaccine Status Have you recieved a Covid-19 vaccination: No - Review of Systems Constitutional: No Symptoms, No Fever, No Chills Eyes: No Symptoms Ears, Nose, & Throat: No Symptoms Respiratory: No Symptoms, No Cough, No Dyspnea Cardiac: No Symptoms, No Chest Pain, No Edema, No Syncope Abdominal/Gastrointestinal: No Symptoms, No Abdominal Pain, No Nausea, No Vomiting, No Diarrhea Genitourinary Symptoms: No Symptoms, No Dysuria Musculoskeletal: No Symptoms, No Back Pain, No Neck Pain Skin: No Symptoms, No Rash Neurological: No Symptoms, No Dizziness, No Focal Weakness, No Sensory Changes Psychological: No Symptoms Endocrine: No Symptoms Hematologic/Lymphatic: No Symptoms Immunological/Allergic: No Symptoms All Other Systems: Reviewed and Negative - Past Medical History Pertinent Past Medical History: Yes Neurological History: Migraines ENT History: No Pertinent History Cardiac History: No Pertinent History Respiratory History: No Pertinent History Endocrine Medical History: Other Musculoskeletal History: Arthritis, Fractures GI Medical History: Pancreatitis History: No Pertinent History Psycho-Social History: No Pertinent History Female Reproductive Disorders: No Pertinent History Other Medical History: Pancreatitis, skull fracture 2008 - Past Surgical History Past Surgical History: Yes Neuro Surgical History: No Pertinent History Cardiac: No Pertinent History Respiratory: No Pertinent History Gastrointestinal: Cholecystectomy Genitourinary: Other Musculoskeletal: No Pertinent History Female Surgical History: No Pertinent History Other Surgical History: Pain pump. ERCPs-multiple last in july, pain pump REMOVAL 01/31 - Social History Smoking Status: Former smoker How long have you smoked: 28 YEARS Exposure to second hand smoke: No Drug Use: none Patient Lives Alone: Yes Significant Family History: no pertinent family hx - Female History Hx Now: No - Nursing Vital Signs Nursing Vital Signs: Initial Vital Signs Temperature 99.5 F 07/22/21 20:59 Pulse Rate 95 H 07/22/21 20:59 Respiratory Rate 18 07/22/21 20:59 Blood Pressure 136/77 07/22/21 20:59 O2 Sat by Pulse Oximetry 97 07/22/21 20:59 Pain Scale Pain Intensity 7 - Physical Exam General Appearance: no apparent distress, alert Eye Exam: PERRL/EOMI, eyes nml inspection Ears, Nose, Throat Exam: normal ENT inspection, pharynx normal, moist mucous membranes Neck Exam: normal inspection, non-tender, supple, full range of motion Respiratory Exam: normal breath sounds, lungs clear, No respiratory distress Cardiovascular Exam: regular rate/rhythm, normal heart sounds Gastrointestinal/Abdomen Exam: soft, No tenderness, No mass Back Exam: normal inspection, normal range of motion, No CVA tenderness, No vertebral tenderness Extremity Exam: normal inspection, normal range of motion, pelvis stable Neurologic Exam: alert, oriented x 3, cooperative, normal mood/affect, nml cerebellar function, sensation nml, No motor deficits Skin Exam: normal color, warm, dry SpO2 Interpretation: normal SpO2: 99 O2 Delivery: Room Air - Course Nursing assessment & vital signs reviewed: Yes - CT Exams Abdomen/Pelvis CT Interpretation: Tele-radiologist Report (Compared to 05/18/2021 and 05/27/2021 stable nonobstructing renal micro calculi. Mild diffuse fecal stasis. And LT 10 neurofibroma/schwannoma. No new acute findings. Appendix not seen) Ordered Tests: Active Orders 24 hr Category Date Time Status IV Insertion STAT Care 07/22/21 21:08 Active ABDOMEN AND PELVIS W/0 CONTRAS [CT] Stat Exams 07/22/21 21:10 Taken CBC W DIFF Stat Lab 07/22/21 21:25 Completed CMP Stat Lab 07/22/21 21:25 Completed HCG,QUALITATIVE URINE Stat Lab 07/22/21 21:14 Completed LIPASE Stat Lab 07/22/21 21:25 Completed UA W/RFX CULTURE Stat Lab 07/22/21 21:14 Completed Medication Summary Discontinued Medications Generic Name Dose Route Start Last Admin Trade Name Ozzy PRN Reason Stop Dose Admin Sodium Chloride 1,000 mls @ 999 mls/hr 07/22/21 21:08 07/22/21 22:53 Sodium Chloride 0.9% 1000 Ml IV 07/22/21 22:08 Infused .Q1H1M STA Infusion Sodium Chloride Confirm 07/22/21 21:19 Sodium Chloride 0.9% 1000 Ml Administered 07/22/21 21:20 Dose 1,000 mls @ ud .ROUTE .STK-MED ONE Ketamine HCl 6 mg 07/22/21 21:14 07/22/21 21:24 Ketamine Hcl 50 Mg/Ml IV 07/22/21 21:15 6 mg STAT ONE Administration Ondansetron HCl 4 mg 07/22/21 22:55 Ondansetron Hcl 4 Mg/2 Ml Vial IV 07/22/21 22:56 STAT ONE Lab/Rad Data: Laboratory Result Diagrams 07/22/21 21:25 07/22/21 21:25 Laboratory Results 07/22/21 07/22/21 07/22/21 Range/Units 21:25 21:25 21:14 WBC 8.4 (4.0-10.5) K/mm3 RBC 4.51 (4.1-5.4) M/mm3 Hgb 13.7 (12.0-16.0) gm/dl Hct 40.0 (35-47) % MCV 88.7 (78-100) fl MCH 30.4 (26-32) pg MCHC 34.3 (32-36) g/dl RDW 13.1 (11.5-14.0) % Plt Count 343 (150-450) K/mm3 MPV 10.6 (7.5-11.0) fl Gran % 53.4 (36.0-66.0) % Eos # (Auto) 0.13 (0-0.5) Absolute Lymphs (auto) 3.08 (1.0-4.6) Absolute Monos (auto) 0.65 (0.0-1.3) Lymphocytes % 36.8 (24.0-44.0) % Monocytes % 7.8 (0.0-12.0) % Eosinophils % 1.6 (0.00-5.0) % Basophils % 0.4 (0.0-0.4) % Absolute Granulocytes 4.49 (1.4-6.9) Basophils # 0.03 (0-0.4) Sodium 142 (137-145) mmol/L Potassium 3.9 (3.5-5.1) mmol/L Chloride 107 (98-107) mmol/L Carbon Dioxide 25 (22-30) mmol/L Anion Gap 13.6 (5-15) MEQ/L BUN 10 (7-17) mg/dL Creatinine 0.76 (0.52-1.04) mg/dL Estimated GFR > 60.0 ML/MIN Glucose 95 (74-106) mg/dL Calcium 9.1 (8.4-10.2) mg/dL Total Bilirubin 0.50 (0.2-1.3) mg/dL AST 41 H (14-36) U/L ALT 35 (0-35) U/L Alkaline Phosphatase 55 (38-126) U/L Serum Total Protein 6.7 (6.3-8.2) g/dL Albumin 4.1 (3.5-5.0) g/dL Lipase 269 (23-300) U/L Urinalys Dipstick Clnc Urine Color (YELLOW) Urine Appearance (CLEAR) Urine pH (5-6) Ur Specific [place] (1.005-1.025) POC Urine Protein Conf (Negative) Urine Ketones (NEGATIVE) Urine Nitrite (NEGATIVE) Urine Bilirubin (NEGATIVE) Urine Urobilinogen (0-1) mg/dL Urine Leukocytes (NEGATIVE) Urine WBC (Auto) (0-5) /HPF Urine RBC (Auto) (0-2) /HPF U Epithel Cells (Auto) (FEW) /HPF Urine Bacteria (Auto) (NEGATIVE) /HPF Urine RBC (0-5) Gary/ul Urine Mucus (Auto) (NEGATIVE) /HPF Ur Culture Indicated? Urine Glucose (NEGATIVE) mg/dL Urine HCG, Qual NEGATIVE (Negative) 07/22/21 Range/Units 21:14 WBC (4.0-10.5) K/mm3 RBC (4.1-5.4) M/mm3 Hgb (12.0-16.0) gm/dl Hct (35-47) % MCV (78-100) fl MCH (26-32) pg MCHC (32-36) g/dl RDW (11.5-14.0) % Plt Count (150-450) K/mm3 MPV (7.5-11.0) fl Gran % (36.0-66.0) % Eos # (Auto) (0-0.5) Absolute Lymphs (auto) (1.0-4.6) Absolute Monos (auto) (0.0-1.3) Lymphocytes % (24.0-44.0) % Monocytes % (0.0-12.0) % Eosinophils % (0.00-5.0) % Basophils % (0.0-0.4) % Absolute Granulocytes (1.4-6.9) Basophils # (0-0.4) Sodium (137-145) mmol/L Potassium (3.5-5.1) mmol/L Chloride (98-107) mmol/L Carbon Dioxide (22-30) mmol/L Anion Gap (5-15) MEQ/L BUN (7-17) mg/dL Creatinine (0.52-1.04) mg/dL Estimated GFR ML/MIN Glucose (74-106) mg/dL Calcium (8.4-10.2) mg/dL Total Bilirubin (0.2-1.3) mg/dL AST (14-36) U/L ALT (0-35) U/L Alkaline Phosphatase (38-126) U/L Serum Total Protein (6.3-8.2) g/dL Albumin (3.5-5.0) g/dL Lipase (23-300) U/L Urinalys Dipstick Clnc MAIN LAB Urine Color YELLOW (YELLOW) Urine Appearance CLEAR (CLEAR) Urine pH 7.0 (5-6) Ur Specific [place] 1.025 (1.005-1.025) POC Urine Protein Conf NEGATIVE (Negative) Urine Ketones NEGATIVE (NEGATIVE) Urine Nitrite NEGATIVE (NEGATIVE) Urine Bilirubin NEGATIVE (NEGATIVE) Urine Urobilinogen 1 (0-1) mg/dL Urine Leukocytes NEGATIVE (NEGATIVE) Urine WBC (Auto) 0-2 (0-5) /HPF Urine RBC (Auto) 0-2 (0-2) /HPF U Epithel Cells (Auto) RARE (FEW) /HPF Urine Bacteria (Auto) NONE (NEGATIVE) /HPF Urine RBC NEGATIVE (0-5) Gary/ul Urine Mucus (Auto) SLIGHT (NEGATIVE) /HPF Ur Culture Indicated? NO Urine Glucose NEGATIVE (NEGATIVE) mg/dL Urine HCG, Qual (Negative) - Progress Progress: improved Progress Note: CT scan is essentially nonremarkable for acute pathology. There is nonobstructing renal calculi diffuse fecal stasis. Neurofibroma/schwannoma. The appendix is not seen. Case discussed with Dr. Diego of general surgery. Since there is no fat stranding or indirect signs of appendicitis and no leukocytosis the odds of appendicitis is low. However because patient has pain we will discharge patient with follow-up with general surgery Dr. Corea tomorrow. Per Dr. Diego patient can be seen tomorrow by general surgery. Patient to call Dr. Corea's office first thing in the morning to arrange follow-up time. Plan of care discussed with patient. She agrees to follow-up with general surgery tomorrow as discussed. Patient voiced no other complaints or concerns at this time. Portions of this note were created with voice recognition technology. There may be grammatical, spelling, punctuation or sound alike errors 07/22/21 23:08 Discussed with .: Aida Will see patient in: hospital (observation), office Counseled pt/family regarding: lab results, diagnosis, need for follow-up, rad results - Departure Departure Disposition: Home Clinical Impression: Abdominal pain Condition: Stable Critical Care Time: No Referrals: RAKESH YE [Primary Care Provider] - Follow up/PCP as directed SANDRO COREA [ACTIVE STAFF] - Follow up/PCP as directed Additional Instructions: Please follow-up with Dr. Corea of general surgery. Call his office in the morning as he will see you tomorrow for reevaluation. Dr. Corea's telephone numbers are equal [phone] Discharge/Care Plan BETY GRIMES was seen on 07/22/21 in the Emergency Room. The patient was counseled regarding Diagnosis,Lab results, Imaging studies, need for follow up and when to return to the Emergency Room. Prescriptions given: Discharge Note I have spoken with the patient and/or caregivers. I have explained the patient's condition, diagnosis and treatment plan based on the information available to me at this time. I have answered the patient's and/or caregiver's questions and addressed any concerns. The patient and/or caregivers have as good understanding of the patient's diagnosis, condition and treatment plan as can be expected at this point. The vital signs have been stable. The patient's condition is stable and appropriate for discharge from the emergency department. The patient will pursue further outpatient evaluation with the primary care physician or other designated or consulting physician as outlined in the discharge instructions. The patient and/or caregivers are agreeable to this plan of care and follow-up instructions have been explained in detail. The patient and/or caregivers have received these instruction. The patient/and or caregivers are aware that any significant change in condition or worsening of symptoms should prompt an immediate return to this or the closest emergency department or call 911.
[2021-07-22] MEDS ORDERED: Zofran 4 MG/2 ML VIAL ONE (23:12)
[2021-07-22 23:16] VITALS: BP 102/60; PULSE 79
[2021-07-22] MEDS ORDERED: HYDROCODONE-ACETAMIN 10-325 MG PO PRN (23:19)
--- NOTE | 2021-07-23 08:59 | XRAY ---
Indication: Abdomen pain. History kidney stone. Multiple contiguous images obtained through the abdomen and pelvis without contrast. Comparison: Numerous priors, most recent May 27, 2021. Lung bases remain clear. Heart not enlarged. Stomach is distended with food/fluid. Appendix not visualized. Again mild diffuse scattered colonic fecal debris throughout. No free fluid/air. Again a few nonobstructing bilateral renal micro-calculi. Again cholecystectomy. Remaining liver, pancreas, spleen, adrenal glands, kidneys, ureters, bladder, uterus, and aorta are unremarkable for noncontrast exam. Osseous structures intact again with grossly stable small left T10 neurofibroma/schwannoma and remnant epidural stimulator lead. Impression: 1. Again mild diffuse fecal stasis, nonobstructing bilateral renal micro-calculi, and left T10 neurofibroma/schwannoma. 2. Remaining CT abdomen/pelvis without contrast exam is negative.
== END 2021-07-22 23:33 | disposition home or self-care (01) ==
LOC: ED 20:45
DX: R10.31 Right lower quadrant pain (principal); R11.2 Nausea with vomiting, unspecified; R19.7 Diarrhea, unspecified
CPT/HCPCS: 36000; 36415; 74176; 80053; 81015; 83690; 84703; 85025; 96360; 96374; 96375; 99284; J2405; A9270-GY

== ENCOUNTER 2021-11-06 11:12 | Emergency (ER) | payer OTHER ==
--- NOTE | 2021-11-06 11:16 | ERPHSYRPT ---
- History of Present Illness Time Seen by Provider: 11/06/21 11:16 Historian: patient Exam Limitations: no limitations Physician History: This is a 35-year-old white female who is incarcerated and has known chronic recurrent pancreatitis. Patient states that she has had right upper quadrant abdominal pain with intermittent nausea vomiting and diarrhea for at least 2 w eeks while incarcerated. She was brought to the emergency department for evaluation of her abdominal pain, nausea vomiting diarrhea symptoms. Patient has had multiple ERCPs. She has not seen a air intercept controller in quite some time. She has been to this emergency department several times in the last several months for similar symptoms. Patient prefers not to have CAT scan of the abdomen pelvis at this time. Patient is known to me and prefers Dilaudid for pain control as she has "allergies" to multiple other medications. She can use Phenergan and Zofran for nausea control. Timing/Duration: week(s) (2) Activities at Onset: none Quality: aching Abdominal Pain Onset Location: RUQ Pain Radiation: back (Right back and flank) Severity of Pain-Max: moderate Severity of Pain-Current: moderate Modifying Factors: Improves With: nothing Associated Symptoms: diarrhea, nausea, vomiting, No chest pain, No headache, No shortness of breath Previous symptoms: same symptoms as today Allergies/Adverse Reactions: codeine [Codeine] Allergy (Verified 11/06/21 11:17) Hives HIVES droperidol [Droperidol] Allergy (Verified 11/06/21 11:17) Hives HIVES duloxetine HCl [From Cymbalta] Allergy (Verified 11/06/21 11:17) SEIZURE SEIZURE ibuprofen Allergy (Verified 11/06/21 11:17) Hives HIVES ketorolac tromethamine [From Toradol] Allergy (Verified 11/06/21 11:17) Hives HIVES naproxen sodium [From Aleve] Allergy (Verified 11/06/21 11:17) Hives HIVES prochlorperazine edisylate [From Compazine] Allergy (Verified 11/06/21 11:17) LOCK JAW LOCK JAW prochlorperazine maleate [From Compazine] Allergy (Verified 11/06/21 11:17) LOCK JAW LOCK JAW morphine Adverse Reaction (Verified 11/06/21 11:17) Itching ITCH trazodone Adverse Reaction (Verified 11/06/21 11:17) Vomiting VOMITING Home Medications: No Reportable Medications [No Reported Medications] 11/06/21 [History] Hx Tetanus, Diphtheria Vaccination/Date Given: Yes Hx Influenza Vaccination/Date Given: No Hx Pneumococcal Vaccination/Date Given: No Travel Risk - International Travel Have you traveled outside of the country in past 3 weeks: No - Coronavirus Screening Are you exhibiting any of the following symptoms?: Yes Symptoms: Vomiting/Diarrhea Close contact with a COVID-19 positive Pt in past 14-21 Days: No - Vaccine Status Have you recieved a Covid-19 vaccination: No - Review of Systems Constitutional: No Symptoms Eyes: No Symptoms Ears, Nose, & Throat: No Symptoms Respiratory: No Symptoms Cardiac: No Symptoms Abdominal/Gastrointestinal: Abdominal Pain, Nausea, Vomiting, Diarrhea Genitourinary Symptoms: No Symptoms Musculoskeletal: No Symptoms Skin: No Symptoms Neurological: No Symptoms Psychological: No Symptoms Endocrine: No Symptoms Hematologic/Lymphatic: No Symptoms Immunological/Allergic: No Symptoms All Other Systems: Reviewed and Negative - Past Medical History Pertinent Past Medical History: Yes Neurological History: Migraines ENT History: No Pertinent History Cardiac History: No Pertinent History Respiratory History: No Pertinent History Endocrine Medical History: Other Musculoskeletal History: Arthritis, Fractures GI Medical History: Pancreatitis History: No Pertinent History Psycho-Social History: No Pertinent History Female Reproductive Disorders: No Pertinent History Other Medical History: Pancreatitis, skull fracture 2008 - Past Surgical History Past Surgical History: Yes Neuro Surgical History: No Pertinent History Cardiac: No Pertinent History Respiratory: No Pertinent History Gastrointestinal: Cholecystectomy Genitourinary: Other Musculoskeletal: No Pertinent History Female Surgical History: No Pertinent History Other Surgical History: Pain pump. ERCPs-multiple last in july, pain pump REMOVAL 01/31 - Social History Smoking Status: Former smoker How long have you smoked: 28 YEARS Exposure to second hand smoke: No Drug Use: none Patient Lives Alone: Yes Significant Family History: no pertinent family hx - Nursing Vital Signs Nursing Vital Signs: Initial Vital Signs Temperature 97.9 F 11/06/21 11:19 Pulse Rate 86 11/06/21 11:19 Respiratory Rate 18 11/06/21 11:19 Blood Pressure 145/85 11/06/21 11:19 O2 Sat by Pulse Oximetry 97 11/06/21 11:19 Pain Scale Pain Intensity 9 - Physical Exam General Appearance: no apparent distress, alert Eye Exam: PERRL/EOMI, eyes nml inspection Ears, Nose, Throat Exam: normal ENT inspection, moist mucous membranes Neck Exam: normal inspection, non-tender, supple, full range of motion Respiratory Exam: normal breath sounds, lungs clear, airway intact, No chest tenderness, No respiratory distress Cardiovascular Exam: regular rate/rhythm, normal heart sounds, normal peripheral pulses Gastrointestinal/Abdomen Exam: soft, normal bowel sounds, tenderness (Right upper quadrant), No guarding, No rebound Pelvic Exam: not done Rectal Exam: not done Back Exam: normal inspection, normal range of motion, No CVA tenderness, No vertebral tenderness Extremity Exam: normal inspection, normal range of motion, pelvis stable Neurologic Exam: alert, oriented x 3, cooperative, botany professor II-XII nml as tested, normal mood/affect, nml cerebellar function, nml station & gait, sensation nml Skin Exam: normal color, warm, dry Lymphatic Exam: No adenopathy SpO2 Interpretation: normal O2 Delivery: Room Air - Course Nursing assessment & vital signs reviewed: Yes Ordered Tests: Active Orders 24 hr Category Date Time Status IV Insertion STAT Care 11/06/21 11:31 Active AMYLASE Stat Lab 11/06/21 11:40 Completed CBC W DIFF Stat Lab 11/06/21 11:40 Completed CMP Stat Lab 11/06/21 11:40 Completed LIPASE Stat Lab 11/06/21 11:40 Completed Lactic Acid Stat Lab 11/06/21 11:39 Completed UA W/RFX CULTURE Stat Lab 11/06/21 11:36 Completed Medication Summary Generic Name Dose Route Start Last Admin Trade Name Freq PRN Reason Stop Dose Admin Sodium Chloride 1,000 mls @ 999 mls/hr 11/06/21 11:31 11/06/21 11:43 Sodium Chloride 0.9% 1000 Ml IV 11/06/21 12:31 999 mls/hr .Q1H1M STA Administration Discontinued Medications Generic Name Dose Route Start Last Admin Trade Name Freq PRN Reason Stop Dose Admin Sodium Chloride Confirm 11/06/21 11:41 Sodium Chloride 0.9% 1000 Ml Administered 11/06/21 11:42 Dose 1,000 mls @ ud .ROUTE .STK-MED ONE Ondansetron HCl 4 mg 11/06/21 11:32 11/06/21 11:44 Ondansetron Hcl 4 Mg/2 Ml Vial IV 11/06/21 11:33 4 mg STAT ONE Administration Ondansetron HCl Confirm 11/06/21 11:41 Ondansetron Hcl 4 Mg/2 Ml Vial Administered 11/06/21 11:42 Dose 4 mg .ROUTE .STK-MED ONE Lab/Rad Data: Laboratory Result Diagrams 11/06/21 11:40 11/06/21 11:40 Laboratory Results 11/06/21 11/06/21 11/06/21 Range/Units 11:40 11:40 11:39 WBC 7.7 (4.0-10.5) x10^3/uL RBC 4.30 (4.1-5.4) x10^6/uL Hgb 13.3 (12.0-16.0) g/dL Hct 39.4 (35-47) % MCV 91.6 (78-100) fL MCH 30.9 (26-32) pg MCHC 33.8 (32-36) g/dL RDW 12.9 (11.5-14.0) % Plt Count 295 (150-450) x10^3/uL MPV 9.9 (7.5-11.0) fL Gran % 39.6 (36.0-66.0) % Immature Gran % (Auto) 1.6 H (0.00-0.4) % Nucleat RBC Rel Count 0.0 (0.00-0.1) % Eos # (Auto) 0.16 (0-0.5) x10^3/uL Immature Gran # (Auto) 0.12 H (0.00-0.03) x10^3u/L Absolute Lymphs (auto) 3.59 (1.0-4.6) x10^3/uL Absolute Monos (auto) 0.71 (0.0-1.3) x10^3/uL Absolute Nucleated RBC 0.00 (0.00-0.01) x10^3u/L Lymphocytes % 46.7 H (24.0-44.0) % Monocytes % 9.2 (0.0-12.0) % Eosinophils % 2.1 (0.00-5.0) % Basophils % 0.8 (0.0-0.4) % Absolute Granulocytes 3.04 (1.4-6.9) x10^3/uL Basophils # 0.06 (0-0.4) x10^3/uL Sodium 136 L (137-145) mmol/L Potassium 4.2 (3.5-5.1) mmol/L Chloride 104 (98-107) mmol/L Carbon Dioxide 24 (22-30) mmol/L Anion Gap 12.2 (5-15) MEQ/L BUN 14 (7-17) mg/dL Creatinine 0.62 (0.52-1.04) mg/dL Estimated GFR > 60.0 ML/MIN Glucose 88 (74-106) mg/dL Lactic Acid 1.6 (0.4-2.0) Calcium 9.1 (8.4-10.2) mg/dL Total Bilirubin 0.70 (0.2-1.3) mg/dL AST 23 (14-36) U/L ALT 29 (0-35) U/L Alkaline Phosphatase 44 (38-126) U/L Serum Total Protein 7.3 (6.3-8.2) g/dL Albumin 4.4 (3.5-5.0) g/dL Amylase 94 (30-110) U/L Lipase 112 (23-300) U/L Urinalys Dipstick Clnc Urine Color (YELLOW) Urine Appearance (CLEAR) Urine pH (5-6) Ur Specific [place] (1.005-1.025) POC Urine Protein Conf (Negative) Urine Ketones (NEGATIVE) Urine Nitrite (NEGATIVE) Urine Bilirubin (NEGATIVE) Urine Urobilinogen (0-1) mg/dL Urine Leukocytes (NEGATIVE) Urine WBC (Auto) (0-5) /HPF Urine RBC (Auto) (0-2) /HPF U Epithel Cells (Auto) (FEW) /HPF Urine Bacteria (Auto) (NEGATIVE) /HPF Urine RBC (0-5) Gary/ul Ur Culture Indicated? Urine Glucose (NEGATIVE) mg/dL 11/06/21 Range/Units 11:36 WBC (4.0-10.5) x10^3/uL RBC (4.1-5.4) x10^6/uL Hgb (12.0-16.0) g/dL Hct (35-47) % MCV (78-100) fL MCH (26-32) pg MCHC (32-36) g/dL RDW (11.5-14.0) % Plt Count (150-450) x10^3/uL MPV (7.5-11.0) fL Gran % (36.0-66.0) % Immature Gran % (Auto) (0.00-0.4) % Nucleat RBC Rel Count (0.00-0.1) % Eos # (Auto) (0-0.5) x10^3/uL Immature Gran # (Auto) (0.00-0.03) x10^3u/L Absolute Lymphs (auto) (1.0-4.6) x10^3/uL Absolute Monos (auto) (0.0-1.3) x10^3/uL Absolute Nucleated RBC (0.00-0.01) x10^3u/L Lymphocytes % (24.0-44.0) % Monocytes % (0.0-12.0) % Eosinophils % (0.00-5.0) % Basophils % (0.0-0.4) % Absolute Granulocytes (1.4-6.9) x10^3/uL Basophils # (0-0.4) x10^3/uL Sodium (137-145) mmol/L Potassium (3.5-5.1) mmol/L Chloride (98-107) mmol/L Carbon Dioxide (22-30) mmol/L Anion Gap (5-15) MEQ/L BUN (7-17) mg/dL Creatinine (0.52-1.04) mg/dL Estimated GFR ML/MIN Glucose (74-106) mg/dL Lactic Acid (0.4-2.0) Calcium (8.4-10.2) mg/dL Total Bilirubin (0.2-1.3) mg/dL AST (14-36) U/L ALT (0-35) U/L Alkaline Phosphatase (38-126) U/L Serum Total Protein (6.3-8.2) g/dL Albumin (3.5-5.0) g/dL Amylase (30-110) U/L Lipase (23-300) U/L Urinalys Dipstick Clnc MAIN LAB Urine Color YELLOW (YELLOW) Urine Appearance CLEAR (CLEAR) Urine pH 6.0 (5-6) Ur Specific [place] 1.020 (1.005-1.025) POC Urine Protein Conf NEGATIVE (Negative) Urine Ketones NEGATIVE (NEGATIVE) Urine Nitrite NEGATIVE (NEGATIVE) Urine Bilirubin NEGATIVE (NEGATIVE) Urine Urobilinogen 0.2 (0-1) mg/dL Urine Leukocytes TRACE (NEGATIVE) Urine WBC (Auto) NONE (0-5) /HPF Urine RBC (Auto) NONE (0-2) /HPF U Epithel Cells (Auto) NONE (FEW) /HPF Urine Bacteria (Auto) RARE (NEGATIVE) /HPF Urine RBC NEGATIVE (0-5) Gary/ul Ur Culture Indicated? NO Urine Glucose NEGATIVE (NEGATIVE) mg/dL - Progress Progress: unchanged, pain not gone completely, re-examined Progress Note: 11/06/21 11:59 Medical decision making: This patient has chronic recurrent abdominal pain and pancreatitis. Her amylase and lipase are normal. Her liver function tests are normal. Her white count is normal. She is afebrile. She does not have a uri nary tract infection. There is no evidence of dehydration. Her anion gap and lactic acid levels are also normal. Patient does not want a CAT scan of the abdomen pelvis. She has had several of these over the last several months. She will sign a refusal of tests form. She is aware that the CAT scan of the abdomen pelvis could show some type of urgent or emergent finding. Counseled pt/family regarding: lab results, diagnosis, need for follow-up - Departure Departure Disposition: Home Clinical Impression: Chronic upper abdominal pain Condition: Stable Critical Care Time: No Referrals: DOCTOR,NO FAMILY [Primary Care Provider] - Follow up/PCP as directed Additional Instructions: Avoid fatty greasy spicy foods. Follow-up with your primary care provider and air intercept controller for further evaluation and management.
[2021-11-06] MEDS ORDERED: Sodium Chloride 0.9% 1000 ML 1,000 ML IV STA (11:31)
[2021-11-06] MEDS ORDERED: Zofran 4 MG/2 ML VIAL IV ONE (11:32)
[2021-11-06] MEDS ORDERED: Sodium Chloride 0.9% 1000 ML 1,000 ML ONE (11:41)
[2021-11-06] MEDS ORDERED: Zofran 4 MG/2 ML VIAL ONE (11:41)
[2021-11-06 11:42] LABS: Absolute Neutrophil Ct (ANC) 3.04 x10^3/uL (1.4-6.9); Basophil (Absolute #) 0.06 x10^3/uL (0-0.4); Eosinophil % 2.1 % (0.00-5.0); Eosinophil (Absolute #) 0.16 x10^3/uL (0-0.5); Hematocrit 39.4 % (35-47); Hemoglobin 13.3 g/dL (12.0-16.0); Lymphocyte (Absolute #) 3.59 x10^3/uL (1.0-4.6); Lymphocytes % 46.7 % (24.0-44.0); Mean Cell Volume 91.6 fL (78-100); Mean Corpuscular Hemoglobin 30.9 pg (26-32); Mean Corpuscular Hgb Concent. 33.8 g/dL (32-36); Mean Platelet Volume 9.9 fL (7.5-11.0); Monocyte (Absolute #) 0.71 x10^3/uL (0.0-1.3); Monocytes % 9.2 % (0.0-12.0); Neutrophil % 39.6 % (36.0-66.0); Platelet Count 295 x10^3/uL (150-450); Red Cell Distribution Width 12.9 % (11.5-14.0); White Blood Count 7.7 x10^3/uL (4.0-10.5)
[2021-11-06 11:47] LABS: Appearance CLEAR (CLEAR); Bacteria RARE /HPF (NEGATIVE); Bilirubin NEGATIVE (NEGATIVE); Glucose NEGATIVE (NEGATIVE); Ketones NEGATIVE (NEGATIVE); Nitrite NEGATIVE (NEGATIVE); Protein,Urine Dip NEGATIVE (Negative); RBC NEGATIVE Ery/ul (0-5); Urobilinogen 0.2 mg/dL (0-1)
[2021-11-06 11:48] LABS: Dipstick done @ ? MAIN LAB; Urine Cultured Indicated? NO
[2021-11-06 11:53] LABS: ALBUMIN 4.4 g/dL (3.5-5.0); ALKALINE PHOSPHATASE 44 U/L (38-126); AMYLASE 94 U/L (30-110); ANION GAP 12.2 MEQ/L (5-15); BLOOD UREA NITROGEN 14 mg/dL (7-17); CHLORIDE 104 mmol/L (98-107); Calcium 9.1 mg/dL (8.4-10.2); Carbon Dioxide 24 mmol/L (22-30); Creatinine 1 0.62 mg/dL (0.52-1.04); EST GLOMERULAR FILTRATION RATE > 60.0 ML/MIN; Glucose 88 mg/dL (74-106); LIPASE 112 U/L (23-300); Potassium 4.2 mmol/L (3.5-5.1); SGOT/AST 23 U/L (14-36); SGPT/ALT 29 U/L (0-35); SODIUM 136 mmol/L (137-145); Total Protein 7.3 g/dL (6.3-8.2)
[2021-11-06] MEDS ORDERED: Hydromorphone 1 mg/ml Injection IV ONE (11:59)
[2021-11-06] MEDS ORDERED: Hydromorphone 1 mg/ml Injection ONE (12:06)
[2021-11-06 12:23] VITALS: BP 116/76; PULSE 70; O2SAT 96
== END 2021-11-06 12:23 | disposition home or self-care (01) ==
LOC: ED 11:12
DX: G89.29 Other chronic pain (principal); R10.11 Right upper quadrant pain; R11.2 Nausea with vomiting, unspecified; R19.7 Diarrhea, unspecified; K86.1 Other chronic pancreatitis; Z28.310 Unvaccinated for COVID-19
CPT/HCPCS: 36000; 36415; 80053; 81015; 82150; 83605; 83690; 85025; 96374; 96375; 99284; J1170; J2405

== ENCOUNTER 2022-02-10 14:33 | Emergency (ER) | payer OTHER ==
[2022-02-10] MEDS ORDERED: Sodium Chloride 0.9% 1000 ML 1,000 ML IV STA (14:59)
[2022-02-10] MEDS ORDERED: Hydromorphone 1 mg/ml Injection IV ONE (14:59)
--- NOTE | 2022-02-10 14:59 | ERPHSYRPT ---
- History of Present Illness Time Seen by Provider: 02/10/22 14:50 Historian: patient Exam Limitations: no limitations Patient Subjective Stated Complaint: Abdominal pain Triage Nursing Assessment: Patient ambulated back to ED and transferred self to bed. Patient A+O X3. Patient's skin pink, warm and dry. Patient complains of RUQ pain 8/10 that started today with N/V. Patient states she has chronic pancreatitis and feels like this is a flare up. Abdomen soft and round with BS X 4. Physician History: This is a 36-year-old white female patient who has chronic abdominal pain of her chronic recurrent pancreatitis but it was worse this morning. She had associated several vomiting episodes. Patient has been seen in this emergency department several times for the same issue. She has had a cholecystectomy in the past. Patient has had multiple ERCPs in the past. Patient has taken Dilaudid in the past without any allergic reaction. In addition, she has had Phenergan and Zofran to treat her nausea and vomiting symptoms in the past without any difficulty. Patient states the Phenergan works better for her. Regis bravo denies any alcohol use or any illicit drug use. Timing/Duration: today, worse Quality: aching Abdominal Pain Onset Location: generalized abdomen Severity of Pain-Max: moderate Severity of Pain-Current: moderate Modifying Factors: Improves With: vomiting Associated Symptoms: loss of appetite, nausea, vomiting, weakness Previous symptoms: same symptoms as today, no recent treatment Allergies/Adverse Reactions: codeine [Codeine] Allergy (Verified 02/10/22 14:41) Hives HIVES droperidol [Droperidol] Allergy (Verified 02/10/22 14:41) Hives HIVES duloxetine HCl [From Cymbalta] Allergy (Verified 02/10/22 14:41) SEIZURE SEIZURE ibuprofen Allergy (Verified 02/10/22 14:41) Hives HIVES ketorolac tromethamine [From Toradol] Allergy (Verified 02/10/22 14:41) Hives HIVES naproxen sodium [From Aleve] Allergy (Verified 02/10/22 14:41) Hives HIVES prochlorperazine edisylate [From Compazine] Allergy (Verified 02/10/22 14:41) LOCK JAW LOCK JAW prochlorperazine maleate [From Compazine] Allergy (Verified 02/10/22 14:41) LOCK JAW LOCK JAW morphine Adverse Reaction (Verified 02/10/22 14:41) Itching ITCH trazodone Adverse Reaction (Verified 02/10/22 14:41) Vomiting VOMITING Hx Tetanus, Diphtheria Vaccination/Date Given: Yes Hx Influenza Vaccination/Date Given: No Hx Pneumococcal Vaccination/Date Given: No Immunizations Up to Date: Yes Travel Risk - International Travel Have you traveled outside of the country in past 3 weeks: No - Coronavirus Screening Are you exhibiting any of the following symptoms?: No Close contact with a COVID-19 positive Pt in past 14-21 Days: No - Vaccine Status Have you recieved a Covid-19 vaccination: No - Review of Systems Constitutional: Weakness Eyes: No Symptoms Ears, Nose, & Throat: No Symptoms Respiratory: No Symptoms Cardiac: No Symptoms Abdominal/Gastrointestinal: Abdominal Pain, Nausea, Vomiting Genitourinary Symptoms: No Symptoms Musculoskeletal: No Symptoms Skin: No Symptoms Neurological: No Symptoms Psychological: No Symptoms Endocrine: No Symptoms Hematologic/Lymphatic: No Symptoms Immunological/Allergic: No Symptoms All Other Systems: Reviewed and Negative - Past Medical History Pertinent Past Medical History: Yes Neurological History: Migraines ENT History: No Pertinent History Cardiac History: No Pertinent History Respiratory History: No Pertinent History Endocrine Medical History: Other Musculoskeletal History: Arthritis, Fractures GI Medical History: Pancreatitis History: No Pertinent History Psycho-Social History: No Pertinent History Female Reproductive Disorders: No Pertinent History Other Medical History: Pancreatitis, skull fracture 2008 - Past Surgical History Past Surgical History: Yes Neuro Surgical History: No Pertinent History Cardiac: No Pertinent History Respiratory: No Pertinent History Gastrointestinal: Cholecystectomy Genitourinary: Other Musculoskeletal: No Pertinent History Female Surgical History: No Pertinent History Other Surgical History: Pain pump. ERCPs-multiple last in july, pain pump REMOVAL 01/31 - Social History Smoking Status: Former smoker How long have you smoked: 28 YEARS Exposure to second hand smoke: No Drug Use: none Patient Lives Alone: Yes Significant Family History: no pertinent family hx - Female History Hx Last Menstrual Period: Depo Hx Now: No - Nursing Vital Signs Nursing Vital Signs: Initial Vital Signs Temperature 97.9 F 02/10/22 14:42 Pulse Rate 97 H 02/10/22 14:42 Respiratory Rate 19 02/10/22 14:42 Blood Pressure 128/99 02/10/22 14:42 O2 Sat by Pulse Oximetry 98 02/10/22 14:42 Pain Scale Pain Intensity 8 - Physical Exam General Appearance: mild distress, alert, anxiety Eye Exam: PERRL/EOMI, eyes nml inspection Ears, Nose, Throat Exam: normal ENT inspection, moist mucous membranes Neck Exam: normal inspection, non-tender, supple, full range of motion Respiratory Exam: normal breath sounds, lungs clear, airway intact, No chest tenderness, No respiratory distress Cardiovascular Exam: regular rate/rhythm, normal heart sounds, normal peripheral pulses Gastrointestinal/Abdomen Exam: soft, normal bowel sounds, tenderness (Gen eralized), guarding (Mild, generalized with palpation) Pelvic Exam: not done Rectal Exam: not done Back Exam: normal inspection, normal range of motion, No CVA tenderness, No vertebral tenderness Extremity Exam: normal inspection, normal range of motion, pelvis stable Neurologic Exam: alert, oriented x 3, cooperative, medical chemist II-XII nml as tested, normal mood/affect, nml cerebellar function, nml station & gait, sensation nml Skin Exam: normal color, warm, dry Lymphatic Exam: No adenopathy SpO2 Interpretation: normal SpO2: 98 O2 Delivery: Room Air - Course Nursing assessment & vital signs reviewed: Yes Ordered Tests: Active Orders 24 hr Category Date Time Status Clean Catch Urine Specimen STAT Care 02/10/22 15:04 Active IV Insertion STAT Care 02/10/22 14:59 Active ABDOMEN AND PELVIS W/0 CONTRAS [CT] Stat Exams 02/10/22 14:59 Completed AMYLASE Stat Lab 02/10/22 15:10 Completed CBC W DIFF Stat Lab 02/10/22 15:10 Completed CMP Stat Lab 02/10/22 15:10 Completed ETHYL ALCOHOL Stat Lab 02/10/22 15:10 Completed HCG QUALITATIVE,SERUM Stat Lab 02/10/22 15:10 Completed LIPASE Stat Lab 02/10/22 15:10 Completed Lactic Acid Stat Lab 02/10/22 14:59 Completed UA W/RFX CULTURE Stat Lab 02/10/22 15:02 Completed Urine Triage Profile Stat Lab 02/10/22 15:08 Completed Medication Summary Discontinued Medications Generic Name Dose Route Start Last Admin Trade Name Freq PRN Reason Stop Dose Admin Hydromorphone HCl 1 mg 02/10/22 14:59 02/10/22 15:06 Hydromorphone 1 Mg/1ml Inj 1 Mg/Ml Syringe IV 02/10/22 15:00 1 mg STAT ONE Administration Hydromorphone HCl Confirm 02/10/22 15:05 Hydromorphone 1 Mg/1ml Inj 1 Mg/Ml Syringe Administered 02/10/22 15:06 Dose 1 mg .ROUTE .STK-MED ONE Promethazine HCl 25 mg/ Sodium 101 mls @ 200 mls/hr 02/10/22 15:00 02/10/22 15:25 Chloride IV 02/10/22 15:30 200 mls/hr STAT ONE Administration Sodium Chloride 1,000 mls @ 999 mls/hr 02/10/22 14:59 02/10/22 16:20 Sodium Chloride 0.9% 1000 Ml IV 02/10/22 15:59 Infused .Q1H1M STA Infusion Sodium Chloride Confirm 02/10/22 15:05 Sodium Chloride 0.9% 1000 Ml Administered 02/10/22 15:06 Dose 1,000 mls @ ud .ROUTE .STK-MED ONE Lab/Rad Data: Laboratory Result Diagrams 02/10/22 15:10 02/10/22 15:10 Laboratory Results 02/10/22 02/10/22 02/10/22 Range/Units 15:10 15:10 15:10 WBC 9.6 (4.0-10.5) x10^3/uL RBC 4.68 (4.1-5.4) x10^6/uL Hgb 14.4 (12.0-16.0) g/dL Hct 42.1 (35-47) % MCV 90.0 (78-100) fL MCH 30.8 (26-32) pg MCHC 34.2 (32-36) g/dL RDW 12.2 (11.5-14.0) % Plt Count 243 (150-450) x10^3/uL MPV 10.1 (7.5-11.0) fL Gran % 74.5 H (36.0-66.0) % Immature Gran % (Auto) 0.4 (0.00-0.4) % Nucleat RBC Rel Count 0.0 (0.00-0.1) % Eos # (Auto) 0.04 (0-0.5) x10^3/uL Immature Gran # (Auto) 0.04 H (0.00-0.03) x10^3u/L Absolute Lymphs (auto) 1.85 (1.0-4.6) x10^3/uL Absolute Monos (auto) 0.47 (0.0-1.3) x10^3/uL Absolute Nucleated RBC 0.00 (0.00-0.01) x10^3u/L Lymphocytes % 19.2 L (24.0-44.0) % Monocytes % 4.9 (0.0-12.0) % Eosinophils % 0.4 (0.00-5.0) % Basophils % 0.6 (0.0-0.4) % Absolute Granulocytes 7.18 H (1.4-6.9) x10^3/uL Basophils # 0.06 (0-0.4) x10^3/uL Sodium 141 (137-145) mmol/L Potassium 3.7 (3.5-5.1) mmol/L Chloride 110 H (98-107) mmol/L Carbon Dioxide 23 (22-30) mmol/L Anion Gap 11.2 (5-15) MEQ/L BUN 9 (7-17) mg/dL Creatinine 0.63 (0.52-1.04) mg/dL Estimated GFR > 60.0 ML/MIN Glucose 112 H (74-106) mg/dL Lactic Acid (0.4-2.0) Calcium 8.7 (8.4-10.2) mg/dL Total Bilirubin 0.50 (0.2-1.3) mg/dL AST 30 (14-36) U/L ALT 33 (0-35) U/L Alkaline Phosphatase 50 (38-126) U/L Serum Total Protein 7.1 (6.3-8.2) g/dL Albumin 4.3 (3.5-5.0) g/dL Amylase 94 (30-110) U/L Lipase 172 (23-300) U/L Serum , Qual NEGATIVE (Negative) Urinalys Dipstick Clnc Urine Color (YELLOW) Urine Appearance (CLEAR) Urine pH (5-6) Ur Specific [place] (1.005-1.025) POC Urine Protein Conf (Negative) Urine Ketones (NEGATIVE) Urine Nitrite (NEGATIVE) Urine Bilirubin (NEGATIVE) Urine Urobilinogen (0-1) mg/dL Urine Leukocytes (NEGATIVE) Urine WBC (Auto) (0-5) /HPF Urine RBC (Auto) (0-2) /HPF U Epithel Cells (Auto) (FEW) /HPF Urine Bacteria (Auto) Urine RBC (0-5) Gary/ul Urine Mucus (Auto) (NEGATIVE) /HPF Ur Culture Indicated? Urine Glucose (NEGATIVE) mg/dL Urine Opiates Level (NEGATIVE) Ur Methadone (NEGATIVE) Urine Barbiturates (NEGATIVE) Ur Phencyclidine (PCP) (NEGATIVE) Urine Amphetamine (NEGATIVE) U Benzodiazepine Level (NEGATIVE) Urine Cocaine (NEGATIVE) Urine Marijuana (THC) (NEGATIVE) Ethyl Alcohol < 10 (0-10) mg/dL 02/10/22 02/10/22 02/10/22 Range/Units 15:08 15:02 14:59 WBC (4.0-10.5) x10^3/uL RBC (4.1-5.4) x10^6/uL Hgb (12.0-16.0) g/dL Hct (35-47) % MCV (78-100) fL MCH (26-32) pg MCHC (32-36) g/dL RDW (11.5-14.0) % Plt Count (150-450) x10^3/uL MPV (7.5-11.0) fL Gran % (36.0-66.0) % Immature Gran % (Auto) (0.00-0.4) % Nucleat RBC Rel Count (0.00-0.1) % Eos # (Auto) (0-0.5) x10^3/uL Immature Gran # (Auto) (0.00-0.03) x10^3u/L Absolute Lymphs (auto) (1.0-4.6) x10^3/uL Absolute Monos (auto) (0.0-1.3) x10^3/uL Absolute Nucleated RBC (0.00-0.01) x10^3u/L Lymphocytes % (24.0-44.0) % Monocytes % (0.0-12.0) % Eosinophils % (0.00-5.0) % Basophils % (0.0-0.4) % Absolute Granulocytes (1.4-6.9) x10^3/uL Basophils # (0-0.4) x10^3/uL Sodium (137-145) mmol/L Potassium (3.5-5.1) mmol/L Chloride (98-107) mmol/L Carbon Dioxide (22-30) mmol/L Anion Gap (5-15) MEQ/L BUN (7-17) mg/dL Creatinine (0.52-1.04) mg/dL Estimated GFR ML/MIN Glucose (74-106) mg/dL Lactic Acid 1.6 (0.4-2.0) Calcium (8.4-10.2) mg/dL Total Bilirubin (0.2-1.3) mg/dL AST (14-36) U/L ALT (0-35) U/L Alkaline Phosphatase (38-126) U/L Serum Total Protein (6.3-8.2) g/dL Albumin (3.5-5.0) g/dL Amylase (30-110) U/L Lipase (23-300) U/L Serum , Qual (Negative) Urinalys Dipstick Clnc MAIN LAB Urine Color YELLOW (YELLOW) Urine Appearance CLEAR (CLEAR) Urine pH 5.5 (5-6) Ur Specific [place] >=1.030 A (1.005-1.025) POC Urine Protein Conf NEGATIVE (Negative) Urine Ketones NEGATIVE (NEGATIVE) Urine Nitrite NEGATIVE (NEGATIVE) Urine Bilirubin NEGATIVE (NEGATIVE) Urine Urobilinogen 0.2 (0-1) mg/dL Urine Leukocytes NEGATIVE (NEGATIVE) Urine WBC (Auto) 0-2 (0-5) /HPF Urine RBC (Auto) 0-2 (0-2) /HPF U Epithel Cells (Auto) RARE (FEW) /HPF Urine Bacteria (Auto) Not Reportable Urine RBC TRACE-LYSED A (0-5) Gary/ul Urine Mucus (Auto) SLIGHT A (NEGATIVE) /HPF Ur Culture Indicated? NO Urine Glucose NEGATIVE (NEGATIVE) mg/dL Urine Opiates Level NEGATIVE (NEGATIVE) Ur Methadone NEGATIVE (NEGATIVE) Urine Barbiturates NEGATIVE (NEGATIVE) Ur Phencyclidine (PCP) NEGATIVE (NEGATIVE) Urine Amphetamine NEGATIVE (NEGATIVE) U Benzodiazepine Level NEGATIVE (NEGATIVE) Urine Cocaine NEGATIVE (NEGATIVE) Urine Marijuana (THC) NEGATIVE (NEGATIVE) Ethyl Alcohol (0-10) mg/dL - Progress Progress: improved, pain not gone completely Progress Note: 02/10/22 16:40 CAT scan of the abdomen pelvis without contrast shows no acute intra-abdominal or intrapelvic pathology or process. Counseled pt/family regarding: lab results, diagnosis, need for follow-up, rad results - Departure Departure Disposition: Home Clinical Impression: Chronic abdominal pain, Vomiting Condition: Stable Critical Care Time: No Referrals: RAKESH YE [Primary Care Provider] - Follow up/PCP as directed Additional Instructions: clear liquid diet until you are tolerating it very well. Once you are tolerating a clear diet well then slowly advance her diet. Avoid fatty greasy spicy foods. Avoid alcohol use. Follow-up with your primary care provider and your retail operations manager. Prescriptions: Ondansetron ODT 4 MG [Zofran Odt 4 mg] 4 mg PO Q6H PRN PRN #10 tablet PRN Reason: Vomiting
[2022-02-10] MEDS ORDERED: Phenergan 25 MG INJ*** 25 MG in Sodium Chloride 0.9% 100 ML IV ONE (15:00)
[2022-02-10] MEDS ORDERED: Hydromorphone 1 mg/ml Injection ONE (15:05)
[2022-02-10] MEDS ORDERED: Sodium Chloride 0.9% 1000 ML 1,000 ML ONE (15:05)
[2022-02-10 15:10] LABS: Absolute Neutrophil Ct (ANC) 7.18 x10^3/uL (1.4-6.9); Basophil (Absolute #) 0.06 x10^3/uL (0-0.4); Eosinophil % 0.4 % (0.00-5.0); Eosinophil (Absolute #) 0.04 x10^3/uL (0-0.5); Hematocrit 42.1 % (35-47); Hemoglobin 14.4 g/dL (12.0-16.0); Lymphocyte (Absolute #) 1.85 x10^3/uL (1.0-4.6); Lymphocytes % 19.2 % (24.0-44.0); Mean Corpuscular Hemoglobin 30.8 pg (26-32); Mean Corpuscular Hgb Concent. 34.2 g/dL (32-36); Mean Platelet Volume 10.1 fL (7.5-11.0); Monocyte (Absolute #) 0.47 x10^3/uL (0.0-1.3); Monocytes % 4.9 % (0.0-12.0); Neutrophil % 74.5 % (36.0-66.0); Platelet Count 243 x10^3/uL (150-450); Red Blood Count 4.68 x10^6/uL (4.1-5.4); Red Cell Distribution Width 12.2 % (11.5-14.0); White Blood Count 9.6 x10^3/uL (4.0-10.5)
[2022-02-10 15:17] LABS: Epithelial Cells RARE /HPF (FEW); Mucus SLIGHT /HPF (NEGATIVE); RBC 0-2 /HPF (0-2); WBC 0-2 /HPF (0-5)
[2022-02-10 15:18] LABS: Appearance CLEAR (CLEAR)
[2022-02-10 15:19] LABS: Bilirubin NEGATIVE (NEGATIVE); Dipstick done @ ? MAIN LAB; Glucose NEGATIVE (NEGATIVE); Ketones NEGATIVE (NEGATIVE); Nitrite NEGATIVE (NEGATIVE); Ph 5.5 (5-6); Protein,Urine Dip NEGATIVE (Negative); RBC TRACE-LYSED Ery/ul (0-5); Specific Gravity >=1.030 (1.005-1.025); Urine Cultured Indicated? NO; Urobilinogen 0.2 mg/dL (0-1)
[2022-02-10 15:23] LABS: ALBUMIN 4.3 g/dL (3.5-5.0); ALKALINE PHOSPHATASE 50 U/L (38-126); AMYLASE 94 U/L (30-110); ANION GAP 11.2 MEQ/L (5-15); BLOOD UREA NITROGEN 9 mg/dL (7-17); CHLORIDE 110 mmol/L (98-107); Calcium 8.7 mg/dL (8.4-10.2); Carbon Dioxide 23 mmol/L (22-30); Creatinine 1 0.63 mg/dL (0.52-1.04); EST GLOMERULAR FILTRATION RATE > 60.0 ML/MIN; ETHYL ALCOHOL < 10 mg/dL (0-10); Glucose 112 mg/dL (74-106); LIPASE 172 U/L (23-300); Potassium 3.7 mmol/L (3.5-5.1); SGOT/AST 30 U/L (14-36); SGPT/ALT 33 U/L (0-35); SODIUM 141 mmol/L (137-145); Total Protein 7.1 g/dL (6.3-8.2)
[2022-02-10 15:34] LABS: Amphetamine,Urine NEGATIVE (NEGATIVE); Barbiturate,Urine NEGATIVE (NEGATIVE); Benzodiazepine,Urine NEGATIVE (NEGATIVE); Cocaine,Urine NEGATIVE (NEGATIVE); Methadone,Urine NEGATIVE (NEGATIVE); Opiate,Urine NEGATIVE (NEGATIVE); PCP,Urine NEGATIVE (NEGATIVE); THC,Urine NEGATIVE (NEGATIVE)
[2022-02-10 16:26] VITALS: BP 108/82; PULSE 90
--- NOTE | 2022-02-10 16:34 | XRAY ---
Exam: CT of the abdomen and pelvis without IV contrast from 02/10/2022. CTDI: 5.35 mGy Comparison: CT of the abdomen and pelvis without IV contrast from 07/22/2021. Indication: 36-year-old female with abdominal pain associated with nausea/vomiting; the patient gives a history of cancer (? cervix); the patient is status post partial resection of her cervix. She has a history of 6 prior ERCPs. Technique: Non-IV contrast axial CT images were obtained of the abdomen and pelvis. Reconstructed coronal and sagittal images were created and reviewed. No oral contrast was given. Findings: The heart size is normal. The visualized lung bases appear clear. No hepatosplenomegaly is seen. Assessment of the solid organs is limited without the use of IV contrast. I see no gross mass within the liver. Surgical clips consistent with prior cholecystectomy are noted. The spleen is of normal size and reveals no mass. The pancreas reveals a normal size, shape, and attenuation. No pancreatic gland calcifications or pancreatic duct distention is seen. The adrenal glands appear of normal size and configuration. The right kidney reveals a small calcification within the upper pole and a slightly larger calcification within the lower pole consistent with right-sided nonobstructing renal stones. Other scattered calcifications within the left kidney on the CT exam from 07/22/2021 are not seen on the current exam. The kidneys are of normal size, shape, and axis. No gross renal mass or evidence of hydronephrosis is seen. The right ureter appears unremarkable. I do not see any abnormal distention of the left ureter. There is a 3.1 mm round calcification adjacent to the anterior medial aspect of left psoas muscle within the lower abdomen on axial image #51. In retrospect, I believe this is unchanged. I don't believe this lies within the left ureter, but it is probably within close proximity to it. The abdominal aorta appears normal diameter. No abnormal retroperitoneal lymphadenopathy is seen. There is mild weakness of the anterior abdominal wall at the level of the umbilicus, although a definite ventral hernia is not seen. It appears the patient has probably gained some weight as compared to 07/22/2021. There is no free intraperitoneal air. The bowel is not distended. There are a few scattered colonic diverticula without evidence of diverticulitis. There does appear to be some prominence of the sigmoid colon wall within the left hemipelvis, the wall measuring up to about 4.9 mm in thickness on axial image #65. This is relatively nonspecific. However, consider colitis. I see no evidence of intra-abdominal abscess or free intraperitoneal fluid. The appendix is not definitely visualized. The uterus is anteflexed. The pelvic adnexa appear unremarkable. No other abnormal pelvic mass or lymphadenopathy is seen. The urinary bladder is only minimally distended. No definite bladder calculi are seen. Calcified phleboliths are seen within the lower pelvis on each side of midline. Small reactive lymph nodes are seen within each groin. A small remnant epidural stimulator lead is again seen. The osseous structures appear grossly intact. I again note some widening of the left T9-T10 neural foramen which may be due to a neurofibroma/schwannoma. This is stable from prior studies. No acute fracture or aggressive bone lesion is seen. Impression: 1. 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 Prior nonobstructing left renal calculi are no longer seen. 2. I see no evidence of bowel obstruction. However, there is a suggestion of mild colon wall thickening within the proximal sigmoid colon of the left hemipelvis. This is nonspecific. Consider colitis. 3. I see no free intraperitoneal air or free intraperitoneal fluid. 4. The remainder of the non-IV contrast CT of the abdomen and pelvis appears unremarkable.
[2022-02-10 16:48] VITALS: O2SAT 99
== END 2022-02-10 16:48 | disposition home or self-care (01) ==
LOC: ED 14:33
DX: G89.29 Other chronic pain (principal); R10.84 Generalized abdominal pain; R11.2 Nausea with vomiting, unspecified; Z28.310 Unvaccinated for COVID-19
CPT/HCPCS: 36000; 36415; 74176; 80053; 80307; 81015; 82150; 83605; 83690; 84703; 85025; 96360; 96374; 96375; 99284; G0480; J1170; J2550

== ENCOUNTER 2022-04-20 12:41 | Emergency (ER) | payer OTHER ==
[2022-04-20] MEDS ORDERED: Sodium Chloride 0.9% 1000 ML 1,000 ML IV STA (12:54)
[2022-04-20] MEDS ORDERED: Zofran 4 MG/2 ML VIAL IV ONE (12:54)
[2022-04-20] MEDS ORDERED: Hydromorphone 1 mg/ml Injection IV ONE (12:54)
--- NOTE | 2022-04-20 12:54 | ERPHSYRPT ---
- History of Present Illness Time Seen by Provider: 04/20/22 12:54 Historian: patient Exam Limitations: no limitations Physician History: This is a 36-year-old white female patient of Dr. James has a history of recurrent vomiting and chronic recurring pancreatitis. Patient states that her symptoms began last night and she was having some vomiting and mild abdominal pain. Patient has been seen in this emergency department several times for the same issue. The last being 02/10/2022. Patient has had a cholecystectomy in the past and multiple ERCPs. Patient states that she prefers Phenergan over Zofran. She also can take Dilaudid without any issues. It has been a few years since she is last seen her operating cost clerk. Patient has a history of migraine headaches as well. Patient denies chest pain and she denies shortness of breath. Activities at Onset: none Quality: aching Abdominal Pain Onset Location: generalized abdomen Pain Radiation: no radiation Severity of Pain-Max: moderate Severity of Pain-Current: moderate Modifying Factors: Improves With: vomiting Associated Symptoms: nausea, vomiting, No chest pain, No diarrhea Previous symptoms: same symptoms as today, no recent treatment Allergies/Adverse Reactions: codeine [Codeine] Allergy (Verified 04/20/22 12:53) Hives HIVES droperidol [Droperidol] Allergy (Verified 04/20/22 12:53) Hives HIVES duloxetine HCl [From Cymbalta] Allergy (Verified 04/20/22 12:53) SEIZURE SEIZURE ibuprofen Allergy (Verified 04/20/22 12:53) Hives HIVES ketorolac tromethamine [From Toradol] Allergy (Verified 04/20/22 12:53) Hives HIVES naproxen sodium [From Aleve] Allergy (Verified 04/20/22 12:53) Hives HIVES prochlorperazine edisylate [From Compazine] Allergy (Verified 04/20/22 12:53) LOCK JAW LOCK JAW prochlorperazine maleate [From Compazine] Allergy (Verified 04/20/22 12:53) LOCK JAW LOCK JAW morphine Adverse Reaction (Verified 04/20/22 12:53) Itching ITCH trazodone Adverse Reaction (Verified 04/20/22 12:53) Vomiting VOMITING Home Medications: Medroxyprogesterone Acetate [Depo-Subq Provera 104] 150 mg IM CLARIFY 04/20/22 [History] Hx Tetanus, Diphtheria Vaccination/Date Given: Yes Hx Influenza Vaccination/Date Given: No Hx Pneumococcal Vaccination/Date Given: No Travel Risk - International Travel Have you traveled outside of the country in past 3 weeks: No - Coronavirus Screening Are you exhibiting any of the following symptoms?: No Close contact with a COVID-19 positive Pt in past 14-21 Days: No - Vaccine Status Have you recieved a Covid-19 vaccination: No - Review of Systems Constitutional: No Symptoms Eyes: No Symptoms Ears, Nose, & Throat: No Symptoms Respiratory: No Symptoms Cardiac: No Symptoms Abdominal/Gastrointestinal: Abdominal Pain, Nausea, Vomiting, Constipation, No Diarrhea Genitourinary Symptoms: No Symptoms Musculoskeletal: No Symptoms Skin: No Symptoms Neurological: No Symptoms Psychological: No Symptoms Endocrine: No Symptoms Hematologic/Lymphatic: No Symptoms Immunological/Allergic: No Symptoms All Other Systems: Reviewed and Negative - Past Medical History Pertinent Past Medical History: Yes Neurological History: Migraines ENT History: No Pertinent History Cardiac History: No Pertinent History Respiratory History: No Pertinent History Endocrine Medical History: Other Musculoskeletal History: Arthritis, Fractures GI Medical History: Pancreatitis History: No Pertinent History Psycho-Social History: No Pertinent History Female Reproductive Disorders: No Pertinent History Other Medical History: Pancreatitis, skull fracture 2008 - Past Surgical History Past Surgical History: Yes Neuro Surgical History: No Pertinent History Cardiac: No Pertinent History Respiratory: No Pertinent History Gastrointestinal: Cholecystectomy Genitourinary: Other Musculoskeletal: No Pertinent History Female Surgical History: No Pertinent History Other Surgical History: Pain pump. ERCPs-multiple last in july, pain pump REMOVAL 01/31 - Social History Smoking Status: Former smoker How long have you smoked: 28 YEARS Exposure to second hand smoke: No Drug Use: none Patient Lives Alone: Yes Significant Family History: no pertinent family hx - Nursing Vital Signs Nursing Vital Signs: Initial Vital Signs Temperature 98.2 F 04/20/22 12:55 Pulse Rate 115 H 04/20/22 12:55 Respiratory Rate 18 04/20/22 12:55 Blood Pressure 156/102 04/20/22 12:55 O2 Sat by Pulse Oximetry 97 04/20/22 12:55 Pain Scale Pain Intensity 6 - Physical Exam General Appearance: no apparent distress, alert, anxiety Eye Exam: PERRL/EOMI, eyes nml inspection Ears, Nose, Throat Exam: normal ENT inspection, moist mucous membranes Neck Exam: normal inspection, non-tender, supple, full range of motion Respiratory Exam: normal breath sounds, lungs clear, airway intact, No chest tenderness, No respiratory distress Cardiovascular Exam: tachycardia (Mild) Gastrointestinal/Abdomen Exam: soft, normal bowel sounds, tenderness (Mild diffuse), guarding (Present with palpation. Diffuse), No rebound Pelvic Exam: deferred Rectal Exam: not done Back Exam: normal inspection, normal range of motion, No CVA tenderness, No vertebral tenderness Extremity Exam: normal inspection, normal range of motion, pelvis stable Neurologic Exam: alert, oriented x 3, cooperative, schedule checker II-XII nml as tested, normal mood/affect, nml cerebellar function, nml station & gait, sensation nml Skin Exam: normal color, warm, dry Lymphatic Exam: No adenopathy SpO2 Interpretation: normal O2 Delivery: Room Air - Course Nursing assessment & vital signs reviewed: Yes Ordered Tests: Active Orders 24 hr Category Date Time Status IV Insertion STAT Care 04/20/22 12:54 Active ABDOMEN AND PELVIS W/0 CONTRAS [CT] Stat Exams 04/20/22 12:55 Completed AMYLASE Stat Lab 04/20/22 12:55 Completed CBC W DIFF Stat Lab 04/20/22 13:11 Completed CMP Stat Lab 04/20/22 12:55 Completed HCG QUALITATIVE,SERUM Stat Lab 04/20/22 12:55 Completed LIPASE Stat Lab 04/20/22 12:55 Completed Lactic Acid Stat Lab 04/20/22 12:55 Completed UA W/RFX UR CULTURE Stat Lab 04/20/22 12:55 Results Medication Summary Discontinued Medications Generic Name Dose Route Start Last Admin Trade Name Ozzy PRN Reason Stop Dose Admin Hydromorphone HCl 1 mg 04/20/22 12:54 04/20/22 13:15 Hydromorphone 1 Mg/1ml Inj 1 Mg/Ml Syringe IV 04/20/22 12:55 1 mg STAT ONE Administration Hydromorphone HCl Confirm 04/20/22 13:08 Hydromorphone 1 Mg/1ml Inj 1 Mg/Ml Syringe Administered 04/20/22 13:09 Dose 1 mg .ROUTE .STK-MED ONE Sodium Chloride 1,000 mls @ 999 mls/hr 04/20/22 12:54 04/20/22 13:10 Sodium Chloride 0.9% 1000 Ml IV 04/20/22 13:54 999 mls/hr .Q1H1M STA Administration Sodium Chloride Confirm 04/20/22 13:08 Sodium Chloride 0.9% 1000 Ml Administered 04/20/22 13:09 Dose 1,000 mls @ ud .ROUTE .STK-MED ONE Ondansetron HCl 4 mg 04/20/22 12:54 04/20/22 13:12 Ondansetron Hcl 4 Mg/2 Ml Vial IV 04/20/22 12:55 4 mg STAT ONE Administration Ondansetron HCl Confirm 04/20/22 13:08 Ondansetron Hcl 4 Mg/2 Ml Vial Administered 04/20/22 13:09 Dose 4 mg .ROUTE .STK-MED ONE Lab/Rad Data: Laboratory Result Diagrams 04/20/22 13:11 04/20/22 12:55 Laboratory Results 04/20/22 04/20/22 04/20/22 Range/Units 13:11 12:55 12:55 WBC 7.8 (4.0-10.5) x10^3/uL RBC 4.64 (4.1-5.4) x10^6/uL Hgb 14.2 (12.0-16.0) g/dL Hct 41.6 (35-47) % MCV 89.7 (78-100) fL MCH 30.6 (26-32) pg MCHC 34.1 (32-36) g/dL RDW 13.2 (11.5-14.0) % Plt Count 300 (150-450) x10^3/uL MPV 10.0 (7.5-11.0) fL Gran % 64.3 (36.0-66.0) % Immature Gran % (Auto) 0.3 (0.00-0.4) % Nucleat RBC Rel Count 0.0 (0.00-0.1) % Eos # (Auto) 0.04 (0-0.5) x10^3/uL Immature Gran # (Auto) 0.02 (0.00-0.03) x10^3u/L Absolute Lymphs (auto) 2.20 (1.0-4.6) x10^3/uL Absolute Monos (auto) 0.47 (0.0-1.3) x10^3/uL Absolute Nucleated RBC 0.00 (0.00-0.01) x10^3u/L Lymphocytes % 28.1 (24.0-44.0) % Monocytes % 6.0 (0.0-12.0) % Eosinophils % 0.5 (0.00-5.0) % Basophils % 0.8 (0.0-0.4) % Absolute Granulocytes 5.04 (1.4-6.9) x10^3/uL Basophils # 0.06 (0-0.4) x10^3/uL Sodium (137-145) mmol/L Potassium (3.5-5.1) mmol/L Chloride (98-107) mmol/L Carbon Dioxide (22-30) mmol/L Anion Gap (5-15) MEQ/L BUN (7-17) mg/dL Creatinine (0.52-1.04) mg/dL Estimated GFR ML/MIN Glucose (74-106) mg/dL Lactic Acid (0.4-2.0) Calcium (8.4-10.2) mg/dL Total Bilirubin (0.2-1.3) mg/dL AST (14-36) U/L ALT (0-35) U/L Alkaline Phosphatase (38-126) U/L Serum Total Protein (6.3-8.2) g/dL Albumin (3.5-5.0) g/dL Amylase (30-110) U/L Lipase (23-300) U/L Serum , Qual NEGATIVE (Negative) Urine Color Dark Yellow A (Yellow) Urine Appearance Clear (Clear) Urine pH 5.5 (4.6-8.0) Ur Specific [place] >=1.030 A (1.005-1.030) Urine Protein 30 (Negative) Urine Glucose (UA) Negative (Negative) mg/dL Urine Ketones 15 A (Negative) Urine Blood Negative (Negative) Urine Nitrite Negative (Negative) Urine Bilirubin Negative (Negative) Urine Urobilinogen 0.2 (0.2) mg/dL Ur Leukocyte Esterase Negative (Negative) U Hyaline Cast (Auto) NONE SEEN (0-2) /LPF Urine Microscopic RBC 3-5 (0-5) /HPF Urine Microscopic WBC 0-2 (0-5) /HPF Ur Epithelial Cells Rare (None Seen) /HPF Urine Bacteria None Seen (None Seen) /HPF Urine Culture Reflexed Pending 04/20/22 04/20/22 Range/Units 12:55 12:55 WBC (4.0-10.5) x10^3/uL RBC (4.1-5.4) x10^6/uL Hgb (12.0-16.0) g/dL Hct (35-47) % MCV (78-100) fL MCH (26-32) pg MCHC (32-36) g/dL RDW (11.5-14.0) % Plt Count (150-450) x10^3/uL MPV (7.5-11.0) fL Gran % (36.0-66.0) % Immature Gran % (Auto) (0.00-0.4) % Nucleat RBC Rel Count (0.00-0.1) % Eos # (Auto) (0-0.5) x10^3/uL Immature Gran # (Auto) (0.00-0.03) x10^3u/L Absolute Lymphs (auto) (1.0-4.6) x10^3/uL Absolute Monos (auto) (0.0-1.3) x10^3/uL Absolute Nucleated RBC (0.00-0.01) x10^3u/L Lymphocytes % (24.0-44.0) % Monocytes % (0.0-12.0) % Eosinophils % (0.00-5.0) % Basophils % (0.0-0.4) % Absolute Granulocytes (1.4-6.9) x10^3/uL Basophils # (0-0.4) x10^3/uL Sodium 138 (137-145) mmol/L Potassium 3.4 L (3.5-5.1) mmol/L Chloride 109 H (98-107) mmol/L Carbon Dioxide 20 L (22-30) mmol/L Anion Gap 13.1 (5-15) MEQ/L BUN 13 (7-17) mg/dL Creatinine 0.70 (0.52-1.04) mg/dL Estimated GFR > 60.0 ML/MIN Glucose 108 H (74-106) mg/dL Lactic Acid 1.0 (0.4-2.0) Calcium 9.3 (8.4-10.2) mg/dL Total Bilirubin 0.90 (0.2-1.3) mg/dL AST 40 H (14-36) U/L ALT 43 H (0-35) U/L Alkaline Phosphatase 80 (38-126) U/L Serum Total Protein 8.4 H (6.3-8.2) g/dL Albumin 5.0 (3.5-5.0) g/dL Amylase 81 (30-110) U/L Lipase 79 (23-300) U/L Serum , Qual (Negative) Urine Color (Yellow) Urine Appearance (Clear) Urine pH (4.6-8.0) Ur Specific [place] (1.005-1.030) Urine Protein (Negative) Urine Glucose (UA) (Negative) mg/dL Urine Ketones (Negative) Urine Blood (Negative) Urine Nitrite (Negative) Urine Bilirubin (Negative) Urine Urobilinogen (0.2) mg/dL Ur Leukocyte Esterase (Negative) U Hyaline Cast (Auto) (0-2) /LPF Urine Microscopic RBC (0-5) /HPF Urine Microscopic WBC (0-5) /HPF Ur Epithelial Cells (None Seen) /HPF Urine Bacteria (None Seen) /HPF Urine Culture Reflexed - Progress Progress: improved, pain not gone completely Progress Note: 04/20/22 14:11 CAT scan of the abdomen pelvis shows no acute intra-abdominal or intrapelvic findings. Of note, the radiologist does make a comment that the patient has had unusually high number of repeat negative abdominal/pelvic CT scans of the abd omen pelvis. Medical decision making: This patient has a medical issue that is of moderate complexity. She does have a history of recurrent abdominal pain and specifically pancreatitis and urinary tract infections. Patient also has abdominal pain. Based on her physical findings and her history we ordered an intravenous line, gave intravenous antibiotics, intravenous narcotics and intravenous antiemetics to provide relief from her symptoms. In addition, we obtained a urinalysis and blood draw as well as repeat CAT scan of the abdomen pelvis. We realized that the patient has been here several times for similar complaints, however she does have a significant history of recurrent pancreati tis and is difficult to assess the degree of her pancreatitis, if in fact that is what her diagnosis ends up being, without repeating a full work-up. Based on the results of the work-up which I reviewed and interpreted myself self with the exception of the CAT scan of the abdomen pelvis without contrast, the patient has recurrent abdominal pain without evidence of urinary tract infection or acute pancreatitis. Discharge plan for this patient, which was discussed with the patient, is to avoid fatty greasy spicy foods, drink plenty of clear liquids before advancing her diet, use your Phenergan tablets as needed for controlling your nausea and vomiting and continue your other medication as pr escribed. In addition, follow-up with your operating cost clerk for further instructions and management. Counseled pt/family regarding: lab results, diagnosis, need for follow-up, rad results - Departure Departure Disposition: Home Clinical Impression: Recurrent vomiting, Recurrent abdominal pain Condition: Stable Critical Care Time: No Referrals: RAKESH JAMES [Primary Care Provider] - Follow up/PCP as directed Additional Instructions: Clear liquid diet. Advance diet only when you are taking a clear diet in well. Use your Phenergan tablets to control your nausea and vomiting symptoms. Take all your other medications as prescribed. Follow-up with a operating cost clerk for further evaluation and management Prescriptions: Promethazine HCl 25 mg [Phenergan 25 mg] 25 mg PO Q8H PRN PRN #10 tablet PRN Reason: Nausea/Vomiting
[2022-04-20] MEDS ORDERED: Hydromorphone 1 mg/ml Injection ONE (13:08)
[2022-04-20] MEDS ORDERED: Zofran 4 MG/2 ML VIAL ONE (13:08)
[2022-04-20] MEDS ORDERED: Sodium Chloride 0.9% 1000 ML 1,000 ML ONE (13:08)
[2022-04-20 13:09] LABS: Absolute Neutrophil Ct (ANC) 5.04 x10^3/uL (1.4-6.9); BASOPHIL % 0.8 % (0.0-0.4); Basophil (Absolute #) 0.06 x10^3/uL (0-0.4); Eosinophil % 0.5 % (0.00-5.0); Eosinophil (Absolute #) 0.04 x10^3/uL (0-0.5); Hematocrit 41.6 % (35-47); Hemoglobin 14.2 g/dL (12.0-16.0); IMMATURE GRAN # 0.02 x10^3u/L (0.00-0.03); IMMATURE GRAN % 0.3 % (0.00-0.4); Lymphocytes % 28.1 % (24.0-44.0); Mean Cell Volume 89.7 fL (78-100); Mean Corpuscular Hemoglobin 30.6 pg (26-32); Mean Corpuscular Hgb Concent. 34.1 g/dL (32-36); Monocyte (Absolute #) 0.47 x10^3/uL (0.0-1.3); Neutrophil % 64.3 % (36.0-66.0); Platelet Count 300 x10^3/uL (150-450); Red Blood Count 4.64 x10^6/uL (4.1-5.4); Red Cell Distribution Width 13.2 % (11.5-14.0); White Blood Count 7.8 x10^3/uL (4.0-10.5)
[2022-04-20 13:12] LABS: Appearance Clear (Clear); Bilirubin Negative (Negative); Blood Negative (Negative); Glucose, Urine Negative (Negative); Ketones 15 (Negative); Leukocyte Esterase Negative (Negative); Nitrite Negative (Negative); Ph 5.5 (4.6-8.0); Protein,Urine Dip 30 (Negative); Specific Gravity >=1.030 (1.005-1.030); Urobilinogen 0.2 mg/dL (0.2)
[2022-04-20 13:16] LABS: Bacteria None Seen /HPF (None Seen); Epithelial Cells Rare /HPF (None Seen); Hyaline Casts NONE SEEN /LPF (0-2); WBC 0-2 /HPF (0-5)
[2022-04-20 13:23] LABS: ALKALINE PHOSPHATASE 80 U/L (38-126); AMYLASE 81 U/L (30-110); ANION GAP 13.1 MEQ/L (5-15); BLOOD UREA NITROGEN 13 mg/dL (7-17); CHLORIDE 109 mmol/L (98-107); Calcium 9.3 mg/dL (8.4-10.2); Carbon Dioxide 20 mmol/L (22-30); EST GLOMERULAR FILTRATION RATE > 60.0 ML/MIN; Glucose 108 mg/dL (74-106); LIPASE 79 U/L (23-300); Potassium 3.4 mmol/L (3.5-5.1); SGOT/AST 40 U/L (14-36); SGPT/ALT 43 U/L (0-35); SODIUM 138 mmol/L (137-145); Total Protein 8.4 g/dL (6.3-8.2)
[2022-04-20 13:53] VITALS: O2SAT 98
--- NOTE | 2022-04-20 14:04 | XRAY ---
Indication: Upper abdomen pain and vomiting. Pancreatitis. Multiple contiguous axial images obtained through the abdomen and pelvis without contrast. Comparison: Numerous priors, most recent February 10, 2022 Lung bases remain clear. Heart not enlarged. Noncontrasted stomach and bowel loops remain nonobstructed. Appendix not visualized. Right kidney again demonstrates 2 nonobstructing punctate calculi. Again previous cholecystectomy. No free fluid/air. Remaining liver, pancreas, spleen, adrenal glands, kidneys, ureters, bladder, uterus, and aorta are unremarkable for noncontrast exam. Osseous structures intact with stable small left T10 neurofibroma/schwannoma and remnant epidural stimulator lead. Impression: 1. Again nonobstructing right renal micro-calculi and stable left T10 neurofibroma/schwannoma. 2. Remaining CT abdomen/pelvis without contrast exam continues to be negative. Comment: Note is made of unusually numerous ER visits with repeated CT abdomen/pelvis exams.
[2022-04-20 14:20] VITALS: BP 176/68; PULSE 96
[2022-04-20 19:26] LABS: ADD URINE CULTURE? NO (NO)
== END 2022-04-20 14:30 | disposition home or self-care (01) ==
LOC: ED 12:41
DX: R11.2 Nausea with vomiting, unspecified (principal); R10.9 Unspecified abdominal pain; Z28.310 Unvaccinated for COVID-19
CPT/HCPCS: 36000; 36415; 74176; 80053; 81001; 82150; 83605; 83690; 84703; 85025; 96374; 96375; 99284; J1170; J2405

== ENCOUNTER 2022-05-06 09:32 | Emergency (ER) | payer OTHER ==
--- NOTE | 2022-05-06 09:39 | ERPHSYRPT ---
- History of Present Illness Time Seen by Provider: 05/06/22 09:35 Source: patient, EMS Exam Limitations: no limitations Physician History: This is a 36-year-old white female patient was brought to the emergency room from from home by EMS. Patient has a history of recurrent abdominal pain and recurrent pancreatitis as well as migraine headaches. She specifically states that today she has pain in her right shoulder, right lateral ribs and right hip after sustaining a fall last evening. Patient states the pain was so bad that she vomited last night. However she did not come in until this morning. She is a patient of Dr. James. She did not hit her head. She has no headache and she has no neck pain Occurred: yesterday Injuries/Pain Location: upper extremity, chest (Right shoulder right lateral ribs), pelvis (Right hip) Loss of Consciousness: no loss of consciousness Quality: aching Severity of Pain-Max: moderate Severity of Pain-Current: moderate Modifying Factors: Improves With: movement Associated Symptoms (Fall): extremity injury (Right hip, right shoulder right lateral ribs) Allergies/Adverse Reactions: codeine [Codeine] Allergy (Verified 05/06/22 09:56) Hives HIVES droperidol [Droperidol] Allergy (Verified 05/06/22 09:56) Hives HIVES duloxetine HCl [From Cymbalta] Allergy (Verified 05/06/22 09:56) SEIZURE SEIZURE ibuprofen Allergy (Verified 05/06/22 09:56) Hives HIVES ketorolac tromethamine [From Toradol] Allergy (Verified 05/06/22 09:56) Hives HIVES naproxen sodium [From Aleve] Allergy (Verified 05/06/22 09:56) Hives HIVES prochlorperazine edisylate [From Compazine] Allergy (Verified 05/06/22 09:56) LOCK JAW LOCK JAW prochlorperazine maleate [From Compazine] Allergy (Verified 05/06/22 09:56) LOCK JAW LOCK JAW morphine Adverse Reaction (Verified 05/06/22 09:56) Itching ITCH trazodone Adverse Reaction (Verified 05/06/22 09:56) Vomiting VOMITING Home Medications: Medroxyprogesterone Acetate [Depo-Subq Provera 104] 150 mg IM CLARIFY 04/20/22 [History] Hx Tetanus, Diphtheria Vaccination/Date Given: Yes Hx Influenza Vaccination/Date Given: No Hx Pneumococcal Vaccination/Date Given: No Travel Risk - International Travel Have you traveled outside of the country in past 3 weeks: No - Coronavirus Screening Are you exhibiting any of the following symptoms?: No Close contact with a COVID-19 positive Pt in past 14-21 Days: No - Vaccine Status Have you recieved a Covid-19 vaccination: No - Review of Systems Constitutional: No Symptoms Eyes: No Symptoms Ears, Nose, & Throat: No Symptoms Respiratory: Other (Right lateral rib pain) Cardiac: No Symptoms Abdominal/Gastrointestinal: No Symptoms Genitourinary Symptoms: No Symptoms Musculoskeletal: Injury (Right shoulder and right hip) Skin: No Symptoms Neurological: No Symptoms Psychological: No Symptoms Endocrine: No Symptoms Hematologic/Lymphatic: No Symptoms Immunological/Allergic: No Symptoms All Other Systems: Reviewed and Negative - Past Medical History Pertinent Past Medical History: Yes Neurological History: Migraines ENT History: No Pertinent History Cardiac History: No Pertinent History Respiratory History: No Pertinent History Endocrine Medical History: Other Musculoskeletal History: Arthritis, Fractures GI Medical History: Pancreatitis History: No Pertinent History Psycho-Social History: No Pertinent History Female Reproductive Disorders: No Pertinent History Other Medical History: Pancreatitis, skull fracture 2008 - Past Surgical History Past Surgical History: Yes Neuro Surgical History: No Pertinent History Cardiac: No Pertinent History Respiratory: No Pertinent History Gastrointestinal: Cholecystectomy Genitourinary: Other Musculoskeletal: No Pertinent History Female Surgical History: No Pertinent History Other Surgical History: Pain pump. ERCPs-multiple last in july, pain pump REMOVAL 01/31 - Social History Smoking Status: Former smoker How long have you smoked: 28 YEARS Exposure to second hand smoke: No Drug Use: none Patient Lives Alone: Yes Significant Family History: no pertinent family hx - Nursing Vital Signs Nursing Vital Signs: Initial Vital Signs Temperature 98.5 F 05/06/22 09:43 Pulse Rate 109 H 05/06/22 09:43 Blood Pressure 141/99 05/06/22 09:43 O2 Sat by Pulse Oximetry 95 05/06/22 09:43 Pain Scale Pain Intensity 10 - Alex Coma Score Best Eye Response ([place]): (4) open spontaneously Best Verbal Response (Alex): (5) oriented Best Motor Response (Alex): (6) obeys commands [place] Total: 15 - Physical Exam General Appearance: no apparent distress, alert, anxiety Head Injury: no evidence of injury Eye Exam: PERRL/EOMI, eyes nml inspection ENT Exam: airway nml, nml ext.inspection Neck Exam: supple, trachea midline, full range of motion, normal alignment, normal inspection Respiratory/Chest Exam: normal breath sounds, rib tenderness (Right lateral), No chest tenderness, No respiratory distress, No ecchymosis, No crepitus Cardiovascular Exam: normal heart sounds, regular rate/rhythm Gastrointestinal Exam: soft, normal bowel sounds, No tenderness Rectal Exam: not done Back Exam: normal inspection, normal range of motion, No CVA tenderness, No vertebral tenderness Extremity Exam: normal inspection, normal range of motion, capillary refill <3 sec, pelvis stable, hip tenderness (Right), No evidence of injury Neurologic Exam: alert, oriented x 3, cooperative, vice president for instruction II-XII nml as tested, normal mood/affect, nml cerebellar function, nml station & gait, sensation nml Skin Exam: normal color, warm, dry SpO2 Interpretation: normal O2 Delivery: Room Air - Course Nursing assessment & vital signs reviewed: Yes Ordered Tests: Active Orders 24 hr Category Date Time Status HIP UNI (2V) INCL PEL IF DONE Stat Exams 05/06/22 09:53 Completed RIBS UNILATERAL Stat Exams 05/06/22 09:53 Completed SHOULDER Stat Exams 05/06/22 09:53 Completed - Progress Progress: improved, pain not gone completely Progress Note: 05/06/22 10:31 X-ray of right shoulder shows the right scapula with minimally angulated inferior scapular fracture. X-ray of right ribs shows the above-stated inferior scapular fracture that is minimally angulated. There are no rib fractures and no acute pulmonary lung tissue findings. X-ray of right hip shows no acute fracture or dislocation. 05/06/22 10:31 This patient's medical issue is of moderate complexity. This is based on the patient's history of present illness, patient's medical history, patient complaint and findings on physical exam. The work-up including the x-ray of right shoulder, right ribs and x-ray of right hip were based on the above. I reviewed the impression as dictated by the radiologist and I reviewed the findings with the patient. Based on the work-up findings the patient is provided with pain medication here in the emergency department. In addition I am discharging her to home with a right arm sling in place, instructions to fo llow-up in the [facility] orthopedic clinic tomorrow morning and Percocet pain medication. I discussed the side effects and instructions on dosing of the Percocet pain medication. Patient states that she can take Percocet. She has taken in the past without any issues. 05/06/22 10:37 Counseled pt/family regarding: diagnosis, need for follow-up, rad results Medical Desision Making - Independent Historian Additional History obtained from: Correspondence Review Clerk/EMT - Discussion of managment Reviewed:: Test results Agreed on:: Treatment plan, need for follow-up - Social Determinants of Health Limited access to: transportation - Diagnostic Testing Diagnostic test were ordered, analyzed, and reviewed by me: Yes Radiological Interpretation: Reviewed by me, Teleradiologist Report - Risk of complications Minimal Risk: Minimal risk of morbidity - Departure Departure Disposition: Home Clinical Impression: Fall with significant injury, Scapular fracture Condition: Stable Critical Care Time: No Referrals: RAKESH JAMES [Primary Care Provider] - Follow up/PCP as directed Additional Instructions: Ice pack to tender areas 3 times a day for the next 48 hours. Wear sling for comfort. Take your medication as prescribed. Follow-up tomorrow morning between 8 AM and 10 AM at the [facility] orthopedic clinic. It is a walk-in clinic and you do not need an appointment. My recommendation is to get there at 8 AM tomorrow morning. Prescriptions: Oxycodone HCl/Acetaminophen [Percocet 5-325 mg Tablet] 1 each PO Q8H PRN PRN #6 tablet MDD 3 PRN Reason: Moderate To Severe Pain
--- NOTE | 2022-05-06 10:24 | XRAY ---
Indication: Pain following fall. Comparison: None 3 view right shoulder demonstrates minimally angulated inferior scapula fracture. No other bony, articular, or soft tissue abnormalities.
--- NOTE | 2022-05-06 10:26 | XRAY ---
Indication: Pain following fall. Comparison: None 2 view right ribs demonstrates minimally angulated inferior scapula fracture. No other bony, articular, or soft tissue abnormalities.
--- NOTE | 2022-05-06 10:26 | XRAY ---
Indication: Pain following fall. Comparison: None 2 view right hip demonstrate pelvic surgical clip. No other bony, articular, or soft tissue abnormalities.
[2022-05-06] MEDS ORDERED: Hydromorphone 1 mg/ml Injection IM ONE (10:37)
[2022-05-06] MEDS ORDERED: ZOFRAN ODT 4 MG PO ONE (10:38)
[2022-05-06] MEDS ORDERED: ZOFRAN ODT 4 MG ONE (10:41)
[2022-05-06] MEDS ORDERED: Hydromorphone 1 mg/ml Injection ONE (10:41)
[2022-05-06 10:51] VITALS: BP 124/84; PULSE 94; O2SAT 96
== END 2022-05-06 10:59 | disposition home or self-care (01) ==
LOC: ED 09:32
DX: S42.191A Fracture of other part of scapula, right shoulder, initial encounter for closed fracture (principal); W19.XXXA Unspecified fall, initial encounter; R07.81 Pleurodynia; M25.551 Pain in right hip; Z28.310 Unvaccinated for COVID-19; Z79.891 Long term (current) use of opiate analgesic; Z59.82 Transportation insecurity
CPT/HCPCS: 71100; 73030; 73502; 96372; 99283; J1170; Q0162

== ENCOUNTER 2022-05-14 19:14 | Emergency (ER) | payer OTHER ==
--- NOTE | 2022-05-14 19:58 | ERPHSYRPT ---
- History of Present Illness Source: patient Exam Limitations: no limitations Patient Subjective Stated Complaint: shoulder pain from previous fall on 05/06/22, R shoulder is broken in 2 places, pt states pain is worse today Triage Nursing Assessment: pt ambulatory to bed by self, pt alert and oriented x3, pt fell on 05/06/22 and broke shoulder in 2 places, pt states the pain has gotten worse today and has ran out of pain medicine for home Physician History: 36 yo wf w R scapular pain s/p R scapular Fx on 05/06/22. pt is under care of Marilyn Brwon and was prescribed Oxycodone 5/325 #28 on 05/08/22 and #6 on 05/06/22. Pt states that she has taken all of her meds. Pain is severe. She has nausea/vomiting. Occurred: other (05/06/22) Method of Injury: fell Quality: constant Severity of Pain-Max: severe Severity of Pain-Current: severe Extremities Pain Location: shoulder: right (R scapula) Modifying Factors: Improves With: movement Associated Symptoms: none Allergies/Adverse Reactions: codeine [Codeine] Allergy (Verified 05/14/22 19:29) Hives HIVES droperidol [Droperidol] Allergy (Verified 05/14/22 19:29) Hives HIVES duloxetine HCl [From Cymbalta] Allergy (Verified 05/14/22 19:29) SEIZURE SEIZURE ibuprofen Allergy (Verified 05/14/22 19:29) Hives HIVES ketorolac tromethamine [From Toradol] Allergy (Verified 05/14/22 19:29) Hives HIVES naproxen sodium [From Aleve] Allergy (Verified 05/14/22 19:29) Hives HIVES prochlorperazine edisylate [From Compazine] Allergy (Verified 05/14/22 19:29) LOCK JAW LOCK JAW prochlorperazine maleate [From Compazine] Allergy (Verified 05/14/22 19:29) LOCK JAW LOCK JAW morphine Adverse Reaction (Verified 05/14/22 19:29) Itching ITCH trazodone Adverse Reaction (Verified 05/14/22 19:29) Vomiting VOMITING Home Medications: Medroxyprogesterone Acetate [Depo-Subq Provera 104] 150 mg IM CLARIFY 04/20/22 [History] Hx Tetanus, Diphtheria Vaccination/Date Given: Yes Hx Influenza Vaccination/Date Given: No Hx Pneumococcal Vaccination/Date Given: No Travel Risk - International Travel Have you traveled outside of the country in past 3 weeks: No - Coronavirus Screening Are you exhibiting any of the following symptoms?: No Close contact with a COVID-19 positive Pt in past 14-21 Days: No - Vaccine Status Have you recieved a Covid-19 vaccination: No - Review of Systems Constitutional: No Symptoms Eyes: No Symptoms Ears, Nose, & Throat: No Symptoms Respiratory: No Symptoms Cardiac: No Symptoms Abdominal/Gastrointestinal: No Symptoms Genitourinary Symptoms: No Symptoms Skin: No Symptoms Neurological: No Symptoms Psychological: No Symptoms Endocrine: No Symptoms Hematologic/Lymphatic: No Symptoms Immunological/Allergic: No Symptoms - Past Medical History Pertinent Past Medical History: Yes Neurological History: Migraines ENT History: No Pertinent History Cardiac History: No Pertinent History Respiratory History: No Pertinent History Endocrine Medical History: Other Musculoskeletal History: Arthritis, Fractures GI Medical History: Pancreatitis History: No Pertinent History Psycho-Social History: No Pertinent History Female Reproductive Disorders: No Pertinent History Other Medical History: Pancreatitis, skull fracture 2008 - Past Surgical History Past Surgical History: Yes Neuro Surgical History: No Pertinent History Cardiac: No Pertinent History Respiratory: No Pertinent History Gastrointestinal: Cholecystectomy Genitourinary: Other Musculoskeletal: No Pertinent History Female Surgical History: No Pertinent History Other Surgical History: Pain pump. ERCPs-multiple last in july, pain pump REMOVAL 01/31 - Social History Smoking Status: Former smoker How long have you smoked: 28 YEARS Exposure to second hand smoke: No Drug Use: none Patient Lives Alone: Yes Significant Family History: no pertinent family hx - Female History Hx Last Menstrual Period: on depo shot Hx Now: No - Nursing Vital Signs Nursing Vital Signs: Initial Vital Signs Temperature 98.0 F 05/14/22 19:36 Pulse Rate 99 H 05/14/22 19:36 Respiratory Rate 18 05/14/22 19:36 Blood Pressure 132/103 05/14/22 19:36 O2 Sat by Pulse Oximetry 95 05/14/22 19:36 Pain Scale Pain Intensity 10 Hypertensive - Physical Exam General Appearance: no apparent distress Eyes, Ears, Nose, Throat Exam: normal ENT inspection, TMs normal, pharynx normal, moist mucous membranes Neck Exam: normal inspection, non-tender, supple, full range of motion, No Brudzinski, No Kernig's, No meningismus Cardiovascular/Respiratory Exam: normal breath sounds, regular rate/rhythm, heart sounds normal Abdominal Exam: non-tender, soft Back Exam: normal inspection, normal range of motion, No CVA tenderness, No vertebral tenderness Shoulder Exam: pain (R scapular TTP) Elbow/Forearm Exam: normal inspection, non-tender, no evidence of injury Wrist Exam: normal inspection, non-tender, no evidence of injury Hand Exam: normal inspection, non-tender, no evidence of injury Neuro/Tendon Exam: normal sensation, normal motor functions, normal tendon functions, responds to pain Mental Status Exam: alert, oriented x 3, cooperative Skin Exam: normal color, warm, dry SpO2 Interpretation: normal SpO2: 95 O2 Delivery: Room Air - Course Nursing assessment & vital signs reviewed: Yes Ordered Tests: Medication Summary Discontinued Medications Generic Name Dose Route Start Last Admin Trade Name Thomasq PRN Reason Stop Dose Admin Butorphanol Tartrate 1 mg 05/14/22 20:00 05/14/22 20:09 Butorphanol Tartrate 2 Mg/Ml Vial IM 05/14/22 20:01 1 mg STAT ONE Administration Butorphanol Tartrate Confirm 05/14/22 20:05 Butorphanol Tartrate 2 Mg/Ml Vial Administered 05/14/22 20:06 Dose 2 mg .ROUTE .STK-MED ONE Hydroxyzine HCl 50 mg 05/14/22 20:03 05/14/22 20:10 Hydroxyzine Hcl 100 Mg/2 Ml Vial IM 05/14/22 20:04 50 mg ONCE ONE Administration Hydroxyzine HCl Confirm 05/14/22 20:08 Hydroxyzine Hcl 100 Mg/2 Ml Vial Administered 05/14/22 20:09 Dose 100 mg IM .STK-MED ONE - Progress Progress: improved Progress Note: 05/14/22 20:58 Nursing note and vital signs reviewed Xray result fron 05/06/22 reviewed No food or housing insecurities noted Inspect done which demonstrated 2 recent Percocet prescriptions 1mg IM Stadol/50mg IM Vistaril w improvement in pain Pt told nursing that she has Rx for pain meds to fill tomorrow Pt is a full code 05/14/22 21:00 Counseled pt/family regarding: diagnosis, need for follow-up - Departure Departure Disposition: Home Clinical Impression: Scapula fracture Condition: Stable Critical Care Time: No Referrals: RAKESH YE [Primary Care Provider] - Follow up/PCP as directed Instructions: Shoulder Blade Fracture (DC) Additional Instructions: Follow up with orthopedic clinic for continued pain control
[2022-05-14] MEDS ORDERED: STADOL 2 MG IM ONE (20:00)
[2022-05-14] MEDS ORDERED: VISTARIL 100MG/2ML IM ONE ×2 (20:03→20:08)
[2022-05-14] MEDS ORDERED: STADOL 2 MG ONE (20:05)
[2022-05-14 20:19] VITALS: BP 111/89; PULSE 92
[2022-05-14 21:01] VITALS: O2SAT 95
== END 2022-05-14 20:34 | disposition home or self-care (01) ==
LOC: ED 19:14
DX: S42.101D Fracture of unspecified part of scapula, right shoulder, subsequent encounter for fracture with routine healing (principal); W19.XXXD Unspecified fall, subsequent encounter; Z28.310 Unvaccinated for COVID-19
CPT/HCPCS: 96372; 99283; J0595; J3410

== ENCOUNTER 2022-07-07 10:23 | Emergency (ER) | payer OTHER ==
[2022-07-07] MEDS ORDERED: Hydromorphone 1 mg/ml Injection IM ONE (10:57)
[2022-07-07] MEDS ORDERED: Hydromorphone 1 mg/ml Injection ONE (11:03)
--- NOTE | 2022-07-07 11:21 | ERPHSYRPT ---
- History of Present Illness Time Seen by Provider: 07/07/22 11:19 Historian: patient Exam Limitations: no limitations Patient Subjective Stated Complaint: PT states "I think I have a UTI that is backing up into my kidneys. My back has hurt for two days." Triage Nursing Assessment: PT presented alert and oriented X 3, skin pwd. pt ambulates with an upright steady gait, able to speak in clear full sentences pt in no appernt respiratory distress. Physician History: Patient is a 36-year-old female with a history of kidney stones presents to our ED with bilateral upper flank pain x1 day. Patient also has a history of recurrent urinary tract infection. Patient believes she is experiencing a UTI but is unsure whether or not she is experiencing a kidney stone. No trauma. No fever. Left flank pain worse than right. Symptoms are constant. Symptoms are moderate in intensity. Left-sided CVA tenderness to palpation. Patient voices no other complaints or concerns at this time. Portions of this note were created with voice recognition technology. There may be grammatical, spelling, punctuation or sound alike errors Timing/Duration: today Activities at Onset: none Quality: aching Abdominal Pain Onset Location: other (Bilateral upper flank) Pain Radiation: no radiation Severity of Pain-Max: moderate Severity of Pain-Current: mild Modifying Factors: Improves With: other (Palpation to bilateral upper flanks) Associated Symptoms: denies symptoms Previous symptoms: same symptoms as today Allergies/Adverse Reactions: codeine [Codeine] Allergy (Verified 05/14/22 19:29) Hives HIVES droperidol [Droperidol] Allergy (Verified 05/14/22 19:29) Hives HIVES duloxetine HCl [From Cymbalta] Allergy (Verified 05/14/22 19:29) SEIZURE SEIZURE ibuprofen Allergy (Verified 05/14/22 19:29) Hives HIVES ketorolac tromethamine [From Toradol] Allergy (Verified 05/14/22 19:29) Hives HIVES naproxen sodium [From Aleve] Allergy (Verified 05/14/22 19:29) Hives HIVES prochlorperazine edisylate [From Compazine] Allergy (Verified 05/14/22 19:29) LOCK JAW LOCK JAW prochlorperazine maleate [From Compazine] Allergy (Verified 05/14/22 19:29) LOCK JAW LOCK JAW morphine Adverse Reaction (Verified 05/14/22 19:29) Itching ITCH trazodone Adverse Reaction (Verified 05/14/22 19:29) Vomiting VOMITING Home Medications: Medroxyprogesterone Acetate [Depo-Subq Provera 104] 150 mg IM CLARIFY 04/20/22 [History] Hx Tetanus, Diphtheria Vaccination/Date Given: Yes Hx Influenza Vaccination/Date Given: No Hx Pneumococcal Vaccination/Date Given: No Travel Risk - International Travel Have you traveled outside of the country in past 3 weeks: No - Coronavirus Screening Are you exhibiting any of the following symptoms?: No Close contact with a COVID-19 positive Pt in past 14-21 Days: No - Vaccine Status Have you recieved a Covid-19 vaccination: No - Review of Systems Constitutional: No Symptoms, No Fever, No Chills Eyes: No Symptoms Ears, Nose, & Throat: No Symptoms Respiratory: No Symptoms, No Cough, No Dyspnea Cardiac: No Symptoms, No Chest Pain, No Edema, No Syncope Abdominal/Gastrointestinal: No Symptoms, No Abdominal Pain, No Nausea, No Vomiting, No Diarrhea Genitourinary Symptoms: No Symptoms, No Dysuria Musculoskeletal: No Symptoms, No Back Pain, No Neck Pain Skin: No Symptoms, No Rash Neurological: No Symptoms, No Dizziness, No Focal Weakness, No Sensory Changes Psychological: No Symptoms Endocrine: No Symptoms Hematologic/Lymphatic: No Symptoms Immunological/Allergic: No Symptoms All Other Systems: Reviewed and Negative - Past Medical History Pertinent Past Medical History: Yes Neurological History: Migraines ENT History: No Pertinent History Cardiac History: No Pertinent History Respiratory History: No Pertinent History Endocrine Medical History: Other Musculoskeletal History: Arthritis, Fractures GI Medical History: Pancreatitis History: No Pertinent History Psycho-Social History: No Pertinent History Female Reproductive Disorders: No Pertinent History Other Medical History: Pancreatitis, skull fracture 2008 - Past Surgical History Past Surgical History: Yes Neuro Surgical History: No Pertinent History Cardiac: No Pertinent History Respiratory: No Pertinent History Gastrointestinal: Cholecystectomy Genitourinary: Other Musculoskeletal: No Pertinent History Female Surgical History: No Pertinent History Other Surgical History: Pain pump. ERCPs-multiple last in july, pain pump REMOVAL 01/31 - Social History Smoking Status: Former smoker How long have you smoked: 28 YEARS Exposure to second hand smoke: No Drug Use: none Patient Lives Alone: Yes Significant Family History: no pertinent family hx - Female History Hx Last Menstrual Period: 05/2021 Hx Now: No - Nursing Vital Signs Nursing Vital Signs: Initial Vital Signs Temperature 98.3 F 07/07/22 10:32 Pulse Rate 98 H 07/07/22 10:32 Respiratory Rate 20 07/07/22 10:32 Blood Pressure 137/97 07/07/22 10:32 O2 Sat by Pulse Oximetry 95 07/07/22 10:32 Pain Scale Pain Intensity 4 - Physical Exam General Appearance: no apparent distress, alert Eye Exam: PERRL/EOMI, eyes nml inspection Ears, Nose, Throat Exam: normal ENT inspection, pharynx normal, moist mucous membranes Neck Exam: normal inspection, non-tender, supple, full range of motion Respiratory Exam: normal breath sounds, lungs clear, No respiratory distress Cardiovascular Exam: regular rate/rhythm, normal heart sounds Gastrointestinal/Abdomen Exam: soft, tenderness (Bilateral upper flank tenderness), No mass Back Exam: normal inspection, normal range of motion, No CVA tenderness, No vertebral tenderness Extremity Exam: normal inspection, normal range of motion, pelvis stable Neurologic Exam: alert, oriented x 3, cooperative, normal mood/affect, nml cerebellar function, sensation nml, No motor deficits Skin Exam: normal color, warm, dry SpO2 Interpretation: normal SpO2: 95 O2 Delivery: Room Air - Course Nursing assessment & vital signs reviewed: Yes - CT Exams Abdomen/Pelvis CT Interpretation: Tele-radiologist Report (Nephrolithiasis) Ordered Tests: Active Orders 24 hr Category Date Time Status ABDOMEN AND PELVIS W/0 CONTRAS [CT] Stat Exams 07/07/22 10:59 Completed CULTURE,URINE Stat Lab 07/07/22 10:41 Received HCG QUALITATIVE, URINE Stat Lab 07/07/22 Completed UA W/RFX UR CULTURE Stat Lab 07/07/22 10:41 Completed Medication Summary Generic Name Dose Route Start Last Admin Trade Name Freq PRN Reason Stop Dose Admin Ciprofloxacin 500 mg 07/07/22 12:56 Ciprofloxacin 500 Mg Tablet PO 07/07/22 12:57 ONCE STA Discontinued Medications Generic Name Dose Route Start Last Admin Trade Name Freq PRN Reason Stop Dose Admin Hydromorphone HCl 1 mg 07/07/22 10:57 07/07/22 11:04 Hydromorphone 1 Mg/1ml Inj IM 07/07/22 10:58 1 mg STAT ONE Administration Hydromorphone HCl Confirm 07/07/22 11:03 Hydromorphone 1 Mg/1ml Inj Administered 07/07/22 11:04 Dose 1 mg .ROUTE .STK-MED ONE Nitrofurantoin Macrocrystals 100 mg 07/07/22 12:54 07/07/22 12:56 Nitrofurantoin Macro 100 Mg Capsule PO 07/07/22 12:55 Not Given STAT ONE Lab/Rad Data: Laboratory Results 07/07/22 07/07/22 Range/Units Unknown 10:41 Urine Color Yellow (Yellow) Urine Appearance Cloudy A (Clear) Urine pH 6.0 (4.6-8.0) Ur Specific [place] >=1.030 A (1.005-1.030) Urine Protein Trace A (Negative) Urine Glucose (UA) Negative (Negative) mg/dL Urine Ketones Negative (Negative) Urine Blood Negative (Negative) Urine Nitrite Negative (Negative) Urine Bilirubin Negative (Negative) Urine Urobilinogen 0.2 (0.2) mg/dL Ur Leukocyte Esterase Moderate A (Negative) U Hyaline Cast (Auto) 3-5 A (0-2) /LPF Urine Microscopic RBC 3-5 (0-5) /HPF Urine Microscopic WBC 51-100 A (0-5) /HPF Ur Epithelial Cells Many A (None Seen) /HPF Urine Bacteria Moderate A (None Seen) /HPF Urine Culture Reflexed YES (NO) Urine HCG, Qual NEGATIVE (NEGATIVE) - Progress Progress: improved Progress Note: 28-year-old female presents to our ED with bilateral flank pain. CT abdomen pelvis negative for ureterolithiasis. Small right nephrolithiasis observed. Incidental T10 neurofibroma/schwannoma. Otherwise negative CT scan. Urinalysis reveals urinary tract infection. Patient is afebrile. Per patient she usually has ciprofloxacin for her UTIs. Patient states ciprofloxacin resolves her urinary tract infections. Patient given a dose of Cipro in our ED. A prescription for the same was forwarded to patient's pharmacy. Patient requested Dilaudid for pain control. Dilaudid administered. Pain significantly improved. Will discharge home. Patient agrees to follow-up with primary care doctor within 48 hours for reevaluation. Patient presenting problem is acute. Vital stable. Complexity of problem addressed is moderate. Urinary tract infection complicated by bilateral flank pain. No fever. No critical care time. Dr. Suazo independently evaluated and analyzed urinalysis. CT scan abdomen and pelvis report shows right nephrolithiasis, T10 neurofibroma/and/or schwannoma. Patient served as independent historian. Complexity of data reviewed and analyzed is moderate. Risk of complication and or risk morbidity/mortality patient management is high. Patient received IM Dilaudid for pain control. Patient received oral ciprofloxacin to initiate antibiotic therapy for urinary tract infection. No ureterolithiasis observed on CT scan. Will discharge home. Patient agrees to follow-up with primary care doctor within 48 hours for reevaluation. Vital stable. Time spent to discharge patient between 10 and 15 minutes Portions of this note were created with voice recognition technology. There may be grammatical, spelling, punctuation or sound alike errors 07/07/22 13:00 Counseled pt/family regarding: lab results, diagnosis, need for follow-up, rad results - Departure Departure Disposition: Home Clinical Impression: UTI (urinary tract infection), Schwannoma, schwannoma T10, Neuofibroma T10, Nephrolithiasis Condition: Stable Critical Care Time: No Referrals: RAKESH YE [Primary Care Provider] - Follow up/PCP as directed Additional Instructions: Discharge/Care Plan BETY GRIMES was seen on 07/07/22 in the Emergency Room. The patient was counseled regarding Diagnosis,Lab results, Imaging studies, need for follow up and when to return to the Emergency Room. Prescriptions given: Discharge Note I have spoken with the patient and/or caregivers. I have explained the patient's condition, diagnosis and treatment plan based on the information available to me at this time. I have answered the patient's and/or caregiver's questions and addressed any concerns. The patient and/or caregivers have as good understanding of the patient's diagnosis, condition and treatment plan as can be expected at this point. The vital signs have been stable. The patient's condition is stable and appropriate for discharge from the emergency department. The patient will pursue further outpatient evaluation with the primary care physician or other designated or consulting physician as outlined in the discharge instructions. The patient and/or caregivers are agreeable to this plan of care and follow-up instructions have been explained in detail. The patient and/or caregivers have received these instruction. The patient/and or caregivers are aware that any significant change in condition or worsening of symptoms should prompt an immediate return to this or the closest emergency department or call 911. Prescriptions: Ciprofloxacin [Cipro 500 MG] 500 mg PO BID 7 Days #14 tablet
[2022-07-07 11:32] LABS: HCG URINE TEST NEGATIVE (NEGATIVE)
[2022-07-07 11:38] LABS: Appearance Cloudy (Clear); Bacteria Moderate /HPF (None Seen); Bilirubin Negative (Negative); Blood Negative (Negative); Epithelial Cells Many /HPF (None Seen); Glucose, Urine Negative (Negative); Ketones Negative (Negative); Leukocyte Esterase Moderate (Negative); Nitrite Negative (Negative); Protein,Urine Dip Trace (Negative); Specific Gravity >=1.030 (1.005-1.030); Urobilinogen 0.2 mg/dL (0.2); WBC 51-100 /HPF (0-5)
[2022-07-07 11:40] LABS: ADD URINE CULTURE? YES (NO)
--- NOTE | 2022-07-07 12:09 | XRAY ---
Indication: UTI. Flank pain. Kidney stones. Multiple contiguous axial images obtained through the abdomen and pelvis without contrast using renal stone protocol. Comparison: April 20, 2022 Lung bases remain clear. Heart not enlarged. Stable nonobstructing right renal punctate calculi. No new renal calculus or evidence for obstructive uropathy. Noncontrasted stomach and bowel loops remain nonobstructed. Appendix not visualized. Again cholecystectomy. No free fluid/air. Remaining liver, pancreas, spleen, adrenal glands, kidneys, ureters, bladder, uterus, and aorta are unremarkable for noncontrast exam. Osseous structures intact with stable small left T10 neurofibroma/schwannoma and remnant epidural stimulator Rufino. Impression: Stable CT abdomen/pelvis without contrast exam again demonstrating nonobstructing right renal micro-calculi and left T10 neurofibroma/schwannoma. No new/acute findings.
[2022-07-07 12:27] VITALS: BP 116/81
[2022-07-07] MEDS ORDERED: Macrobid 100MG Capsule PO ONE (12:54)
[2022-07-07] MEDS ORDERED: Cipro 500 MG PO STA (12:56)
[2022-07-07] MEDS ORDERED: Cipro 500 MG ONE (13:05)
[2022-07-07 13:13] VITALS: PULSE 92; O2SAT 98
== END 2022-07-07 13:13 | disposition home or self-care (01) ==
LOC: ED 10:23
DX: N39.0 Urinary tract infection, site not specified (principal); N20.0 Calculus of kidney; D36.10 Benign neoplasm of peripheral nerves and autonomic nervous system, unspecified; R10.9 Unspecified abdominal pain; Z28.310 Unvaccinated for COVID-19
CPT/HCPCS: 36415; 74176; 81001; 81025; 87077; 87086; 87186; 96372; 99283; J1170; A9270-GY

== ENCOUNTER 2022-08-31 08:12 | Emergency (ER) | payer OTHER ==
[2022-08-31] MEDS ORDERED: Hydromorphone 1 mg/ml Injection IV ONE ×2 (08:40→09:59)
--- NOTE | 2022-08-31 08:40 | ERPHSYRPT ---
- History of Present Illness Time Seen by Provider: 08/31/22 08:39 Exam Limitations: no limitations Physician History: Patient is a 36-year-old female with a history of pancreatitis presents to our ED for evaluation of right upper quadrant and epigastric pain. Patient states she has a history of cholecystectomy. Gallbladder is out. Patient's pain started 2 days ago. Pain acutely worse today. Pain tends to radiate towards her back. No trauma. No fever. Symptoms are moderate in intensity. Pain worse with palpation. Pain improved with rest. Patient states her pain is similar to previous bouts of pancreatitis. Patient states she is otherwise generally healthy. She voices no other complaints or concerns at this time. Portions of this note were created with voice recognition technology. There may be grammatical, spelling, punctuation or sound alike errors Timing/Duration: day(s) (2 days ago) Activities at Onset: none Quality: aching Abdominal Pain Onset Location: epigastric Pain Radiation: back Severity of Pain-Max: moderate Severity of Pain-Current: moderate Modifying Factors: Improves With: palpation Associated Symptoms: nausea, vomiting Previous symptoms: same symptoms as today Allergies/Adverse Reactions: codeine [Codeine] Allergy (Verified 08/31/22 08:31) Hives HIVES droperidol [Droperidol] Allergy (Verified 08/31/22 08:31) Hives HIVES duloxetine HCl [From Cymbalta] Allergy (Verified 08/31/22 08:31) SEIZURE SEIZURE ibuprofen Allergy (Verified 08/31/22 08:31) Hives HIVES ketorolac tromethamine [From Toradol] Allergy (Verified 08/31/22 08:31) Hives HIVES naproxen sodium [From Aleve] Allergy (Verified 08/31/22 08:31) Hives HIVES prochlorperazine edisylate [From Compazine] Allergy (Verified 08/31/22 08:31) LOCK JAW LOCK JAW prochlorperazine maleate [From Compazine] Allergy (Verified 08/31/22 08:31) LOCK JAW LOCK JAW morphine Adverse Reaction (Verified 08/31/22 08:31) Itching ITCH trazodone Adverse Reaction (Verified 08/31/22 08:31) Vomiting VOMITING Home Medications: Medroxyprogesterone Acetate [Depo-Subq Provera 104] 150 mg IM CLARIFY 04/20/22 [History] Hx Tetanus, Diphtheria Vaccination/Date Given: Yes Hx Influenza Vaccination/Date Given: No Hx Pneumococcal Vaccination/Date Given: No Travel Risk - Vaccine Status Have you recieved a Covid-19 vaccination: No - Review of Systems Constitutional: No Symptoms, No Fever, No Chills Eyes: No Symptoms Ears, Nose, & Throat: No Symptoms Respiratory: No Symptoms, No Cough, No Dyspnea Cardiac: No Symptoms, No Chest Pain, No Edema, No Syncope Abdominal/Gastrointestinal: No Symptoms, No Abdominal Pain, No Nausea, No Vomiting, No Diarrhea Genitourinary Symptoms: No Symptoms, No Dysuria Musculoskeletal: No Symptoms, No Back Pain, No Neck Pain Skin: No Symptoms, No Rash Neurological: No Symptoms, No Dizziness, No Focal Weakness, No Sensory Changes Psychological: No Symptoms Endocrine: No Symptoms Hematologic/Lymphatic: No Symptoms Immunological/Allergic: No Symptoms All Other Systems: Reviewed and Negative - Past Medical History Pertinent Past Medical History: Yes Neurological History: Migraines ENT History: No Pertinent History Cardiac History: No Pertinent History Respiratory History: No Pertinent History Endocrine Medical History: Other Musculoskeletal History: Arthritis, Fractures GI Medical History: Pancreatitis History: No Pertinent History Psycho-Social History: No Pertinent History Female Reproductive Disorders: No Pertinent History Other Medical History: Pancreatitis, skull fracture 2008 - Past Surgical History Past Surgical History: Yes Neuro Surgical History: No Pertinent History Cardiac: No Pertinent History Respiratory: No Pertinent History Gastrointestinal: Cholecystectomy Genitourinary: Other Musculoskeletal: No Pertinent History Female Surgical History: No Pertinent History Other Surgical History: Pain pump. ERCPs-multiple last in july, pain pump REMOVAL 01/31 - Social History Smoking Status: Former smoker How long have you smoked: 28 YEARS Exposure to second hand smoke: No Drug Use: none Patient Lives Alone: Yes Significant Family History: no pertinent family hx - Nursing Vital Signs Nursing Vital Signs: Initial Vital Signs Pulse Rate 121 H 08/31/22 08:30 Respiratory Rate 23 08/31/22 08:30 Blood Pressure 130/99 08/31/22 08:30 O2 Sat by Pulse Oximetry 97 08/31/22 08:30 Pain Scale Pain Intensity 2 - Physical Exam General Appearance: no apparent distress, alert Eye Exam: PERRL/EOMI, eyes nml inspection Ears, Nose, Throat Exam: normal ENT inspection, pharynx normal, moist mucous membranes Neck Exam: normal inspection, non-tender, supple, full range of motion Respiratory Exam: normal breath sounds, lungs clear, airway intact, No respiratory distress Cardiovascular Exam: regular rate/rhythm, normal heart sounds, normal peripheral pulses Gastrointestinal/Abdomen Exam: soft, tenderness, other (Epigastric tenderness to palpation), No mass Back Exam: normal inspection, normal range of motion, No CVA tenderness, No ve rtebral tenderness Extremity Exam: normal inspection, normal range of motion, pelvis stable Neurologic Exam: alert, oriented x 3, cooperative, normal mood/affect, nml cerebellar function, sensation nml, No motor deficits Skin Exam: normal color, warm, dry Lymphatic Exam: No adenopathy SpO2 Interpretation: normal SpO2: 95 O2 Delivery: Room Air - Course Nursing assessment & vital signs reviewed: Yes - CT Exams Abdomen/Pelvis CT Interpretation: Tele-radiologist Report (CT abdomen pelvis with contrast reveals scattered colonic fecal debris, nephrolithiasis, appendix not visualized, small pneumobilia, history of cholecystectomy, left T10 neurofibroma/myeloma.) Ordered Tests: Active Orders 24 hr Category Date Time Status AMA [Release AMA] OM.NOW Care 08/31/22 10:25 Active IV Insertion STAT Care 08/31/22 08:36 Active ABDOMEN AND PELVIS W CONTRAST [CT] Stat Exams 08/31/22 08:37 Completed CBC W DIFF Stat Lab 08/31/22 08:56 Completed CMP Stat Lab 08/31/22 08:56 Completed HCG QUALITATIVE, URINE Stat Lab 08/31/22 08:47 Completed LIPASE Stat Lab 08/31/22 08:56 Completed TROPONIN Q4H Lab 08/31/22 08:56 Completed TROPONIN Q4H Lab 08/31/22 12:45 Ordered TROPONIN Q4H Lab 08/31/22 16:45 Ordered UA W/RFX UR CULTURE Stat Lab 08/31/22 08:41 Completed Medication Summary Generic Name Dose Route Start Last Admin Trade Name Freq PRN Reason Stop Dose Admin Sodium Chloride 1,000 mls @ 100 mls/hr 08/31/22 08:45 08/31/22 10:25 Sodium Chloride 0.9% 1000 Ml IV 09/30/22 08:44 999 mls/hr .Q10H NEYMAR Infusion Discontinued Medications Generic Name Dose Route Start Last Admin Trade Name Freq PRN Reason Stop Dose Admin Hydromorphone HCl 0.5 mg 08/31/22 08:40 08/31/22 09:04 Hydromorphone 1 Mg/1ml Inj IV 08/31/22 08:41 0.5 mg STAT ONE Administration Hydromorphone HCl Confirm 08/31/22 08:56 Hydromorphone 1 Mg/1ml Inj Administered 08/31/22 08:57 Dose 1 mg .ROUTE .STK-MED ONE Hydromorphone HCl 1 mg 08/31/22 09:59 08/31/22 10:06 Hydromorphone 1 Mg/1ml Inj IV 08/31/22 10:00 1 mg STAT ONE Administration Hydromorphone HCl Confirm 08/31/22 10:06 Hydromorphone 1 Mg/1ml Inj Administered 08/31/22 10:07 Dose 1 mg .ROUTE .STK-MED ONE Ondansetron HCl Confirm 08/31/22 08:56 Ondansetron Hcl 4 Mg/2 Ml Vial Administered 08/31/22 08:57 Dose 4 mg .ROUTE .STK-MED ONE Ondansetron HCl 4 mg 08/31/22 09:03 08/31/22 09:03 Ondansetron Hcl 4 Mg/2 Ml Vial IV 08/31/22 09:04 4 mg STAT ONE Administration Lab/Rad Data: Laboratory Result Diagrams 08/31/22 08:56 08/31/22 08:56 Laboratory Results 08/31/22 08/31/22 08/31/22 Range/Units 08:56 08:56 08:56 WBC 8.2 (4.0-10.5) x10^3/uL RBC 4.16 (4.1-5.4) x10^6/uL Hgb 12.9 (12.0-16.0) g/dL Hct 37.4 (35-47) % MCV 89.9 (78-100) fL MCH 31.0 (26-32) pg MCHC 34.5 (32-36) g/dL RDW 11.9 (11.5-14.0) % Plt Count 283 (150-450) x10^3/uL MPV 9.9 (7.5-11.0) fL Gran % 34.8 L (36.0-66.0) % Immature Gran % (Auto) 0.5 H (0.00-0.4) % Nucleat RBC Rel Count 0.0 (0.00-0.1) % Eos # (Auto) 0.11 (0-0.5) x10^3/uL Immature Gran # (Auto) 0.04 H (0.00-0.03) x10^3u/L Absolute Lymphs (auto) 4.20 (1.0-4.6) x10^3/uL Absolute Monos (auto) 0.94 (0.0-1.3) x10^3/uL Absolute Nucleated RBC 0.00 (0.00-0.01) x10^3u/L Lymphocytes % 51.3 H (24.0-44.0) % Monocytes % 11.5 (0.0-12.0) % Eosinophils % 1.3 (0.00-5.0) % Basophils % 0.6 (0.0-0.4) % Absolute Granulocytes 2.85 (1.4-6.9) x10^3/uL Basophils # 0.05 (0-0.4) x10^3/uL Sodium 139 (137-145) mmol/L Potassium 3.6 (3.5-5.1) mmol/L Chloride 104 (98-107) mmol/L Carbon Dioxide 20 L (22-30) mmol/L Anion Gap 18.4 H (5-15) MEQ/L BUN 12 (7-17) mg/dL Creatinine 0.81 (0.52-1.04) mg/dL Estimated GFR > 60.0 ML/MIN Glucose 102 (74-106) mg/dL Calcium 8.9 (8.4-10.2) mg/dL Total Bilirubin 0.40 (0.2-1.3) mg/dL AST 79 H (14-36) U/L ALT 88 H (0-35) U/L Alkaline Phosphatase 60 (38-126) U/L Troponin I < 0.012 (0.000-0.034) ng/mL Serum Total Protein 8.1 (6.3-8.2) g/dL Albumin 4.6 (3.5-5.0) g/dL Lipase 185 (23-300) U/L Urine Color (Yellow) Urine Appearance (Clear) Urine pH (4.6-8.0) Ur Specific [place] (1.005-1.030) Urine Protein (Negative) Urine Glucose (UA) (Negative) mg/dL Urine Ketones (Negative) Urine Blood (Negative) Urine Nitrite (Negative) Urine Bilirubin (Negative) Urine Urobilinogen (0.2) mg/dL Ur Leukocyte Esterase (Negative) U Hyaline Cast (Auto) (0-2) /LPF Urine Microscopic RBC (0-5) /HPF Urine Microscopic WBC (0-5) /HPF Ur Epithelial Cells (None Seen) /HPF Urine Bacteria (None Seen) /HPF Urine Culture Reflexed (NO) Urine HCG, Qual (NEGATIVE) 08/31/22 08/31/22 Range/Units 08:47 08:41 WBC (4.0-10.5) x10^3/uL RBC (4.1-5.4) x10^6/uL Hgb (12.0-16.0) g/dL Hct (35-47) % MCV (78-100) fL MCH (26-32) pg MCHC (32-36) g/dL RDW (11.5-14.0) % Plt Count (150-450) x10^3/uL MPV (7.5-11.0) fL Gran % (36.0-66.0) % Immature Gran % (Auto) (0.00-0.4) % Nucleat RBC Rel Count (0.00-0.1) % Eos # (Auto) (0-0.5) x10^3/uL Immature Gran # (Auto) (0.00-0.03) x10^3u/L Absolute Lymphs (auto) (1.0-4.6) x10^3/uL Absolute Monos (auto) (0.0-1.3) x10^3/uL Absolute Nucleated RBC (0.00-0.01) x10^3u/L Lymphocytes % (24.0-44.0) % Monocytes % (0.0-12.0) % Eosinophils % (0.00-5.0) % Basophils % (0.0-0.4) % Absolute Granulocytes (1.4-6.9) x10^3/uL Basophils # (0-0.4) x10^3/uL Sodium (137-145) mmol/L Potassium (3.5-5.1) mmol/L Chloride (98-107) mmol/L Carbon Dioxide (22-30) mmol/L Anion Gap (5-15) MEQ/L BUN (7-17) mg/dL Creatinine (0.52-1.04) mg/dL Estimated GFR ML/MIN Glucose (74-106) mg/dL Calcium (8.4-10.2) mg/dL Total Bilirubin (0.2-1.3) mg/dL AST (14-36) U/L ALT (0-35) U/L Alkaline Phosphatase (38-126) U/L Troponin I (0.000-0.034) ng/mL Serum Total Protein (6.3-8.2) g/dL Albumin (3.5-5.0) g/dL Lipase (23-300) U/L Urine Color Yellow (Yellow) Urine Appearance Clear (Clear) Urine pH 5.5 (4.6-8.0) Ur Specific [place] >=1.030 A (1.005-1.030) Urine Protein Negative (Negative) Urine Glucose (UA) Negative (Negative) mg/dL Urine Ketones Negative (Negative) Urine Blood Negative (Negative) Urine Nitrite Negative (Negative) Urine Bilirubin Negative (Negative) Urine Urobilinogen 0.2 (0.2) mg/dL Ur Leukocyte Esterase Negative (Negative) U Hyaline Cast (Auto) NONE SEEN (0-2) /LPF Urine Microscopic RBC 0-2 (0-5) /HPF Urine Microscopic WBC 0-2 (0-5) /HPF Ur Epithelial Cells None Seen (None Seen) /HPF Urine Bacteria None Seen (None Seen) /HPF Urine Culture Reflexed NO (NO) Urine HCG, Qual NEGATIVE (NEGATIVE) - Progress Progress: improved Progress Note: Case discussed with Dr. Henning of general surgery at 10:15 AM. He advised that there are no surgical issues with the patient will have to follow-up with GI. In light of patient's significant pain requiring Dilaudid for pain control we advised transfer to facility with GI. Patient declined. Patient states her pain is improved with Dilaudid and states she would rather go home and follow-up with a GI doctor as an outpatient. In light of recommendations to see a GI d octor urgently in light of the transaminitis and new finding of pneumobilia and no recent procedures to explain the pneumobilia patient will be discharged AMA. Patient is of sound mind. Patient is appropriate to make informed and independent medical decisions. Patient understands that leaving AGAINST MEDICAL ADVICE can result in delayed diagnosis, increased risk of morbidity, mortality, short and long-term disability including . In spite of these risks, patient has decided to leave AGAINST MEDICAL ADVICE. Patient understands that she may return to our ED at any point if she reconsiders. Patient agrees to follow-up with her primary care doctor within 48 hours for reevaluation. P carole voices no other complaints or concerns at this time. We will release patient AGAINST MEDICAL ADVICE per their request. Patient a 36-year-old female presents to our ED for evaluation of right upper quadrant and epigastric pain. Work-up revealed a pneumobilia and a transaminitis. General surgery advises urgent follow-up with GI. We plan on transferring patient based on surgery's recommendation however patient declined. AMA completed. Patient states pain is improved but not resolved completely with Dilaudid. Complexity of problem addressed is moderate, acute complicated with systemic manifestations. Complex of data reviewed and analyzed is extensive. Dr. Suazo independently reviewed and analyzed laboratory work-up. CT abdomen pelvis results reviewed and correlated clinically. Plan of care/patient management discussed with on- call general surgeon. Risk of morbidity/mortality patient management is high. Patient received IV controlled medications for pain control. Patient requires hospitalization and transfer however patient declined. Patient will leave AGAINST MEDICAL ADVICE Patient requested Phenergan for nausea. Portions of this note were created with voice recognition technology. There may be grammatical, spelling, punctuation or sound alike errors 08/31/22 10:19 Patient requesting Phenergan for home. She has had Phenergan in the past for nausea without any adverse reactions. Prescription for Phenergan forwarded to patient's pharmacy. Portions of this note were created with voice recognition technology. There may be grammatical, spelling, punctuation or sound alike errors 08/31/22 10:30 Counseled pt/family regarding: lab results, diagnosis, need for follow-up, rad results - Departure Departure Disposition: Home Clinical Impression: Right upper quadrant pain, Epigastric pain, Pneumobilia, Transaminitis Condition: Stable Critical Care Time: No Referrals: CASSI,RAKESH F [Primary Care Provider] - Follow up/PCP as directed Additional Instructions: Discharge/Care Plan BETY GRIMES was seen on 08/31/22 in the Emergency Room. The patient was counseled regarding Diagnosis,Lab results, Imaging studies, need for follow up and when to return to the Emergency Room. Prescriptions given: Discharge Note I have spoken with the patient and/or caregivers. I have explained the patient's condition, diagnosis and treatment plan based on the information available to me at this time. I have answered the patient's and/or caregiver's questions and addressed any concerns. The patient and/or caregivers have as good understanding of the patient's diagnosis, condition and treatment plan as can be expected at this point. The vital signs have been stable. The patient's condition is stable and appropriate for discharge from the emergency department. The patient will pursue further outpatient evaluation with the primary care ph ysician or other designated or consulting physician as outlined in the discharge instructions. The patient and/or caregivers are agreeable to this plan of care and follow-up instructions have been explained in detail. The patient and/or caregivers have received these instruction. The patient/and or caregivers are aware that any significant change in condition or worsening of symptoms should prompt an immediate return to this or the closest emergency department or call 911. Prescriptions: Promethazine HCl 25 mg [Phenergan 25 mg] 25 mg PO Q8H PRN PRN 3 Days #9 tablet PRN Reason: Nausea/Vomiting
[2022-08-31 08:41] VITALS: O2SAT 95
[2022-08-31] MEDS ORDERED: Sodium Chloride 0.9% 1000 ML 1,000 ML IV SCH (08:45)
[2022-08-31 08:52] LABS: HCG URINE TEST NEGATIVE (NEGATIVE)
[2022-08-31 08:56] LABS: Appearance Clear (Clear); Bacteria None Seen /HPF (None Seen); Bilirubin Negative (Negative); Blood Negative (Negative); Epithelial Cells None Seen /HPF (None Seen); Glucose, Urine Negative (Negative); Hyaline Casts NONE SEEN /LPF (0-2); Ketones Negative (Negative); Leukocyte Esterase Negative (Negative); Nitrite Negative (Negative); Ph 5.5 (4.6-8.0); Protein,Urine Dip Negative (Negative); RBC 0-2 /HPF (0-5); Specific Gravity >=1.030 (1.005-1.030); Urobilinogen 0.2 mg/dL (0.2); WBC 0-2 /HPF (0-5)
[2022-08-31] MEDS ORDERED: Zofran 4 MG/2 ML VIAL ONE (08:56)
[2022-08-31] MEDS ORDERED: Sodium Chloride 0.9% 1000 ML 1,000 ML ONE (08:56)
[2022-08-31] MEDS ORDERED: Hydromorphone 1 mg/ml Injection ONE ×2 (08:56→10:06)
[2022-08-31 08:59] LABS: Absolute Neutrophil Ct (ANC) 2.85 x10^3/uL (1.4-6.9); BASOPHIL % 0.6 % (0.0-0.4); Basophil (Absolute #) 0.05 x10^3/uL (0-0.4); Eosinophil % 1.3 % (0.00-5.0); Eosinophil (Absolute #) 0.11 x10^3/uL (0-0.5); Hematocrit 37.4 % (35-47); Hemoglobin 12.9 g/dL (12.0-16.0); IMMATURE GRAN # 0.04 x10^3u/L (0.00-0.03); IMMATURE GRAN % 0.5 % (0.00-0.4); Lymphocytes % 51.3 % (24.0-44.0); Mean Cell Volume 89.9 fL (78-100); Mean Corpuscular Hgb Concent. 34.5 g/dL (32-36); Mean Platelet Volume 9.9 fL (7.5-11.0); Monocyte (Absolute #) 0.94 x10^3/uL (0.0-1.3); Monocytes % 11.5 % (0.0-12.0); Neutrophil % 34.8 % (36.0-66.0); Platelet Count 283 x10^3/uL (150-450); Red Blood Count 4.16 x10^6/uL (4.1-5.4); Red Cell Distribution Width 11.9 % (11.5-14.0); White Blood Count 8.2 x10^3/uL (4.0-10.5)
[2022-08-31] MEDS ORDERED: Zofran 4 MG/2 ML VIAL IV ONE (09:03)
[2022-08-31 09:26] LABS: ALBUMIN 4.6 g/dL (3.5-5.0); ALKALINE PHOSPHATASE 60 U/L (38-126); ANION GAP 18.4 MEQ/L (5-15); BLOOD UREA NITROGEN 12 mg/dL (7-17); CHLORIDE 104 mmol/L (98-107); Calcium 8.9 mg/dL (8.4-10.2); Carbon Dioxide 20 mmol/L (22-30); Creatinine 1 0.81 mg/dL (0.52-1.04); EST GLOMERULAR FILTRATION RATE > 60.0 ML/MIN; Glucose 102 mg/dL (74-106); LIPASE 185 U/L (23-300); Potassium 3.6 mmol/L (3.5-5.1); SGOT/AST 79 U/L (14-36); SGPT/ALT 88 U/L (0-35); SODIUM 139 mmol/L (137-145); Total Protein 8.1 g/dL (6.3-8.2)
--- NOTE | 2022-08-31 09:28 | XRAY ---
Indication: Pain and nausea. History pancreatitis. Multiple contiguous axial images obtained through the abdomen and pelvis using 80 cc Isovue 370 contrast. Comparison: July 07, 2022 Lung bases again clear. Heart not enlarged. Stomach is moderately distended with food/fluid. Noncontrasted stomach and bowel loops nonobstructed. Appendix not visualized. There is now mild diffuse scattered colonic fecal debris greatest in right hemicolon. Stable nonobstructing right renal micro-calculus. Again cholecystectomy with minimal pneumobilia. No free fluid/air. Remaining liver, pancreas, spleen, adrenal glands, kidneys, ureters, bladder, uterus, and aorta are unremarkable. No pathologic retroperitoneal lymphadenopathy. Osseous structures intact with stable left T10 neurofibroma/schwannoma and remnant epidural stimulator lead. Impression: 1. New mild diffuse fecal stasis. 2. Again chronic findings including nonobstructing right renal micro-calculus and left T10 neurofibroma/schwannoma. 3. Remaining CT abdomen/pelvis with contrast exam continues to be negative.
[2022-08-31 09:42] LABS: ADD URINE CULTURE? NO (NO)
[2022-08-31 10:25] VITALS: BP 131/92; PULSE 97
== END 2022-08-31 10:39 | disposition left against medical advice (07) ==
LOC: ED 08:12
DX: R10.11 Right upper quadrant pain (principal); R10.13 Epigastric pain; R74.01 Elevation of levels of liver transaminase levels; K83.8 Other specified diseases of biliary tract; Z28.310 Unvaccinated for COVID-19
CPT/HCPCS: 36000; 36415; 74177; 80053; 81001; 81025; 83690; 84484; 85025; 96374; 96375; 96376; 99284; J1170; J2405

== ENCOUNTER 2022-10-13 13:48 | Day surgery (SDC) | payer OTHER ==
[2012-11-20 20:56] VITALS: BP 115/78
[2022-10-13] MEDS ORDERED: Depo-Medrol 40 MG/ML IM ONE (13:49)
[2022-10-13] MEDS ORDERED: LIDOCAINE HCL 1% 50 MG/5 ML VL PF IJ ONE (13:49)
[2022-10-13 14:54] LABS: HCG URINE TEST NEGATIVE (NEGATIVE)
[2022-10-13] MEDS ORDERED: DIPRIVAN 200 MG/20 ML IV ONE (15:51)
[2022-10-13] MEDS ORDERED: Hydromorphone 1 mg/ml Injection ONE (16:08)
[2022-10-13] MEDS ORDERED: Zofran 4 MG/2 ML VIAL ONE (16:08)
--- NOTE | 2022-10-13 16:47 | XRAY ---
Indication: Right hip injection. Intraoperative fluoroscopy provided for 11 seconds. Single digital spot images submitted for interpretation demonstrates needle tip projecting lateral to right femur neck. Small amount of contrast injected for needle tip placement. Correlate with intraoperative findings/report.
[2022-10-13] MEDS ORDERED: Lactated Ringers 1,000 ML IV ONE (16:53)
--- NOTE | 2022-10-13 20:14 | XRAY ---
11 seconds of fluoroscopy was used in surgery for a right intra-articular hip injection.
== END 2022-10-13 16:33 | disposition home or self-care (01) ==
LOC: SDC-PAIN 13:48
PROVIDERS: ATTEND Psychiatry & Neurology Pain Medicine
DX: M16.11 Unilateral primary osteoarthritis, right hip (principal); Z79.899 Other long term (current) drug therapy
CPT/HCPCS: 20610; 73501; 77002; 81025; J1030; J1170; J2001; J2405; J2704; Q9966

== ENCOUNTER 2022-11-17 14:03 | Day surgery (SDC) | payer OTHER ==
[2012-11-20 20:56] VITALS: BP 115/78
[2022-11-17] MEDS ORDERED: Depo-Medrol 40 MG/ML IM ONE (14:04)
[2022-11-17] MEDS ORDERED: BUPIVACAINE 0.5% VIAL IJ ONE (14:04)
[2022-11-17 14:52] LABS: HCG URINE TEST NEGATIVE (NEGATIVE)
[2022-11-17] MEDS ORDERED: DIPRIVAN 200 MG/20 ML IV ONE (16:05)
[2022-11-17] MEDS ORDERED: Versed 2 MG/2 ML Injection ONE (16:06)
[2022-11-17] MEDS ORDERED: Hydromorphone 1 mg/ml Injection ONE (16:24)
[2022-11-17] MEDS ORDERED: Zofran 4 MG/2 ML VIAL ONE (16:33)
--- NOTE | 2022-11-17 16:44 | XRAY ---
Indication: Left hip injection. Intraoperative fluoroscopy provided for 12 seconds. Single digital spot image submitted for interpretation demonstrates needle tip projecting lateral to left femur neck. Small amount of contrast injected for needle tip placement. Correlate with intraoperative findings/report.
--- NOTE | 2022-11-17 16:47 | XRAY ---
12 seconds of fluoroscopy was used in surgery for a left intra-articular hip injection.
[2022-11-17] MEDS ORDERED: Lactated Ringers 1,000 ML IV ONE (17:24)
== END 2022-11-17 16:50 | disposition home or self-care (01) ==
LOC: SDC-PAIN 14:03
PROVIDERS: ATTEND Psychiatry & Neurology Pain Medicine
DX: M16.12 Unilateral primary osteoarthritis, left hip (principal); Z79.899 Other long term (current) drug therapy
CPT/HCPCS: 20610; 73501; 77002; 81025; J1030; J1170; J2250; J2405; J2704; Q9966

== ENCOUNTER 2022-12-20 19:03 | Emergency (ER) | payer OTHER ==
--- NOTE | 2022-12-20 19:17 | ERPHSYRPT ---
- History of Present Illness Time Seen by Provider: 12/20/22 19:17 Historian: patient, family Exam Limitations: no limitations Physician History: This is a 37-year-old white female patient who has a history of recurrent pancreatitis and chronic abdominal pain. Patient does see Dr. Arias and other providers in the pain clinic. Her primary care provider is Dr. James. Patient has a history of migraine headaches. Patient has had a cholecystectomy past and has had many ERCPs performed. The most recent was documented as July 2022. She presents with similar, intense periumbilical abdominal pain that radiates into her back. The pain was so severe today that it dropped her to her knees. Her pain syndrome starts first with nausea then converts into pain. She does have a tattoo technician specialist that she sees. Timing/Duration: day(s) (2), worse Quality: stabbing Abdominal Pain Onset Location: epigastric Pain Radiation: back Severity of Pain-Max: moderate Severity of Pain-Current: moderate Modifying Factors: Improves With: nothing Associated Symptoms: denies symptoms Previous symptoms: same symptoms as today, no recent treatment Allergies/Adverse Reactions: codeine [Codeine] Allergy (Verified 12/20/22 19:18) Hives HIVES droperidol [Droperidol] Allergy (Verified 12/20/22 19:18) Hives HIVES duloxetine HCl [From Cymbalta] Allergy (Verified 12/20/22 19:18) SEIZURE SEIZURE ibuprofen Allergy (Verified 12/20/22 19:18) Hives HIVES ketorolac tromethamine [From Toradol] Allergy (Verified 12/20/22 19:18) Hives HIVES naproxen sodium [From Aleve] Allergy (Verified 12/20/22 19:18) Hives HIVES prochlorperazine edisylate [From Compazine] Allergy (Verified 12/20/22 19:18) LOCK JAW LOCK JAW prochlorperazine maleate [From Compazine] Allergy (Verified 12/20/22 19:18) LOCK JAW LOCK JAW morphine Adverse Reaction (Verified 12/20/22 19:18) Itching ITCH trazodone Adverse Reaction (Verified 12/20/22 19:18) Vomiting VOMITING Home Medications: Medroxyprogesterone Acetate [Depo-Subq Provera 104] 150 mg IM CLARIFY 04/20/22 [History] Oxycodone HCl/Acetaminophen [Oxycodone-Acetaminophen 5-325] 1 each PO BID 12/20/22 [History] Hx Tetanus, Diphtheria Vaccination/Date Given: Yes Hx Influenza Vaccination/Date Given: No Hx Pneumococcal Vaccination/Date Given: No Travel Risk - International Travel Have you traveled outside of the country in past 3 weeks: No - Coronavirus Screening Are you exhibiting any of the following symptoms?: No Close contact with a COVID-19 positive Pt in past 14-21 Days: No - Vaccine Status Have you recieved a Covid-19 vaccination: No - Review of Systems Constitutional: No Symptoms Eyes: No Symptoms Ears, Nose, & Throat: No Symptoms Respiratory: No Symptoms Cardiac: No Symptoms Abdominal/Gastrointestinal: Abdominal Pain, Nausea, Vomiting, Appetite Changes, No Diarrhea, No Constipation Genitourinary Symptoms: No Symptoms Musculoskeletal: No Symptoms Skin: No Symptoms Neurological: No Symptoms Psychological: No Symptoms Endocrine: No Symptoms Hematologic/Lymphatic: No Symptoms Immunological/Allergic: No Symptoms All Other Systems: Reviewed and Negative - Past Medical History Pertinent Past Medical History: Yes Neurological History: Migraines ENT History: No Pertinent History Cardiac History: No Pertinent History Respiratory History: No Pertinent History Endocrine Medical History: Other Musculoskeletal History: Arthritis, Fractures GI Medical History: Pancreatitis History: No Pertinent History Psycho-Social History: No Pertinent History Female Reproductive Disorders: No Pertinent History Other Medical History: Pancreatitis, skull fracture 2008 - Past Surgical History Past Surgical History: Yes Neuro Surgical History: No Pertinent History Cardiac: No Pertinent History Respiratory: No Pertinent History Gastrointestinal: Cholecystectomy Genitourinary: Other Musculoskeletal: No Pertinent History Female Surgical History: No Pertinent History Other Surgical History: Pain pump. ERCPs-multiple last in july, pain pump REMOVAL 01/31 - Social History Smoking Status: Former smoker How long have you smoked: 28 YEARS Exposure to second hand smoke: No Drug Use: none Patient Lives Alone: Yes Significant Family History: no pertinent family hx - Nursing Vital Signs Nursing Vital Signs: Initial Vital Signs Temperature 98.9 F 12/20/22 19:16 Pulse Rate 97 H 12/20/22 19:16 Respiratory Rate 18 12/20/22 19:16 Blood Pressure 144/109 12/20/22 19:16 O2 Sat by Pulse Oximetry 97 12/20/22 19:16 Pain Scale Pain Intensity 4 - Physical Exam General Appearance: no apparent distress, alert, anxiety Eye Exam: PERRL/EOMI, eyes nml inspection Ears, Nose, Throat Exam: normal ENT inspection, moist mucous membranes Neck Exam: normal inspection, non-tender, supple, full range of motion Respiratory Exam: normal breath sounds, lungs clear, airway intact, No chest tenderness, No respiratory distress Cardiovascular Exam: regular rate/rhythm, normal heart sounds, normal peripheral pulses Gastrointestinal/Abdomen Exam: soft, normal bowel sounds, tenderness (Periumbilical area), guarding (Periumbilical area to palpation), No rebound Pelvic Exam: not done Rectal Exam: not done Back Exam: normal inspection, normal range of motion, No CVA tenderness, No vertebral tenderness Extremity Exam: normal inspection, normal range of motion, pelvis stable Neurologic Exam: alert, oriented x 3, cooperative, increment manager II-XII nml as tested, normal mood/affect, nml cerebellar function, nml station & gait, sensation nml Skin Exam: normal color, warm, dry Lymphatic Exam: No adenopathy SpO2 Interpretation: normal O2 Delivery: Room Air - Course Nursing assessment & vital signs reviewed: Yes Ordered Tests: Active Orders 24 hr Category Date Time Status IV Insertion STAT Care 12/20/22 19:31 Active ABDOMEN AND PELVIS W/0 CONTRAS [CT] Stat Exams 12/20/22 19:32 Taken AMYLASE Stat Lab 12/20/22 19:00 Completed CBC W DIFF Stat Lab 12/20/22 19:00 Completed CMP Stat Lab 12/20/22 19:00 Completed HCG QUALITATIVE, SERUM Stat Lab 12/20/22 19:00 Completed LIPASE Stat Lab 12/20/22 19:00 Completed Lactic Acid Stat Lab 12/20/22 19:53 Completed UA W/RFX UR CULTURE Stat Lab 12/20/22 19:30 Completed Medication Summary Discontinued Medications Generic Name Dose Route Start Last Admin Trade Name Freq PRN Reason Stop Dose Admin Hydromorphone HCl 1 mg 12/20/22 19:31 12/20/22 20:01 Hydromorphone 1 Mg/1ml Inj IV 12/20/22 19:32 1 mg STAT ONE Administration Hydromorphone HCl Confirm 12/20/22 19:58 Hydromorphone 1 Mg/1ml Inj Administered 12/20/22 19:59 Dose 1 mg .ROUTE .STK-MED ONE Sodium Chloride 1,000 mls @ 999 mls/hr 12/20/22 19:31 12/20/22 20:00 Sodium Chloride 0.9% 1000 Ml IV 12/20/22 20:31 999 mls/hr .Q1H1M STA Administration Sodium Chloride Confirm 12/20/22 19:58 Sodium Chloride 0.9% 1000 Ml Administered 12/20/22 19:59 Dose 1,000 mls @ ud .ROUTE .STK-MED ONE Ondansetron HCl 4 mg 12/20/22 19:31 12/20/22 20:00 Ondansetron Hcl 4 Mg/2 Ml Vial IV 12/20/22 19:32 4 mg STAT ONE Administration Ondansetron HCl Confirm 12/20/22 19:58 Ondansetron Hcl 4 Mg/2 Ml Vial Administered 12/20/22 19:59 Dose 4 mg .ROUTE .STK-[facility] ONE Lab/Rad Data: Laboratory Result Diagrams 12/20/22 19:00 12/20/22 19:00 Laboratory Results 12/20/22 12/20/22 12/20/22 Range/Units 19:53 19:30 19:00 WBC (4.0-10.5) x10^3/uL RBC (4.1-5.4) x10^6/uL Hgb (12.0-16.0) g/dL Hct (35-47) % MCV (78-100) fL MCH (26-32) pg MCHC (32-36) g/dL RDW (11.5-14.0) % Plt Count (150-450) x10^3/uL MPV (7.5-11.0) fL Gran % (36.0-66.0) % Immature Gran % (Auto) (0.00-0.4) % Nucleat RBC Rel Count (0.00-0.1) % Eos # (Auto) (0-0.5) x10^3/uL Immature Gran # (Auto) (0.00-0.03) x10^3u/L Absolute Lymphs (auto) (1.0-4.6) x10^3/uL Absolute Monos (auto) (0.0-1.3) x10^3/uL Absolute Nucleated RBC (0.00-0.01) x10^3u/L Lymphocytes % (24.0-44.0) % Monocytes % (0.0-12.0) % Eosinophils % (0.00-5.0) % Basophils % (0.0-0.4) % Absolute Granulocytes (1.4-6.9) x10^3/uL Basophils # (0-0.4) x10^3/uL Sodium (137-145) mmol/L Potassium (3.5-5.1) mmol/L Chloride (98-107) mmol/L Carbon Dioxide (22-30) mmol/L Anion Gap (5-15) MEQ/L BUN (7-17) mg/dL Creatinine (0.52-1.04) mg/dL Estimated GFR ML/MIN Glucose (74-106) mg/dL Lactic Acid 1.3 (0.4-2.0) Calcium (8.4-10.2) mg/dL Total Bilirubin (0.2-1.3) mg/dL AST (14-36) U/L ALT (0-35) U/L Alkaline Phosphatase (38-126) U/L Serum Total Protein (6.3-8.2) g/dL Albumin (3.5-5.0) g/dL Amylase (30-110) U/L Lipase (23-300) U/L Serum HCG, Qual NEGATIVE (NEGATIVE) Urine Color Yellow (Yellow) Urine Appearance Clear (Clear) Urine pH 5.5 (4.6-8.0) Ur Specific [place] 1.025 (1.005-1.030) Urine Protein Negative (Negative) Urine Glucose (UA) Negative (Negative) mg/dL Urine Ketones Negative (Negative) Urine Blood Trace (Negative) Urine Nitrite Negative (Negative) Urine Bilirubin Negative (Negative) Urine Urobilinogen 0.2 (0.2) mg/dL Ur Leukocyte Esterase Negative (Negative) U Hyaline Cast (Auto) NONE SEEN (0-2) /LPF Urine Microscopic RBC 3-5 (0-5) /HPF Urine Microscopic WBC 0-2 (0-5) /HPF Ur Epithelial Cells None Seen (None Seen) /HPF Urine Bacteria None Seen (None Seen) /HPF Urine Culture Reflexed NO (NO) 12/20/22 12/20/22 Range/Units 19:00 19:00 WBC 10.2 (4.0-10.5) x10^3/uL RBC 4.59 (4.1-5.4) x10^6/uL Hgb 14.3 (12.0-16.0) g/dL Hct 41.7 (35-47) % MCV 90.8 (78-100) fL MCH 31.2 (26-32) pg MCHC 34.3 (32-36) g/dL RDW 12.1 (11.5-14.0) % Plt Count 286 (150-450) x10^3/uL MPV 11.4 H (7.5-11.0) fL Gran % 59.7 (36.0-66.0) % Immature Gran % (Auto) 0.6 H (0.00-0.4) % Nucleat RBC Rel Count 0.0 (0.00-0.1) % Eos # (Auto) 0.19 (0-0.5) x10^3/uL Immature Gran # (Auto) 0.06 H (0.00-0.03) x10^3u/L Absolute Lymphs (auto) 3.12 (1.0-4.6) x10^3/uL Absolute Monos (auto) 0.70 (0.0-1.3) x10^3/uL Absolute Nucleated RBC 0.00 (0.00-0.01) x10^3u/L Lymphocytes % 30.5 (24.0-44.0) % Monocytes % 6.8 (0.0-12.0) % Eosinophils % 1.9 (0.00-5.0) % Basophils % 0.5 (0.0-0.4) % Absolute Granulocytes 6.12 (1.4-6.9) x10^3/uL Basophils # 0.05 (0-0.4) x10^3/uL Sodium 142 (137-145) mmol/L Potassium 3.4 L (3.5-5.1) mmol/L Chloride 108 H (98-107) mmol/L Carbon Dioxide 20 L (22-30) mmol/L Anion Gap 18.4 H (5-15) MEQ/L BUN 14 (7-17) mg/dL Creatinine 0.66 (0.52-1.04) mg/dL Estimated GFR > 60.0 ML/MIN Glucose 104 (74-106) mg/dL Lactic Acid (0.4-2.0) Calcium 9.2 (8.4-10.2) mg/dL Total Bilirubin 0.30 (0.2-1.3) mg/dL AST 31 (14-36) U/L ALT 64 H (0-35) U/L Alkaline Phosphatase 70 (38-126) U/L Serum Total Protein 7.8 (6.3-8.2) g/dL Albumin 4.8 (3.5-5.0) g/dL Amylase 97 (30-110) U/L Lipase 331 H (23-300) U/L Serum HCG, Qual (NEGATIVE) Urine Color (Yellow) Urine Appearance (Clear) Urine pH (4.6-8.0) Ur Specific [place] (1.005-1.030) Urine Protein (Negative) Urine Glucose (UA) (Negative) mg/dL Urine Ketones (Negative) Urine Blood (Negative) Urine Nitrite (Negative) Urine Bilirubin (Negative) Urine Urobilinogen (0.2) mg/dL Ur Leukocyte Esterase (Negative) U Hyaline Cast (Auto) (0-2) /LPF Urine Microscopic RBC (0-5) /HPF Urine Microscopic WBC (0-5) /HPF Ur Epithelial Cells (None Seen) /HPF Urine Bacteria (None Seen) /HPF Urine Culture Reflexed (NO) - Progress Progress: improved, pain not gone completely Progress Note: 12/20/22 19:58 This patient's medical issue is 1 of moderate complexity. Level complex in the work-up performed is based on review of the patient's past medical history, re view of the patient's medication list, review the patient's drug allergy list, history of present illness and physical findings on examination. The patient work-up includes placement of intravenous line, infusion of 1 mg Dilaudid, infusion of 4 mg Zofran, infusion of 1 L normal saline solution, CBC, CMP, amylase, lipase, urinalysis and CT scan of abdomen pelvis without contrast. 12/20/22 20:42 The results were interpreted by me. Patient has a normal amylase level and just a slight elevated lipase level. There is no acute findings on the CT scan of the abdomen pelvis without contrast that was interpreted by the radiologist. There is no change on today's CT scan of the abdomen pelvis when compared to prior CAT scan. Counseled pt/family regarding: lab results, diagnosis, need for follow-up, rad results Medical Desision Making - Diagnostic Testing Diagnostic test were ordered, analyzed, and reviewed by me: Yes Radiological Interpretation: Reviewed by me, Teleradiologist Report - Risk of complications Minimal Risk: Minimal risk of morbidity - Departure Departure Disposition: Home Clinical Impression: Chronic abdominal pain, Chronic pancreatitis Condition: Stable Critical Care Time: No Referrals: RAKESH JAMES [Primary Care Provider] - Follow up/PCP as directed Additional Instructions: Drink plenty of fluids. Avoid fatty greasy spicy foods. Call your [place] stroenterologist tomorrow, 12/21/2022 to make arrange for further evaluation management. Call your primary care provider and your pain specialist for controlling your pain on an outpatient basis
[2022-12-20 19:18] VITALS: TEMP 98.9
[2022-12-20] MEDS ORDERED: Hydromorphone 1 mg/ml Injection IV ONE (19:31)
[2022-12-20] MEDS ORDERED: Zofran 4 MG/2 ML VIAL IV ONE (19:31)
[2022-12-20] MEDS ORDERED: Sodium Chloride 0.9% 1000 ML 1,000 ML IV STA (19:31)
[2022-12-20 19:42] LABS: Absolute Neutrophil Ct (ANC) 6.12 x10^3/uL (1.4-6.9); BASOPHIL % 0.5 % (0.0-0.4); Basophil (Absolute #) 0.05 x10^3/uL (0-0.4); Eosinophil % 1.9 % (0.00-5.0); Eosinophil (Absolute #) 0.19 x10^3/uL (0-0.5); Hematocrit 41.7 % (35-47); Hemoglobin 14.3 g/dL (12.0-16.0); IMMATURE GRAN # 0.06 x10^3u/L (0.00-0.03); IMMATURE GRAN % 0.6 % (0.00-0.4); Lymphocyte (Absolute #) 3.12 x10^3/uL (1.0-4.6); Lymphocytes % 30.5 % (24.0-44.0); Mean Cell Volume 90.8 fL (78-100); Mean Corpuscular Hemoglobin 31.2 pg (26-32); Mean Corpuscular Hgb Concent. 34.3 g/dL (32-36); Mean Platelet Volume 11.4 fL (7.5-11.0); Monocytes % 6.8 % (0.0-12.0); Neutrophil % 59.7 % (36.0-66.0); Platelet Count 286 x10^3/uL (150-450); Red Blood Count 4.59 x10^6/uL (4.1-5.4); Red Cell Distribution Width 12.1 % (11.5-14.0); White Blood Count 10.2 x10^3/uL (4.0-10.5)
[2022-12-20 19:45] LABS: Appearance Clear (Clear); Bacteria None Seen /HPF (None Seen); Bilirubin Negative (Negative); Blood Trace (Negative); Epithelial Cells None Seen /HPF (None Seen); Glucose, Urine Negative (Negative); Hyaline Casts NONE SEEN /LPF (0-2); Ketones Negative (Negative); Leukocyte Esterase Negative (Negative); Nitrite Negative (Negative); Ph 5.5 (4.6-8.0); Protein,Urine Dip Negative (Negative); Specific Gravity 1.025 (1.005-1.030); Urobilinogen 0.2 mg/dL (0.2); WBC 0-2 /HPF (0-5)
[2022-12-20 19:48] LABS: HCG SERUM TEST NEGATIVE (NEGATIVE)
[2022-12-20 19:49] LABS: ADD URINE CULTURE? NO (NO)
[2022-12-20 19:51] LABS: ALBUMIN 4.8 g/dL (3.5-5.0); ALKALINE PHOSPHATASE 70 U/L (38-126); AMYLASE 97 U/L (30-110); ANION GAP 18.4 MEQ/L (5-15); BLOOD UREA NITROGEN 14 mg/dL (7-17); CHLORIDE 108 mmol/L (98-107); Calcium 9.2 mg/dL (8.4-10.2); Carbon Dioxide 20 mmol/L (22-30); Creatinine 1 0.66 mg/dL (0.52-1.04); EST GLOMERULAR FILTRATION RATE > 60.0 ML/MIN; Glucose 104 mg/dL (74-106); LIPASE 331 U/L (23-300); Potassium 3.4 mmol/L (3.5-5.1); SGOT/AST 31 U/L (14-36); SGPT/ALT 64 U/L (0-35); SODIUM 142 mmol/L (137-145); Total Protein 7.8 g/dL (6.3-8.2)
[2022-12-20] MEDS ORDERED: Sodium Chloride 0.9% 1000 ML 1,000 ML ONE (19:58)
[2022-12-20] MEDS ORDERED: Hydromorphone 1 mg/ml Injection ONE (19:58)
[2022-12-20] MEDS ORDERED: Zofran 4 MG/2 ML VIAL ONE (19:58)
[2022-12-20 20:05] VITALS: BP 128/87; PULSE 93; RESP 16; O2SAT 95
--- NOTE | 2022-12-21 09:00 | XRAY ---
Indication: Abdomen pain. Multiple contiguous axial images obtained through the abdomen and pelvis without contrast. Comparison: August 31, 2022 Lung bases remain clear. Heart not enlarged. Noncontrasted stomach and bowel loops nonobstructed. Appendix not visualized. Stable nonobstructing right renal punctate calculus and cholecystectomy with minimal pneumobilia. No free fluid/air. Remaining liver, pancreas, spleen, adrenal glands, kidneys, ureters, bladder, uterus, and aorta are unremarkable for noncontrast exam. Osseous structures intact with stable left T10 neurofibroma/schwannoma and redundant epidural stimulator lead. Impression: 1. Again chronic findings including nonobstructing right renal micro-calculus and left T10 neurofibroma/schwannoma. 2. Remaining CT abdomen/pelvis without contrast exam continues to be negative.
== END 2022-12-20 21:00 | disposition home or self-care (01) ==
LOC: ED 19:03
DX: K86.1 Other chronic pancreatitis (principal); G89.29 Other chronic pain; R10.33 Periumbilical pain; Z79.891 Long term (current) use of opiate analgesic; Z79.899 Other long term (current) drug therapy; Z28.310 Unvaccinated for COVID-19
CPT/HCPCS: 36000; 36415; 74176; 80053; 81001; 82150; 83605; 83690; 84703; 85025; 96360; 96374; 96375; 99284; J1170; J2405

== ENCOUNTER 2022-12-29 13:30 | Day surgery (SDC) | payer OTHER ==
[2012-11-20 20:56] VITALS: BP 115/78
[2022-12-29] MEDS ORDERED: LIDOCAINE HCL 2% 100 MG/5 ML IJ ONE (13:31)
[2022-12-29 15:32] LABS: HCG URINE TEST NEGATIVE (NEGATIVE)
[2022-12-29] MEDS ORDERED: DIPRIVAN 200 MG/20 ML IV ONE ×2 (16:38→16:48)
[2022-12-29] MEDS ORDERED: Versed 2 MG/2 ML Injection ONE (16:41)
[2022-12-29] MEDS ORDERED: Hydromorphone 1 mg/ml Injection ONE (16:55)
[2022-12-29] MEDS ORDERED: Zofran 4 MG/2 ML VIAL ONE (17:05)
[2022-12-29] MEDS ORDERED: Lactated Ringers 1,000 ML IV ONE (17:34)
--- NOTE | 2022-12-29 20:41 | XRAY ---
Indication: Bilateral L4-S1 MBB. Intraoperative fluoroscopy provided for 13 seconds. Single digital spot image submitted for interpretation demonstrates posterior needle tips projecting over the expected left and right L4-S1 nerve roots. Correlate with intraoperative findings/report.
--- NOTE | 2022-12-30 08:45 | XRAY ---
13 seconds of fluoroscopy was used in surgery for a bilateral L4-S1 MBB.
== END 2022-12-29 17:21 | disposition home or self-care (01) ==
LOC: SDC-PAIN 13:30
PROVIDERS: ATTEND Psychiatry & Neurology Pain Medicine
DX: M47.816 Spondylosis without myelopathy or radiculopathy, lumbar region (principal); Z79.899 Other long term (current) drug therapy
CPT/HCPCS: 64493; 64494; 72020; 77002; 81025; J1170; J2250; J2405; J2704

== ENCOUNTER 2023-03-21 17:09 | Emergency (ER) | payer OTHER ==
[2023-03-21 17:18] VITALS: TEMP 98.1
[2023-03-21] MEDS ORDERED: Hydromorphone 1 mg/ml Injection IV ONE (17:28)
[2023-03-21] MEDS ORDERED: Pepcid 20 MG VIAL IV ONE ×2 (17:29→17:31)
[2023-03-21] MEDS ORDERED: Hydromorphone 1 mg/ml Injection ONE (17:31)
--- NOTE | 2023-03-21 17:54 | ERPHSYRPT ---
- History of Present Illness Source: patient, EMS Exam Limitations: no limitations Patient Subjective Stated Complaint: PT states "I was eating a new kind of meat stick and my throat and tongue started to feel weird and I started to talk odd and my tongue was swelling up." Triage Nursing Assessment: PT presented alert and oriented X 3, skin pwd. pt ambulates with an upright steady gait, able to speak in clear full sentences. pt speaking rapidly, unable to sit still. extremely anxious Timing/Duration: today Severity: moderate Modifying Factors: Improves With: eating Associated Symptoms: denies symptoms Hx Tetanus, Diphtheria Vaccination/Date Given: Yes Hx Influenza Vaccination/Date Given: No Hx Pneumococcal Vaccination/Date Given: No Immunizations Up to Date: Yes <SANDRO BURGESS - Last Filed: 03/21/23 18:25> <VANDANA SEQUEIRA - Last Filed: 03/21/23 19:19> - History of Present Illness Time Seen by Provider: 03/21/23 17:35 Physician History: Patient is a 37-year-old white female who was eating a meat stick of a new kind of meat she had not eaten. She began to notice swelling of the tongue difficulty speaking and breathing. No history of previous allergic reactions. EMS was called to the scene they administered Solu-Medrol Benadryl and epinephrine by the time she arrived in the ER she was starting to improve. (SANDRO BURGESS) Allergies/Adverse Reactions: codeine [Codeine] Allergy (Verified 12/20/22 19:18) Hives HIVES droperidol [Droperidol] Allergy (Verified 12/20/22 19:18) Hives HIVES duloxetine HCl [From Cymbalta] Allergy (Verified 12/20/22 19:18) SEIZURE SEIZURE ibuprofen Allergy (Verified 12/20/22 19:18) Hives HIVES ketorolac tromethamine [From Toradol] Allergy (Verified 12/20/22 19:18) Hives HIVES naproxen sodium [From Aleve] Allergy (Verified 12/20/22 19:18) Hives HIVES prochlorperazine edisylate [From Compazine] Allergy (Verified 12/20/22 19:18) LOCK JAW LOCK JAW prochlorperazine maleate [From Compazine] Allergy (Verified 12/20/22 19:18) LOCK JAW LOCK JAW morphine Adverse Reaction (Verified 12/20/22 19:18) Itching ITCH trazodone Adverse Reaction (Verified 12/20/22 19:18) Vomiting VOMITING Home Medications: Medroxyprogesterone Acetate [Depo-Subq Provera 104] 150 mg IM CLARIFY 04/20/22 [History] Oxycodone HCl/Acetaminophen [Oxycodone-Acetaminophen 5-325] 1 each PO BID 12/20/22 [History] Travel Risk - International Travel Have you traveled outside of the country in past 3 weeks: No - Coronavirus Screening Are you exhibiting any of the following symptoms?: No Close contact with a COVID-19 positive Pt in past 14-21 Days: No - Vaccine Status Have you recieved a Covid-19 vaccination: No <SANDRO BURGESS - Last Filed: 03/21/23 18:25> - Review of Systems Constitutional: No Fever, No Chills Eyes: No Symptoms Ears, Nose, & Throat: No Symptoms, Other (Tongue appears swollen as does the uvula) Respiratory: No Cough, No Dyspnea Cardiac: No Chest Pain, No Edema, No Syncope Abdominal/Gastrointestinal: No Abdominal Pain, No Nausea, No Vomiting, No Diarrhea Genitourinary Symptoms: No Dysuria Musculoskeletal: No Back Pain, No Neck Pain Skin: No Rash Neurological: No Dizziness, No Focal Weakness, No Sensory Changes Psychological: No Symptoms Endocrine: No Symptoms All Other Systems: Reviewed and Negative <SANDRO BURGESS - Last Filed: 03/21/23 18:25> - Past Medical History Pertinent Past Medical History: Yes Neurological History: Migraines ENT History: No Pertinent History Cardiac History: No Pertinent History Respiratory History: No Pertinent History Endocrine Medical History: Other Musculoskeletal History: Arthritis, Fractures GI Medical History: Pancreatitis History: No Pertinent History Psycho-Social History: No Pertinent History Female Reproductive Disorders: No Pertinent History Other Medical History: Pancreatitis, skull fracture 2008 - Past Surgical History Past Surgical History: Yes Neuro Surgical History: No Pertinent History Cardiac: No Pertinent History Respiratory: No Pertinent History Gastrointestinal: Cholecystectomy Genitourinary: Other Musculoskeletal: No Pertinent History Female Surgical History: No Pertinent History Other Surgical History: Pain pump. ERCPs-multiple last in july, pain pump REMOVAL 01/31 - Social History Smoking Status: Former smoker How long have you smoked: 28 YEARS Exposure to second hand smoke: No Drug Use: none Patient Lives Alone: Yes Significant Family History: no pertinent family hx - Female History Hx Last Menstrual Period: depo shot Hx Now: No <SANDRO BURGESS - Last Filed: 03/21/23 18:25> - Physical Exam General Appearance: mild distress, alert Eye Exam: PERRL/EOMI, eyes nml inspection Ears, Nose, Throat Exam: normal ENT inspection, TMs normal, pharynx normal, moist mucous membranes, other (tongue and uvula are swollen.) Neck Exam: normal inspection, non-tender, supple, full range of motion Respiratory Exam: normal breath sounds, lungs clear, No respiratory distress Cardiovascular Exam: regular rate/rhythm, normal heart sounds, normal peripheral pulses Gastrointestinal/Abdomen Exam: soft, normal bowel sounds, No tenderness, No mass Back Exam: normal inspection, normal range of motion, No CVA tenderness, No vertebral tenderness Extremity Exam: normal inspection, normal range of motion, pelvis stable Neurologic Exam: alert, oriented x 3, cooperative, normal mood/affect, nml cerebellar function, nml station & gait, sensation nml, No motor deficits Skin Exam: normal color, warm, dry, No rash Lymphatic Exam: No adenopathy SpO2 Interpretation: normal SpO2: 98 O2 Delivery: Room Air <ADITYASANDRO - Last Filed: 03/21/23 18:25> - Nursing Vital Signs Nursing Vital Signs: Initial Vital Signs Temperature 98.1 F 03/21/23 17:12 Pulse Rate 99 H 03/21/23 17:12 Respiratory Rate 22 03/21/23 17:12 Blood Pressure 151/116 03/21/23 17:12 O2 Sat by Pulse Oximetry 99 03/21/23 17:12 Pain Scale Pain Intensity 4 - Course Nursing assessment & vital signs reviewed: Yes <SANDRO BURGESS - Last Filed: 03/21/23 18:25> Ordered Tests: Medication Summary Discontinued Medications Generic Name Dose Route Start Last Admin Trade Name Freq PRN Reason Stop Dose Admin Famotidine 20 mg 03/21/23 17:29 03/21/23 17:33 Famotidine 20 Mg/1 Vial IV 03/21/23 17:30 20 mg STAT ONE Administration Famotidine Confirm 03/21/23 17:31 Famotidine 20 Mg/1 Vial Administered 03/21/23 17:32 Dose 20 mg IV .STK-MED ONE Hydromorphone HCl 1 mg 03/21/23 17:28 03/21/23 17:33 Hydromorphone 1 Mg/1ml Inj IV 03/21/23 17:29 1 mg STAT ONE Administration Hydromorphone HCl Confirm 03/21/23 17:31 Hydromorphone 1 Mg/1ml Inj Administered 03/21/23 17:32 Dose 1 mg .ROUTE .STK-MED ONE - Progress Progress: improved <SANDRO BURGESS - Last Filed: 03/21/23 18:25> Medical Desision Making - Risk of complications Minimal Risk: Minimal risk of morbidity <SANDRO BURGESS - Last Filed: 03/21/23 18:25> - Risk of complications The pt has a mod risk of morbidity or mortality based on: Need for prescription drug management <VANDANA SEQUEIRA - Last Filed: 03/21/23 19:19> - Departure Departure Disposition: Home Critical Care Time: No <SANDRO BURGESS - Last Filed: 03/21/23 18:25> <VANDANA SEQUEIRA - Last Filed: 03/21/23 19:19> - Departure Clinical Impression: Allergic reaction Condition: Stable Referrals: RAKESH YE [Primary Care Provider] - Follow up/PCP as directed Additional Instructions: Take Benadryl 50 mg orally every 8 hours for the next 4 days. Take your prescriptions as prescribed. Follow-up with your primary care provider for further evaluation management. Prescriptions: Prednisone 10 mg [Deltasone 10 mg] 10 mg PO TID #12 tablet Famotidine 20 mg [Pepcid 20 MG] 20 mg PO DAILY #5 tablet
[2023-03-21 19:27] VITALS: BP 120/70; PULSE 88; RESP 20; O2SAT 95
== END 2023-03-21 19:33 | disposition home or self-care (01) ==
LOC: ED 17:09
DX: T78.1XXA Other adverse food reactions, not elsewhere classified, initial encounter (principal); Z79.52 Long term (current) use of systemic steroids; Z79.899 Other long term (current) drug therapy; Z28.310 Unvaccinated for COVID-19
CPT/HCPCS: 96374; 96375; 99283; J1170

== ENCOUNTER 2023-03-30 11:41 | Day surgery (SDC) | payer OTHER ==
[2012-11-20 20:56] VITALS: BP 115/78
[2023-03-30] MEDS ORDERED: BUPIVACAINE 0.5% VIAL IJ ONE (11:42)
[2023-03-30 13:33] LABS: HCG URINE TEST NEGATIVE (NEGATIVE)
[2023-03-30] MEDS ORDERED: Versed 2 MG/2 ML Injection ONE ×2 (14:19→15:16)
[2023-03-30] MEDS ORDERED: DIPRIVAN 200 MG/20 ML IV ONE ×2 (15:11→15:17)
[2023-03-30] MEDS ORDERED: Hydromorphone 1 mg/ml Injection ONE (15:40)
--- NOTE | 2023-03-30 16:25 | XRAY ---
Indication: Bilateral L4-S1 MBB. Intraoperative fluoroscopy provided for 21 seconds. Single digital spot image submitted for interpretation demonstrates posterior needle tips projecting over the expected left and right L4-S1 nerve roots. Correlate with intraoperative findings/report.
[2023-03-30] MEDS ORDERED: Lactated Ringers 1,000 ML IV ONE (16:33)
--- NOTE | 2023-03-30 16:53 | XRAY ---
21 seconds of fluoroscopy was used in surgery for a bilateral L4-S1 MBB.
== END 2023-03-30 16:15 | disposition home or self-care (01) ==
LOC: SDC-PAIN 11:41
PROVIDERS: ATTEND Psychiatry & Neurology Pain Medicine
DX: M47.816 Spondylosis without myelopathy or radiculopathy, lumbar region (principal)
CPT/HCPCS: 64493; 64494; 72020; 77002; 81025; J1170; J2250; J2704

== ENCOUNTER 2024-10-09 09:01 | Emergency (ER) | payer OTHER ==
--- NOTE | 2024-10-09 09:09 | ERPHSYRPT ---
- History of Present Illness Time Seen by Provider: 10/09/24 09:09 Historian: patient Exam Limitations: no limitations Physician History: This is a 38-year-old white female patient arrives her private vehicle and states that she has sharp substernal nonradiating chest pain that is central in location. It has been intermittent since she was diagnosed with atrial fibrillation back in July 2024. She has not yet seen a sponsorship manager. Patient states that she is "not from here" although she does list Dr. James as her primary care provider and has been here several times for chest pain and abdominal pain complaints. She visits family frequently. Patient denies shortness of breath. She has no abdominal pain. She has had no vomiting. Patient denies fever and she denies cough. She is a former smoker of tobacco. Patient has a history of migraine headaches, pancreatitis, arthritis, skull fracture in 2008, and hypertension. She refuses aspirin because her GI doctor told her not to take aspirin products or NSAIDs because of her pancreatitis issue. Patient states she is from [facility] and has an appointment to see a sponsorship manager next week in that city. Patient's twelve-lead EKG on 08/04/2024 shows atrial fibrillation with a heart rate of 149 there is no evidence of acute ischemia and the QTc was 444. Patient states he is "allergic" to all, naproxen and morphine. Timing/Duration: today, intermittent (For several weeks) Quality: sharpness Location: substernal, central Chest Pain Radiation: no radiation Severity of Pain-Max: moderate Severity of Pain-Current: moderate Modifying Factors: Improves With: nothing Associated Symptoms: denies symptoms Prior Chest Pain/Cardiac Workup: no prior cardiac workup Nitro Today/Relief: no nitro taken today Aspirin Treatment Today: no aspirin today Allergies/Adverse Reactions: Iodinated Contrast Media Allergy (Intermediate, Verified 08/04/24 23:45) Swelling of Face codeine [Codeine] Allergy (Verified 08/04/24 22:01) Hives HIVES droperidol [Droperidol] Allergy (Verified 08/04/24 22:01) Hives HIVES duloxetine HCl [From Cymbalta] Allergy (Verified 08/04/24 22:01) SEIZURE SEIZURE ibuprofen Allergy (Verified 08/04/24 22:01) Hives HIVES ketorolac tromethamine [From Toradol] Allergy (Verified 08/04/24 22:01) Hives HIVES naproxen sodium [From Aleve] Allergy (Verified 08/04/24 22:01) Hives HIVES prochlorperazine edisylate [From Compazine] Allergy (Verified 08/04/24 22:01) LOCK JAW LOCK JAW prochlorperazine maleate [From Compazine] Allergy (Verified 08/04/24 22:01) LOCK JAW LOCK JAW morphine Adverse Reaction (Verified 08/04/24 22:01) Itching ITCH trazodone Adverse Reaction (Verified 08/04/24 22:01) Vomiting VOMITING Home Medications: Medroxyprogesterone Acetate [Depo-Subq Provera 104] 150 mg IM CLARIFY 04/20/22 [History] Flecainide Acetate 50 mg PO DAILY 10/09/24 [History] Lipase/Protease/Amylase [Creon Dr 3,000 Unit Capsule] 1 tab PO DAILY 10/09/24 [History] Metoprolol Tartrate 50 mg [Lopressor 50 MG] 50 mg PO DAILY 10/09/24 [History] Hx Tetanus, Diphtheria Vaccination/Date Given: Yes Hx Influenza Vaccination/Date Given: No Hx Pneumococcal Vaccination/Date Given: No Travel Risk - International Travel Have you traveled outside of the country in past 3 weeks: No - Emerging Infectious Disease Are you exhibiting symptoms associated with any current EIDs: No - Review of Systems Constitutional: No Symptoms Eyes: No Symptoms Ears, Nose, & Throat: No Symptoms Respiratory: No Symptoms Cardiac: Chest Pain Abdominal/Gastrointestinal: No Symptoms Genitourinary Symptoms: No Symptoms Musculoskeletal: No Symptoms Skin: No Symptoms Neurological: No Symptoms Psychological: No Symptoms Endocrine: No Symptoms Hematologic/Lymphatic: No Symptoms Immunological/Allergic: No Symptoms All Other Systems: Reviewed and Negative - Past Medical History Pertinent Past Medical History: Yes Neurological History: Migraines ENT History: No Pertinent History Cardiac History: No Pertinent History Respiratory History: No Pertinent History Endocrine Medical History: Other Musculoskeletal History: Arthritis, Fractures GI Medical History: Pancreatitis History: No Pertinent History Psycho-Social History: No Pertinent History Female Reproductive Disorders: No Pertinent History Other Medical History: Pancreatitis, skull fracture 2008 - Past Surgical History Past Surgical History: Yes Neuro Surgical History: No Pertinent History Cardiac: No Pertinent History Respiratory: No Pertinent History Gastrointestinal: Cholecystectomy Genitourinary: Other Musculoskeletal: No Pertinent History Female Surgical History: No Pertinent History Other Surgical History: Pain pump. ERCPs-multiple last in july, pain pump REMOVAL 01/31 Significant Family History: no pertinent family hx - Female History Hx Last Menstrual Period: DEPO SHOT - Social History Smoking Status: Former smoker How long have you smoked: 28 YEARS Exposure to second hand smoke: No Drug Use: none Patient Lives Alone: Yes - Social Determinants of Health Will the patient participate in the screening: Yes Do you worry about a steady place to live?: No In the past 12 months,have you had to go without utilities?: No Transportation Issues: No Has anyone in your support network made you feel unsafe?: No Have you or anyone in your house had to go w/o enough food: No - Nursing Vital Signs Nursing Vital Signs: Initial Vital Signs Temperature 97.8 F 10/09/24 09:02 Pulse Rate 104 H 10/09/24 09:02 Respiratory Rate 18 10/09/24 09:02 Blood Pressure 145/105 10/09/24 09:02 O2 Sat by Pulse Oximetry 97 10/09/24 09:02 Pain Scale Pain Intensity 6 - Physical Exam General Appearance: no apparent distress, alert, anxiety Eye Exam: PERRL/EOMI, eyes nml inspection Ears, Nose, Throat Exam: normal ENT inspection, moist mucous membranes Neck Exam: normal inspection, non-tender, supple, full range of motion Respiratory Exam: normal breath sounds, chest tenderness, lungs clear, airway intact, No respiratory distress Cardiovascular Exam: regular rate/rhythm, normal heart sounds, normal peripheral pulses Gastrointestinal/Abdomen Exam: soft, normal bowel sounds, No tenderness Pelvic Exam: not done Rectal Exam: not done Back Exam: normal inspection, normal range of motion, No CVA tenderness Extremity Exam: normal inspection, normal range of motion, pelvis stable Neurologic Exam: alert, oriented x 3, cooperative, 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 No acute ischemia on today's twelve-lead EKG.) Ordered Tests: Active Orders 24 hr Category Date Time Status Care Manager Cna STAT Care 10/09/24 09:31 Active EKG-ER Only STAT Care 10/09/24 09:31 Active IV Insertion STAT Care 10/09/24 09:31 Active CHEST 1 VIEW (PORTABLE) Stat Exams 10/09/24 09:31 Completed CBC W DIFF Stat Lab 10/09/24 09:40 Completed CMP Stat Lab 10/09/24 09:40 Completed MAGNESIUM Stat Lab 10/09/24 09:40 Completed NT PRO BNPII Stat Lab 10/09/24 09:40 Completed TROPONIN Q4H Lab 10/09/24 09:40 Completed TROPONIN Q4H Lab 10/09/24 13:45 Ordered TROPONIN Q4H Lab 10/09/24 17:45 Ordered Medication Summary Discontinued Medications Generic Name Dose Route Start Last Admin Trade Name Freq PRN Reason Stop Dose Admin Hydromorphone HCl 1 mg 10/09/24 09:33 10/09/24 09:40 Hydromorphone 1 Mg/1ml Inj IV 10/09/24 09:34 1 mg STAT ONE Administration Hydromorphone HCl Confirm 10/09/24 09:36 Hydromorphone 1 Mg/1ml Inj Administered 10/09/24 09:37 Dose 1 mg .ROUTE .STK-MED ONE Ondansetron HCl 4 mg 10/09/24 09:33 10/09/24 09:39 Ondansetron Hcl 4 Mg/2 Ml Vial IV 10/09/24 09:34 4 mg STAT ONE Administration Ondansetron HCl Confirm 10/09/24 09:36 Ondansetron Hcl 4 Mg/2 Ml Vial Administered 10/09/24 09:37 Dose 4 mg .ROUTE .STK-MED ONE Lab/Rad Data: Laboratory Result Diagrams 10/09/24 09:40 10/09/24 09:40 Laboratory Results 10/09/24 10/09/24 10/09/24 Range/Units 09:40 09:40 09:40 WBC 6.6 (3.98-10.04) x10^3/uL RBC 4.17 (3.93-5.22) x10^6/uL Hgb 13.0 (11.2-15.7) g/dL Hct 38.0 (34.1-44.9) % MCV 91.1 (79.4-94.8) fL MCH 31.2 (25.6-32.2) pg MCHC 34.2 (32.2-35.5) g/dL RDW 11.9 (11.7-14.4) % Plt Count 279 (182-369) x10^3/uL MPV 10.2 (9.4-12.3) fL Gran % 44.9 (34.0-71.1) % Immature Gran % (Auto) 1.1 H (0.001-0.429) % Nucleat RBC Rel Count 0.0 (0.00-0.2) % Eos # (Auto) 0.10 (0.04-0.36) x10^3/uL Immature Gran # (Auto) 0.07 H (0.001-0.031) x10^3u/L Absolute Lymphs (auto) 2.68 (1.18-3.74) x10^3/uL Absolute Monos (auto) 0.71 (0.24-0.86) x10^3/uL Absolute Nucleated RBC 0.00 (0.00-0.012) x10^3u/L Lymphocytes % 40.9 (19.3-51.7) % Monocytes % 10.8 (4.7-12.5) % Eosinophils % 1.5 (0.7-5.8) % Basophils % 0.8 (0.1-1.2) % Absolute Granulocytes 2.94 (1.56-6.13) x10^3/uL Basophils # 0.05 (0.01-0.08) x10^3/uL Sodium 144 (135-145) mmol/L Potassium 3.9 (3.5-5.1) mmol/L Chloride 110 H (98-107) mmol/L Carbon Dioxide 21 L (22-30) mmol/L Anion Gap 16.8 H (5-15) MEQ/L BUN 9 (7-17) mg/dL Creatinine 0.69 (0.52-1.04) mg/dL Estimated GFR 112.4 ML/MIN Glucose 111 H (74-106) mg/dL Calcium 9.9 (8.4-10.2) mg/dL Magnesium 1.7 (1.6-2.3) mg/dL Total Bilirubin 0.20 (0.2-1.3) mg/dL AST 37 H (14-36) U/L ALT 70 H (0-35) U/L Alkaline Phosphatase 68 (38-126) U/L Troponin I < 0.012 (0.000-0.033) ng/mL NT-Pro-B Natriuret Pep < 20.0 (<300) pg/mL Serum Total Protein 7.7 (6.3-8.2) g/dL Albumin 4.7 (3.5-5.0) g/dL - Progress Progress: improved, re-examined Air Movement: good Progress Note: 10/09/24 09:41 My medical decision making and the assignment of moderate complexity of this patient's medical issue today is based on review of the patient's past medical history, review of patient's medication list, reviewed patient drug allergy list, history present illness and physical findings on examination. The workup in this patient includes intravenous line, EKG, magnesium level, BNP, 12-lead EKG, troponin level, CBC, CMP, chest x-ray Differential diagnosis includes was not limited to anxiety about health, musculoskeletal pain, myocardial infarction, electrolyte abnormalities, arrhythmia 10/09/24 09:55 I interpreted the preliminary chest x-ray report in this patient. I see no acute cardiopulmonary process. The final chest x-ray report was interpreted by the radiologist and I reviewed the impression. The impression states normal heart, lungs, bony thorax 10/09/24 10:25 I interpreted the patient's laboratory data results. Based on the laboratory data results, there are no acute, emergent medical issues. Blood Culture(s) Obtained: No Antibiotics given: No Counseled pt/family regarding: lab results, diagnosis, need for follow-up Medical Desision Making - Diagnostic Testing Diagnostic test were ordered, analyzed, and reviewed by me: Yes Radiological Interpretation: Reviewed by me, Teleradiologist Report - Risk of complications Low Risk: Low risk of morbidity from additional dx testing or treatment - Departure Departure Disposition: Home Clinical Impression: Nonspecific chest pain Condition: Stable Critical Care Time: No Referrals: RAKESH JAMES [ACTIVE STAFF, FAMILY PRACTICE] - Follow up/PCP as directed Additional Instructions: Tylenol 650 mg orally every 6 hours while awake for pain control. Call your primary care provider today, 10/09/2024, to make arrangements for follow-up appointment for further evaluation management of any outpatient pain complaints. Keep your appointment with your sponsorship manager scheduled for next week.
[2024-10-09 09:10] VITALS: TEMP 97.8
[2024-10-09] MEDS ORDERED: Hydromorphone 1 mg/ml Injection ONE (09:36)
[2024-10-09] MEDS ORDERED: Zofran 4 MG/2 ML VIAL ONE (09:36)
[2024-10-09] MEDS: Zofran 4 MG/2 ML VIAL IV ONE (09:39)
[2024-10-09] MEDS: Hydromorphone 1 mg/ml Injection IV ONE (09:40)
[2024-10-09 09:52] LABS: BASOPHIL % 0.8 % (0.1-1.2); Basophil (Absolute #) 0.05 x10^3/uL (0.01-0.08); Eosinophil (Absolute #) 0.10 x10^3/uL (0.04-0.36); Hematocrit 38.0 % (34.1-44.9); Hemoglobin 13.0 g/dL (11.2-15.7); IMMATURE GRAN # 0.07 x10^3u/L (0.001-0.031); IMMATURE GRAN % 1.1 % (0.001-0.429); Lymphocyte (Absolute #) 2.68 x10^3/uL (1.18-3.74); Mean Corpuscular Hemoglobin 31.2 pg (25.6-32.2); Mean Corpuscular Hgb Concent. 34.2 g/dL (32.2-35.5); Monocyte (Absolute #) 0.71 x10^3/uL (0.24-0.86); NUCLEATED RBC # 0.00 x10^3u/L (0.00-0.012); NUCLEATED RBC % 0.0 % (0.00-0.2); Platelet Count 279 x10^3/uL (182-369); Red Blood Count 4.17 x10^6/uL (3.93-5.22); White Blood Count 6.6 x10^3/uL (3.98-10.04)
--- NOTE | 2024-10-09 09:52 | XRAY ---
Indication: Chest pain. Comparison: August 04, 2024 Portable chest again demonstrates normal heart, lungs, and bony thorax.
[2024-10-09 10:03] VITALS: PULSE 99; O2SAT 95
[2024-10-09 10:16] LABS: Calcium 9.9 mg/dL (8.4-10.2); Carbon Dioxide 21 mmol/L (22-30); Creatinine 1 0.69 mg/dL (0.52-1.04); EST GLOMERULAR FILTRATION RATE 112.4 ML/MIN; Glucose 111 mg/dL (74-106); NT PRO BNPII < 20.0 pg/mL (<300); Potassium 3.9 mmol/L (3.5-5.1); SGOT/AST 37 U/L (14-36); SGPT/ALT 70 U/L (0-35); Total Protein 7.7 g/dL (6.3-8.2)
[2024-10-09 10:45] VITALS: BP 135/92; RESP 19
== END 2024-10-09 10:48 | disposition home or self-care (01) ==
LOC: ED 09:01
DX: R07.9 Chest pain, unspecified (principal); I10 Essential (primary) hypertension; Z79.899 Other long term (current) drug therapy